=== PATIENT | female | born 1940 | race Caucasian/White ===

== ENCOUNTER → 2017-11-23 | Outpatient (CLI) | payer MEDICARE ==
[~2017-11-23] MED LIST: ASPI-999 PO; CEPH500T PO; IBUP-1779 PO
--- NOTE | 2017-11-23 15:38 | Diagnostic Imaging Report ---
INDICATION: Shoulder pain. Two views were obtained. FINDINGS: There is mild arthrosis of the acromioclavicular joint. There is no fracture or dislocation. Right lung is clear. Soft tissues are unremarkable. IMPRESSION: Mild arthrosis of the acromioclavicular joint, otherwise unremarkable. Dictated by: Dictated on workstation # [id number]
== END ==
LOC: RAD 12:00
PROVIDERS: ATTEND Family Medicine
DX: M19.011 Primary osteoarthritis, right shoulder (principal)
CPT/HCPCS: 73030

== ENCOUNTER → 2017-11-27 | Outpatient (CLI) | payer MEDICARE ==
--- NOTE | 2017-11-27 13:24 | Diagnostic Imaging Report ---
PROCEDURE: MR imaging cervical spine without contrast. TECHNIQUE: Multiplanar, multisequence MR imaging of the cervical spine was performed without contrast. INDICATION: Numbness and soreness in neck for the last year. COMPARISON: There are no prior studies available for comparison. FINDINGS: The T2 sagittal images show the vertebral body heights and alignment to be within normal limits and the intervertebral disc spaces to be fairly well maintained, particularly given the patient's age. There is desiccation of the disc at every level and there is a slight disc bulge eccentric to the left at C6-C7. There is also minimal anterior translation of C6 with respect to C7. The disc narrows the AP diameter of the thecal sac to approximately 10.5 mm. There is mild narrowing of the neuroforamen on the left at this level. There is no evidence for spinal stenosis at the C5-C6 level but there is mild narrowing of the neuroforamen on the left at this level as well. At the C4-C5 level, there is a disc bulge centrally which narrows the AP diameter of the thecal sac to 11 mm. There is also infolding of the ligamentum flavum on the left and this does produce some deformity of the posterolateral aspect of the thecal sac. There does not appear to be any significant central stenosis or neuroforaminal narrowing, however. The remainder of the cervical spine is unremarkable for spinal stenosis or nerve root encroachment. There is no abnormal signal arising from the cord or other vertebral bodies to indicate an acute abnormality. There is a vertebral body hemangioma within T2. There is no sign of a paraspinal mass. The expected carotid and vertebral flow voids are evident bilaterally. The right vertebral artery is dominant. IMPRESSION: 1. There is moderate degenerative disc disease involving the cervical spine. There is no evidence for high-grade central stenosis but there is narrowing of the neuroforamen on the left at C6-C7 and C5-C6. The infolding of the ligamentum flavum on the left at C4-C5 also results in some deformity of the thecal sac. 2. There is no sign of an acute bony abnormality or of a cord lesion. Dictated by: Dictated on workstation # [id number]
== END ==
LOC: RAD 10:08
PROVIDERS: ATTEND Family Medicine
DX: M48.02 Spinal stenosis, cervical region (principal); M99.71 Connective tissue and disc stenosis of intervertebral foramina of cervical region; M50.30 Other cervical disc degeneration, unspecified cervical region
CPT/HCPCS: 72141

== ENCOUNTER 2018-05-24 12:56 | Inpatient (IN) | payer MEDICARE ==
[~2018-05-24] VITALS: Ht 165.1 cm; Wt 99.8 kg
[2018-05-24] MEDS ORDERED: LEVO50TA6 PO (13:39)
[2018-05-24] MEDS ORDERED: PROP10TA8 PO (13:39)
[2018-05-24] MEDS ORDERED: SERT50TA9 PO (13:40)
[2018-05-24] MEDS ORDERED: MEMA10TA2 PO (13:42)
[2018-05-24] MEDS ORDERED: fentaNYL INJECTION 100 MCG/2 ML AMP IVP ONE (14:00)
--- NOTE | 2018-05-24 14:03 | ED General ---
General Chief Complaint: General Problems/Pain Stated Complaint: SEVERE R LEG PAIN Nursing Triage Note: AMB TO ROOM WITH DAUGHTER C/O PAIN IN R HIP WITH RADIATION TO R GROIN AND THIGH. Nursing Sepsis Screen: No Definite Risk Source of Information: Patient Exam Limitations: No Limitations History of Present Illness Date Seen by Provider: May 24, 2018 Time Seen by Provider: 14:01 Initial Comments To ER with right anterior groin pain. This began yesterday when twisting to get out of the car. Pain is excruciating and worsens with flexion of the hip on the right. She had similar pain years ago from an injury and ultimately it was determined that she had a partial tear of the right psoas muscle. She also reports that she's had some swelling and heaviness to bilateral lower extremities since 22 April associated with intermittent chest pain, dyspnea on exertion. Her most recent bout of chest pain was in the car on the way down here, the chest pain is in the center of her chest and radiates through to her back and up to her jaws. It lasted about 30 minutes and resolved spontaneously. Timing/Duration: Intermittent Severity: Moderate Modifying Factors: worse with Movement Associated Systoms: Chest Pain Allergies and Home Medications Allergies Coded Allergies: No Known Drug Allergies (Unverified , 02/06/15) Home Medications Aspirin 81 Mg Tab.chew, 81 MG PO DAILY, (Reported) Ibuprofen 400 Mg Tablet, 400 MG PO DAILY, (Reported) Propranolol HCl 10 Mg Tablet, 10 MG PO BID, (Reported) Patient Home Medication List Home Medication List Reviewed: Yes Review of Systems Review of Systems Constitutional: see HPI; No chills, No fever EENTM: see HPI Respiratory: see HPI, dyspnea on exertion, short of breath Cardiovascular: see HPI, chest pain Genitourinary: no symptoms reported Musculoskeletal: no symptoms reported Skin: no symptoms reported Psychiatric/Neurological: No Symptoms Reported Hematologic/Lymphatic: No Symptoms Reported Immunological/Allergic: no symptoms reported Past Jbaehuu-Mnqusj-Goscuk Hx Patient Social History Alcohol Use: Denies Use Recreational Drug Use: No Smoking Status: Never a Smoker Recent Foreign Travel: No Contact w/Someone Who Travel: No Recent Infectious Disease Expo: No Past Medical History Surgeries: No Bladder Surgery, Gallbladder, Hysterectomy Cardiac: No Neurological: Yes Dementia, Parkinson's Disease Reproductive Disorders: No Gastrointestinal: No Endocrine: Yes Hypothyroidsim Cancer: No Psychosocial: No Family Medical History Heart Disease, Hypertension Physical Exam Vital Signs Vital Signs - First Documented 05/24/18 13:11 Temp 98.9 Pulse 78 Resp 18 B/P (MAP) 142/69 (93) Capillary Refill : Less Than 3 Seconds Height, Weight, BMI Height: 5'5.00" Weight: 220lbs. oz. [id number]; BMI Method:Stated General Appearance: No Apparent Distress, WD/WN Eyes: Bilateral Eye Normal Inspection, Bilateral Eye PERRL, Bilateral Eye EOMI HEENT: PERRL/EOMI, TMs Normal Respiratory: Normal Breath Sounds, No Accessory Muscle Use, No Respiratory Distress Gastrointestinal: Normal Bowel Sounds, Non Tender, Soft Extremity: Normal Capillary Refill, Normal Inspection, Other (tenderness to palpation right groin. There is +1-+2 pitting edema bilateral lower extremities) Neurologic/Psychiatric: Alert, Oriented x3 Skin: Normal Color, Warm/Dry Progress/Results/Core Measures Suspected Sepsis Recent Fever Within 48 Hours: No Infection Criteria Present: None New/Unexplained Altered Menta: No Sepsis Screen: No Definite Risk SIRS Temperature:98.9 Pulse: 78 Respiratory Rate: 18 Laboratory Tests 05/24/18 14:30: White Blood Count 10.3 Blood Pressure 142 /69 Mean: 93 Laboratory Tests 05/24/18 14:30: Creatinine 1.08, Platelet Count 220, Total Bilirubin 0.4 Results/Orders Lab Results Laboratory Tests Test 05/24/18 14:30 Range/Units White Blood Count 10.3 4.3-11.0 10^3/uL Red Blood Count 4.15 L 4.35-5.85 10^6/uL Hemoglobin 13.4 11.5-16.0 G/DL Hematocrit 40 35-52 % Mean Corpuscular Volume 97 80-99 FL Mean Corpuscular Hemoglobin 32 25-34 PG Mean Corpuscular Hemoglobin Concent 33 32-36 G/DL Red Cell Distribution Width 13.2 10.0-14.5 % Platelet Count 220 130-400 10^3/uL Mean Platelet Volume 9.6 7.4-10.4 FL Neutrophils (%) (Auto) 74 42-75 % Lymphocytes (%) (Auto) 16 12-44 % Monocytes (%) (Auto) 8 0-12 % Eosinophils (%) (Auto) 2 0-10 % Basophils (%) (Auto) 0 0-10 % Neutrophils # (Auto) 7.6 1.8-7.8 X 10^3 Lymphocytes # (Auto) 1.7 1.0-4.0 X 10^3 Monocytes # (Auto) 0.8 0.0-1.0 X 10^3 Eosinophils # (Auto) 0.2 0.0-0.3 10^3/uL Basophils # (Auto) 0.0 0.0-0.1 10^3/uL Sodium Level 138 135-145 MMOL/L Potassium Level 4.3 3.6-5.0 MMOL/L Chloride Level 106 98-107 MMOL/L Carbon Dioxide Level 20 L 21-32 MMOL/L Anion Gap 12 5-14 MMOL/L Blood Urea Nitrogen 18 7-18 MG/DL Creatinine 1.08 0.60-1.30 MG/DL Estimat Glomerular Filtration Rate 49 BUN/Creatinine Ratio 17 Glucose Level 90 70-105 MG/DL Calcium Level 9.4 8.5-10.1 MG/DL Corrected Calcium 9.5 8.5-10.1 MG/DL Total Bilirubin 0.4 0.1-1.0 MG/DL Aspartate Amino Transf (AST/SGOT) 23 5-34 U/L Alanine Aminotransferase (ALT/SGPT) 14 0-55 U/L Alkaline Phosphatase 124 40-136 U/L Troponin I < 0.30 <0.30 NG/ML B-Type Natriuretic Peptide 96.7 <100.0 PG/ML Total Protein 6.8 6.4-8.2 GM/DL Albumin 3.9 3.2-4.5 GM/DL Thyroid Stimulating Hormone (TSH) 3.13 0.35-4.94 UIU/ML Free Thyroxine 0.93 0.70-1.48 NG/DL My Orders Orders - GURPREET COTTON APRN Ekg Tracing (05/24/18 13:59) Troponin I (05/24/18 13:59) Cbc With Automated Diff (05/24/18 13:59) Comprehensive Metabolic Panel (05/24/18 13:59) Ua Culture If Indicated (05/24/18 13:59) BNP (05/24/18 13:59) Thyroid Stimulating Hormone (05/24/18 13:59) Free T4 (Free Thyroxine) (05/24/18 13:59) Iv Heplock-Insert (Order) (05/24/18 13:59) Fentanyl Injection (Sublimaze Injection (05/24/18 14:00) Ct Abdomen/Pelvis W (05/24/18 13:59) Ns Iv 500 Ml (Sodium Chloride 0.9%) (05/24/18 15:15) Iohexol Injection (Omnipaque 350 Mg/Ml 1 (05/24/18 15:30) Contrast Received (Contrast Received) (05/24/18 15:30) Ns (Ivpb) (Sodium Chloride 0.9%) (05/24/18 15:30) Hydrocodone/Apap 5/325 Tablet (Lortab 5 (05/24/18 16:00) Chest 1 View, Ap/Pa Only (05/24/18 15:49) Medications Given in ED Current Medications Medications Dose Ordered Sig/Eldon Route Start Time Stop Time Status Last Admin Dose Admin Acetaminophen/ Hydrocodone Bitart 1 tab ONCE ONCE PO 05/24/18 16:00 05/24/18 16:01 DC 05/24/18 15:59 1 TAB Fentanyl Citrate 50 mcg ONCE ONCE IVP 05/24/18 14:00 05/24/18 14:02 DC 05/24/18 14:26 50 MCG Iohexol 100 ml ONCE ONCE IV 05/24/18 15:30 05/24/18 15:33 DC 05/24/18 15:29 100 ML Sodium Chloride 250 ml ONCE ONCE IV 05/24/18 15:30 05/24/18 15:34 DC 05/24/18 15:29 80 ML Vital Signs/I&O 05/24/18 13:11 Temp 98.9 Pulse 78 Resp 18 B/P (MAP) 142/69 (93) Capillary Refill : Less Than 3 Seconds Blood Pressure Mean: 93 Diagnostic Imaging Comments NAME: [facility] REC#: [id number] PT STATUS: REG ER : 1940 PHYSICIAN: GURPREET COTTON APRN ADMIT DATE: 05/24/18/ER Draft Date of Exam:05/24/18 CT ABDOMEN/PELVIS W PROCEDURE: CT abdomen and pelvis with contrast. TECHNIQUE: Multiple contiguous axial images were obtained through the abdomen and pelvis after administration of intravenous contrast. INDICATION: Right groin pain. Right hip and femur pain. COMPARISON: None. FINDINGS: There is airspace opacity in the dependent lungs bilaterally, and at the lung bases, thought to represent atelectasis although underlying infiltrate is difficult to exclude. The cardiac silhouette is normal in size. No pericardial effusion is seen. Cholecystectomy clips are noted. No focal hepatic lesions are seen. There are areas of decreased attenuation in the liver which likely represent fatty infiltration. The spleen appears normal. There is a small hiatal hernia. The pancreas appears normal. The common bile duct is dilated, likely due to post cholecystectomy changes. The adrenal glands appear normal. The kidneys demonstrate no focal masses. There is no hydronephrosis. The appendix is not seen. There is moderate stool throughout the colon. No free fluid or free air is seen in the abdomen. No lymphadenopathy is seen. There is no bowel obstruction. There is mild atherosclerosis in the aorta. No acute osseous abnormality is seen. IMPRESSION: 1. No acute abdominopelvic abnormality is seen. 2. Small hiatal hernia. Dictated on workstation # [id number] Dict: 05/24/18 1548 Trans: 05/24/18 1559 [id number] Interpreted by: RAMONE NEGRON MD Electronically signed by: Departure Communication (Admissions) Time/Spoke to Admitting Phy: 16:[address] Ash. Would recommend admission for observation and cardiac workup. Spoke with Dr. Dr. Springer. We will admit, consult cardiology. Impression Primary Impression: Chest pain Additional Impressions: Pedal edema Activity intolerance related to fatigue Right inguinal pain Disposition: ADMITTED INPATIENT Condition: Stable Admissions Decision to Admit Reason: Admit from ER (General) Decision to Admit/Date: May 24, 2018 Time/Decision to Admit Time: 16:49 Departure-Patient Inst. Referrals: ANNIE SPRINGER MD (PCP/Family) Primary Care Physician GURPREET COTTON APRN May 24, 2018 14:03
[2018-05-24 14:55] LABS: BASOPHILS % (AUTO) 0 % (0-10); EOSINOPHILS # (AUTO) 0.2 10^3/uL (0.0-0.3); EOSINOPHILS % (AUTO) 2 % (0-10); HEMATOCRIT 40 % (35-52); HEMOGLOBIN 13.4 G/DL (11.5-16.0); LYMPHOCYTES # (AUTO) 1.7 X 10^3 (1.0-4.0); LYMPHOCYTES % (AUTO) 16 % (12-44); MEAN CORPUSCULAR HEMOGLOBIN 32 PG (25-34); MEAN CORPUSCULAR HGB CONC 33 G/DL (32-36); MEAN CORPUSCULAR VOLUME 97 FL (80-99); MEAN PLATELET VOLUME 9.6 FL (7.4-10.4); MONOCYTES # (AUTO) 0.8 X 10^3 (0.0-1.0); MONOCYTES % (AUTO) 8 % (0-12); NEUTROPHILS # (AUTO) 7.6 X 10^3 (1.8-7.8); NEUTROPHILS % (AUTO) 74 % (42-75); PLATELET COUNT 220 10^3/uL (130-400); RED BLOOD COUNT 4.15 10^6/uL (4.35-5.85); RED CELL DISTRIBUTION WIDTH 13.2 % (10.0-14.5); WHITE BLOOD COUNT 10.3 10^3/uL (4.3-11.0)
[2018-05-24 15:12] LABS: ALANINE AMINOTRANSFERASE 14 U/L (0-55); ALBUMIN 3.9 GM/DL (3.2-4.5); ALKALINE PHOSPHATASE 124 U/L (40-136); BILIRUBIN,TOTAL 0.4 MG/DL (0.1-1.0); BUN/CREATININE RATIO 17; CALCIUM 9.4 MG/DL (8.5-10.1); CARBON DIOXIDE 20 MMOL/L (21-32); CHLORIDE 106 MMOL/L (98-107); CREATININE SERUM 1.08 MG/DL (0.60-1.30); GFR ESTIMATED 49; GLUCOSE 90 MG/DL (70-105); POTASSIUM 4.3 MMOL/L (3.6-5.0); SODIUM 138 MMOL/L (135-145); TOTAL PROTEIN 6.8 GM/DL (6.4-8.2)
[2018-05-24] MEDS ORDERED: NS IV 500 ML 500 ML IV SCH (15:15)
[2018-05-24] MEDS ORDERED: RECEIVED CONTRAST (Hold Metformin) IV SCH (15:30)
[2018-05-24] MEDS ORDERED: IOHEXOL 350 MG/ML 100 ML (OMNIPAQUE 350) VIAL IV ONE (15:30)
[2018-05-24] MEDS ORDERED: NS 250 ML (IVPB) BAG IV ONE (15:30)
[2018-05-24 15:33] LABS: FREE T4 (FREE THYROXINE) 0.93 NG/DL (0.70-1.48)
[2018-05-24] MEDS ORDERED: HYDROcodone/APAP 5 MG/325 MG (LORTAB) TAB PO ONE (16:00)
--- NOTE | 2018-05-24 16:00 | Diagnostic Imaging Report ---
PROCEDURE: CT abdomen and pelvis with contrast. TECHNIQUE: Multiple contiguous axial images were obtained through the abdomen and pelvis after administration of intravenous contrast. INDICATION: Right groin pain. Right hip and femur pain. COMPARISON: None. FINDINGS: There is airspace opacity in the dependent lungs bilaterally, and at the lung bases, thought to represent atelectasis although underlying infiltrate is difficult to exclude. The cardiac silhouette is normal in size. No pericardial effusion is seen. Cholecystectomy clips are noted. No focal hepatic lesions are seen. There are areas of decreased attenuation in the liver which likely represent fatty infiltration. The spleen appears normal. There is a small hiatal hernia. The pancreas appears normal. The common bile duct is dilated, likely due to post cholecystectomy changes. The adrenal glands appear normal. The kidneys demonstrate no focal masses. There is no hydronephrosis. The appendix is not seen. There is moderate stool throughout the colon. No free fluid or free air is seen in the abdomen. No lymphadenopathy is seen. There is no bowel obstruction. There is mild atherosclerosis in the aorta. No acute osseous abnormality is seen. IMPRESSION: 1. No acute abdominopelvic abnormality is seen. 2. Small hiatal hernia. Dictated by: Dictated on workstation # [id number]
--- NOTE | 2018-05-24 16:36 | Diagnostic Imaging Report ---
PATIENT HISTORY: Pain in the right hip and thigh. TECHNIQUE: Frontal view of the chest. COMPARISON: None. FINDINGS: Lung volumes are mildly large. There are diffuse interstitial opacities in the lungs bilaterally. There is mild cardiomegaly. No focal airspace consolidation is seen. There is no significant pleural effusion or pneumothorax. No acute osseous abnormalities seen. IMPRESSION: 1. Mild cardiomegaly with diffuse interstitial opacities bilaterally. These may be chronic versus mild interstitial edema. Dictated by: Dictated on workstation # [id number]
[2018-05-24] MEDS ORDERED: ENOXAPARIN 100 MG/1 ML (LOVENOX) SYR SC SCH (17:00)
--- NOTE | 2018-05-24 17:01 | Consultation-Cardiology ---
HPI-Cardiology Cardiology Consultation Date of Consultation 05/24/18 Date of Admission Time Seen by Provider: 16:56 Indication: chest pain HPI 78 years old lady with history of early Parkinson, family history of heart disease, has been having pain in her right groin reported discomfort with motion , weakness in her right leg secondary to the pain. Has been progressing to the point that she needed to come to the emergency room for evaluation. She has been having mild pedal edema, reporting occasional episodes of chest pain described as dull achiness in the retrosternal area occasionally on the left side of her chest radiating to the back and jaw. No palpitation. No syncope or near syncopal episode, had an episode of chest pain lasted for few minutes on her way to the emergency room today. Currently laying down comfortably, denied any active pain except her right groin pain, had a CT scan of the abdomen and pelvis which was negative. Home Medications & Allergies Allergies: Coded Allergies: No Known Drug Allergies (Unverified , 02/06/15) Home Medication List Reviewed: Yes HGG-Hzzufo-Wcsjon Hx Patient Social History Marital Status: Employed/Student: retired Alcohol Use: Denies Use Recreational Drug Use: No Smoking Status: Never a Smoker Recent Foreign Travel: No Recent Infectious Disease Expo: No Past Medical History History of cholecystectomy Parkinson Early dementia Family Medical History Significant Family History: Heart Disease, Hypertension Family Medical Hx Both parent has history of heart disease, father and mother in their late 80s Review of Systems Constitutional: see HPI, malaise EENTM: see HPI, no symptoms reported Respiratory: see HPI; No cough; dyspnea on exertion; No hemoptysis, No orthopnea, No phlegm, No short of breath, No stridor, No wheezing, No other Cardiovascular: see HPI, chest pain, edema; No Hx of Intervention, No palpitations, No syncope, No vascular heart diseas, No other Gastrointestinal: RUQ, see HPI, abdominal pain Genitourinary: no symptoms reported, see HPI Musculoskeletal: see HPI, back pain, joint pain, muscle pain, muscle weakness Skin: no symptoms reported, see HPI Psychiatric/Neurological: No Symptoms Reported, See HPI Reviewed Test Results Reviewed Test Results Lab Laboratory Tests Test 05/24/18 14:30 Range/Units White Blood Count 10.3 4.3-11.0 10^3/uL Red Blood Count 4.15 L 4.35-5.85 10^6/uL Hemoglobin 13.4 11.5-16.0 G/DL Hematocrit 40 35-52 % Mean Corpuscular Volume 97 80-99 FL Mean Corpuscular Hemoglobin 32 25-34 PG Mean Corpuscular Hemoglobin Concent 33 32-36 G/DL Red Cell Distribution Width 13.2 10.0-14.5 % Platelet Count 220 130-400 10^3/uL Mean Platelet Volume 9.6 7.4-10.4 FL Neutrophils (%) (Auto) 74 42-75 % Lymphocytes (%) (Auto) 16 12-44 % Monocytes (%) (Auto) 8 0-12 % Eosinophils (%) (Auto) 2 0-10 % Basophils (%) (Auto) 0 0-10 % Neutrophils # (Auto) 7.6 1.8-7.8 X 10^3 Lymphocytes # (Auto) 1.7 1.0-4.0 X 10^3 Monocytes # (Auto) 0.8 0.0-1.0 X 10^3 Eosinophils # (Auto) 0.2 0.0-0.3 10^3/uL Basophils # (Auto) 0.0 0.0-0.1 10^3/uL Sodium Level 138 135-145 MMOL/L Potassium Level 4.3 3.6-5.0 MMOL/L Chloride Level 106 98-107 MMOL/L Carbon Dioxide Level 20 L 21-32 MMOL/L Anion Gap 12 5-14 MMOL/L Blood Urea Nitrogen 18 7-18 MG/DL Creatinine 1.08 0.60-1.30 MG/DL Estimat Glomerular Filtration Rate 49 BUN/Creatinine Ratio 17 Glucose Level 90 70-105 MG/DL Calcium Level 9.4 8.5-10.1 MG/DL Corrected Calcium 9.5 8.5-10.1 MG/DL Total Bilirubin 0.4 0.1-1.0 MG/DL Aspartate Amino Transf (AST/SGOT) 23 5-34 U/L Alanine Aminotransferase (ALT/SGPT) 14 0-55 U/L Alkaline Phosphatase 124 40-136 U/L Troponin I < 0.30 <0.30 NG/ML B-Type Natriuretic Peptide 96.7 <100.0 PG/ML Total Protein 6.8 6.4-8.2 GM/DL Albumin 3.9 3.2-4.5 GM/DL Thyroid Stimulating Hormone (TSH) 3.13 0.35-4.94 UIU/ML Free Thyroxine 0.93 0.70-1.48 NG/DL Physical Exam Vital Signs Vital Signs - First Documented 05/24/18 13:11 Temp 98.9 Pulse 78 Resp 18 B/P (MAP) 142/69 (93) Capillary Refill : Less Than 3 Seconds Height, Weight, BMI Height: 5'5.00" Weight: 220lbs. oz. 99.736306hc; BMI Method:Stated General Appearance: No Apparent Distress, WD/WN Eyes: Bilateral Eye Normal Inspection, Bilateral Eye PERRL, Bilateral Eye EOMI HEENT: PERRL/EOMI, TMs Normal, Normal ENT Inspection, Pharynx Normal Neck: Full Range of Motion, Normal Inspection, Non Tender, Supple, Carotid Bruit Respiratory: Chest Non Tender, Lungs Clear, Normal Breath Sounds, No Accessory Muscle Use, No Respiratory Distress Cardiovascular: Regular Rate, Rhythm, No Edema, No Gallop, No JVD, No Murmur, Normal Peripheral Pulses Gastrointestinal: Normal Bowel Sounds, No Organomegaly, No Pulsatile Mass, Soft , Other (epigastric and right upper quadrant discomfort) Back: Normal Inspection, No CVA Tenderness, No Vertebral Tenderness Extremity: Normal Capillary Refill, Normal Inspection, Normal Range of Motion, Non Tender, No Calf Tenderness, Pedal Edema (mild pedal edema), Other (pain and discomfort in the right groin) Neurologic/Psychiatric: Alert, Oriented x3, No Motor/Sensory Deficits, Normal Mood/Affect Skin: Normal Color, Warm/Dry Lymphatic: No Adenopathy A/P-Cardiology Admission Diagnosis Chest pain Shortness of breath Pedal edema Leg pain Assessment/Plan Chest pain nonspecific etiology, atypical in presentation. Increasing dyspnea on exertion. EKG and cardiac enzymes were normal, planning to evaluate stress test, continue to monitor cardiac enzymes and EKG Mild pedal edema, BNP is normal, questionable venous insufficiency, planning to evaluate venous Doppler, started on Lovenox empirically at this time Hypertension, usually her blood pressure is normal, she takes propranolol for mild tremor. Restart and monitor. Mild epigastric pain and right upper quadrant pain, history of cholecystectomy in the past. Start PPI and monitor Mild tremor for which she takes propranolol Early dementia, maintained on Namenda History of cholecystectomy HOLLIS BARRIOS MD May 24, 2018 17:01
[2018-05-24 17:11] LABS: BILIRUBIN,URINE NEGATIVE (NEGATIVE); CLARITY,URINE CLEAR; COLOR,URINE YELLOW; GLUCOSE, URINE (UA) NEGATIVE (NEGATIVE); KETONES,URINE NEGATIVE (NEGATIVE); LEUKOCYTE ESTERASE ,URINE NEGATIVE (NEGATIVE); NITRITE,URINE NEGATIVE (NEGATIVE); PH,URINE 6 (5-9); PROTEIN,URINE NEGATIVE (NEGATIVE); UROBILINOGEN,URINE NORMAL (NORMAL)
[2018-05-24 17:25] LABS: BACTERIA,URINE NEGATIVE /HPF
[2018-05-24 17:30] VITALS: BP 139/68
[2018-05-24] MEDS: NS IV 1000 ML 1,000 ML IV SCH (19:56)
[2018-05-24 20:00] VITALS: BP 139/68
--- OUTSIDE RECORDS SUMMARY | 2018-05-24 20:29 | XMS REPORT | Clinical Summary ---
Author Author [facility] Organization [facility] Address Unknown Phone Unavailable Care Team Providers Care Early Education Teacher Name Role Phone Eula Springer MD PCP Source Comments Some departments are not documenting in the electronic medical record. If you do not see the information that you expected, contact Release of Information in the Health Information Management department at [phone] for further assistance in locating additional records.[facility] Allergies Active Allergy Reactions Severity Noted Date Comments Morphine UNKNOWN Low 04/28/2016 Current Medications Prescription Sig. Disp. Refills Start End Date Status Date levothyroxine (SYNTHROID) Take 50 mcg by mouth Active 50 mcg tablet daily 30 minutes before breakfast. carbidopa/levodopa Take 1 Tab by mouth twice Active (SINEMET) 25/100 mg daily. tablet ERGOCALCIFEROL (VITAMIN Take 5,000 Units by mouth Active D2) (VITAMIN D PO) daily. aspirin EC 81 mg tablet Take 81 mg by mouth Active daily. Take with food. MULTIVITAMIN PO Take by mouth daily. Active sertraline (ZOLOFT) 50 mg Take 1 Tab by mouth 30 Tab 5 04/28/20 Active tabletIndications: daily. Indications: 16 Anxiety with Depression ANXIETY WITH DEPRESSION Active Problems No known active problems Family History Medical History Relation Name Comments Stroke Father Thyroid Disease Father Hypertension Mother Other Mother renal failure Thyroid Disease Mother Relation Name Status Comments Father Mother Social History Tobacco Use Types Packs/Day Years Used Date Never Smoker Smokeless Tobacco: Never Used Alcohol Use Drinks/Week oz/Week Comments Yes 0 Standard 0.0 rare occassions drinks or equivalent Sex Assigned at Date Recorded Not on file Last Filed Vital Signs Vital Sign Reading Time Taken Blood Pressure 137/75 04/28/2016 12:53 PM [facility] Pulse 99 04/28/2016 12:53 PM [employer] Temperature - - Respiratory Rate - - Oxygen Saturation - - Inhaled Oxygen - - Concentration Weight 91.2 kg (201 lb) 04/28/2016 12:53 PM [employer] Height 165.1 cm (5' 5") 04/28/2016 12:53 PM [employer] Body Mass Index 33.45 04/28/2016 12:53 PM [employer] Plan of Treatment Health Maintenance Due Date Last Done Comments PHYSICAL (COMPREHENSIVE) 1947 EXAM DTAP/TDAP VACCINES (1 - 1958 Tdap) SHINGLES RECOMBINANT 1990 VACCINE (1 of 2) OSTEOPOROSIS 2005 SCREENING/MONITORING PNEUMONIA (PCV13/PPSV23) 2005 VACCINES (1 of 2 - PCV13) INFLUENZA VACCINE 01/20/2018 Results Not on filefrom Last 3 Months
--- OUTSIDE RECORDS SUMMARY | 2018-05-24 20:30 | XMS REPORT | CCD ---
Author Author [facility]ula [facility] Organization [facility] Address [address] [place] [address] Phone Care Team Providers Care Dermatologist And Dermatopathologist Name Role Phone PP Unavailable CCM Unavailable Summary Purpose Interface Exchange Insurance Providers Payer name Policy type / Coverage type Covered green party ID Effective Begin Date Effective End Date WPS Medicare Part B Medicare Part B [id number] Unknown Unknown [facility] Medicare Part B [id number] Unknown Unknown Family history Daughter Diagnosis Age At Onset graves disease Unknown Father Diagnosis Age At Onset Diabetes mellitus Type 2 Unknown Coronary Artery Disease Unknown Stroke Unknown Mother Diagnosis Age At Onset Coronary Artery Disease Unknown Diabetes mellitus Type 2 Unknown Dementia Unknown Social History Social History Element Codes Description Effective Dates Marital status Unknown 03/27/2015 Number of children Unknown 4 03/27/2015 Living arrangements Unknown House 03/27/2015 Employment Unknown Retired 03/27/[address]: 716018858 Never smoker - but had extensive smoke exposure during marriage [address]: 586562099 Never drinks alcohol 03/27/2015 Allergies, Adverse Reactions, Alerts Substance Reaction Codes Entered Date Inactivated Date Status * NO KNOWN DRUG ALLERGIES Unknown 03/27/2015 No Inactive Date Active Past Medical History Illness Codes Condition Status Onset Date Resolved Date 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 Active 04/02/2016 Unknown Mild cognitive impairment, so stated ICD-9: 331.83 ICD-10: G31.84 Active 04/02/2016 Unknown Pain in right hip ICD- 9: 719.45 ICD-10: M25.551 Active 07/22/2017 Unknown Parkinson's disease ICD-9: 332.0 ICD-10: G20 Active 02/20/2016 Unknown Encounter for general adult medical examination with abnormal findings ICD-9: V70.0 ICD-10: Z00.01 Active 03/30/2017 Unknown Cervicalgia ICD-9: 723.1 ICD-10: M54.2 Active 11/23/2017 Unknown Muscle weakness (generalized) ICD-9: 728.87 ICD-10: M62.81 Active 11/23/2017 Unknown Pain in right shoulder ICD-9: 719.41 ICD-10: M25.511 Active 11/23/2017 Unknown Carpal tunnel syndrome, bilateral upper limbs ICD-9: 354.0 ICD-10: G56.03 Active 07/22/2017 Unknown Essential tremor ICD-9 : 333.1 ICD-10: G25.0 Active 07/11/2015 Unknown Encounter for immunization ICD-9: V03.82 ICD-10: Z23 Active 03/30/2017 Unknown Bicipital tendinitis, right shoulder ICD-9: 726.12 ICD-10: M75.21 Active 03/23/2017 Unknown Encounter for immunization ICD-9: V03.9 ICD-10: Z23 Active 03/23/2017 Unknown Other vitamin B12 deficiency anemias ICD-9: 281.1 ICD-10: D51.8 Active 03/23/2017 Unknown Vitamin B12 deficiency anemia due to intrinsic factor deficiency ICD-9: 281.0 ICD-10: D51.0 Active 07/11/2015 Unknown Vitamin D deficiency, unspecified ICD-9: 268.9 ICD-10: E55.9 Active 03/23/2017 Unknown Encounter for screening mammogram for malignant neoplasm of breast ICD-9: V76.12 ICD-10: Z12.31 Active 04/02/2016 Unknown Encounter for immunization ICD-9: V04.81 ICD-10: Z23 Active 02/20/2016 Unknown Hypothyroidism, unspecified ICD-9: 244.9 ICD-10: E03.9 Active 02/20/2016 Unknown Disorder of bone, unspecified ICD-9: 733.90 ICD-10: M89.9 Active 07/11/2015 Unknown 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-9: 307.7 ICD-10: F98.1 Active 07/11/2015 Unknown Sciatica Unknown Active 03/27/2015 Unknown Lumbago with sciatica, unspecified side ICD-9: 724.3 ICD-10: M54.40 Active 03/26/2015 Unknown Pain in left hip ICD-9 : 719.45 ICD-10: M25.552 Active 03/26/2015 Unknown Problems Condition Codes Effective Dates Condition Status 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 04/02/2016 Active Mild cognitive impairment, so stated ICD-9: 331.83 ICD-10: G31.84 04/02/2016 Active Pain in right hip ICD- 9: 719.45 ICD-10: M25.551 07/22/2017 Active Parkinson's disease ICD-9: 332.0 ICD-10: G20 02/20/2016 Active Encounter for general adult medical examination with abnormal findings ICD-9: V70.0 ICD-10: Z00.01 03/30/2017 Active Cervicalgia ICD-9: 723.1 ICD-10: M54.2 11/23/2017 Active Muscle weakness (generalized) ICD-9: 728.87 ICD-10: M62.81 11/23/2017 Active Pain in right shoulder ICD-9: 719.41 ICD-10: M25.511 11/23/2017 Active Carpal tunnel syndrome, bilateral upper limbs ICD-9: 354.0 ICD-10: G56.03 07/22/2017 Active Essential tremor ICD-9 : 333.1 ICD-10: G25.0 07/11/2015 Active Encounter for immunization ICD-9: V03.82 ICD-10: Z23 03/30/2017 Active Bicipital tendinitis, right shoulder ICD-9: 726.12 ICD-10: M75.21 03/23/2017 Active Encounter for immunization ICD-9: V03.9 ICD-10: Z23 03/23/2017 Active Other vitamin B12 deficiency anemias ICD-9: 281.1 ICD-10: D51.8 03/23/2017 Active Vitamin B12 deficiency anemia due to intrinsic factor deficiency ICD-9: 281.0 ICD-10: D51.0 07/11/2015 Active Vitamin D deficiency, unspecified ICD-9: 268.9 ICD-10: E55.9 03/23/2017 Active Encounter for screening mammogram for malignant neoplasm of breast ICD-9: V76.12 ICD-10: Z12.31 04/02/2016 Active Encounter for immunization ICD-9: V04.81 ICD-10: Z23 02/20/2016 Active Hypothyroidism, unspecified ICD-9: 244.9 ICD-10: E03.9 02/20/2016 Active Disorder of bone, unspecified ICD-9: 733.90 ICD-10: M89.9 07/11/2015 Active 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-9: 307.7 ICD-10: F98.1 07/11/2015 Active Sciatica Unknown 03/27/2015 Active Lumbago with sciatica, unspecified side ICD-9: 724.3 ICD-10: M54.40 03/26/2015 Active Pain in left hip ICD-9 : 719.45 ICD-10: M25.552 03/26/2015 Active Medications Medication Codes Instructions Start Date Stop Date Status Fill Instructions propranolol 10 mg tablet RxNorm: 836508 1 Tablet(s) BID (for tremors) 05/04/2018 No Stop Date Active Namenda 10 mg tablet RxNorm: 157554 1 Tablet(s) PO BID 201707/07/2019 Active levothyroxine 50 mcg tablet RxNorm: 003449 TAKE 1 TABLET BY MOUTH ONCE DAILY 02/24/2018 No Stop Date Active Namenda 10 mg tablet RxNorm: 530650 1 Tablet(s) PO BID 201704/13/2018 Inactive propranolol 10 mg tablet RxNorm: 221094 Tablet(s) 1/2 tablet in morning, 1/2 at noon and 1 at hs (for tremors) 12/22/2017 05/03/2018 Inactive Namenda 10 mg tablet RxNorm: 278690 1 Tablet(s) PO BID 201701/17/2018 Inactive Namenda 10 mg tablet RxNorm: 204184 1 Tablet(s) PO BID start with 1/2 tab hs x1wk then 1/2 tab bid x 1wk then 1/2 AM and 1 hs x 1wk then 1 bid thereafter 11/23/2017 12/21/2017 Inactive Zoloft 50 mg tablet RxNorm: 662786 TAKE ONE TABLET BY MOUTH ONCE DAILY 11/03/2017 No Stop Date Active propranolol 10 mg tablet RxNorm: 129483 TAKE ONE TABLET BY MOUTH TWICE DAILY 09/02/2017 12/21/2017 Inactive levothyroxine 50 mcg tablet RxNorm: 075862 TAKE ONE TABLET BY MOUTH ONCE DAILY 08/21/2017 02/23/2018 Inactive propranolol 10 mg tablet RxNorm: 989816 1 Tablet(s) PO BID 06/201608/14/2017 Inactive Zoloft 50 mg tablet RxNorm: 152413 1 Tablet(s) PO daily 201608/14/2017 Inactive levothyroxine 50 mcg tablet RxNorm: 578328 1 Tablet(s) PO daily 08/20/2016 08/14/2017 Inactive propranolol 10 mg tablet RxNorm: 113692 1 Tablet(s) PO BID 08/19/2016 Inactive levothyroxine 50 mcg tablet RxNorm: 569614 1 Tablet(s) PO daily 06/06/2016 08/19/2016 Inactive Sinemet 25 mg-100 mg tablet RxNorm: 460636 1 Tablet(s) PO BID 0900 and 1700 03/18/2016 06/02/2016 Inactive Sinemet 25 mg-100 mg tablet RxNorm: 336125 1 Tablet(s) PO BID 0900 and 1700 02/21/2016 03/17/2016 Inactive levothyroxine 50 mcg tablet RxNorm: 512567 1 Tablet(s) PO daily 10/22/2015 05/18/2016 Inactive Vitamin D2 50,000 unit capsule RxNorm: 729182 1 Capsule(s) PO QW x12 and take vit d 5000 u DAILY 10/22/2015 02/20/2016 Inactive Vitamin D2 50,000 unit capsule RxNorm: 339911 1 Capsule(s) PO QW x12 and take vit d 5000 u DAILY 07/31/2015 07/30/2015 Inactive levothyroxine 25 mcg tablet RxNorm: 910354 1 Tablet(s) PO daily 07/31/2015 10/21/2015 Inactive Vitamin D2 50,000 unit capsule RxNorm: 954150 1 Capsule(s) PO QW x12 and take vit d 5000 u DAILY 07/31/2015 10/21/2015 Inactive levothyroxine 25 mcg tablet RxNorm: 665115 1 Tablet(s) PO daily 07/31/2015 07/30/2015 Inactive Voltaren 1 % topical gel RxNorm: 180091 2 Gram(s) TOP QID to right hip/groin and right chest wall 07/12/2015 09/09/2015 Inactive ibuprofen oral RxNorm : 5640 oral No Start Date Active aspirin, buffered 81 mg tablet RxNorm: 502491 1 Tablet(s) PO daily No Start Date Active Vitamin D3 5,000 unit tablet RxNorm: 446724 1 Tablet(s) PO daily No Start Date Active multivitamin tablet RxNorm: 1 Tablet(s) PO daily No Start Date Active Vitamin B-12 1,000 mcg tablet RxNorm: 936113 1 Tablet(s) PO daily No Start Date Active Zoloft 50 mg tablet RxNorm: 163473 1 Tablet(s) PO daily No Start Date 08/19/2016 Inactive Medication Administered No Medication Administered data Immunizations Vaccine Codes Date Status Pneumococcal (Adult) CVX: 133 03/30/2017 completed Influenza CVX: 141 03/23/2017 completed Influenza CVX: 141 02/21/2016 completed Assessments Condition Codes Effective Dates Pain in right hip ICD-10: M25.551 ICD-9: 719.45 05/04/2018 Parkinson's disease ICD-10: G20 ICD-9: 332.0 05/04/2018 Mild cognitive impairment, so stated ICD-10: G31.84 ICD-9: 331.83 05/04/2018 Atrophy of thyroid (acquired) ICD-10: E03.4 ICD-9: 244.8 05/04/2018 Encounter for general adult medical examination with abnormal findings ICD-10: Z00.01 ICD-9: V70.0 04/14/2018 Pain in right shoulder ICD-10: M25.511 ICD-9: 719.41 11/23/2017 Muscle weakness (generalized) ICD-10: M62.81 ICD-9: 728.87 11/23/2017 Cervicalgia ICD-10: M54.2 ICD-9: 723.1 11/23/2017 Essential tremor ICD-10: G25.0 ICD-9: 333.1 07/22/2017 Carpal tunnel syndrome, bilateral upper limbs ICD-10: G56.03 ICD-9: 354.0 07/22/2017 Encounter for immunization ICD-10: Z23 ICD-9: V03.82 03/30/2017 Other vitamin B12 deficiency anemias ICD-10: D51.8 ICD-9: 281.1 03/23/2017 Bicipital tendinitis, right shoulder ICD-10: M75.21 ICD-9: 726.12 03/23/2017 Encounter for immunization ICD-10: Z23 ICD-9: V03.9 03/23/2017 Vitamin B12 deficiency anemia due to intrinsic factor deficiency ICD-10: D51.0 ICD-9: 281.0 03/23/2017 Vitamin D deficiency, unspecified ICD-10: E55.9 ICD-9: 268.9 03/23/2017 Encounter for screening mammogram for malignant neoplasm of breast ICD-10: Z12.31 ICD-9: V76.12 04/03/2016 Encounter for immunization ICD-10: Z23 ICD-9: V04.81 02/21/2016 Hypothyroidism, unspecified ICD-10: E03.9 ICD-9: 244.9 02/21/2016 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 ICD-9: 307.7 07/12/2015 Disorder of bone, unspecified ICD-10: M89.9 ICD-9: 733.90 07/12/2015 Pain in left hip ICD-10: M25.552 ICD-9: 719.45 03/27/2015 Lumbago with sciatica, unspecified side ICD-10: M54.40 ICD-9: 724.3 03/27/2015 Reason For Visit Reason For Visit Effective Dates Notes edema 05/04/2018 Annual Medicare Wellness Exam 04/14/2018 medication follow up 12/22/2017 dyskinesia or tremor 11/23/2017 dyskinesia or tremor 07/22/2017 Annual Medicare Wellness Exam 03/30/2017 dyskinesia or tremor 03/23/2017 dyskinesia or tremor 11/25/2016 dyskinesia or tremor 08/20/2016 dyskinesia or tremor 07/21/2016 dyskinesia or tremor 04/03/2016 hypothyroid 02/21/2016 hypothyroid 10/22/2015 lower leg pain 07/12/2015 lower leg pain 03/27/2015 left Results Observation Observation Code Item Item Code Result Date Lipid Ord30 CHOL 186 mg/dL 07/17/2017 Lipid Ord30 HDL 39.0 mg/dl 07/17/2017 Lipid Ord30 TRIG 138 mg/dL 07/17/2017 Lipid Ord30 LDL 119 mg/dL 07/17/2017 Lipid Ord30 C/HDL 4.8 Ratio 07/17/2017 Comp Metabolic Mxf843 NA 140 mEq/L 03/23/2017 Comp Metabolic Tty644 K 4.8 mEq/L 03/23/2017 Comp Metabolic Wki511 CL 105 mEq/L 03/23/2017 Comp Metabolic Qey618 CO2 29.0 mEq/L 03/23/2017 Comp Metabolic Coj390 ANION GAP 11 03/23/2017 Comp Metabolic Xvk306 GLUCOSE 91 mg/dL 03/23/2017 Comp Metabolic Tky426 Creat 1.0 mg/dL 03/23/2017 Comp Metabolic Pwb200 eGFR 57 ml/min/1.73m2 03/23/2017 Comp Metabolic Jzz649 BUN 15 mg/dL 03/23/2017 Comp Metabolic Mja595 B/C Ratio 15.0 Ratio 03/23/2017 Comp Metabolic Txx146 CALCIUM 9.6 mg/dL 03/23/2017 Comp Metabolic Yed186 ALK PHOS 127 U/L 03/23/2017 Comp Metabolic Dhv805 AST(SGOT) 19 U/L 03/23/2017 Comp Metabolic Nwg954 ALT(SGPT) 13 U/L 03/23/2017 Comp Metabolic Yeq301 BILI T 0.4 mg/dL 03/23/2017 Comp Metabolic Nrt046 ALBUMIN 4.1 g/dL 03/23/2017 Comp Metabolic Dxb854 TPRO 6.6 g/dL 03/23/2017 Comp Metabolic Ntn839 GLOB 2.5 g/dL 03/23/2017 Comp Metabolic Dzk930 A/G Ratio 1.6 Ratio 03/23/2017 Comp Metabolic Lxm384 Osmo 280 mOsmo 03/23/2017 Lipid Ord30 CHOL 209 mg/dL 03/23/2017 Lipid Ord30 HDL 36.0 mg/dl 03/23/2017 Lipid Ord30 TRIG 172 mg/dL 03/23/2017 Lipid Ord30 LDL 139 mg/dL 03/23/2017 Lipid Ord30 C/HDL 5.8 Ratio 03/23/2017 Free T4 Kqx959 FREE T4 0.82 ng/dL 03/23/2017 Vitamin D 25 Oh Qnj4267 VITAMIN D, 25 HYDROXY 50.18 ng/mL Cbc With Differential Ord2 WBC 7.89 K/ul 03/23/2017 Cbc With Differential Ord2 RBC 4.60 M/ul 03/23/2017 Cbc With Differential Ord2 HGB 14.8 g/dl 03/23/2017 Cbc With Differential Ord2 HCT 45.1 % 03/23/2017 Cbc With Differential Ord2 Neut% 54.3 % 03/23/2017 Cbc With Differential Ord2 MCV 98.0 fl 03/23/2017 Cbc With Differential Ord2 Lymph% 31.7 % 03/23/2017 Cbc With Differential Ord2 MCH 32.2 pg 03/23/2017 Cbc With Differential Ord2 Preble% 10.4 % 03/23/2017 Cbc With Differential Ord2 MCHC 32.8 pg 03/23/2017 Cbc With Differential Ord2 Eos% 3.0 % 03/23/2017 Cbc With Differential Ord2 Baso% 0.6 % 03/23/2017 Cbc With Differential Ord2 PLT 222 K/ul 03/23/2017 Cbc With Differential Ord2 RDW 13.1 % 03/23/2017 Cbc With Differential Ord2 Neut ABS# 4.28 K/ul 03/23/2017 Cbc With Differential Ord2 Lymph ABS# 2.50 K/ul 03/23/2017 Cbc With Differential Ord2 Preble ABS# 0.8 K/ul 03/23/2017 Cbc With Differential Ord2 Eos ABS# 0.2 K/ul 03/23/2017 Cbc With Differential Ord2 Baso ABS# 0.1 K/ul 03/23/2017 Tsh Ord6 hTSH II 2.72 uIU/mL 03/23/2017 B12 Iwm774 B12 378.00 pg/ml 03/23/2017 Tsh Ord6 hTSH II 2.53 uIU/mL 11/25/2016 Free T4 Emq640 FREE T4 0.83 ng/dL 11/25/2016 Metabolic Ord15 NA 138 mEq/L 07/21/2016 Metabolic Ord15 K 4.5 mEq/L 07/21/2016 Metabolic Ord15 CL 104 mEq/L 07/21/2016 Metabolic Ord15 CO2 29.0 mEq/L 07/21/2016 Metabolic Ord15 GLUCOSE 85 mg/dL 07/21/2016 Metabolic Ord15 BUN 11 mg/dL 07/21/2016 Metabolic Ord15 Creat 1.0 mg/dL 07/21/2016 Metabolic Ord15 B/C Ratio 11.6 Ratio 07/21/2016 Metabolic Ord15 eGFR 61 ml/min/1.73m2 07/21/2016 Metabolic Ord15 Osmo 274 mOsmo 07/21/2016 Metabolic Ord15 ANION GAP 10 07/21/2016 Metabolic Ord15 CALCIUM 9.6 mg/dL 07/21/2016 Tsh Ord6 hTSH II 2.42 uIU/mL 07/21/2016 Free T4 Uyl591 FREE T4 0.87 ng/dL 07/21/2016 Comp Metabolic Ocz411 NA 135 mEq/L 02/21/2016 Comp Metabolic Rzx447 K 4.4 mEq/L 02/21/2016 Comp Metabolic Naj973 CL 101 mEq/L 02/21/2016 Comp Metabolic Dvx736 CO2 25.0 mEq/L 02/21/2016 Comp Metabolic Wxt238 ANION GAP 13 02/21/2016 Comp Metabolic Fyz602 GLUCOSE 89 mg/dL 02/21/2016 Comp Metabolic Qcf213 Creat 1.0 mg/dL 02/21/2016 Comp Metabolic Mrc031 eGFR 59 ml/min/1.73m2 02/21/2016 Comp Metabolic Afi307 BUN 14 mg/dL 02/21/2016 Comp Metabolic Hmz864 B/C Ratio 14.3 Ratio 02/21/2016 Comp Metabolic Vbt864 CALCIUM 9.8 mg/dL 02/21/2016 Comp Metabolic Amc083 ALK PHOS 134 U/L 02/21/2016 Comp Metabolic Tla789 AST(SGOT) 21 U/L 02/21/2016 Comp Metabolic Jvt652 ALT(SGPT) 17 U/L 02/21/2016 Comp Metabolic Hci332 BILI T 0.5 mg/dL 02/21/2016 Comp Metabolic Rpm057 ALBUMIN 4.3 g/dL 02/21/2016 Comp Metabolic Nyr831 TPRO 7.0 g/dL 02/21/2016 Comp Metabolic Age227 GLOB 2.8 g/dL 02/21/2016 Comp Metabolic Xgq616 A/G Ratio 1.5 Ratio 02/21/2016 Comp Metabolic Sra741 Osmo 270 mOsmo 02/21/2016 Free T4 Noq009 FREE T4 0.88 ng/dL 02/21/2016 Tsh Ord6 hTSH II 2.02 uIU/mL 02/21/2016 Rpr [id number] RPR NON-REACTIVE 07/14/2015 Vitamin D 25 Oh Aru7050 VITAMIN D, 25 HYDROXY 15.05 ng/mL Folate Ord36 Folate >24.50 ng/mL 07/12/2015 Cbc With Differential Ord2 WBC 7.36 K/ul 07/12/2015 Cbc With Differential Ord2 RBC 4.43 M/ul 07/12/2015 Cbc With Differential Ord2 HGB 14.1 g/dl 07/12/2015 Cbc With Differential Ord2 Neut% 58.1 % 07/12/2015 Cbc With Differential Ord2 HCT 43.1 % 07/12/2015 Cbc With Differential Ord2 MCV 97.3 fl 07/12/2015 Cbc With Differential Ord2 Lymph% 26.8 % 07/12/2015 Cbc With Differential Ord2 MCH 31.8 pg 07/12/2015 Cbc With Differential Ord2 Preble% 12.0 % 07/12/2015 Cbc With Differential Ord2 MCHC 32.7 pg 07/12/2015 Cbc With Differential Ord2 Eos% 2.6 % 07/12/2015 Cbc With Differential Ord2 PLT 254 K/ul 07/12/2015 Cbc With Differential Ord2 Baso% 0.5 % 07/12/2015 Cbc With Differential Ord2 RDW 13.8 % 07/12/2015 Cbc With Differential Ord2 Neut ABS# 4.28 K/ul 07/12/2015 Cbc With Differential Ord2 Lymph ABS# 1.97 K/ul 07/12/2015 Cbc With Differential Ord2 Preble ABS# 0.9 K/ul 07/12/2015 Cbc With Differential Ord2 Eos ABS# 0.2 K/ul 07/12/2015 Cbc With Differential Ord2 Baso ABS# 0.0 K/ul 07/12/2015 Cbc With Differential Ord2 New Analyzer Notice Please note new ref ranges starting 07-04-2015 due to implemntation of new five part differential hematolgy analyzer. 07/12/2015 Tsh Ord6 hTSH II 5.53 uIU/mL 07/12/2015 Comp Metabolic Svk860 NA 138 mEq/L 07/12/2015 Comp Metabolic Kes255 K 4.4 mEq/L 07/12/2015 Comp Metabolic Dpe773 CL 105 mEq/L 07/12/2015 Comp Metabolic Xtp262 CO2 27.0 mEq/L 07/12/2015 Comp Metabolic Etr174 ANION GAP 10 07/12/2015 Comp Metabolic Fih520 GLUCOSE 69 mg/dL 07/12/2015 Comp Metabolic Csm335 Creat 0.8 mg/dL 07/12/2015 Comp Metabolic Uyk601 eGFR 71 ml/min/1.73m2 07/12/2015 Comp Metabolic Cqp608 BUN 13 mg/dL 07/12/2015 Comp Metabolic Dzx491 B/C Ratio 15.7 Ratio 07/12/2015 Comp Metabolic Pzq662 CALCIUM 9.2 mg/dL 07/12/2015 Comp Metabolic Qod124 ALK PHOS 135 U/L 07/12/2015 Comp Metabolic Spn771 AST(SGOT) 17 U/L 07/12/2015 Comp Metabolic Jor984 ALT(SGPT) 13 U/L 07/12/2015 Comp Metabolic Sri141 BILI T 0.4 mg/dL 07/12/2015 Comp Metabolic Vno253 ALBUMIN 3.9 g/dL 07/12/2015 Comp Metabolic Csh373 TPRO 6.3 g/dL 07/12/2015 Comp Metabolic Orn839 GLOB 2.5 g/dL 07/12/2015 Comp Metabolic Ldq994 A/G Ratio 1.6 Ratio 07/12/2015 Comp Metabolic Kaa052 Osmo 274 mOsmo 07/12/2015 B12 Qvt967 B12 374.00 pg/ml 07/12/2015 Free T4 Okc927 FREE T4 0.69 ng/dL 07/12/2015 Review of Systems System Result Effective Dates Constitutional No recent illness 2017 Constitutional No chills 05/04/2018 Constitutional fatigue 05/04/2018 Constitutional No fever 05/04/2018 Constitutional No insomnia 05/04/2018 Constitutional No malaise 05/04/2018 Ears/Nose/Throat/Neck No dental pain Ears/Nose/Throat/Neck No dizziness 2017 Ears/Nose/Throat/Neck No dysphagia 2017 Ears/Nose/Throat/Neck No headache 2017 Ears/Nose/Throat/Neck No hearing loss Ears/Nose/Throat/Neck No nasal allergies 05/04/2018 Ears/Nose/Throat/Neck No sore throat Ears/Nose/Throat/Neck No postnasal drip 05/04/2018 Ears/Nose/Throat/Neck No sinus congestion 05/04/2018 Cardiovascular No chest pain/pressure Cardiovascular No dyspnea 05/04/2018 Cardiovascular No edema 05/04/2018 Cardiovascular No exercise intolerance Cardiovascular No fatigue 05/04/2018 Cardiovascular No near-syncope/dizziness 05/04/2018 Respiratory No chest tightness 2017 Respiratory No cough 05/04/2018 Respiratory No dyspnea 05/04/2018 Respiratory No pedal edema 05/04/2018 Gastrointestinal No abdominal pain 2017 Gastrointestinal No constipation 2017 Gastrointestinal No diarrhea 05/04/2018 Gastrointestinal No gastroesophageal reflux 05/04/2018 Gastrointestinal No nausea 05/04/2018 Gastrointestinal No vomiting 05/04/2018 Musculoskeletal stiffness 05/04/2018 Musculoskeletal muscle weakness 2017 Musculoskeletal No myalgias 05/04/2018 Neurologic No ataxia 05/04/2018 Neurologic No dizziness 05/04/2018 Neurologic dyskinesia or tremor 2017 Neurologic gait abnormality 05/04/2018 Neurologic headache 05/04/2018 Neurologic No neck pain 05/04/2018 Neurologic No syncope 05/04/2018 Psychiatric No anxiety 05/04/2018 Psychiatric No depression 05/04/2018 Constitutional No recent illness 2017 Constitutional No chills 04/14/2018 Constitutional No diaphoresis 04/14/2018 Constitutional No fever 04/14/2018 Eyes No eye erythema 04/14/2018 Ears/Nose/Throat/Neck No nasal discharge 04/14/2018 Cardiovascular No chest pain/pressure Cardiovascular No dyspnea 04/14/2018 Respiratory No cough 04/14/2018 Respiratory No dyspnea 04/14/2018 Neurologic No alteration of consciousness 04/14/2018 Neurologic No mental status change 2017 Constitutional No recent illness 2017 Constitutional No chills 12/22/2017 Constitutional fatigue 12/22/2017 Constitutional No fever 12/22/2017 Constitutional No insomnia 12/22/2017 Constitutional No malaise 12/22/2017 Ears/Nose/Throat/Neck No dental pain 08/2017 Ears/Nose/Throat/Neck No dizziness 2017 Ears/Nose/Throat/Neck No dysphagia 2017 Ears/Nose/Throat/Neck No headache 2017 Ears/Nose/Throat/Neck No hearing loss 08/2017 Ears/Nose/Throat/Neck No nasal allergies 12/22/2017 Ears/Nose/Throat/Neck No sore throat 08/2017 Ears/Nose/Throat/Neck No postnasal drip 12/22/2017 Ears/Nose/Throat/Neck No sinus congestion 12/22/2017 Cardiovascular No chest pain/pressure 08/2017 Cardiovascular No dyspnea 12/22/2017 Cardiovascular No edema 12/22/2017 Cardiovascular No exercise intolerance Cardiovascular No fatigue 12/22/2017 Cardiovascular No near-syncope/dizziness 12/22/2017 Respiratory No chest tightness 2017 Respiratory No cough 12/22/2017 Respiratory No dyspnea 12/22/2017 Respiratory No pedal edema 12/22/2017 Gastrointestinal No abdominal pain 2017 Gastrointestinal No constipation 2017 Gastrointestinal No diarrhea 12/22/2017 Gastrointestinal No gastroesophageal reflux 12/22/2017 Gastrointestinal No nausea 12/22/2017 Gastrointestinal No vomiting 12/22/2017 Musculoskeletal stiffness 12/22/2017 Musculoskeletal back pain 12/22/2017 Musculoskeletal joint complaint 2017 Musculoskeletal muscle weakness 2017 Musculoskeletal No myalgias 12/22/2017 Neurologic No ataxia 12/22/2017 Neurologic No dizziness 12/22/2017 Neurologic dyskinesia or tremor 2017 Neurologic gait abnormality 12/22/2017 Neurologic headache 12/22/2017 Neurologic No neck pain 12/22/2017 Neurologic No syncope 12/22/2017 Psychiatric No anxiety 12/22/2017 Psychiatric No depression 12/22/2017 Constitutional No recent illness 2017 Constitutional No chills 11/23/2017 Constitutional fatigue 11/23/2017 Constitutional No fever 11/23/2017 Constitutional No insomnia 11/23/2017 Constitutional No malaise 11/23/2017 Ears/Nose/Throat/Neck No dental pain 09/2017 Ears/Nose/Throat/Neck No dizziness 2017 Ears/Nose/Throat/Neck No dysphagia 2017 Ears/Nose/Throat/Neck No headache 2017 Ears/Nose/Throat/Neck No hearing loss 09/2017 Ears/Nose/Throat/Neck No nasal allergies 11/23/2017 Ears/Nose/Throat/Neck No sore throat 09/2017 Ears/Nose/Throat/Neck No postnasal drip 11/23/2017 Ears/Nose/Throat/Neck No sinus congestion 11/23/2017 Cardiovascular No chest pain/pressure 09/2017 Cardiovascular No dyspnea 11/23/2017 Cardiovascular No edema 11/23/2017 Cardiovascular No exercise intolerance Cardiovascular No fatigue 11/23/2017 Cardiovascular No near-syncope/dizziness 11/23/2017 Respiratory No chest tightness 2017 Respiratory No cough 11/23/2017 Respiratory No dyspnea 11/23/2017 Respiratory No pedal edema 11/23/2017 Gastrointestinal No abdominal pain 2017 Gastrointestinal No constipation 2017 Gastrointestinal No diarrhea 11/23/2017 Gastrointestinal No gastroesophageal reflux 11/23/2017 Gastrointestinal No nausea 11/23/2017 Gastrointestinal No vomiting 11/23/2017 Musculoskeletal stiffness 11/23/2017 Musculoskeletal back pain 11/23/2017 Musculoskeletal joint complaint 2017 Musculoskeletal muscle weakness 2017 Musculoskeletal No myalgias 11/23/2017 Neurologic No ataxia 11/23/2017 Neurologic No dizziness 11/23/2017 Neurologic dyskinesia or tremor 2017 Neurologic gait abnormality 11/23/2017 Neurologic headache 11/23/2017 Neurologic No neck pain 11/23/2017 Neurologic No syncope 11/23/2017 Psychiatric No anxiety 11/23/2017 Psychiatric No depression 11/23/2017 Constitutional No recent illness 2017 Constitutional No chills 07/22/2017 Constitutional fatigue 07/22/2017 Constitutional No fever 07/22/2017 Constitutional No insomnia 07/22/2017 Constitutional No malaise 07/22/2017 Ears/Nose/Throat/Neck No dental pain Ears/Nose/Throat/Neck No dizziness 2017 Ears/Nose/Throat/Neck No dysphagia 2017 Ears/Nose/Throat/Neck No headache 2017 Ears/Nose/Throat/Neck No hearing loss Ears/Nose/Throat/Neck No nasal allergies 07/22/2017 Ears/Nose/Throat/Neck No sore throat Ears/Nose/Throat/Neck No postnasal drip 07/22/2017 Ears/Nose/Throat/Neck No sinus congestion 07/22/2017 Cardiovascular No chest pain/pressure Cardiovascular No dyspnea 07/22/2017 Cardiovascular No edema 07/22/2017 Cardiovascular No exercise intolerance Cardiovascular No fatigue 07/22/2017 Cardiovascular No near-syncope/dizziness 07/22/2017 Respiratory No chest tightness 2017 Respiratory No cough 07/22/2017 Respiratory No dyspnea 07/22/2017 Respiratory No pedal edema 07/22/2017 Gastrointestinal No abdominal pain 2017 Gastrointestinal No constipation 2017 Gastrointestinal No diarrhea 07/22/2017 Gastrointestinal No gastroesophageal reflux 07/22/2017 Gastrointestinal No nausea 07/22/2017 Gastrointestinal No vomiting 07/22/2017 Musculoskeletal stiffness 07/22/2017 Musculoskeletal muscle weakness 2017 Musculoskeletal No myalgias 07/22/2017 Neurologic No ataxia 07/22/2017 Neurologic No dizziness 07/22/2017 Neurologic dyskinesia or tremor 2017 Neurologic gait abnormality 07/22/2017 Neurologic headache 07/22/2017 Neurologic No neck pain 07/22/2017 Neurologic No syncope 07/22/2017 Psychiatric No anxiety 07/22/2017 Psychiatric No depression 07/22/2017 Musculoskeletal back pain 07/22/2017 Musculoskeletal joint complaint 2017 Constitutional No recent illness 2016 Constitutional No chills 03/30/2017 Constitutional No diaphoresis 03/30/2017 Constitutional No fever 03/30/2017 Eyes No eye erythema 03/30/2017 Ears/Nose/Throat/Neck No nasal discharge 03/30/2017 Cardiovascular No chest pain/pressure 02/2017 Cardiovascular No dyspnea 03/30/2017 Respiratory No cough 03/30/2017 Respiratory No dyspnea 03/30/2017 Neurologic No alteration of consciousness 03/30/2017 Neurologic No mental status change 2016 Constitutional No recent illness 2016 Constitutional No chills 03/23/2017 Constitutional fatigue 03/23/2017 Constitutional No fever 03/23/2017 Constitutional No insomnia 03/23/2017 Constitutional No malaise 03/23/2017 Ears/Nose/Throat/Neck No dental pain 07/2016 Ears/Nose/Throat/Neck No dizziness 2016 Ears/Nose/Throat/Neck No dysphagia 2016 Ears/Nose/Throat/Neck No headache 2016 Ears/Nose/Throat/Neck No hearing loss 07/2016 Ears/Nose/Throat/Neck No nasal allergies 03/23/2017 Ears/Nose/Throat/Neck No sore throat 07/2016 Ears/Nose/Throat/Neck No postnasal drip 03/23/2017 Ears/Nose/Throat/Neck No sinus congestion 03/23/2017 Cardiovascular No chest pain/pressure 07/2016 Cardiovascular No dyspnea 03/23/2017 Cardiovascular No edema 03/23/2017 Cardiovascular No exercise intolerance Cardiovascular No fatigue 03/23/2017 Cardiovascular No near-syncope/dizziness 03/23/2017 Respiratory No chest tightness 2016 Respiratory No cough 03/23/2017 Respiratory No dyspnea 03/23/2017 Respiratory No pedal edema 03/23/2017 Gastrointestinal No abdominal pain 2016 Gastrointestinal No constipation 2016 Gastrointestinal No diarrhea 03/23/2017 Gastrointestinal No gastroesophageal reflux 03/23/2017 Gastrointestinal No nausea 03/23/2017 Gastrointestinal No vomiting 03/23/2017 Musculoskeletal stiffness 03/23/2017 Musculoskeletal muscle weakness 2016 Musculoskeletal No myalgias 03/23/2017 Neurologic No ataxia 03/23/2017 Neurologic No dizziness 03/23/2017 Neurologic dyskinesia or tremor 2016 Neurologic gait abnormality 03/23/2017 Neurologic headache 03/23/2017 Neurologic No neck pain 03/23/2017 Neurologic No syncope 03/23/2017 Psychiatric No anxiety 03/23/2017 Psychiatric No depression 03/23/2017 Constitutional No recent illness 2016 Constitutional No chills 11/25/2016 Constitutional fatigue 11/25/2016 Constitutional No fever 11/25/2016 Constitutional No insomnia 11/25/2016 Constitutional No malaise 11/25/2016 Eyes No blindness 11/25/2016 Eyes No vision change 11/25/2016 Ears/Nose/Throat/Neck No dental pain 11/2016 Ears/Nose/Throat/Neck No dizziness 2016 Ears/Nose/Throat/Neck No dysphagia 2016 Ears/Nose/Throat/Neck No headache 2016 Ears/Nose/Throat/Neck No hearing loss 11/2016 Ears/Nose/Throat/Neck No nasal allergies 11/25/2016 Ears/Nose/Throat/Neck No sore throat 11/2016 Ears/Nose/Throat/Neck No postnasal drip 11/25/2016 Ears/Nose/Throat/Neck No sinus congestion 11/25/2016 Cardiovascular No chest pain/pressure 11/2016 Cardiovascular No dyspnea 11/25/2016 Cardiovascular No edema 11/25/2016 Cardiovascular No exercise intolerance Cardiovascular No fatigue 11/25/2016 Cardiovascular No near-syncope/dizziness 11/25/2016 Respiratory No chest tightness 2016 Respiratory No cough 11/25/2016 Respiratory No dyspnea 11/25/2016 Respiratory No pedal edema 11/25/2016 Gastrointestinal No abdominal pain 2016 Gastrointestinal No constipation 2016 Gastrointestinal No diarrhea 11/25/2016 Gastrointestinal No gastroesophageal reflux 11/25/2016 Gastrointestinal No nausea 11/25/2016 Gastrointestinal No vomiting 11/25/2016 Genitourinary/Nephrology No dysuria 11/25 Genitourinary/Nephrology No nocturia 11/2016 Genitourinary/Nephrology No urinary incontinence 11/25/2016 Musculoskeletal stiffness 11/25/2016 Musculoskeletal No swelling 11/25/2016 Musculoskeletal muscle weakness 2016 Musculoskeletal No myalgias 11/25/2016 Dermatologic No rash 11/25/2016 Dermatologic No sores 11/25/2016 Dermatologic No scar 11/25/2016 Neurologic No ataxia 11/25/2016 Neurologic dizziness 11/25/2016 Neurologic dyskinesia or tremor 2016 Neurologic gait abnormality 11/25/2016 Neurologic headache 11/25/2016 Neurologic No neck pain 11/25/2016 Neurologic No syncope 11/25/2016 Psychiatric No anxiety 11/25/2016 Psychiatric No depression 11/25/2016 Constitutional No recent illness 2016 Constitutional No chills 08/20/2016 Constitutional fatigue 08/20/2016 Constitutional No fever 08/20/2016 Constitutional No insomnia 08/20/2016 Constitutional No malaise 08/20/2016 Eyes No blindness 08/20/2016 Eyes No vision change 08/20/2016 Ears/Nose/Throat/Neck No dental pain 06/2016 Ears/Nose/Throat/Neck No dizziness 2016 Ears/Nose/Throat/Neck No dysphagia 2016 Ears/Nose/Throat/Neck No headache 2016 Ears/Nose/Throat/Neck No hearing loss 06/2016 Ears/Nose/Throat/Neck No nasal allergies 08/20/2016 Ears/Nose/Throat/Neck No sore throat 06/2016 Ears/Nose/Throat/Neck No postnasal drip 08/20/2016 Ears/Nose/Throat/Neck No sinus congestion 08/20/2016 Cardiovascular No chest pain/pressure 06/2016 Cardiovascular No dyspnea 08/20/2016 Cardiovascular No edema 08/20/2016 Cardiovascular No exercise intolerance Cardiovascular No fatigue 08/20/2016 Cardiovascular No near-syncope/dizziness 08/20/2016 Respiratory No chest tightness 2016 Respiratory No cough 08/20/2016 Respiratory No dyspnea 08/20/2016 Respiratory No pedal edema 08/20/2016 Gastrointestinal No abdominal pain 2016 Gastrointestinal No constipation 2016 Gastrointestinal No diarrhea 08/20/2016 Gastrointestinal No gastroesophageal reflux 08/20/2016 Gastrointestinal No nausea 08/20/2016 Gastrointestinal No vomiting 08/20/2016 Genitourinary/Nephrology No dysuria 08/20 Genitourinary/Nephrology No nocturia 06/2016 Genitourinary/Nephrology No urinary incontinence 08/20/2016 Musculoskeletal stiffness 08/20/2016 Musculoskeletal No swelling 08/20/2016 Musculoskeletal muscle weakness 2016 Musculoskeletal No myalgias 08/20/2016 Dermatologic No rash 08/20/2016 Dermatologic No sores 08/20/2016 Dermatologic No scar 08/20/2016 Neurologic No ataxia 08/20/2016 Neurologic No dizziness 08/20/2016 Neurologic dyskinesia or tremor 2016 Neurologic gait abnormality 08/20/2016 Neurologic headache 08/20/2016 Neurologic No neck pain 08/20/2016 Neurologic No syncope 08/20/2016 Psychiatric No anxiety 08/20/2016 Psychiatric No depression 08/20/2016 Constitutional No recent illness 2016 Constitutional No chills 07/21/2016 Constitutional fatigue 07/21/2016 Constitutional No fever 07/21/2016 Constitutional No insomnia 07/21/2016 Constitutional No malaise 07/21/2016 Eyes No blindness 07/21/2016 Eyes No vision change 07/21/2016 Ears/Nose/Throat/Neck No dental pain Ears/Nose/Throat/Neck No dizziness 2016 Ears/Nose/Throat/Neck No dysphagia 2016 Ears/Nose/Throat/Neck No headache 2016 Ears/Nose/Throat/Neck No hearing loss Ears/Nose/Throat/Neck No nasal allergies 07/21/2016 Ears/Nose/Throat/Neck No sore throat Ears/Nose/Throat/Neck No postnasal drip 07/21/2016 Ears/Nose/Throat/Neck No sinus congestion 07/21/2016 Cardiovascular No chest pain/pressure Cardiovascular No dyspnea 07/21/2016 Cardiovascular No edema 07/21/2016 Cardiovascular No exercise intolerance Cardiovascular No fatigue 07/21/2016 Cardiovascular No near-syncope/dizziness 07/21/2016 Respiratory No chest tightness 2016 Respiratory No cough 07/21/2016 Respiratory No dyspnea 07/21/2016 Respiratory No pedal edema 07/21/2016 Gastrointestinal No abdominal pain 2016 Gastrointestinal No constipation 2016 Gastrointestinal No diarrhea 07/21/2016 Gastrointestinal No gastroesophageal reflux 07/21/2016 Gastrointestinal No nausea 07/21/2016 Gastrointestinal No vomiting 07/21/2016 Genitourinary/Nephrology No dysuria 07/21 Genitourinary/Nephrology No nocturia Genitourinary/Nephrology No urinary incontinence 07/21/2016 Musculoskeletal stiffness 07/21/2016 Musculoskeletal No swelling 07/21/2016 Musculoskeletal muscle weakness 2016 Musculoskeletal No myalgias 07/21/2016 Dermatologic No rash 07/21/2016 Dermatologic No sores 07/21/2016 Dermatologic No scar 07/21/2016 Neurologic No ataxia 07/21/2016 Neurologic No dizziness 07/21/2016 Neurologic dyskinesia or tremor 2016 Neurologic gait abnormality 07/21/2016 Neurologic headache 07/21/2016 Neurologic No neck pain 07/21/2016 Neurologic No syncope 07/21/2016 Psychiatric No anxiety 07/21/2016 Psychiatric No depression 07/21/2016 Constitutional No recent illness 2015 Constitutional No chills 04/03/2016 Constitutional fatigue 04/03/2016 Constitutional No fever 04/03/2016 Constitutional No insomnia 04/03/2016 Constitutional No malaise 04/03/2016 Eyes No blindness 04/03/2016 Eyes No vision change 04/03/2016 Ears/Nose/Throat/Neck No dental pain Ears/Nose/Throat/Neck No dizziness 2015 Ears/Nose/Throat/Neck No dysphagia 2015 Ears/Nose/Throat/Neck No headache 2015 Ears/Nose/Throat/Neck No hearing loss Ears/Nose/Throat/Neck No nasal allergies 04/03/2016 Ears/Nose/Throat/Neck No sore throat Ears/Nose/Throat/Neck No postnasal drip 04/03/2016 Ears/Nose/Throat/Neck No sinus congestion 04/03/2016 Cardiovascular No chest pain/pressure Cardiovascular No dyspnea 04/03/2016 Cardiovascular No edema 04/03/2016 Cardiovascular No exercise intolerance Cardiovascular No fatigue 04/03/2016 Cardiovascular No near-syncope/dizziness 04/03/2016 Respiratory No chest tightness 2015 Respiratory No cough 04/03/2016 Respiratory No dyspnea 04/03/2016 Respiratory No pedal edema 04/03/2016 Gastrointestinal No abdominal pain 2015 Gastrointestinal No constipation 2015 Gastrointestinal No diarrhea 04/03/2016 Gastrointestinal No gastroesophageal reflux 04/03/2016 Gastrointestinal No nausea 04/03/2016 Gastrointestinal No vomiting 04/03/2016 Genitourinary/Nephrology No dysuria 04/03 Genitourinary/Nephrology No nocturia Genitourinary/Nephrology No urinary incontinence 04/03/2016 Musculoskeletal stiffness 04/03/2016 Musculoskeletal No swelling 04/03/2016 Musculoskeletal muscle weakness 2015 Musculoskeletal No myalgias 04/03/2016 Dermatologic No rash 04/03/2016 Dermatologic No sores 04/03/2016 Dermatologic No scar 04/03/2016 Neurologic No ataxia 04/03/2016 Neurologic No dizziness 04/03/2016 Neurologic dyskinesia or tremor 2015 Neurologic gait abnormality 04/03/2016 Neurologic headache 04/03/2016 Neurologic No neck pain 04/03/2016 Neurologic No syncope 04/03/2016 Psychiatric No anxiety 04/03/2016 Psychiatric No depression 04/03/2016 Constitutional No recent illness 2015 Constitutional No chills 02/21/2016 Constitutional fatigue 02/21/2016 Constitutional No fever 02/21/2016 Constitutional No insomnia 02/21/2016 Constitutional No malaise 02/21/2016 Eyes No blindness 02/21/2016 Eyes No vision change 02/21/2016 Ears/Nose/Throat/Neck No dental pain 06/2015 Ears/Nose/Throat/Neck No dizziness 2015 Ears/Nose/Throat/Neck No dysphagia 2015 Ears/Nose/Throat/Neck No headache 2015 Ears/Nose/Throat/Neck No hearing loss 06/2015 Ears/Nose/Throat/Neck No nasal allergies 02/21/2016 Ears/Nose/Throat/Neck No sore throat 06/2015 Ears/Nose/Throat/Neck No postnasal drip 02/21/2016 Ears/Nose/Throat/Neck No sinus congestion 02/21/2016 Cardiovascular No chest pain/pressure 06/2015 Cardiovascular No dyspnea 02/21/2016 Cardiovascular No edema 02/21/2016 Cardiovascular No exercise intolerance Cardiovascular No fatigue 02/21/2016 Cardiovascular No near-syncope/dizziness 02/21/2016 Respiratory No chest tightness 2015 Respiratory No cough 02/21/2016 Respiratory No dyspnea 02/21/2016 Respiratory No pedal edema 02/21/2016 Gastrointestinal No abdominal pain 2015 Gastrointestinal No constipation 2015 Gastrointestinal No diarrhea 02/21/2016 Gastrointestinal No gastroesophageal reflux 02/21/2016 Gastrointestinal No nausea 02/21/2016 Gastrointestinal No vomiting 02/21/2016 Genitourinary/Nephrology No dysuria 02/20 Genitourinary/Nephrology No nocturia 06/2015 Genitourinary/Nephrology No urinary incontinence 02/21/2016 Musculoskeletal stiffness 02/21/2016 Musculoskeletal No swelling 02/21/2016 Musculoskeletal muscle weakness 2015 Musculoskeletal No myalgias 02/21/2016 Dermatologic No rash 02/21/2016 Dermatologic No sores 02/21/2016 Dermatologic No scar 02/21/2016 Neurologic No dizziness 02/21/2016 Neurologic headache 02/21/2016 Neurologic No neck pain 02/21/2016 Neurologic No syncope 02/21/2016 Psychiatric No anxiety 02/21/2016 Psychiatric No depression 02/21/2016 Neurologic No ataxia 02/21/2016 Neurologic dyskinesia or tremor 2015 Neurologic gait abnormality 02/21/2016 Constitutional No recent illness 2015 Constitutional No chills 10/22/2015 Constitutional No fatigue 10/22/2015 Constitutional No fever 10/22/2015 Constitutional No insomnia 10/22/2015 Constitutional No malaise 10/22/2015 Eyes No blindness 10/22/2015 Eyes No vision change 10/22/2015 Ears/Nose/Throat/Neck No dental pain 07/2015 Ears/Nose/Throat/Neck No dizziness 2015 Ears/Nose/Throat/Neck No dysphagia 2015 Ears/Nose/Throat/Neck No headache 2015 Ears/Nose/Throat/Neck No hearing loss 07/2015 Ears/Nose/Throat/Neck No nasal allergies 10/22/2015 Ears/Nose/Throat/Neck No sore throat 07/2015 Ears/Nose/Throat/Neck No postnasal drip 10/22/2015 Ears/Nose/Throat/Neck No sinus congestion 10/22/2015 Cardiovascular No chest pain/pressure 07/2015 Cardiovascular No dyspnea 10/22/2015 Cardiovascular No edema 10/22/2015 Cardiovascular No exercise intolerance Cardiovascular No fatigue 10/22/2015 Cardiovascular No near-syncope/dizziness 10/22/2015 Respiratory No chest tightness 2015 Respiratory No cough 10/22/2015 Respiratory No dyspnea 10/22/2015 Respiratory No pedal edema 10/22/2015 Gastrointestinal No abdominal pain 2015 Gastrointestinal No constipation 2015 Gastrointestinal No diarrhea 10/22/2015 Gastrointestinal No gastroesophageal reflux 10/22/2015 Gastrointestinal No nausea 10/22/2015 Gastrointestinal No vomiting 10/22/2015 Genitourinary/Nephrology No dysuria 10/21 Genitourinary/Nephrology No nocturia 07/2015 Genitourinary/Nephrology No urinary incontinence 10/22/2015 Musculoskeletal No stiffness 10/22/2015 Musculoskeletal No swelling 10/22/2015 Musculoskeletal No muscle weakness 2015 Musculoskeletal No myalgias 10/22/2015 Dermatologic No rash 10/22/2015 Dermatologic No sores 10/22/2015 Dermatologic No scar 10/22/2015 Neurologic No dizziness 10/22/2015 Neurologic No headache 10/22/2015 Neurologic No neck pain 10/22/2015 Neurologic No syncope 10/22/2015 Psychiatric No anxiety 10/22/2015 Psychiatric No depression 10/22/2015 Constitutional No recent illness 2015 Constitutional No chills 07/12/2015 Constitutional No fatigue 07/12/2015 Constitutional No fever 07/12/2015 Constitutional No insomnia 07/12/2015 Constitutional No malaise 07/12/2015 Eyes No blindness 07/12/2015 Eyes No vision change 07/12/2015 Ears/Nose/Throat/Neck No dental pain Ears/Nose/Throat/Neck No dizziness 2015 Ears/Nose/Throat/Neck No dysphagia 2015 Ears/Nose/Throat/Neck No headache 2015 Ears/Nose/Throat/Neck No hearing loss Ears/Nose/Throat/Neck No nasal allergies 07/12/2015 Ears/Nose/Throat/Neck No sore throat Ears/Nose/Throat/Neck No postnasal drip 07/12/2015 Ears/Nose/Throat/Neck No sinus congestion 07/12/2015 Cardiovascular No chest pain/pressure Cardiovascular No dyspnea 07/12/2015 Cardiovascular No edema 07/12/2015 Cardiovascular No exercise intolerance Cardiovascular No fatigue 07/12/2015 Cardiovascular No near-syncope/dizziness 07/12/2015 Respiratory No chest tightness 2015 Respiratory No cough 07/12/2015 Respiratory No dyspnea 07/12/2015 Respiratory No pedal edema 07/12/2015 Gastrointestinal No abdominal pain 2015 Gastrointestinal No constipation 2015 Gastrointestinal No diarrhea 07/12/2015 Gastrointestinal No gastroesophageal reflux 07/12/2015 Gastrointestinal No nausea 07/12/2015 Gastrointestinal No vomiting 07/12/2015 Genitourinary/Nephrology No dysuria 07/12 Genitourinary/Nephrology No nocturia Genitourinary/Nephrology No urinary incontinence 07/12/2015 Musculoskeletal No stiffness 07/12/2015 Musculoskeletal No swelling 07/12/2015 Musculoskeletal No muscle weakness 2015 Musculoskeletal No myalgias 07/12/2015 Dermatologic No rash 07/12/2015 Dermatologic No sores 07/12/2015 Dermatologic No scar 07/12/2015 Neurologic No dizziness 07/12/2015 Neurologic No headache 07/12/2015 Neurologic No neck pain 07/12/2015 Neurologic No syncope 07/12/2015 Psychiatric No anxiety 07/12/2015 Psychiatric No depression 07/12/2015 Constitutional No recent illness 2014 Constitutional No fatigue 03/27/2015 Constitutional No fever 03/27/2015 Constitutional No malaise 03/27/2015 Constitutional No chills 03/27/2015 Constitutional No insomnia 03/27/2015 Eyes No vision change 03/27/2015 Ears/Nose/Throat/Neck No dental pain 11/2014 Ears/Nose/Throat/Neck No dizziness 2014 Ears/Nose/Throat/Neck No dysphagia 2014 Ears/Nose/Throat/Neck No headache 2014 Ears/Nose/Throat/Neck No hearing loss 11/2014 Ears/Nose/Throat/Neck No nasal allergies 03/27/2015 Ears/Nose/Throat/Neck No sore throat 11/2014 Ears/Nose/Throat/Neck No postnasal drip 03/27/2015 Ears/Nose/Throat/Neck No sinus congestion 03/27/2015 Cardiovascular No chest pain/pressure 11/2014 Cardiovascular No dyspnea 03/27/2015 Cardiovascular No edema 03/27/2015 Cardiovascular No exercise intolerance Cardiovascular fatigue 03/27/2015 Cardiovascular No near-syncope/dizziness 03/27/2015 Respiratory No chest tightness 2014 Respiratory No cough 03/27/2015 Respiratory No dyspnea 03/27/2015 Respiratory No pedal edema 03/27/2015 Gastrointestinal No abdominal pain 2014 Gastrointestinal No constipation 2014 Gastrointestinal No diarrhea 03/27/2015 Gastrointestinal No gastroesophageal reflux 03/27/2015 Gastrointestinal No nausea 03/27/2015 Gastrointestinal No vomiting 03/27/2015 Genitourinary/Nephrology dysuria 2014 Genitourinary/Nephrology No nocturia 11/2014 Genitourinary/Nephrology No urinary incontinence 03/27/2015 Musculoskeletal stiffness 03/27/2015 Musculoskeletal No swelling 03/27/2015 Musculoskeletal muscle weakness 2014 Musculoskeletal myalgias 03/27/2015 Dermatologic No rash 03/27/2015 Dermatologic No sores 03/27/2015 Dermatologic No scar 03/27/2015 Neurologic No dizziness 03/27/2015 Neurologic No headache 03/27/2015 Neurologic No neck pain 03/27/2015 Neurologic No syncope 03/27/2015 Psychiatric No anxiety 03/27/2015 Psychiatric No depression 03/27/2015 Musculoskeletal bone pain 03/27/2015 Musculoskeletal back pain 03/27/2015 Musculoskeletal arthralgia(s) 03/27/2015 Physical Exam Exam Name System Name Item Name Status Result Effective Dates Notes Full Exam - General 1994 Constitutional general appearance Development: well developed 05/04/2018 None Full Exam - General 1994 Constitutional general appearance Development: appears stated age 1105/04/2018 None Full Exam - General 1994 Constitutional general appearance Hygiene/Attention to Grooming: good hygiene 05/04/2018 None Full Exam - General 1994 Eyes conjunctiva /eyelids Overall: conjunctiva clear 05/04/2018 None Full Exam - General 1994 Eyes conjunctiva /eyelids Overall: cornea clear 05/04/2018 None Full Exam - General 1994 Eyes conjunctiva /eyelids Overall: eyelids normal 05/04/2018 None Full Exam - General 1994 Eyes pupils and irises Overall: pupils equal, round, reactive to light and accomodation 05/04/2018 None Full Exam - General 1994 Ears/Nose/Throat otoscopic exam Overall: external auditory canals clear 05/04/2018 None Full Exam - General 1994 Ears/Nose/Throat otoscopic exam Overall: tympanic membranes clear 05/04/2018 None Full Exam - General 1994 Ears/Nose/Throat lips/teeth/gingiva Overall: benign lips 05/04/2018 None Full Exam - General 1994 Ears/Nose/Throat lips/teeth/gingiva Overall: normal dentition 05/04/2018 None Full Exam - General 1994 Ears/Nose/Throat oral cavity/pharynx/larynx Overall: oral mucosa clear 05/04/2018 None Full Exam - General 1994 Ears/Nose/Throat oral cavity/pharynx/larynx Overall: oropharyngeal mucosa clear 05/04/2018 None Full Exam - General 1994 Ears/Nose/Throat oral cavity/pharynx/larynx Overall: hypopharynx benign 05/04/2018 None Full Exam - General 1994 Ears/Nose/Throat oral cavity/pharynx/larynx Overall: no masses 05/04/2018 None Full Exam - General 1994 Respiratory auscultation Overall: breath sounds clear bilaterally 05/04/2018 None Full Exam - General 1994 Respiratory respiratory effort/rhythm Overall: no retractions 05/04/2018 None Full Exam - General 1994 Respiratory respiratory effort/rhythm Overall: normal rate 05/04/2018 None Full Exam - General 1994 Cardiovascular extremities Overall: no clubbing 05/04/2018 None Full Exam - General 1994 Cardiovascular auscultation of heart Overall: regular rate 05/04/2018 None Full Exam - General 1994 Cardiovascular auscultation of heart Overall: normal heart sounds 05/04/2018 None Full Exam - General 1994 Abdomen abdominal exam Overall: normal bowel sounds 05/04/2018 None Full Exam - General 1994 Musculoskeletal spine, ribs and pelvis Overall: good posture 05/04/2018 None Full Exam - General 1994 Musculoskeletal gait and station Gait: unable to turn quickly 05/04/2018 None Full Exam - General 1994 Neurologic coordination Tremors: dystonia 05/04/2018 None Full Exam - General 1994 Neurologic coordination Tremors: resting 05/04/2018 None Full Exam - General 1994 Neurologic cranial nerves Overall: crainial nerves 2 - 12 grossly intact 05/04/2018 None Full Exam - General 1994 Psychiatric orientation/consciousness Overall: oriented to person, place and time 05/04/2018 None Full Exam - General 1994 Psychiatric mood and affect Overall: normal mood and affect 05/04/2018 None Full Exam - General 1994 Abdomen abdominal exam Lower quadrant: tender to palpation 05/04/2018 None Full Exam - General 1994 Constitutional general appearance Overall: well developed 04/14/2018 None Full Exam - General 1994 Constitutional general appearance Overall: in no acute distress 04/14/2018 None Full Exam - General 1994 Constitutional general appearance Overall: well nourished 04/14/2018 None Full Exam - General 1994 Eyes conjunctiva /eyelids Overall: conjunctiva clear 04/14/2018 None Full Exam - General 1994 Eyes conjunctiva /eyelids Overall: eyelids normal 04/14/2018 None Full Exam - General 1994 Ears/Nose/Throat lips/teeth/gingiva Overall: benign lips 04/14/2018 None Full Exam - General 1994 Respiratory respiratory effort/rhythm Overall: no retractions 04/14/2018 None Full Exam - General 1994 Respiratory respiratory effort/rhythm Overall: normal rate 04/14/2018 None Full Exam - General 1994 Musculoskeletal head and neck Overall: head atraumatic 04/14/2018 None Full Exam - General 1994 Neurologic cranial nerves Overall: crainial nerves 2 - 12 grossly intact 04/14/2018 None Full Exam - General 1994 Psychiatric orientation/consciousness Overall: oriented to person, place and time 04/14/2018 None Full Exam - General 1994 Psychiatric mood and affect Overall: normal mood and affect 04/14/2018 None Full Exam - General 1994 Psychiatric appearance Overall: well-groomed, good eye contact 04/14/2018 None Full Exam - General 1994 Constitutional general appearance Development: well developed 12/22/2017 None Full Exam - General 1994 Constitutional general appearance Development: appears stated age 0712/22/2017 None Full Exam - General 1994 Constitutional general appearance Hygiene/Attention to Grooming: good hygiene 12/22/2017 None Full Exam - General 1994 Eyes conjunctiva /eyelids Overall: conjunctiva clear 12/22/2017 None Full Exam - General 1994 Eyes conjunctiva /eyelids Overall: cornea clear 12/22/2017 None Full Exam - General 1994 Eyes conjunctiva /eyelids Overall: eyelids normal 12/22/2017 None Full Exam - General 1994 Eyes pupils and irises Overall: pupils equal, round, reactive to light and accomodation 12/22/2017 None Full Exam - General 1994 Ears/Nose/Throat otoscopic exam Overall: external auditory canals clear 12/22/2017 None Full Exam - General 1994 Ears/Nose/Throat otoscopic exam Overall: tympanic membranes clear 12/22/2017 None Full Exam - General 1994 Ears/Nose/Throat lips/teeth/gingiva Overall: benign lips 12/22/2017 None Full Exam - General 1994 Ears/Nose/Throat lips/teeth/gingiva Overall: normal dentition 12/22/2017 None Full Exam - General 1994 Ears/Nose/Throat oral cavity/pharynx/larynx Overall: oral mucosa clear 12/22/2017 None Full Exam - General 1994 Ears/Nose/Throat oral cavity/pharynx/larynx Overall: oropharyngeal mucosa clear 12/22/2017 None Full Exam - General 1994 Ears/Nose/Throat oral cavity/pharynx/larynx Overall: hypopharynx benign 12/22/2017 None Full Exam - General 1994 Ears/Nose/Throat oral cavity/pharynx/larynx Overall: no masses 12/22/2017 None Full Exam - General 1994 Respiratory auscultation Overall: breath sounds clear bilaterally 12/22/2017 None Full Exam - General 1994 Respiratory respiratory effort/rhythm Overall: no retractions 12/22/2017 None Full Exam - General 1994 Respiratory respiratory effort/rhythm Overall: normal rate 12/22/2017 None Full Exam - General 1994 Cardiovascular extremities Overall: no clubbing 12/22/2017 None Full Exam - General 1994 Cardiovascular auscultation of heart Overall: regular rate 12/22/2017 None Full Exam - General 1994 Cardiovascular auscultation of heart Overall: normal heart sounds 12/22/2017 None Full Exam - General 1994 Abdomen abdominal exam Overall: no tenderness 12/22/2017 None Full Exam - General 1994 Abdomen abdominal exam Overall: normal bowel sounds 12/22/2017 None Full Exam - General 1994 Musculoskeletal upper extremity Inspection - wrist: Left and right tenderness, positive phalen sign bilaterally 2017 None Full Exam - General 1994 Musculoskeletal spine, ribs and pelvis Overall: good posture 12/22/2017 None Full Exam - General 1994 Musculoskeletal gait and station Gait: unable to turn quickly 12/22/2017 None Full Exam - General 1994 Neurologic coordination Tremors: dystonia 12/22/2017 None Full Exam - General 1994 Neurologic coordination Tremors: resting 12/22/2017 None Full Exam - General 1994 Neurologic cranial nerves Overall: crainial nerves 2 - 12 grossly intact 12/22/2017 None Full Exam - General 1994 Neurologic motor Tone: cogwheel rigidity 12/22/2017 upper extremities bilaterally and at ankles Full Exam - General 1994 Psychiatric orientation/consciousness Overall: oriented to person, place and time 12/22/2017 None Full Exam - General 1994 Psychiatric mood and affect Overall: normal mood and affect 12/22/2017 None Full Exam - Cardiology Ears/Nose/Throat teeth/gingiva/palate Overall: normal dentition 11/23/2017 None Full Exam - Cardiology Respiratory auscultation Overall: breath sounds clear bilaterally 11/23/2017 None Full Exam - Cardiology Cardiovascular auscultation of heart Overall: regular rate 11/23/2017 None Full Exam - Cardiology Cardiovascular auscultation of heart Overall: normal heart sounds 11/23/2017 None Full Exam - Cardiology Psychiatric orientation/consciousness Overall: oriented to person, place and time 11/23/2017 None Full Exam - General 1994 Constitutional general appearance Development: well developed 07/22/2017 None Full Exam - General 1994 Constitutional general appearance Development: appears stated age 0107/22/2017 None Full Exam - General 1994 Constitutional general appearance Hygiene/Attention to Grooming: good hygiene 07/22/2017 None Full Exam - General 1994 Eyes conjunctiva /eyelids Overall: conjunctiva clear 07/22/2017 None Full Exam - General 1994 Eyes conjunctiva /eyelids Overall: cornea clear 07/22/2017 None Full Exam - General 1994 Eyes conjunctiva /eyelids Overall: eyelids normal 07/22/2017 None Full Exam - General 1994 Eyes pupils and irises Overall: pupils equal, round, reactive to light and accomodation 07/22/2017 None Full Exam - General 1994 Ears/Nose/Throat otoscopic exam Overall: external auditory canals clear 07/22/2017 None Full Exam - General 1994 Ears/Nose/Throat otoscopic exam Overall: tympanic membranes clear 07/22/2017 None Full Exam - General 1994 Ears/Nose/Throat lips/teeth/gingiva Overall: benign lips 07/22/2017 None Full Exam - General 1994 Ears/Nose/Throat lips/teeth/gingiva Overall: normal dentition 07/22/2017 None Full Exam - General 1994 Ears/Nose/Throat oral cavity/pharynx/larynx Overall: oral mucosa clear 07/22/2017 None Full Exam - General 1994 Ears/Nose/Throat oral cavity/pharynx/larynx Overall: oropharyngeal mucosa clear 07/22/2017 None Full Exam - General 1994 Ears/Nose/Throat oral cavity/pharynx/larynx Overall: hypopharynx benign 07/22/2017 None Full Exam - General 1994 Ears/Nose/Throat oral cavity/pharynx/larynx Overall: no masses 07/22/2017 None Full Exam - General 1994 Respiratory auscultation Overall: breath sounds clear bilaterally 07/22/2017 None Full Exam - General 1994 Respiratory respiratory effort/rhythm Overall: no retractions 07/22/2017 None Full Exam - General 1994 Respiratory respiratory effort/rhythm Overall: normal rate 07/22/2017 None Full Exam - General 1994 Cardiovascular extremities Overall: no clubbing 07/22/2017 None Full Exam - General 1994 Cardiovascular auscultation of heart Overall: regular rate 07/22/2017 None Full Exam - General 1994 Cardiovascular auscultation of heart Overall: normal heart sounds 07/22/2017 None Full Exam - General 1994 Abdomen abdominal exam Overall: no tenderness 07/22/2017 None Full Exam - General 1994 Abdomen abdominal exam Overall: normal bowel sounds 07/22/2017 None Full Exam - General 1994 Musculoskeletal spine, ribs and pelvis Overall: good posture 07/22/2017 None Full Exam - General 1994 Musculoskeletal gait and station Gait: unable to turn quickly 07/22/2017 None Full Exam - General 1994 Neurologic coordination Tremors: dystonia 07/22/2017 None Full Exam - General 1994 Neurologic coordination Tremors: resting 07/22/2017 None Full Exam - General 1994 Neurologic cranial nerves Overall: crainial nerves 2 - 12 grossly intact 07/22/2017 None Full Exam - General 1994 Neurologic motor Tone: cogwheel rigidity 07/22/2017 upper extremities bilaterally and at ankles Full Exam - General 1994 Psychiatric orientation/consciousness Overall: oriented to person, place and time 07/22/2017 None Full Exam - General 1994 Psychiatric mood and affect Overall: normal mood and affect 07/22/2017 None Full Exam - General 1994 Musculoskeletal upper extremity Inspection - wrist: Left and right tenderness, positive phalen sign bilaterally 2017 None Full Exam - General 1994 Constitutional general appearance Overall: well developed 03/30/2017 None Full Exam - General 1994 Constitutional general appearance Overall: in no acute distress 03/30/2017 None Full Exam - General 1994 Constitutional general appearance Overall: well nourished 03/30/2017 None Full Exam - General 1994 Eyes conjunctiva /eyelids Overall: conjunctiva clear 03/30/2017 None Full Exam - General 1994 Eyes conjunctiva /eyelids Overall: eyelids normal 03/30/2017 None Full Exam - General 1994 Ears/Nose/Throat lips/teeth/gingiva Overall: benign lips 03/30/2017 None Full Exam - General 1994 Respiratory respiratory effort/rhythm Overall: no retractions 03/30/2017 None Full Exam - General 1994 Respiratory respiratory effort/rhythm Overall: normal rate 03/30/2017 None Full Exam - General 1994 Musculoskeletal head and neck Overall: head atraumatic 03/30/2017 None Full Exam - General 1994 Neurologic cranial nerves Overall: crainial nerves 2 - 12 grossly intact 03/30/2017 None Full Exam - General 1994 Psychiatric orientation/consciousness Overall: oriented to person, place and time 03/30/2017 None Full Exam - General 1994 Psychiatric mood and affect Overall: normal mood and affect 03/30/2017 None Full Exam - General 1994 Psychiatric appearance Overall: well-groomed, good eye contact 03/30/2017 None Full Exam - General 1994 Constitutional general appearance Development: well developed 03/23/2017 None Full Exam - General 1994 Constitutional general appearance Development: appears stated age 1003/23/2017 None Full Exam - General 1994 Constitutional general appearance Hygiene/Attention to Grooming: good hygiene 03/23/2017 None Full Exam - General 1994 Eyes conjunctiva /eyelids Overall: conjunctiva clear 03/23/2017 None Full Exam - General 1994 Eyes conjunctiva /eyelids Overall: cornea clear 03/23/2017 None Full Exam - General 1994 Eyes conjunctiva /eyelids Overall: eyelids normal 03/23/2017 None Full Exam - General 1994 Eyes pupils and irises Overall: pupils equal, round, reactive to light and accomodation 03/23/2017 None Full Exam - General 1994 Ears/Nose/Throat otoscopic exam Overall: external auditory canals clear 03/23/2017 None Full Exam - General 1994 Ears/Nose/Throat otoscopic exam Overall: tympanic membranes clear 03/23/2017 None Full Exam - General 1994 Ears/Nose/Throat lips/teeth/gingiva Overall: benign lips 03/23/2017 None Full Exam - General 1994 Ears/Nose/Throat lips/teeth/gingiva Overall: normal dentition 03/23/2017 None Full Exam - General 1994 Ears/Nose/Throat oral cavity/pharynx/larynx Overall: oral mucosa clear 03/23/2017 None Full Exam - General 1995 Ears/Nose/Throat oral cavity/pharynx/larynx Overall: oropharyngeal mucosa clear 03/23/2017 None Full Exam - General 1994 Ears/Nose/Throat oral cavity/pharynx/larynx Overall: hypopharynx benign 03/23/2017 None Full Exam - General 1994 Ears/Nose/Throat oral cavity/pharynx/larynx Overall: no masses 03/23/2017 None Full Exam - General 1994 Respiratory auscultation Overall: breath sounds clear bilaterally 03/23/2017 None Full Exam - General 1994 Respiratory respiratory effort/rhythm Overall: no retractions 03/23/2017 None Full Exam - General 1994 Respiratory respiratory effort/rhythm Overall: normal rate 03/23/2017 None Full Exam - General 1994 Cardiovascular extremities Overall: no clubbing 03/23/2017 None Full Exam - General 1994 Cardiovascular auscultation of heart Overall: regular rate 03/23/2017 None Full Exam - General 1994 Cardiovascular auscultation of heart Overall: normal heart sounds 03/23/2017 None Full Exam - General 1994 Abdomen abdominal exam Overall: no tenderness 03/23/2017 None Full Exam - General 1994 Abdomen abdominal exam Overall: normal bowel sounds 03/23/2017 None Full Exam - General 1994 Musculoskeletal spine, ribs and pelvis Overall: good posture 03/23/2017 None Full Exam - General 1994 Musculoskeletal gait and station Gait: unable to turn quickly 03/23/2017 None Full Exam - General 1994 Neurologic coordination Tremors: dystonia 03/23/2017 None Full Exam - General 1994 Neurologic coordination Tremors: resting 03/23/2017 None Full Exam - General 1994 Neurologic cranial nerves Overall: crainial nerves 2 - 12 grossly intact 03/23/2017 None Full Exam - General 1994 Neurologic motor Tone: cogwheel rigidity 03/23/2017 upper extremities bilaterally and at ankles Full Exam - General 1994 Psychiatric orientation/consciousness Overall: oriented to person, place and time 03/23/2017 None Full Exam - General 1994 Psychiatric mood and affect Overall: normal mood and affect 03/23/2017 None Full Exam - General 1994 Constitutional general appearance Development: well developed 11/25/2016 None Full Exam - General 1994 Constitutional general appearance Development: appears stated age 0611/25/2016 None Full Exam - General 1994 Constitutional general appearance Hygiene/Attention to Grooming: good hygiene 11/25/2016 None Full Exam - General 1994 Eyes conjunctiva /eyelids Overall: conjunctiva clear 11/25/2016 None Full Exam - General 1994 Eyes conjunctiva /eyelids Overall: cornea clear 11/25/2016 None Full Exam - General 1994 Eyes conjunctiva /eyelids Overall: eyelids normal 11/25/2016 None Full Exam - General 1994 Eyes pupils and irises Overall: pupils equal, round, reactive to light and accomodation 11/25/2016 None Full Exam - General 1994 Ears/Nose/Throat otoscopic exam Overall: external auditory canals clear 11/25/2016 None Full Exam - General 1994 Ears/Nose/Throat otoscopic exam Overall: tympanic membranes clear 11/25/2016 None Full Exam - General 1994 Ears/Nose/Throat lips/teeth/gingiva Overall: benign lips 11/25/2016 None Full Exam - General 1994 Ears/Nose/Throat lips/teeth/gingiva Overall: normal dentition 11/25/2016 None Full Exam - General 1994 Ears/Nose/Throat oral cavity/pharynx/larynx Overall: oral mucosa clear 11/25/2016 None Full Exam - General 1994 Ears/Nose/Throat oral cavity/pharynx/larynx Overall: oropharyngeal mucosa clear 11/25/2016 None Full Exam - General 1994 Ears/Nose/Throat oral cavity/pharynx/larynx Overall: hypopharynx benign 11/25/2016 None Full Exam - General 1994 Ears/Nose/Throat oral cavity/pharynx/larynx Overall: no masses 11/25/2016 None Full Exam - General 1994 Respiratory auscultation Overall: breath sounds clear bilaterally 11/25/2016 None Full Exam - General 1994 Respiratory respiratory effort/rhythm Overall: no retractions 11/25/2016 None Full Exam - General 1994 Respiratory respiratory effort/rhythm Overall: normal rate 11/25/2016 None Full Exam - General 1994 Cardiovascular extremities Overall: no clubbing 11/25/2016 None Full Exam - General 1994 Cardiovascular auscultation of heart Overall: regular rate 11/25/2016 None Full Exam - General 1994 Cardiovascular auscultation of heart Overall: normal heart sounds 11/25/2016 None Full Exam - General 1994 Abdomen abdominal exam Overall: no tenderness 11/25/2016 None Full Exam - General 1994 Abdomen abdominal exam Overall: normal bowel sounds 11/25/2016 None Full Exam - General 1994 Musculoskeletal spine, ribs and pelvis Overall: good posture 11/25/2016 None Full Exam - General 1994 Musculoskeletal gait and station Gait: unable to turn quickly 11/25/2016 None Full Exam - General 1994 Neurologic coordination Tremors: dystonia 11/25/2016 None Full Exam - General 1994 Neurologic coordination Tremors: resting 11/25/2016 None Full Exam - General 1994 Neurologic cranial nerves Overall: crainial nerves 2 - 12 grossly intact 11/25/2016 None Full Exam - General 1994 Neurologic motor Tone: cogwheel rigidity 11/25/2016 upper extremities bilaterally and at ankles Full Exam - General 1994 Psychiatric orientation/consciousness Overall: oriented to person, place and time 11/25/2016 None Full Exam - General 1994 Psychiatric mood and affect Overall: normal mood and affect 11/25/2016 None Full Exam - General 1994 Constitutional general appearance Development: well developed 08/20/2016 None Full Exam - General 1994 Constitutional general appearance Development: appears stated age 0308/20/2016 None Full Exam - General 1994 Constitutional general appearance Hygiene/Attention to Grooming: good hygiene 08/20/2016 None Full Exam - General 1994 Eyes conjunctiva /eyelids Overall: conjunctiva clear 08/20/2016 None Full Exam - General 1994 Eyes conjunctiva /eyelids Overall: cornea clear 08/20/2016 None Full Exam - General 1994 Eyes conjunctiva /eyelids Overall: eyelids normal 08/20/2016 None Full Exam - General 1994 Eyes pupils and irises Overall: pupils equal, round, reactive to light and accomodation 08/20/2016 None Full Exam - General 1994 Ears/Nose/Throat otoscopic exam Overall: external auditory canals clear 08/20/2016 None Full Exam - General 1994 Ears/Nose/Throat otoscopic exam Overall: tympanic membranes clear 08/20/2016 None Full Exam - General 1994 Ears/Nose/Throat lips/teeth/gingiva Overall: benign lips 08/20/2016 None Full Exam - General 1994 Ears/Nose/Throat lips/teeth/gingiva Overall: normal dentition 08/20/2016 None Full Exam - General 1994 Ears/Nose/Throat oral cavity/pharynx/larynx Overall: oral mucosa clear 08/20/2016 None Full Exam - General 1995 Ears/Nose/Throat oral cavity/pharynx/larynx Overall: oropharyngeal mucosa clear 08/20/2016 None Full Exam - General 1994 Ears/Nose/Throat oral cavity/pharynx/larynx Overall: hypopharynx benign 08/20/2016 None Full Exam - General 1994 Ears/Nose/Throat oral cavity/pharynx/larynx Overall: no masses 08/20/2016 None Full Exam - General 1994 Respiratory auscultation Overall: breath sounds clear bilaterally 08/20/2016 None Full Exam - General 1994 Respiratory respiratory effort/rhythm Overall: no retractions 08/20/2016 None Full Exam - General 1994 Respiratory respiratory effort/rhythm Overall: normal rate 08/20/2016 None Full Exam - General 1994 Cardiovascular extremities Overall: no clubbing 08/20/2016 None Full Exam - General 1994 Cardiovascular auscultation of heart Overall: regular rate 08/20/2016 None Full Exam - General 1994 Cardiovascular auscultation of heart Overall: normal heart sounds 08/20/2016 None Full Exam - General 1994 Abdomen abdominal exam Overall: no tenderness 08/20/2016 None Full Exam - General 1994 Abdomen abdominal exam Overall: normal bowel sounds 08/20/2016 None Full Exam - General 1994 Musculoskeletal spine, ribs and pelvis Overall: good posture 08/20/2016 None Full Exam - General 1994 Musculoskeletal gait and station Gait: unable to turn quickly 08/20/2016 None Full Exam - General 1994 Neurologic coordination Tremors: dystonia 08/20/2016 None Full Exam - General 1994 Neurologic coordination Tremors: resting 08/20/2016 None Full Exam - General 1994 Neurologic cranial nerves Overall: crainial nerves 2 - 12 grossly intact 08/20/2016 None Full Exam - General 1994 Neurologic motor Tone: cogwheel rigidity 08/20/2016 upper extremities bilaterally and at ankles Full Exam - General 1994 Psychiatric orientation/consciousness Overall: oriented to person, place and time 08/20/2016 None Full Exam - General 1994 Psychiatric mood and affect Overall: normal mood and affect 08/20/2016 None Full Exam - General 1994 Constitutional general appearance Development: well developed 07/21/2016 None Full Exam - General 1994 Constitutional general appearance Development: appears stated age 0107/21/2016 None Full Exam - General 1994 Constitutional general appearance Hygiene/Attention to Grooming: good hygiene 07/21/2016 None Full Exam - General 1994 Eyes conjunctiva /eyelids Overall: conjunctiva clear 07/21/2016 None Full Exam - General 1994 Eyes conjunctiva /eyelids Overall: cornea clear 07/21/2016 None Full Exam - General 1994 Eyes conjunctiva /eyelids Overall: eyelids normal 07/21/2016 None Full Exam - General 1994 Eyes pupils and irises Overall: pupils equal, round, reactive to light and accomodation 07/21/2016 None Full Exam - General 1994 Ears/Nose/Throat otoscopic exam Overall: external auditory canals clear 07/21/2016 None Full Exam - General 1994 Ears/Nose/Throat otoscopic exam Overall: tympanic membranes clear 07/21/2016 None Full Exam - General 1994 Ears/Nose/Throat lips/teeth/gingiva Overall: benign lips 07/21/2016 None Full Exam - General 1994 Ears/Nose/Throat lips/teeth/gingiva Overall: normal dentition 07/21/2016 None Full Exam - General 1994 Ears/Nose/Throat oral cavity/pharynx/larynx Overall: oral mucosa clear 07/21/2016 None Full Exam - General 1994 Ears/Nose/Throat oral cavity/pharynx/larynx Overall: oropharyngeal mucosa clear 07/21/2016 None Full Exam - General 1994 Ears/Nose/Throat oral cavity/pharynx/larynx Overall: hypopharynx benign 07/21/2016 None Full Exam - General 1994 Ears/Nose/Throat oral cavity/pharynx/larynx Overall: no masses 07/21/2016 None Full Exam - General 1994 Respiratory auscultation Overall: breath sounds clear bilaterally 07/21/2016 None Full Exam - General 1994 Respiratory respiratory effort/rhythm Overall: no retractions 07/21/2016 None Full Exam - General 1994 Respiratory respiratory effort/rhythm Overall: normal rate 07/21/2016 None Full Exam - General 1994 Cardiovascular extremities Overall: no clubbing 07/21/2016 None Full Exam - General 1994 Cardiovascular auscultation of heart Overall: regular rate 07/21/2016 None Full Exam - General 1994 Cardiovascular auscultation of heart Overall: normal heart sounds 07/21/2016 None Full Exam - General 1994 Abdomen abdominal exam Overall: no tenderness 07/21/2016 None Full Exam - General 1994 Abdomen abdominal exam Overall: normal bowel sounds 07/21/2016 None Full Exam - General 1994 Musculoskeletal spine, ribs and pelvis Overall: good posture 07/21/2016 None Full Exam - General 1994 Musculoskeletal gait and station Gait: unable to turn quickly 07/21/2016 None Full Exam - General 1994 Neurologic coordination Tremors: dystonia 07/21/2016 None Full Exam - General 1994 Neurologic coordination Tremors: resting 07/21/2016 None Full Exam - General 1994 Neurologic cranial nerves Overall: crainial nerves 2 - 12 grossly intact 07/21/2016 None Full Exam - General 1994 Neurologic motor Tone: cogwheel rigidity 07/21/2016 upper extremities bilaterally and at ankles Full Exam - General 1994 Psychiatric orientation/consciousness Overall: oriented to person, place and time 07/21/2016 None Full Exam - General 1994 Psychiatric mood and affect Overall: normal mood and affect 07/21/2016 None Full Exam - General 1994 Constitutional general appearance Development: well developed 04/03/2016 None Full Exam - General 1994 Constitutional general appearance Development: appears stated age 1004/03/2016 None Full Exam - General 1994 Constitutional general appearance Hygiene/Attention to Grooming: good hygiene 04/03/2016 None Full Exam - General 1994 Eyes conjunctiva /eyelids Overall: conjunctiva clear 04/03/2016 None Full Exam - General 1994 Eyes conjunctiva /eyelids Overall: cornea clear 04/03/2016 None Full Exam - General 1994 Eyes conjunctiva /eyelids Overall: eyelids normal 04/03/2016 None Full Exam - General 1994 Eyes pupils and irises Overall: pupils equal, round, reactive to light and accomodation 04/03/2016 None Full Exam - General 1994 Ears/Nose/Throat otoscopic exam Overall: external auditory canals clear 04/03/2016 None Full Exam - General 1994 Ears/Nose/Throat otoscopic exam Overall: tympanic membranes clear 04/03/2016 None Full Exam - General 1994 Ears/Nose/Throat lips/teeth/gingiva Overall: benign lips 04/03/2016 None Full Exam - General 1994 Ears/Nose/Throat lips/teeth/gingiva Overall: normal dentition 04/03/2016 None Full Exam - General 1994 Ears/Nose/Throat oral cavity/pharynx/larynx Overall: oral mucosa clear 04/03/2016 None Full Exam - General 1994 Ears/Nose/Throat oral cavity/pharynx/larynx Overall: oropharyngeal mucosa clear 04/03/2016 None Full Exam - General 1994 Ears/Nose/Throat oral cavity/pharynx/larynx Overall: hypopharynx benign 04/03/2016 None Full Exam - General 1994 Ears/Nose/Throat oral cavity/pharynx/larynx Overall: no masses 04/03/2016 None Full Exam - General 1994 Respiratory auscultation Overall: breath sounds clear bilaterally 04/03/2016 None Full Exam - General 1994 Respiratory respiratory effort/rhythm Overall: no retractions 04/03/2016 None Full Exam - General 1994 Respiratory respiratory effort/rhythm Overall: normal rate 04/03/2016 None Full Exam - General 1994 Cardiovascular extremities Overall: no clubbing 04/03/2016 None Full Exam - General 1994 Cardiovascular auscultation of heart Overall: regular rate 04/03/2016 None Full Exam - General 1994 Cardiovascular auscultation of heart Overall: normal heart sounds 04/03/2016 None Full Exam - General 1994 Abdomen abdominal exam Overall: no tenderness 04/03/2016 None Full Exam - General 1994 Abdomen abdominal exam Overall: normal bowel sounds 04/03/2016 None Full Exam - General 1994 Musculoskeletal spine, ribs and pelvis Overall: good posture 04/03/2016 None Full Exam - General 1994 Musculoskeletal gait and station Gait: unable to turn quickly 04/03/2016 None Full Exam - General 1994 Neurologic coordination Tremors: dystonia 04/03/2016 None Full Exam - General 1994 Neurologic coordination Tremors: resting 04/03/2016 None Full Exam - General 1994 Neurologic cranial nerves Overall: crainial nerves 2 - 12 grossly intact 04/03/2016 None Full Exam - General 1994 Neurologic motor Tone: cogwheel rigidity 04/03/2016 upper extremities bilaterally and at ankles Full Exam - General 1994 Psychiatric orientation/consciousness Overall: oriented to person, place and time 04/03/2016 None Full Exam - General 1994 Psychiatric mood and affect Overall: normal mood and affect 04/03/2016 None Full Exam - General 1994 Constitutional general appearance Development: well developed 02/21/2016 None Full Exam - General 1994 Constitutional general appearance Development: appears stated age 0902/21/2016 None Full Exam - General 1994 Constitutional general appearance Hygiene/Attention to Grooming: good hygiene 02/21/2016 None Full Exam - General 1994 Eyes conjunctiva /eyelids Overall: conjunctiva clear 02/21/2016 None Full Exam - General 1994 Eyes conjunctiva /eyelids Overall: cornea clear 02/21/2016 None Full Exam - General 1994 Eyes conjunctiva /eyelids Overall: eyelids normal 02/21/2016 None Full Exam - General 1994 Eyes pupils and irises Overall: pupils equal, round, reactive to light and accomodation 02/21/2016 None Full Exam - General 1994 Ears/Nose/Throat otoscopic exam Overall: external auditory canals clear 02/21/2016 None Full Exam - General 1994 Ears/Nose/Throat otoscopic exam Overall: tympanic membranes clear 02/21/2016 None Full Exam - General 1994 Ears/Nose/Throat lips/teeth/gingiva Overall: benign lips 02/21/2016 None Full Exam - General 1994 Ears/Nose/Throat lips/teeth/gingiva Overall: normal dentition 02/21/2016 None Full Exam - General 1994 Ears/Nose/Throat oral cavity/pharynx/larynx Overall: oral mucosa clear 02/21/2016 None Full Exam - General 1994 Ears/Nose/Throat oral cavity/pharynx/larynx Overall: oropharyngeal mucosa clear 02/21/2016 None Full Exam - General 1994 Ears/Nose/Throat oral cavity/pharynx/larynx Overall: hypopharynx benign 02/21/2016 None Full Exam - General 1994 Ears/Nose/Throat oral cavity/pharynx/larynx Overall: no masses 02/21/2016 None Full Exam - General 1994 Respiratory auscultation Overall: breath sounds clear bilaterally 02/21/2016 None Full Exam - General 1994 Respiratory respiratory effort/rhythm Overall: no retractions 02/21/2016 None Full Exam - General 1994 Respiratory respiratory effort/rhythm Overall: normal rate 02/21/2016 None Full Exam - General 1994 Cardiovascular extremities Overall: no clubbing 02/21/2016 None Full Exam - General 1994 Cardiovascular auscultation of heart Overall: regular rate 02/21/2016 None Full Exam - General 1994 Cardiovascular auscultation of heart Overall: normal heart sounds 02/21/2016 None Full Exam - General 1994 Abdomen abdominal exam Overall: no tenderness 02/21/2016 None Full Exam - General 1994 Abdomen abdominal exam Overall: normal bowel sounds 02/21/2016 None Full Exam - General 1994 Musculoskeletal spine, ribs and pelvis Overall: good posture 02/21/2016 None Full Exam - General 1994 Neurologic cranial nerves Overall: crainial nerves 2 - 12 grossly intact 02/21/2016 None Full Exam - General 1994 Psychiatric orientation/consciousness Overall: oriented to person, place and time 02/21/2016 None Full Exam - General 1994 Psychiatric mood and affect Overall: normal mood and affect 02/21/2016 None Full Exam - General 1994 Musculoskeletal gait and station Gait: unable to turn quickly 02/21/2016 None Full Exam - General 1994 Neurologic coordination Tremors: dystonia 02/21/2016 None Full Exam - General 1994 Neurologic coordination Tremors: resting 02/21/2016 None Full Exam - General 1994 Neurologic motor Tone: cogwheel rigidity 02/21/2016 upper extremities bilaterally and at ankles Full Exam - General 1994 Constitutional general appearance Development: well developed 10/22/2015 None Full Exam - General 1994 Constitutional general appearance Development: appears stated age 0510/22/2015 None Full Exam - General 1994 Constitutional general appearance Hygiene/Attention to Grooming: good hygiene 10/22/2015 None Full Exam - General 1994 Eyes conjunctiva /eyelids Overall: conjunctiva clear 10/22/2015 None Full Exam - General 1994 Eyes conjunctiva /eyelids Overall: cornea clear 10/22/2015 None Full Exam - General 1994 Eyes conjunctiva /eyelids Overall: eyelids normal 10/22/2015 None Full Exam - General 1994 Eyes pupils and irises Overall: pupils equal, round, reactive to light and accomodation 10/22/2015 None Full Exam - General 1994 Ears/Nose/Throat otoscopic exam Overall: external auditory canals clear 10/22/2015 None Full Exam - General 1994 Ears/Nose/Throat otoscopic exam Overall: tympanic membranes clear 10/22/2015 None Full Exam - General 1994 Ears/Nose/Throat lips/teeth/gingiva Overall: benign lips 10/22/2015 None Full Exam - General 1994 Ears/Nose/Throat lips/teeth/gingiva Overall: normal dentition 10/22/2015 None Full Exam - General 1994 Ears/Nose/Throat oral cavity/pharynx/larynx Overall: oral mucosa clear 10/22/2015 None Full Exam - General 1994 Ears/Nose/Throat oral cavity/pharynx/larynx Overall: oropharyngeal mucosa clear 10/22/2015 None Full Exam - General 1994 Ears/Nose/Throat oral cavity/pharynx/larynx Overall: hypopharynx benign 10/22/2015 None Full Exam - General 1994 Ears/Nose/Throat oral cavity/pharynx/larynx Overall: no masses 10/22/2015 None Full Exam - General 1994 Respiratory auscultation Overall: breath sounds clear bilaterally 10/22/2015 None Full Exam - General 1994 Respiratory respiratory effort/rhythm Overall: no retractions 10/22/2015 None Full Exam - General 1994 Respiratory respiratory effort/rhythm Overall: normal rate 10/22/2015 None Full Exam - General 1994 Cardiovascular extremities Overall: no clubbing 10/22/2015 None Full Exam - General 1994 Cardiovascular auscultation of heart Overall: regular rate 10/22/2015 None Full Exam - General 1994 Cardiovascular auscultation of heart Overall: normal heart sounds 10/22/2015 None Full Exam - General 1994 Abdomen abdominal exam Overall: no tenderness 10/22/2015 None Full Exam - General 1994 Abdomen abdominal exam Overall: normal bowel sounds 10/22/2015 None Full Exam - General 1994 Musculoskeletal spine, ribs and pelvis Overall: good posture 10/22/2015 None Full Exam - General 1994 Neurologic deep tendon reflexes Overall: deep tendon reflexes intact 10/22/2015 None Full Exam - General 1994 Neurologic cranial nerves Overall: crainial nerves 2 - 12 grossly intact 10/22/2015 None Full Exam - General 1994 Psychiatric orientation/consciousness Overall: oriented to person, place and time 10/22/2015 None Full Exam - General 1994 Psychiatric mood and affect Overall: normal mood and affect 10/22/2015 None Full Exam - General 1994 Constitutional general appearance Development: well developed 07/12/2015 None Full Exam - General 1994 Constitutional general appearance Development: appears stated age 0107/12/2015 None Full Exam - General 1994 Constitutional general appearance Hygiene/Attention to Grooming: good hygiene 07/12/2015 None Full Exam - General 1994 Eyes conjunctiva /eyelids Overall: conjunctiva clear 07/12/2015 None Full Exam - General 1994 Eyes conjunctiva /eyelids Overall: cornea clear 07/12/2015 None Full Exam - General 1994 Eyes conjunctiva /eyelids Overall: eyelids normal 07/12/2015 None Full Exam - General 1994 Eyes pupils and irises Overall: pupils equal, round, reactive to light and accomodation 07/12/2015 None Full Exam - General 1994 Ears/Nose/Throat otoscopic exam Overall: external auditory canals clear 07/12/2015 None Full Exam - General 1994 Ears/Nose/Throat otoscopic exam Overall: tympanic membranes clear 07/12/2015 None Full Exam - General 1994 Ears/Nose/Throat lips/teeth/gingiva Overall: benign lips 07/12/2015 None Full Exam - General 1994 Ears/Nose/Throat lips/teeth/gingiva Overall: normal dentition 07/12/2015 None Full Exam - General 1994 Ears/Nose/Throat oral cavity/pharynx/larynx Overall: oral mucosa clear 07/12/2015 None Full Exam - General 1994 Ears/Nose/Throat oral cavity/pharynx/larynx Overall: oropharyngeal mucosa clear 07/12/2015 None Full Exam - General 1994 Ears/Nose/Throat oral cavity/pharynx/larynx Overall: hypopharynx benign 07/12/2015 None Full Exam - General 1994 Ears/Nose/Throat oral cavity/pharynx/larynx Overall: no masses 07/12/2015 None Full Exam - General 1994 Respiratory auscultation Overall: breath sounds clear bilaterally 07/12/2015 None Full Exam - General 1994 Respiratory respiratory effort/rhythm Overall: no retractions 07/12/2015 None Full Exam - General 1994 Respiratory respiratory effort/rhythm Overall: normal rate 07/12/2015 None Full Exam - General 1994 Cardiovascular extremities Overall: no clubbing 07/12/2015 None Full Exam - General 1994 Cardiovascular auscultation of heart Overall: regular rate 07/12/2015 None Full Exam - General 1994 Cardiovascular auscultation of heart Overall: normal heart sounds 07/12/2015 None Full Exam - General 1994 Abdomen abdominal exam Overall: no tenderness 07/12/2015 None Full Exam - General 1994 Abdomen abdominal exam Overall: normal bowel sounds 07/12/2015 None Full Exam - General 1994 Musculoskeletal spine, ribs and pelvis Overall: good posture 07/12/2015 None Full Exam - General 1994 Neurologic deep tendon reflexes Overall: deep tendon reflexes intact 07/12/2015 None Full Exam - General 1994 Neurologic cranial nerves Overall: crainial nerves 2 - 12 grossly intact 07/12/2015 None Full Exam - General 1994 Psychiatric orientation/consciousness Overall: oriented to person, place and time 07/12/2015 None Full Exam - General 1994 Psychiatric mood and affect Overall: normal mood and affect 07/12/2015 None Full Exam - General 1994 Constitutional general appearance Development: well developed 03/27/2015 None Full Exam - General 1994 Constitutional general appearance Development: appears stated age 1003/27/2015 None Full Exam - General 1994 Constitutional general appearance Hygiene/Attention to Grooming: good hygiene 03/27/2015 None Full Exam - General 1994 Eyes conjunctiva /eyelids Overall: conjunctiva clear 03/27/2015 None Full Exam - General 1994 Eyes conjunctiva /eyelids Overall: cornea clear 03/27/2015 None Full Exam - General 1994 Eyes conjunctiva /eyelids Overall: eyelids normal 03/27/2015 None Full Exam - General 1994 Eyes pupils and irises Overall: pupils equal, round, reactive to light and accomodation 03/27/2015 None Full Exam - General 1994 Ears/Nose/Throat otoscopic exam Overall: external auditory canals clear 03/27/2015 None Full Exam - General 1994 Ears/Nose/Throat otoscopic exam Overall: tympanic membranes clear 03/27/2015 None Full Exam - General 1994 Ears/Nose/Throat lips/teeth/gingiva Overall: benign lips 03/27/2015 None Full Exam - General 1994 Ears/Nose/Throat lips/teeth/gingiva Overall: normal dentition 03/27/2015 None Full Exam - General 1994 Ears/Nose/Throat oral cavity/pharynx/larynx Overall: oral mucosa clear 03/27/2015 None Full Exam - General 1994 Ears/Nose/Throat oral cavity/pharynx/larynx Overall: oropharyngeal mucosa clear 03/27/2015 None Full Exam - General 1994 Ears/Nose/Throat oral cavity/pharynx/larynx Overall: hypopharynx benign 03/27/2015 None Full Exam - General 1994 Ears/Nose/Throat oral cavity/pharynx/larynx Overall: no masses 03/27/2015 None Full Exam - General 1994 Respiratory auscultation Overall: breath sounds clear bilaterally 03/27/2015 None Full Exam - General 1994 Respiratory respiratory effort/rhythm Overall: no retractions 03/27/2015 None Full Exam - General 1994 Respiratory respiratory effort/rhythm Overall: normal rate 03/27/2015 None Full Exam - General 1994 Cardiovascular extremities Overall: no clubbing 03/27/2015 None Full Exam - General 1994 Cardiovascular auscultation of heart Overall: regular rate 03/27/2015 None Full Exam - General 1994 Cardiovascular auscultation of heart Overall: normal heart sounds 03/27/2015 None Full Exam - General 1994 Abdomen abdominal exam Overall: no tenderness 03/27/2015 None Full Exam - General 1994 Abdomen abdominal exam Overall: normal bowel sounds 03/27/2015 None Full Exam - General 1994 Lymphatic neck nodes Overall: anterior cervical chain benign 03/27/2015 None Full Exam - General 1994 Lymphatic neck nodes Overall: posterior cervical chain benign 03/27/2015 None Full Exam - General 1994 Musculoskeletal spine, ribs and pelvis Overall: spine benign 03/27/2015 None Full Exam - General 1994 Musculoskeletal head and neck Overall: head atraumatic 03/27/2015 None Full Exam - General 1994 Musculoskeletal head and neck Overall: cervical spine benign 03/27/2015 None Full Exam - General 1994 Integument inspection of skin Overall: few scattered moles, no gross abnormalities 03/27/2015 None Full Exam - General 1994 Neurologic deep tendon reflexes Overall: deep tendon reflexes intact 03/27/2015 None Full Exam - General 1994 Neurologic cranial nerves Overall: crainial nerves 2 - 12 grossly intact 03/27/2015 None Full Exam - General 1994 Psychiatric orientation/consciousness Overall: oriented to person, place and time 03/27/2015 None Full Exam - General 1994 Psychiatric mood and affect Overall: normal mood and affect 03/27/2015 None Full Exam - General 1994 Musculoskeletal gait and station Gait: abnormal swing through 03/27/2015 None Full Exam - General 1994 Musculoskeletal gait and station Gait: unable to turn quickly 03/27/2015 None Full Exam - General 1994 Musculoskeletal lower extremity Inspection - thigh: normal appearance 03/27/2015 None Full Exam - General 1994 Musculoskeletal lower extremity Palpation - thigh: tenderness 03/27/2015 unable to mobilize hip due to patient being in tremendous pain with any movement or touch of the hip - attempt at external rotation of the hip caused pt to cry in pain. Procedures Procedure Codes Date PPPS, SUBSEQ VISIT CPT -4: G0439 04/14/2018 PPPS, SUBSEQ VISIT CPT -4: G0439 03/30/2017 ADMIN PNEUMOCOCCAL VACCINE SNOMED CT: 54999348 CPT-4: G0009 03/30/2017 PNEUMOCOCCAL VACC [address]: 97643888 CPT-4: 19989 03/30/2017 ADMIN INFLUENZA VIRUS VAC CPT-4: G0008 03/23/2017 FLU VAC NO PRSV 4 UMANG 3 YRS+ CPT-4: 53430 03/23/2017 ADMIN INFLUENZA VIRUS VAC CPT-4: G0008 02/21/2016 FLU VACC PRSV FREE INC ANTIG CPT-4: 90523 02/21/2016 Vital Signs Date Vital 05/04/2018 Blood Pressure 1: 128/76 Code : 8480-6 BMI: 36.1 Code : 59796-5 Heart Rate 1 : 80 bpm Height: 5'5" SpO2: 96% Weight: 217 lbs 04/14/2018 Blood Pressure 1: 130/72 Code : 8480-6 BMI: 36.6 Code : 14601-2 Heart Rate 1 : 71 bpm Height: 5'5" SpO2: 96% Waist Measure (cm): 117 cm Weight: 220 lbs 12/22/2017 Blood Pressure 1: 110/74 Code : 8480-6 Heart Rate 1: 95 bpm Height: SpO2: 96% Weight: 210 lbs 11/23/2017 Blood Pressure 1: 114/72 Code : 8480-6 BMI: 34.4 Code : 74367-3 Heart Rate 1 : 76 bpm Height: 5'5" SpO2: 96% Weight: 207 lbs 07/22/2017 Blood Pressure 1: 120/80 Code : 8480-6 BMI: 34.8 Code : 95029-5 Heart Rate 1 : 73 bpm Height: 5'5" SpO2: 97% Weight: 209 lbs 03/30/2017 Blood Pressure 1: 136/74 Code : 8480-6 BMI: 33.8 Code : 44373-8 Heart Rate 1 : 76 bpm Height: 5'5" SpO2: 97% Waist Measure (cm): 102 cm Weight: 203 lbs 03/23/2017 Blood Pressure 1: 126/82 Code : 8480-6 BMI: 33.8 Code : 29149-2 Heart Rate 1 : 60 bpm Height: 5'5" SpO2: 98% Weight: 203 lbs 11/25/2016 Blood Pressure 1: 110/68 Code : 8480-6 BMI: 33.4 Code : 65561-0 Heart Rate 1 : 96 bpm Height: 5'5" SpO2: 97% Weight: 201 lbs 08/20/2016 Blood Pressure 1: 112/64 Code : 8480-6 BMI: 32.9 Code : 90867-6 Heart Rate 1 : 72 bpm Height: 5'5" SpO2: 96% Weight: 198 lbs 07/21/2016 Blood Pressure 1: 128/74 Code : 8480-6 BMI: 32.9 Code : 16807-3 Heart Rate 1 : 81 bpm Height: 5'5" SpO2: 97% Weight: 198 lbs 04/03/2016 Blood Pressure 1: 138/80 Code : 8480-6 BMI: 32.8 Code : 24978-1 Heart Rate 1 : 87 bpm Height: 5'5" SpO2: 98% Weight: 197 lbs 02/21/2016 Blood Pressure 1: 132/80 Code : 8480-6 BMI: 32.9 Code : 93724-3 Heart Rate 1 : 90 bpm Height: 5'5" SpO2: 97% Weight: 198 lbs 10/22/2015 Blood Pressure 1: 134/80 Code : 8480-6 BMI: 33.3 Code : 38944-4 Heart Rate 1 : 86 bpm Height: 5'5" SpO2: 94% Weight: 200 lbs 07/12/2015 Blood Pressure 1: 128/86 Code : 8480-6 BMI: 32.9 Code : 11582-5 Heart Rate 1 : 71 bpm Height: 5'5" SpO2: 96% Weight: 198 lbs 03/27/2015 Blood Pressure 1: 138/88 Code : 8480-6 BMI: 32.1 Code : 20303-7 Heart Rate 1 : 88 bpm Height: 5'5" SpO2: 96% Weight: 193 lbs Functional Status No Functional Status data History of Present Illness Symptom Name Status Result Effective Date Notes edema Quality intermittent 05/04/2018 None edema Quality pitting 05/04/2018 on occasion edema Onset and Resolution ongoing 05/04/2018 None edema Onset of Symptom 2-3 months ago 05/04/2018 None edema Limitation on Activities moderately limits activities 05/04/2018 None edema Pertinent Findings Denies dyspnea 05/04/2018 None edema Pertinent Findings dyspnea on exertion 05/04/2018 None edema Pertinent Findings lightheadedness 05/04/2018 None Annual Medicare Wellness Exam Alcohol Use does not drink any alcohol 04/14/2018 None Annual Medicare Wellness Exam Aspirin Use yes 04/14/2018 None Annual Medicare Wellness Exam Blood Glucose (self reported) don't know 04/14/2018 None Annual Medicare Wellness Exam Blood Pressure (self reported ) don't know 04/14/2018 None Annual Medicare Wellness Exam Cholesterol (self reported) don't know 04/14/2018 None Annual Medicare Wellness Exam Depression (last 6 months) some of the time 04/14/2018 None Annual Medicare Wellness Exam Depression or Hopelessness some of the time 04/14/2018 None Annual Medicare Wellness Exam Describe Your Health fair 04/14/2018 None Annual Medicare Wellness Exam Exercise Habits does not exercise 04/14/2018 None Annual Medicare Wellness Exam Handling Stress usually jt effectively 04/14/2018 None Annual Medicare Wellness Exam Hemaglobin A-1C (self reported ) don't know 04/14/2018 None Annual Medicare Wellness Exam Hours of Sleep 9 04/14/2018 None Annual Medicare Wellness Exam Interaction with Friends yes 04/14/2018 None Annual Medicare Wellness Exam Interests & Pleasure almost all of the time 04/14/2018 None Annual Medicare Wellness Exam Life Satisfaction very satisfied 04/14/2018 None Annual Medicare Wellness Exam Motor Vehicle Safety always fastens seat belt: y 04/14/2018 None Annual Medicare Wellness Exam Motor Vehicle Safety drives after drinking: n 04/14/2018 None Annual Medicare Wellness Exam Motor Vehicle Safety rides with someone who has been drinking: n 2017 None Annual Medicare Wellness Exam Nutrition servings of fried food / high fat foods per day: 1 2017 None Annual Medicare Wellness Exam Nutrition servings of vegetables / fruit per day: 2 04/14/2018 None Annual Medicare Wellness Exam Nutrition servings of high fiber / whole grain per day: 2 04/14/2018 None Annual Medicare Wellness Exam Smoking and Tobacco Use non smoker 04/14/2018 None Annual Medicare Wellness Exam Social & Emotional Support always 04/14/2018 None Annual Medicare Wellness Exam Stress some of the time 04/14/2018 None Annual Medicare Wellness Exam Sun Exposure protects skin when outdoors: y 04/14/2018 None medication follow up Location oral intake 12/22/2017 None medication follow up Additional Comments medication use 12/22/2017 None dyskinesia or tremor Location on the left hand 11/23/2017 None dyskinesia or tremor Location on the right hand 11/23/2017 None dyskinesia or tremor Quality intermittent 11/23/2017 None dyskinesia or tremor Onset and Resolution ongoing 11/23/2017 None dyskinesia or tremor Frequency of Episodes unchanged 11/23/2017 None hypothyroid Quality chronic 11/23/2017 None hypothyroid Onset and Resolution ongoing 11/23/2017 None hypothyroid Alleviating Factors medication 11/23/2017 None pain Quality chronic 11/23/2017 None pain Quality intermittent 11/23/2017 None pain Quality burning 11/23/2017 None pain Onset and Resolution ongoing 11/23/2017 None pain Onset of Symptom months ago 11/23/2017 None pain Triggers no known triggers 11/23/2017 None paresthesia Location on both hands 11/23/2017 None paresthesia Quality intermittent 11/23/2017 None paresthesia Quality numbness 11/23/2017 None paresthesia Onset and Resolution ongoing 11/23/2017 None paresthesia Onset of Symptom months ago 11/23/2017 None paresthesia Frequency of Episodes daily 11/23/2017 None paresthesia Triggers no known associated factors 11/23/2017 None pain Location-Extremities on the right leg 11/23/2017 None shoulder pain Location on the right shoulder 11/23/2017 None shoulder pain Quality intermittent 11/23/2017 None shoulder pain Onset and Resolution ongoing 11/23/2017 None shoulder pain Frequency of Episodes daily 11/23/2017 None shoulder pain Pertinent Findings limited range of motion 11/23/2017 None shoulder pain Onset of Symptom months ago 11/23/2017 None dizziness Quality lightheadedness 11/23/2017 None dizziness Quality intermittent 11/23/2017 None dizziness Onset and Resolution ongoing 11/23/2017 None dizziness Triggers no known associated factors 11/23/2017 None dizziness Significant Medications antihypertensives 11/23/2017 None dyskinesia or tremor Location on the left hand 07/22/2017 None dyskinesia or tremor Location on the right hand 07/22/2017 None dyskinesia or tremor Quality intermittent 07/22/2017 None dyskinesia or tremor Onset and Resolution ongoing 07/22/2017 None dyskinesia or tremor Frequency of Episodes unchanged 07/22/2017 None hypothyroid Onset and Resolution ongoing 07/22/2017 None hypothyroid Alleviating Factors medication 07/22/2017 None pain Quality chronic 07/22/2017 None pain Quality intermittent 07/22/2017 None pain Quality burning 07/22/2017 None pain Onset and Resolution ongoing 07/22/2017 None pain Onset of Symptom months ago 07/22/2017 None hypothyroid Quality chronic 07/22/2017 None pain Location-Extremities on the right leg 07/22/2017 None pain Triggers no known triggers 07/22/2017 None paresthesia Quality numbness 07/22/2017 None paresthesia Quality intermittent 07/22/2017 None paresthesia Onset and Resolution ongoing 07/22/2017 None paresthesia Onset of Symptom several months ago 07/22/2017 None paresthesia Frequency of Episodes daily 07/22/2017 None paresthesia Triggers no known associated factors 07/22/2017 None paresthesia Location on both hands 07/22/2017 None Annual Medicare Wellness Exam Alcohol Use does not drink any alcohol 03/30/2017 None Annual Medicare Wellness Exam Aspirin Use yes 03/30/2017 None Annual Medicare Wellness Exam Blood Glucose (self reported) don't know 03/30/2017 None Annual Medicare Wellness Exam Blood Pressure (self reported ) low / normal (120/80) 03/30/2017 None Annual Medicare Wellness Exam Cholesterol (self reported) don't know 03/30/2017 None Annual Medicare Wellness Exam Depression (last 6 months) some of the time 03/30/2017 None Annual Medicare Wellness Exam Depression or Hopelessness almost never 03/30/2017 None Annual Medicare Wellness Exam Describe Your Health good 03/30/2017 None Annual Medicare Wellness Exam Exercise Habits does not exercise 03/30/2017 None Annual Medicare Wellness Exam Handling Stress usually jt effectively 03/30/2017 None Annual Medicare Wellness Exam Hemaglobin A-1C (self reported ) don't know 03/30/2017 None Annual Medicare Wellness Exam Hours of Sleep 7 03/30/2017 None Annual Medicare Wellness Exam Interaction with Friends yes 03/30/2017 None Annual Medicare Wellness Exam Interests & Pleasure most of the time 03/30/2017 None Annual Medicare Wellness Exam Life Satisfaction very satisfied 03/30/2017 None Annual Medicare Wellness Exam Motor Vehicle Safety always fastens seat belt: y 03/30/2017 None Annual Medicare Wellness Exam Motor Vehicle Safety drives after drinking: n 03/30/2017 None Annual Medicare Wellness Exam Motor Vehicle Safety rides with someone who has been drinking: n 2016 None Annual Medicare Wellness Exam Nutrition servings of fried food / high fat foods per day: 1 2016 None Annual Medicare Wellness Exam Nutrition servings of high fiber / whole grain per day: 23 03/30/2017 None Annual Medicare Wellness Exam Smoking and Tobacco Use non smoker 03/30/2017 None Annual Medicare Wellness Exam Social & Emotional Support always 03/30/2017 None Annual Medicare Wellness Exam Stress almost never 03/30/2017 None Annual Medicare Wellness Exam Sun Exposure protects skin when outdoors: y 03/30/2017 None dyskinesia or tremor Location on the right hand 03/23/2017 None dyskinesia or tremor Quality intermittent 03/23/2017 None dyskinesia or tremor Onset and Resolution ongoing 03/23/2017 None hypothyroid Onset and Resolution ongoing 03/23/2017 None hypothyroid Alleviating Factors medication 03/23/2017 None dyskinesia or tremor Frequency of Episodes unchanged 03/23/2017 None dyskinesia or tremor Location on the left hand 03/23/2017 None shoulder pain Location on the right shoulder 03/23/2017 None shoulder pain Quality acute 03/23/2017 None shoulder pain Quality intermittent 03/23/2017 None shoulder pain Onset and Resolution sudden in onset 03/23/2017 None shoulder pain Onset and Resolution ongoing 03/23/2017 None shoulder pain Onset of Symptom ~1 months ago 03/23/2017 None shoulder pain Frequency of Episodes daily 03/23/2017 None shoulder pain Mechanism of injury unknown 03/23/2017 None shoulder pain Alleviating Factors rest 03/23/2017 None shoulder pain Exacerbating Factors position change 03/23/2017 None shoulder pain Pertinent Findings limited range of motion 03/23/2017 None pain Location-Extremities on the right leg 03/23/2017 None pain Quality chronic 03/23/2017 None pain Quality intermittent 03/23/2017 None pain Onset and Resolution ongoing 03/23/2017 None pain Onset of Symptom months ago 03/23/2017 None pain Quality burning 03/23/2017 None vaccination against influenza Location deltoid-Lt 03/23/2017 None dyskinesia or tremor Location on the right hand 11/25/2016 None dyskinesia or tremor Quality improving 11/25/2016 None dyskinesia or tremor Quality intermittent 11/25/2016 when she's tired or in the evening dyskinesia or tremor Onset and Resolution improved during the day 11/25/2016 improving dyskinesia or tremor Onset and Resolution ongoing 11/25/2016 None headache Location in the frontal area 11/25/2016 None headache Quality dull 11/25/2016 None headache Quality intermittent 11/25/2016 None headache Onset and Resolution resolved 11/25/2016 None headache Timing of Episodes in the morning 11/25/2016 None dizziness Quality imbalance 11/25/2016 None dizziness Quality intermittent 11/25/2016 None dizziness Quality tilting 11/25/2016 None dizziness Onset and Resolution gradual in onset 11/25/2016 None dizziness Onset and Resolution ongoing 11/25/2016 None dizziness Exacerbating Factors medication 11/25/2016 - pt thinks it may have been sinemet - dyskinesia or tremor Location on the right hand 08/20/2016 None dyskinesia or tremor Quality intermittent 08/20/2016 when she's tired or in the evening dyskinesia or tremor Onset and Resolution ongoing 08/20/2016 None headache Location in the frontal area 08/20/2016 None headache Quality intermittent 08/20/2016 None headache Timing of Episodes in the morning 08/20/2016 None dizziness Quality intermittent 08/20/2016 None dizziness Exacerbating Factors medication 08/20/2016 - pt thinks it may have been sinemet - dyskinesia or tremor Quality improving 08/20/2016 None dyskinesia or tremor Onset and Resolution improved during the day 08/20/2016 improving headache Onset and Resolution resolved 08/20/2016 None headache Quality dull 08/20/2016 None dizziness Onset and Resolution ongoing 08/20/2016 None dizziness Onset and Resolution gradual in onset 08/20/2016 None dizziness Quality imbalance 08/20/2016 None dizziness Quality tilting 08/20/2016 None dyskinesia or tremor Location on the right hand 07/21/2016 None dyskinesia or tremor Quality intermittent 07/21/2016 None dyskinesia or tremor Onset and Resolution gradual in onset 07/21/2016 None dyskinesia or tremor Onset and Resolution ongoing 07/21/2016 None headache Location in the frontal area 07/21/2016 None headache Quality dull 07/21/2016 None headache Quality intermittent 07/21/2016 None headache Onset and Resolution ongoing 07/21/2016 None headache Timing of Episodes in the morning 07/21/2016 None dizziness Quality intermittent 07/21/2016 None dizziness Exacerbating Factors medication 07/21/2016 - pt thinks it may have been sinemet - dyskinesia or tremor Location on the right hand 04/03/2016 None dyskinesia or tremor Onset and Resolution gradual in onset 04/03/2016 None dyskinesia or tremor Onset and Resolution ongoing 04/03/2016 None headache Quality dull 04/03/2016 None headache Quality intermittent 04/03/2016 None headache Onset and Resolution ongoing 04/03/2016 None headache Timing of Episodes in the morning 04/03/2016 None headache Location in the frontal area 04/03/2016 None dyskinesia or tremor Quality intermittent 04/03/2016 None dizziness Quality intermittent 04/03/2016 None dizziness Exacerbating Factors medication 04/03/2016 None hypothyroid Location at the level of the thyroid 02/21/2016 None hypothyroid Quality chronic 02/21/2016 None hypothyroid Onset and Resolution ongoing 02/21/2016 None hypothyroid Severity mild with subclinical signs 02/21/2016 None hypothyroid Alleviating Factors medication 02/21/2016 None dyskinesia or tremor Onset and Resolution gradual in onset 02/21/2016 None dyskinesia or tremor Onset and Resolution ongoing 02/21/2016 None dyskinesia or tremor Location on the right hand 02/21/2016 None headache Location on the right 02/21/2016 None headache Quality intermittent 02/21/2016 None headache Quality dull 02/21/2016 None hypothyroid Onset and Resolution ongoing 10/22/2015 None hypothyroid Alleviating Factors medication 10/22/2015 None hypothyroid Location at the level of the thyroid 10/22/2015 None hypothyroid Quality chronic 10/22/2015 None hypothyroid Severity mild with subclinical signs 10/22/2015 None lower leg pain Location on the right 07/12/2015 None lower leg pain Quality dull pain 07/12/2015 None lower leg pain Quality constant 07/12/2015 None lower leg pain Onset and Resolution gradual in onset 07/12/2015 None lower leg pain Onset of Symptom 1 months ago 07/12/2015 None lower leg pain Pertinent Findings Denies decreased range of motion 07/12/2015 None lower leg pain Pertinent Findings Denies limping 07/12/2015 None lower leg pain Pertinent Findings pain with movement 07/12/2015 None lower leg pain Pertinent Findings weakness 07/12/2015 None low back pain Location lumbar spine 07/12/2015 None low back pain Quality constant 07/12/2015 None low back pain Quality worsening 07/12/2015 None low back pain Onset of Symptom 1 months ago 07/12/2015 None low back pain Pertinent Findings female 07/12/2015 None low back pain Pertinent Findings bowel disturbance 07/12/2015 None low back pain Pertinent Findings Denies sleep disturbances 07/12/2015 None low back pain Pertinent Findings pain with movement 07/12/2015 None low back pain Pertinent Findings Denies extremity numbness 07/12/2015 None low back pain Pertinent Findings extremity weakness 07/12/2015 None low back pain Pertinent Findings weakness 07/12/2015 None abdominal pain Location in the epigastric area 07/12/2015 None abdominal pain Radiating the back 07/12/2015 None abdominal pain Onset of Symptom 6 weeks ago 07/12/2015 None abdominal pain Pertinent Findings back pain 07/12/2015 None abdominal pain Pertinent Findings Denies cough 07/12/2015 None abdominal pain Pertinent Findings Denies heartburn 07/12/2015 None lower leg pain Location on the left 03/27/2015 None lower leg pain Quality cramping 03/27/2015 None lower leg pain Quality sharp pain 03/27/2015 None lower leg pain Onset and Resolution sudden in onset 03/27/2015 None lower leg pain Onset of Symptom 2 days ago 03/27/2015 None lower leg pain Pertinent Findings decreased range of motion 03/27/2015 None lower leg pain Severity moderate 03/27/2015 None Advance Directives Advance Directives Present Encounters Encounter Performer Location Codes Date ([id number]) 07516 EST. PATIENT, LEVEL IV Diagnosis: Atrophy of thyroid (acquired)[ICD10: E03.4] Diagnosis: Parkinson's disease[ICD10: G20] Diagnosis: Mild cognitive impairment, so stated[ICD10: G31.84] Diagnosis: Pain in right hip[ICD10: M25.551] [facility] CPT-4: 63763 05/04/2018 ([id number]) 97465 EST. PATIENT, LEVEL III Diagnosis: Mild cognitive impairment, so stated[ICD10: G31.84] Diagnosis: Parkinson's disease[ICD10: G20] Eula Springer MD, [facility] CPT- 4: 72683 12/22/2017 ([id number]) 94574 EST. PATIENT, LEVEL IV Diagnosis: Atrophy of thyroid (acquired)[ICD10: E03.4] Diagnosis: Cervicalgia[ICD10: M54.2] Diagnosis: Muscle weakness (generalized)[ICD10: M62.81] Diagnosis: Pain in right shoulder[ICD10: M25.511] Eula Springer MD, [facility] CPT-4: 66760 11/23/2017 ([id number]) 81365 EST. PATIENT, LEVEL IV Diagnosis: Atrophy of thyroid (acquired)[ICD10: E03.4] Diagnosis: Essential tremor[ICD10: G25.0] Diagnosis: Pain in right hip[ICD10: M25.551] Diagnosis: Carpal tunnel syndrome, bilateral upper limbs[ICD10: G56.03] Eula Springer MD, [facility] CPT-4: 89621 07/22/2017 ([id number]) 32188 EST. PATIENT, LEVEL IV Diagnosis: Atrophy of thyroid (acquired)[ICD10: E03.4] Diagnosis: Vitamin B12 deficiency anemia due to intrinsic factor deficiency[ ICD10: D51.0] Diagnosis: Essential tremor[ICD10: G25.0] Diagnosis: Other vitamin B12 deficiency anemias[ICD10: D51.8] Diagnosis: Vitamin D deficiency, unspecified[ICD10: E55.9] Diagnosis: Encounter for immunization[ICD10: Z23] Diagnosis: Bicipital tendinitis, right shoulder[ICD10: M75.21] Eula Springer MD, [facility] CPT-4: 14370 03/23/2017 ([id number]) 26172 EST. PATIENT, LEVEL IV Diagnosis: Atrophy of thyroid (acquired)[ICD10: E03.4] Diagnosis: Mild cognitive impairment, so stated[ICD10: G31.84] Eula Springer MD, [facility] CPT-4: 65767 11/25/2016 ([id number]) 13038 EST. PATIENT, LEVEL IV Diagnosis: Essential tremor[ICD10: G25.0] Diagnosis: Atrophy of thyroid (acquired)[ICD10: E03.4] Eula Springer MD, [facility] CPT-4: 39761 08/20/2016 ([id number]) 14296 EST. PATIENT, LEVEL IV Diagnosis: Atrophy of thyroid (acquired)[ICD10: E03.4] Diagnosis: Essential tremor[ICD10: G25.0] Eula Springer MD, [facility] CPT- 4: 46089 07/21/2016 ([id number]) 48097 EST. PATIENT, LEVEL IV Diagnosis: Mild cognitive impairment, so stated[ICD10: G31.84] Diagnosis: Atrophy of thyroid (acquired)[ICD10: E03.4] Diagnosis: Encounter for screening mammogram for malignant neoplasm of breast[ ICD10: Z12.31] Eula Springer MD [facility] CPT-4: 03442 04/03/2016 ([id number]) 32515 EST. PATIENT, LEVEL IV Diagnosis: Hypothyroidism, unspecified[ICD10: E03.9] Diagnosis: Parkinson's disease[ICD10: G20] Diagnosis: Encounter for immunization[ICD10: Z23] Eula Springer MD, [facility] CPT-4: 56783 02/21/2016 ([id number]) 00019 EST. PATIENT, LEVEL III Diagnosis: Hypothyroidism, unspecified[ICD10: E03.9] Eula Springer MD [facility] CPT-4: 90920 10/22/2015 ([id number]) 73793 EST. 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] Diagnosis: Essential tremor[ICD10: G25.0] Diagnosis: Vitamin B12 deficiency anemia due to intrinsic factor deficiency[ ICD10: D51.0] Diagnosis: Disorder of bone, unspecified[ICD10: M89.9] Eula Springer MD, [facility] CPT-4: 23281 07/12/2015 ([id number]) OFFICE VISIT, NEW - LEVEL 4 Diagnosis: Pain in left hip[ICD10: M25.552] Diagnosis: Lumbago with sciatica, unspecified side[ICD10: M54.40] [facility] CPT-4: 52401 03/27/2015 Plan of Care Planned Activity Notes Codes Status Date Visit Plan: Hypothyroidism - pt with chronic hypothyroidism , continue with current medication, will monitor pt to signs or symptoms of lack of adequate supplementation. Pt is to continue with current dose of medication unless directed otherwise. Check labs at regular intervals q 3 months or q 6 months based on previous levels of control. Abdominal pain /hip pain - reviewed with patient the need for her to have therapy - she is not interested, and she is not interested in injections - will take ibuprofen 600mg tid x 10 days and call if not improving. Intermittent edema - avoid salty foods. Parkinson's Disease - pt has diagnosis of Parkinson's disease with movement disorder impinging upon daily activities. The pt is to be on sinemet as directed, and medications to be adjusted as appropriate for alleviation of the impairment of ADL's. Pt or pt's family is to alert this office if symptoms worsen. 05/04/2018 Patient Education: Patient Medication Summary Completed 05/04/2018 Appointment: E[facility] Springer [facility]Ptel: [facility] (15 min) Moderate 05/03/2018 Appointment: Eula Springer WPtel: [facility] (15 min) Moderate 04/26/2018 Visit Plan: Medicare Exam - today we discussed the patients past history, immunizations, preventative exams/evaluations - colonoscopy, fecal occult blood testing, routine labs for renal function, glucose, cholesterol, osteoporosis evaluations, cardiovascular testing and cancer screenings. We have also discussed mental health and the signs/symptoms of depression. The patient was advised of home safety evaluations and the need to make sure that as the aging process continues, we need to be aware of different ways to make the home a safer place to reside. The patient has also been counseled that exercise is necessary - and of utmost importance as we age to help decrease fall risk and to maintain independece in the home. Today we discussed the need for the patient to create paperwork for Advanced directives as well as for the patient to provide this office with a copy of her DOPA paperwork for health care surrogate. 04/14/2018 Patient Education: Patient Medication Summary Completed 04/14/2018 Appointment: Wendy Martinez WPtel: [facility] [place] [address] - Annual Wellness Visit 04/05/2018 Visit Plan: Mild Cognitive Impairment - discussed with pt and family the diagnosis, continue with namenda. We will follow up with treatment at next office visit after review of testing. Parkinson's disease - change propranolol to 1/2 tab in morning and 1/2 tab at mid afternoon and 1 tab at hs. 12/22/2017 Appointment: Eula Springer WPtel: [facility] [address] (15 min) Moderate 12/22/2017 Patient Education: Patient Medication Summary Completed 12/22/2017 Visit Plan: Hypothyroidism - pt with chronic hypothyroidism , continue with current medication, will monitor pt to signs or symptoms of lack of adequate supplementation. Pt is to continue with current dose of medication unless directed otherwise. Check labs at regular intervals wither q 3 months or q 6 months based on previous levels of control. Shoulder pain - right shoulder - recommended patient to have xray of shoulder today. Neck pain, upper extremity weakness - MRI of cervical spine - schedule to be done at [facility] - upper extremity numbness weakness. 11/23/2017 Visit Plan: Hypothyroidism - pt with chronic hypothyroidism , continue with current medication, will monitor pt to signs or symptoms of lack of adequate supplementation. Pt is to continue with current dose of medication unless directed otherwise. Check labs at regular intervals wither q 3 months or q 6 months based on previous levels of control. Shoulder pain - right shoulder - recommended patient to have xray of shoulder today. Neck pain, upper extremity weakness - MRI of cervical spine - schedule to be done at [facility] - upper extremity numbness weakness. 11/23/2017 Appointment: Eula Springer WPtel: [facility] (15 min) Moderate 11/23/2017 Patient Education: Patient Medication Summary Completed 11/23/2017 Care Plan: MRI NECK SPINE W/O [facility] : 80544-4 Pending 11/23/2017 Care Plan: X-RAY EXAM OF SHOULDER LOINC : 77322-9 Pending 11/23/2017 Appointment: Eula Springer WPtel: [facility] (15 min) Moderate 11/19/2017 Visit Plan: Hypothyroidism - pt with chronic hypothyroidism , continue with current medication, will monitor pt to signs or symptoms of lack of adequate supplementation. Pt is to continue with current dose of medication unless directed otherwise. Check labs at regular intervals wither q 3 months or q 6 months based on previous levels of control. Essential Tremor - continue with supportive care, betablocker. Leg pain and low back pain - pt has been again recommended to go to physical therapy - She was given RX for physical therapy at [facility]. 07/22/2017 Appointment: Eula Springer WPtel: [facility] (15 min) Moderate 07/22/2017 Patient Education: Patient Medication Summary Completed 07/22/2017 Visit Plan: Medicare Exam - today we discussed the patients past history, immunizations, preventative exams/evaluations - colonoscopy, fecal occult blood testing, routine labs for renal function, glucose, cholesterol, osteoporosis evaluations, cardiovascular testing and cancer screenings. We have also discussed mental health and the signs/symptoms of depression. The patient was advised of home safety evaluations and the need to make sure that as the aging process continues, we need to be aware of different ways to make the home a safer place to reside. The patient has also been counseled that exercise is necessary - and of utmost importance as we age to help decrease fall risk and to maintain independece in the home. Today we discussed the need for the patient to create paperwork for Advanced directives as well as for the patient to provide this office with a copy of her DOPA paperwork for health care surrogate. 03/30/2017 Appointment: Wendy Martinez WPtel: [facility] [facility] - Annual Wellness Visit 03/30/2017 Patient Education: Patient Medication Summary Completed 03/30/2017 Patient Education: Obesity Completed 03/30/2017 Visit Plan: Hypothyroidism - pt with chronic hypothyroidism , continue with current medication, will monitor pt to signs or symptoms of lack of adequate supplementation. Pt is to continue with current dose of medication unless directed otherwise. Check labs at regular intervals wither q 3 months or q 6 months based on previous levels of control. Vitamin D deficiency - recommended to check vitamin D level - see if it is possible that her vitamin D level is low again causing her fatigue. Essential tremor - continue supportive care. vitamin B 12 deficiency - check vitamin B level - orders given. Biceps tendonitis - suspect that the patient may have some fiber tears - there is no surgical treatment to be rendered - I have recommended that the patient needs to start physical therapy - Order given to the patient's daughter to get this scheduled at [facility]. 03/23/2017 Appointment: Eula Springer WPtel: [facility] [place] (15 min) Moderate 03/23/2017 Patient Education: Patient Medication Summary Completed 03/23/2017 Patient Education: Obesity Completed 03/23/2017 Appointment: Eula Springer WPtel: [facility] [place] (15 min) Moderate 11/26/2016 Visit Plan: Hypothyroidism - pt with chronic hypothyroidism , continue with current medication, will monitor pt to signs or symptoms of lack of adequate supplementation. Pt is to continue with current dose of medication unless directed otherwise. Check labs at regular intervals wither q 3 months or q 6 months based on previous levels of control. Mild cognitive Impairment - continue with current treatment, supportive care. 11/25/2016 Appointment: Eula Springer WPtel: [facility] [place] (15 min) Moderate 11/25/2016 Patient Education: Patient Medication Summary Completed 11/25/2016 Care Plan: Free T4 Pending 11/25/2016 Care Plan: Tsh Pending 11/25/2016 Appointment: Eula Springer WPtel: [phone] [facility] [place] (15 min) Moderate 09/11/2016 Visit Plan: Hypothyroidism - pt with chronic hypothyroidism , continue with current medication, will monitor pt to signs or symptoms of lack of adequate supplementation. Pt is to continue with current dose of medication unless directed otherwise. Check labs at regular intervals wither q 3 months or q 6 months based on previous levels of control. Tremor - started on propranolol 10mg twice daily - pt had improvement of symptoms on propranolol. 08/20/2016 Appointment: Eula Springer WPtel: [phone] [facility] (15 min) Moderate 08/20/2016 Patient Education: Patient Medication Summary Completed 08/20/2016 Patient Education: Obesity Completed 08/20/2016 Visit Plan: Hypothyroidism - pt with chronic hypothyroidism , continue with current medication, will monitor pt to signs or symptoms of lack of adequate supplementation. Pt is to continue with current dose of medication unless directed otherwise. Check labs at regular intervals wither q 3 months or q 6 months based on previous levels of control. Tremor - start on propranolol 10mg twice daily - this should help with the tremors and if it is not working, then call the office and we can increase to three times daily. 07/21/2016 Appointment: Eula Springer WPtel: [phone] [facility] (15 min) Moderate 07/21/2016 Patient Education: Patient Medication Summary Completed 07/21/2016 Patient Education: Obesity Completed 07/21/2016 Visit Plan: Hypothyroidism - pt with chronic hypothyroidism , continue with current medication, will monitor pt to signs or symptoms of lack of adequate supplementation. Pt is to continue with current dose of medication unless directed otherwise. Check labs at regular intervals wither q 3 months or q 6 months based on previous levels of control. Mild Cognitive Impairment - discussed with pt the diagnosis, pt is not yet in category of dementia, but is in danger of approaching that level of memory loss. Treatment modalities have been discussed and pt is considering different treatment options. We will follow up with treatment at next office visit after review of testing. 04/03/2016 Appointment: Eula Springer WPtel: [phone] [facility] (15 min) Moderate 04/03/2016 Patient Education: Patient Medication Summary Completed 04/03/2016 Patient Education: Obesity Completed 04/03/2016 Visit Plan: Hypothyroidism - pt with chronic hypothyroidism , continue with current medication, will monitor pt to signs or symptoms of lack of adequate supplementation. Pt is to continue with current dose of medication unless directed otherwise. Check labs at regular intervals wither q 3 months or q 6 months based on previous levels of control. Parkinson's disease - new dx - recommended pt to start on low dose of sinemet and referral to Neurologist if family so desires - they are to let me know who they would like to see for Neurology for full work-up/eval. 02/21/2016 Patient Education: Patient Medication Summary Completed 02/21/2016 Patient Education: Obesity Completed 02/21/2016 Visit Plan: Hypothyroidism - pt with chronic hypothyroidism , continue with current medication, will monitor pt to signs or symptoms of lack of adequate supplementation. Pt is to continue with current dose of medication unless directed otherwise. Check labs at regular intervals wither q 3 months or q 6 months based on previous levels of control. 10/22/2015 Patient Education: Patient Medication Summary Completed 10/22/2015 Patient Education: Obesity Completed 10/22/2015 Visit Plan: Mild Cognitive Impairment - discussed with pt and family the diagnosis, pt is not yet in category of dementia, but is in danger of approaching that level of memory loss. Treatment modalities have been discussed and pt is considering different treatment options. We will follow up with treatment at next office visit after review of testing. Encopresis - MRI of spine and Brain. 07/12/2015 Patient Education: Patient Medication Summary Completed 07/12/2015 Visit Plan: sending pt to hospital for pelvic, hip, lumbar and thoracic spine xray. reports are negative for fracture, but positive for iliospoas tendon injury. Call to Dr. Alicea's office - pt to have appt [facility] for further evaluation and treatment recommendations. 03/27/2015 Appointment: [id number] [facility] 03/27/2015 Patient Education: Patient Medication Summary Completed 03/27/2015 Instructions Comment . Hypothyroidism - pt with chronic hypothyroidism, continue with current medication, will monitor pt to signs or symptoms of lack of adequate supplementation. Pt is to continue with current dose of medication unless directed otherwise. Check labs at regular intervals wither q 3 months or q 6 months based on previous levels of control. Mild Cognitive Impairment - discussed with pt the diagnosis, pt is not yet in category of dementia, but is in danger of approaching that level of memory loss. Treatment modalities have been discussed and pt is considering different treatment options. We will follow up with treatment at next office visit after review of testing. . Hypothyroidism - pt with chronic hypothyroidism, continue with current medication, will monitor pt to signs or symptoms of lack of adequate supplementation. Pt is to continue with current dose of medication unless directed otherwise. Check labs at regular intervals wither q 3 months or q 6 months based on previous levels of control. Tremor - started on propranolol 10mg twice daily - pt had improvement of symptoms on propranolol. take 400mg ibuprofen three times daily with food . Hypothyroidism - pt with chronic hypothyroidism, continue with current medication, will monitor pt to signs or symptoms of lack of adequate supplementation. Pt is to continue with current dose of medication unless directed otherwise. Check labs at regular intervals wither q 3 months or q 6 months based on previous levels of control. Shoulder pain - right shoulder - recommended patient to have xray of shoulder today. Neck pain, upper extremity weakness - MRI of cervical spine - schedule to be done at [facility] department - upper extremity numbness weakness. take 400mg ibuprofen three times daily with food . Hypothyroidism - pt with chronic hypothyroidism, continue with current medication, will monitor pt to signs or symptoms of lack of adequate supplementation. Pt is to continue with current dose of medication unless directed otherwise. Check labs at regular intervals wither q 3 months or q 6 months based on previous levels of control. Shoulder pain - right shoulder - recommended patient to have xray of shoulder today. Neck pain, upper extremity weakness - MRI of cervical spine - schedule to be done at [facility] - upper extremity numbness weakness. . Hypothyroidism - pt with chronic hypothyroidism, continue with current medication, will monitor pt to signs or symptoms of lack of adequate supplementation. Pt is to continue with current dose of medication unless directed otherwise. Check labs at regular intervals wither q 3 months or q 6 months based on previous levels of control. Tremor - start on propranolol 10mg twice daily - this should help with the tremors and if it is not working, then call the office and we can increase to three times daily. . sending pt to hospital for pelvic, hip, lumbar and thoracic spine xray. reports are negative for fracture, but positive for iliospoas tendon injury. Call to Dr. Alicea's office - pt to have appt [facility] for further evaluation and treatment recommendations. . Medicare Exam - today we discussed the patients past history, immunizations, preventative exams/evaluations - colonoscopy, fecal occult blood testing, routine labs for renal function, glucose, cholesterol, osteoporosis evaluations, cardiovascular testing and cancer screenings. We have also discussed mental health and the signs/symptoms of depression. The patient was advised of home safety evaluations and the need to make sure that as the aging process continues, we need to be aware of different ways to make the home a safer place to reside. The patient has also been counseled that exercise is necessary - and of utmost importance as we age to help decrease fall risk and to maintain independece in the home. Today we discussed the need for the patient to create paperwork for Advanced directives as well as for the patient to provide this office with a copy of her DOPA paperwork for health care surrogate. change propranolol to 1/2 tab in morning and 1/2 tab at mid afternoon and 1 tab at hs. . Mild Cognitive Impairment - discussed with pt and family the diagnosis, continue with namenda. We will follow up with treatment at next office visit after review of testing. Parkinson's disease - change propranolol to 1/2 tab in morning and 1/2 tab at mid afternoon and 1 tab at hs. . Hypothyroidism - pt with chronic hypothyroidism, continue with current medication, will monitor pt to signs or symptoms of lack of adequate supplementation. Pt is to continue with current dose of medication unless directed otherwise. Check labs at regular intervals wither q 3 months or q 6 months based on previous levels of control. Parkinson's disease - new dx - recommended pt to start on low dose of sinemet and referral to Neurologist if family so desires - they are to let me know who they would like to see for Neurology for full work-up/eval. take ibuprofen 600mg three times daily x 10 days avoid salty foods. Hypothyroidism - pt with chronic hypothyroidism, continue with current medication, will monitor pt to signs or symptoms of lack of adequate supplementation. Pt is to continue with current dose of medication unless directed otherwise. Check labs at regular intervals q 3 months or q 6 months based on previous levels of control. Abdominal pain /hip pain - reviewed with patient the need for her to have therapy - she is not interested, and she is not interested in injections - will take ibuprofen 600mg tid x 10 days and call if not improving. Intermittent edema - avoid salty foods. Parkinson's Disease - pt has diagnosis of Parkinson's disease with movement disorder impinging upon daily activities. The pt is to be on sinemet as directed, and medications to be adjusted as appropriate for alleviation of the impairment of ADL's. Pt or pt's family is to alert this office if symptoms worsen. . Hypothyroidism - pt with chronic hypothyroidism, continue with current medication, will monitor pt to signs or symptoms of lack of adequate supplementation. Pt is to continue with current dose of medication unless directed otherwise. Check labs at regular intervals wither q 3 months or q 6 months based on previous levels of control. Salonpas - lidocaine patch 4% to area under right breast . Hypothyroidism - pt with chronic hypothyroidism, continue with current medication, will monitor pt to signs or symptoms of lack of adequate supplementation. Pt is to continue with current dose of medication unless directed otherwise. Check labs at regular intervals wither q 3 months or q 6 months based on previous levels of control. Essential Tremor - continue with supportive care, betablocker. Leg pain and low back pain - pt has been again recommended to go to physical therapy - She was given RX for physical therapy at [facility]. . Mild Cognitive Impairment - discussed with pt and family the diagnosis, pt is not yet in category of dementia, but is in danger of approaching that level of memory loss. Treatment modalities have been discussed and pt is considering different treatment options. We will follow up with treatment at next office visit after review of testing. Encopresis - MRI of spine and Brain. . Hypothyroidism - pt with chronic hypothyroidism, continue with current medication, will monitor pt to signs or symptoms of lack of adequate supplementation. Pt is to continue with current dose of medication unless directed otherwise. Check labs at regular intervals wither q 3 months or q 6 months based on previous levels of control. Mild cognitive Impairment - continue with current treatment, supportive care. . Hypothyroidism - pt with chronic hypothyroidism, continue with current medication, will monitor pt to signs or symptoms of lack of adequate supplementation. Pt is to continue with current dose of medication unless directed otherwise. Check labs at regular intervals wither q 3 months or q 6 months based on previous levels of control. Vitamin D deficiency - recommended to check vitamin D level - see if it is possible that her vitamin D level is low again causing her fatigue. Essential tremor - continue supportive care. vitamin B 12 deficiency - check vitamin B level - orders given. Biceps tendonitis - suspect that the patient may have some fiber tears - there is no surgical treatment to be rendered - I have recommended that the patient needs to start physical therapy - Order given to the patient's daughter to get this scheduled at [facility]. . Medicare Exam - today we discussed the patients past history, immunizations, preventative exams/evaluations - colonoscopy, fecal occult blood testing, routine labs for renal function, glucose, cholesterol, osteoporosis evaluations, cardiovascular testing and cancer screenings. We have also discussed mental health and the signs/symptoms of depression. The patient was advised of home safety evaluations and the need to make sure that as the aging process continues, we need to be aware of different ways to make the home a safer place to reside. The patient has also been counseled that exercise is necessary - and of utmost importance as we age to help decrease fall risk and to maintain independece in the home. Today we discussed the need for the patient to create paperwork for Advanced directives as well as for the patient to provide this office with a copy of her DOPA paperwork for health care surrogate.
--- OUTSIDE RECORDS SUMMARY | 2018-05-24 20:32 | XMS REPORT | CCD ---
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 Name Role Phone PP Unavailable CCM Unavailable Summary Purpose Interface Exchange Insurance Providers Payer name Policy type / Coverage type Covered libertarian ID Effective Begin Date Effective End Date WPS Medicare Part B Medicare Part B [id number] Unknown Unknown [facility] Medicare Part B [id number] Unknown Unknown Family history Daughter Diagnosis Age [...] Unknown Retired 03/27/[address]: 244633656 Never smoker - but had extensive smoke exposure during marriage [address]: 264171259 Never drinks alcohol 03/27/2015 Allergies, Adverse Reactions, Alerts Substance Reaction Codes Entered Date Inactivated Date Status * NO KNOWN DRUG ALLERGIES Unknown 03/27/2015 No Inactive Date Active Past Medical History Illness Codes Condition Status Onset Date Resolved Date Encounter for general adult medical examination with abnormal findings ICD-9: V70.0 ICD-10: Z00.01 Active 03/30/2017 Unknown Mild cognitive impairment, so stated ICD-9: 331.83 ICD-10: G31.84 Active 04/02/2016 Unknown Parkinson's disease ICD-9: 332.0 ICD-10: G20 Active 02/20/2016 Unknown 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 Active 04/02/2016 Unknown Cervicalgia ICD-9: 723.1 ICD-10: M54.2 Active 11/23/2017 Unknown Muscle weakness (generalized) ICD-9: 728.87 ICD-10: M62.81 Active 11/23/2017 Unknown Pain in right shoulder ICD-9: 719.41 ICD-10: M25.511 Active 11/23/2017 Unknown Carpal tunnel syndrome, bilateral upper limbs ICD-9: 354.0 ICD-10: G56.03 Active 07/22/2017 Unknown Essential tremor ICD-9 : 333.1 ICD-10: G25.0 Active 07/11/2015 Unknown Pain in right hip ICD- 9: 719.45 ICD-10: M25.551 Active 07/22/2017 Unknown Encounter for immunization ICD-9: V03.82 ICD-10: [...] Problems Condition Codes Effective Dates Condition Status Encounter for general adult medical examination with abnormal findings ICD-9: V70.0 ICD-10: Z00.01 03/30/2017 Active Mild cognitive impairment, so stated ICD-9: 331.83 ICD-10: G31.84 04/02/2016 Active Parkinson's disease ICD-9: 332.0 ICD-10: G20 02/20/2016 Active 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 04/02/2016 Active Cervicalgia ICD-9: 723.1 ICD-10: M54.2 11/23/2017 Active Muscle weakness (generalized) ICD-9: 728.87 ICD-10: M62.81 11/23/2017 Active Pain in right shoulder ICD-9: 719.41 ICD-10: M25.511 11/23/2017 Active Carpal tunnel syndrome, bilateral upper limbs ICD-9: 354.0 ICD-10: G56.03 07/22/2017 Active Essential tremor ICD-9 : 333.1 ICD-10: G25.0 07/11/2015 Active Pain in right hip ICD- 9: 719.45 ICD-10: M25.551 07/22/2017 Active Encounter for immunization ICD-9: V03.82 ICD-10: [...] Start Date Stop Date Status Fill Instructions Namenda 10 mg tablet RxNorm: 035125 1 Tablet(s) PO BID 201707/07/2019 Active levothyroxine 50 mcg tablet RxNorm: 573254 TAKE 1 TABLET BY MOUTH ONCE DAILY 02/24/2018 No Stop Date Active Namenda 10 mg tablet RxNorm: 850246 1 Tablet(s) PO BID 201704/13/2018 Inactive propranolol 10 mg tablet RxNorm: 892229 Tablet(s) 1/2 tablet in morning, 1/2 at noon and 1 at hs (for tremors) 12/22/2017 No Stop Date Active Namenda 10 mg tablet RxNorm: 606612 1 Tablet(s) PO BID 201701/17/2018 Inactive Namenda 10 mg tablet RxNorm: 297482 1 Tablet(s) PO BID start with 1/2 tab hs x1wk then 1/2 tab bid x 1wk then 1/2 AM and 1 hs x 1wk then 1 bid thereafter 11/23/2017 12/21/2017 Inactive Zoloft 50 mg tablet RxNorm: 778316 TAKE ONE TABLET BY MOUTH ONCE DAILY 11/03/2017 No Stop Date Active propranolol 10 mg tablet RxNorm: 441667 TAKE ONE TABLET BY MOUTH TWICE DAILY 09/02/2017 12/21/2017 Inactive levothyroxine 50 mcg tablet RxNorm: 711376 TAKE ONE TABLET BY MOUTH ONCE DAILY 08/21/2017 02/23/2018 Inactive propranolol 10 mg tablet RxNorm: 815554 1 Tablet(s) PO BID 06/201608/14/2017 Inactive Zoloft 50 mg tablet RxNorm: 108870 1 Tablet(s) PO daily 201608/14/2017 Inactive levothyroxine 50 mcg tablet RxNorm: 476568 1 Tablet(s) PO daily 08/20/2016 08/14/2017 Inactive propranolol 10 mg tablet RxNorm: 154085 1 Tablet(s) PO BID 08/19/2016 Inactive levothyroxine 50 mcg tablet RxNorm: 291696 1 Tablet(s) PO daily 06/06/2016 08/19/2016 Inactive Sinemet 25 mg-100 mg tablet RxNorm: 688211 1 Tablet(s) PO BID 0900 and 1700 03/18/2016 06/02/2016 Inactive Sinemet 25 mg-100 mg tablet RxNorm: 647606 1 Tablet(s) PO BID 0900 and 1700 02/21/2016 03/17/2016 Inactive levothyroxine 50 mcg tablet RxNorm: 336844 1 Tablet(s) PO daily 10/22/2015 05/18/2016 Inactive Vitamin D2 50,000 unit capsule RxNorm: 135395 1 Capsule(s) PO QW x12 and take vit d 5000 u DAILY 10/22/2015 02/20/2016 Inactive Vitamin D2 50,000 unit capsule RxNorm: 794295 1 Capsule(s) PO QW x12 and take vit d 5000 u DAILY 07/31/2015 07/30/2015 Inactive levothyroxine 25 mcg tablet RxNorm: 008725 1 Tablet(s) PO daily 07/31/2015 10/21/2015 Inactive Vitamin D2 50,000 unit capsule RxNorm: 811087 1 Capsule(s) PO QW x12 and take vit d 5000 u DAILY 07/31/2015 10/21/2015 Inactive levothyroxine 25 mcg tablet RxNorm: 230800 1 Tablet(s) PO daily 07/31/2015 07/30/2015 Inactive Voltaren 1 % topical gel RxNorm: 995525 2 Gram(s) TOP QID to right hip/groin and right chest wall 07/12/2015 09/09/2015 Inactive ibuprofen oral RxNorm : 5640 oral No Start Date Active aspirin, buffered 81 mg tablet RxNorm: 764495 1 Tablet(s) PO daily No Start Date Active Vitamin D3 5,000 unit tablet RxNorm: 057044 1 Tablet(s) PO daily No Start Date Active multivitamin tablet RxNorm: 1 Tablet(s) PO daily No Start Date Active Vitamin B-12 1,000 mcg tablet RxNorm: 768166 1 Tablet(s) PO daily No Start Date Active Zoloft 50 mg tablet RxNorm: 220688 1 Tablet(s) PO daily No Start Date 08/19/2016 Inactive Medication Administered No Medication Administered data Immunizations Vaccine Codes Date Status Pneumococcal (Adult) CVX: 133 03/30/2017 completed Influenza CVX: 141 03/23/2017 completed Influenza CVX: 141 02/21/2016 completed Assessments Condition Codes Effective Dates Encounter for general adult medical examination with abnormal findings ICD-10: Z00.01 ICD-9: V70.0 04/14/2018 Mild cognitive impairment, so stated ICD-10: G31.84 ICD-9: 331.83 12/22/2017 Parkinson's disease ICD-10: G20 ICD-9: 332.0 12/22/2017 Atrophy of thyroid (acquired) ICD-10: E03.4 ICD-9: 244.8 11/23/2017 Pain in right shoulder ICD-10: M25.511 ICD-9: 719.41 11/23/2017 Muscle weakness (generalized) ICD-10: M62.81 ICD-9: 728.87 11/23/2017 Cervicalgia ICD-10: M54.2 ICD-9: 723.1 11/23/2017 Essential tremor ICD-10: G25.0 ICD-9: 333.1 07/22/2017 Pain in right hip ICD-10: M25.551 ICD-9: 719.45 07/22/2017 Carpal tunnel syndrome, bilateral upper limbs [...] Visit Reason For Visit Effective Dates Notes Annual Medicare Wellness Exam 04/14/2018 medication follow [...] Ord30 C/HDL 4.8 Ratio 07/17/2017 Comp Metabolic Vzk294 NA 140 mEq/L 03/23/2017 Comp Metabolic Rss580 K 4.8 mEq/L 03/23/2017 Comp Metabolic Kpj018 CL 105 mEq/L 03/23/2017 Comp Metabolic Yxe265 CO2 29.0 mEq/L 03/23/2017 Comp Metabolic Bse909 ANION GAP 11 03/23/2017 Comp Metabolic Azz938 GLUCOSE 91 mg/dL 03/23/2017 Comp Metabolic Jkb432 Creat 1.0 mg/dL 03/23/2017 Comp Metabolic Urb319 eGFR 57 ml/min/1.73m2 03/23/2017 Comp Metabolic Ajc078 BUN 15 mg/dL 03/23/2017 Comp Metabolic Lyz476 B/C Ratio 15.0 Ratio 03/23/2017 Comp Metabolic Nbu141 CALCIUM 9.6 mg/dL 03/23/2017 Comp Metabolic Hfg362 ALK PHOS 127 U/L 03/23/2017 Comp Metabolic Qjx697 AST(SGOT) 19 U/L 03/23/2017 Comp Metabolic Xxi011 ALT(SGPT) 13 U/L 03/23/2017 Comp Metabolic Sws455 BILI T 0.4 mg/dL 03/23/2017 Comp Metabolic Wus033 ALBUMIN 4.1 g/dL 03/23/2017 Comp Metabolic Jbr235 TPRO 6.6 g/dL 03/23/2017 Comp Metabolic Hvx495 GLOB 2.5 g/dL 03/23/2017 Comp Metabolic Fwc208 A/G Ratio 1.6 Ratio 03/23/2017 Comp Metabolic Ddo255 Osmo 280 mOsmo 03/23/2017 Lipid Ord30 CHOL 209 mg/dL 03/23/2017 Lipid Ord30 HDL 36.0 mg/dl 03/23/2017 Lipid Ord30 TRIG 172 mg/dL 03/23/2017 Lipid Ord30 LDL 139 mg/dL 03/23/2017 Lipid Ord30 C/HDL 5.8 Ratio 03/23/2017 B12 Uua164 B12 378.00 pg/ml 03/23/2017 Free T4 Ofu880 FREE T4 0.82 ng/dL 03/23/2017 Vitamin D 25 Oh Qjs1005 VITAMIN D, 25 HYDROXY 50.18 ng/mL Cbc With Differential Ord2 WBC 7.89 K/ul 03/23/2017 Cbc With Differential Ord2 RBC 4.60 M/ul 03/23/2017 Cbc With Differential Ord2 HGB 14.8 g/dl 03/23/2017 Cbc With Differential Ord2 Neut% 54.3 % 03/23/2017 Cbc With Differential Ord2 HCT 45.1 % 03/23/2017 Cbc With Differential Ord2 Lymph% 31.7 % 03/23/2017 Cbc With Differential Ord2 MCV 98.0 fl 03/23/2017 Cbc With Differential Ord2 Cook% 10.4 % 03/23/2017 Cbc With Differential Ord2 MCH 32.2 pg 03/23/2017 Cbc With Differential Ord2 Eos% 3.0 % 03/23/2017 Cbc With Differential Ord2 MCHC 32.8 pg 03/23/2017 Cbc With Differential Ord2 Baso% 0.6 % 03/23/2017 Cbc With Differential Ord2 PLT 222 K/ul 03/23/2017 Cbc With Differential Ord2 Neut ABS# 4.28 K/ul 03/23/2017 Cbc With Differential Ord2 RDW 13.1 % 03/23/2017 Cbc With Differential Ord2 Lymph ABS# 2.50 K/ul 03/23/2017 Cbc With Differential Ord2 Cook ABS# 0.8 K/ul 03/23/2017 Cbc With Differential Ord2 Eos ABS# 0.2 K/ul 03/23/2017 Cbc With Differential Ord2 Baso ABS# 0.1 K/ul 03/23/2017 Tsh Ord6 hTSH II 2.72 uIU/mL 03/23/2017 Free T4 Ero639 FREE T4 0.83 ng/dL 11/25/2016 Tsh Ord6 hTSH II 2.53 uIU/mL 11/25/2016 Metabolic Ord15 NA 138 mEq/L 07/21/2016 [...] hTSH II 2.42 uIU/mL 07/21/2016 Free T4 Gzf421 FREE T4 0.87 ng/dL 07/21/2016 Comp Metabolic Jam165 NA 135 mEq/L 02/21/2016 Comp Metabolic Jkj459 K 4.4 mEq/L 02/21/2016 Comp Metabolic Xzf562 CL 101 mEq/L 02/21/2016 Comp Metabolic Axc020 CO2 25.0 mEq/L 02/21/2016 Comp Metabolic Vsf026 ANION GAP 13 02/21/2016 Comp Metabolic Evl878 GLUCOSE 89 mg/dL 02/21/2016 Comp Metabolic Skp808 Creat 1.0 mg/dL 02/21/2016 Comp Metabolic Uqp490 eGFR 59 ml/min/1.73m2 02/21/2016 Comp Metabolic Udj760 BUN 14 mg/dL 02/21/2016 Comp Metabolic Lov494 B/C Ratio 14.3 Ratio 02/21/2016 Comp Metabolic Ugu385 CALCIUM 9.8 mg/dL 02/21/2016 Comp Metabolic Rmg821 ALK PHOS 134 U/L 02/21/2016 Comp Metabolic Yoo595 AST(SGOT) 21 U/L 02/21/2016 Comp Metabolic Vun936 ALT(SGPT) 17 U/L 02/21/2016 Comp Metabolic Gdq104 BILI T 0.5 mg/dL 02/21/2016 Comp Metabolic Map064 ALBUMIN 4.3 g/dL 02/21/2016 Comp Metabolic Hwn792 TPRO 7.0 g/dL 02/21/2016 Comp Metabolic Jur581 GLOB 2.8 g/dL 02/21/2016 Comp Metabolic Lmb796 A/G Ratio 1.5 Ratio 02/21/2016 Comp Metabolic Aic674 Osmo 270 mOsmo 02/21/2016 Free T4 Biz929 FREE T4 0.88 ng/dL 02/21/2016 Tsh Ord6 hTSH II 2.02 uIU/mL 02/21/2016 Rpr 796306 RPR NON-REACTIVE 07/14/2015 Vitamin D 25 Oh Dng1339 VITAMIN D, 25 HYDROXY 15.05 ng/mL Folate Ord36 Folate >24.50 ng/mL 07/12/2015 Cbc With Differential Ord2 WBC 7.36 K/ul 07/12/2015 Cbc With Differential Ord2 RBC 4.43 M/ul 07/12/2015 Cbc With Differential Ord2 HGB 14.1 g/dl 07/12/2015 Cbc With Differential Ord2 HCT 43.1 % 07/12/2015 Cbc With Differential Ord2 Neut% 58.1 % 07/12/2015 Cbc With Differential Ord2 MCV 97.3 fl 07/12/2015 Cbc With Differential Ord2 Lymph% 26.8 % 07/12/2015 Cbc With Differential Ord2 MCH 31.8 pg 07/12/2015 Cbc With Differential Ord2 Cook% 12.0 % 07/12/2015 Cbc With Differential Ord2 Eos% 2.6 % 07/12/2015 Cbc With Differential Ord2 MCHC 32.7 pg 07/12/2015 Cbc With Differential Ord2 Baso% 0.5 % 07/12/2015 Cbc With Differential Ord2 PLT 254 K/ul 07/12/2015 Cbc With Differential Ord2 Neut ABS# 4.28 K/ul 07/12/2015 Cbc With Differential Ord2 RDW 13.8 % 07/12/2015 Cbc With Differential Ord2 Lymph ABS# 1.97 K/ul 07/12/2015 Cbc With Differential Ord2 Cook ABS# 0.9 K/ul 07/12/2015 Cbc With Differential Ord2 Eos ABS# 0.2 K/ul 07/12/2015 Cbc With Differential Ord2 Baso ABS# 0.0 K/ul 07/12/2015 Cbc With Differential Ord2 New Analyzer Notice Please note new ref ranges starting 07-04-2015 due to implemntation of new five part differential hematolgy analyzer. 07/12/2015 Free T4 Hmp771 FREE T4 0.69 ng/dL 07/12/2015 Tsh Ord6 hTSH II 5.53 uIU/mL 07/12/2015 Comp Metabolic Dav378 NA 138 mEq/L 07/12/2015 Comp Metabolic Tgg272 K 4.4 mEq/L 07/12/2015 Comp Metabolic Chs308 CL 105 mEq/L 07/12/2015 Comp Metabolic Ylp794 CO2 27.0 mEq/L 07/12/2015 Comp Metabolic Vka841 ANION GAP 10 07/12/2015 Comp Metabolic Kch971 GLUCOSE 69 mg/dL 07/12/2015 Comp Metabolic Nvq273 Creat 0.8 mg/dL 07/12/2015 Comp Metabolic Gya186 eGFR 71 ml/min/1.73m2 07/12/2015 Comp Metabolic Ewz043 BUN 13 mg/dL 07/12/2015 Comp Metabolic Ukm108 B/C Ratio 15.7 Ratio 07/12/2015 Comp Metabolic Wpp871 CALCIUM 9.2 mg/dL 07/12/2015 Comp Metabolic Rdf535 ALK PHOS 135 U/L 07/12/2015 Comp Metabolic Nfx232 AST(SGOT) 17 U/L 07/12/2015 Comp Metabolic Pim625 ALT(SGPT) 13 U/L 07/12/2015 Comp Metabolic Pyq886 BILI T 0.4 mg/dL 07/12/2015 Comp Metabolic Uef498 ALBUMIN 3.9 g/dL 07/12/2015 Comp Metabolic Ubx537 TPRO 6.3 g/dL 07/12/2015 Comp Metabolic Hjj152 GLOB 2.5 g/dL 07/12/2015 Comp Metabolic Fle347 A/G Ratio 1.6 Ratio 07/12/2015 Comp Metabolic Lka052 Osmo 274 mOsmo 07/12/2015 B12 Mlb111 B12 374.00 pg/ml 07/12/2015 Review of Systems System Result Effective [...] tenderness 03/23/2017 None Full Exam - General 1995 Abdomen abdominal exam Overall: normal bowel sounds [...] clear 11/25/2016 None Full Exam - General 1995 Ears/Nose/Throat [...] None Full Exam - General 1995 Ears/Nose/Throat otoscopic exam Overall: tympanic membranes clear [...] - General 1995 Ears/Nose/Throat oral cavity/pharynx/larynx Overall: hypopharynx benign 08/20/2016 [...] G0439 03/30/2017 ADMIN PNEUMOCOCCAL VACCINE SNOMED CT: 04989994 CPT-4: G0009 03/30/2017 PNEUMOCOCCAL VACC [address]: 27717630 CPT-4: 14431 03/30/2017 ADMIN INFLUENZA VIRUS VAC CPT-4: G0008 03/23/2017 FLU VAC NO PRSV 4 UMANG 3 YRS+ CPT-4: 59355 03/23/2017 ADMIN INFLUENZA VIRUS VAC CPT-4: G0008 02/21/2016 FLU VACC PRSV FREE INC ANTIG CPT-4: 26492 02/21/2016 Vital Signs Date Vital 04/14/2018 Blood Pressure 1: 130/72 Code : 8480-6 BMI: 36.6 Code : 80415-5 Heart Rate 1 : 71 bpm Height: 5'5" SpO2: 96% Waist Measure (cm): 117 cm Weight: 220 lbs 12/22/2017 Blood Pressure 1: 110/74 Code : 8480-6 Heart Rate 1: 95 bpm Height: SpO2: 96% Weight: 210 lbs 11/23/2017 Blood Pressure 1: 114/72 Code : 8480-6 BMI: 34.4 Code : 08755-6 Heart Rate 1 : 76 bpm Height: 5'5" SpO2: 96% Weight: 207 lbs 07/22/2017 Blood Pressure 1: 120/80 Code : 8480-6 BMI: 34.8 Code : 65655-5 Heart Rate 1 : 73 bpm Height: 5'5" SpO2: 97% Weight: 209 lbs 03/30/2017 Blood Pressure 1: 136/74 Code : 8480-6 BMI: 33.8 Code : 61226-0 Heart Rate 1 : 76 bpm Height: 5'5" SpO2: 97% Waist Measure (cm): 102 cm Weight: 203 lbs 03/23/2017 Blood Pressure 1: 126/82 Code : 8480-6 BMI: 33.8 Code : 37405-7 Heart Rate 1 : 60 bpm Height: 5'5" SpO2: 98% Weight: 203 lbs 11/25/2016 Blood Pressure 1: 110/68 Code : 8480-6 BMI: 33.4 Code : 36709-5 Heart Rate 1 : 96 bpm Height: 5'5" SpO2: 97% Weight: 201 lbs 08/20/2016 Blood Pressure 1: 112/64 Code : 8480-6 BMI: 32.9 Code : 62291-4 Heart Rate 1 : 72 bpm Height: 5'5" SpO2: 96% Weight: 198 lbs 07/21/2016 Blood Pressure 1: 128/74 Code : 8480-6 BMI: 32.9 Code : 96046-2 Heart Rate 1 : 81 bpm Height: 5'5" SpO2: 97% Weight: 198 lbs 04/03/2016 Blood Pressure 1: 138/80 Code : 8480-6 BMI: 32.8 Code : 52944-3 Heart Rate 1 : 87 bpm Height: 5'5" SpO2: 98% Weight: 197 lbs 02/21/2016 Blood Pressure 1: 132/80 Code : 8480-6 BMI: 32.9 Code : 92412-1 Heart Rate 1 : 90 bpm Height: 5'5" SpO2: 97% Weight: 198 lbs 10/22/2015 Blood Pressure 1: 134/80 Code : 8480-6 BMI: 33.3 Code : 66892-6 Heart Rate 1 : 86 bpm Height: 5'5" SpO2: 94% Weight: 200 lbs 07/12/2015 Blood Pressure 1: 128/86 Code : 8480-6 BMI: 32.9 Code : 15556-5 Heart Rate 1 : 71 bpm Height: 5'5" SpO2: 96% Weight: 198 lbs 03/27/2015 Blood Pressure 1: 138/88 Code : 8480-6 BMI: 32.1 Code : 26671-1 Heart Rate 1 : 88 bpm Height: 5'5" SpO2: 96% Weight: 193 lbs Functional Status No Functional Status data History of Present Illness Symptom Name Status Result Effective Date Notes Annual Medicare Wellness Exam Alcohol Use does [...] Present Encounters Encounter Performer Location Codes Date 67100 EST. PATIENT, LEVEL III Diagnosis: Mild cognitive impairment, so stated[ICD10: G31.84] Diagnosis: Parkinson's disease[ICD10: G20] Eula Springer MD, [facility] CPT- 4: 47945 12/22/2017 ([id number]) 88250 EST. PATIENT, LEVEL IV Diagnosis: Atrophy of thyroid (acquired)[ICD10: E03.4] Diagnosis: Cervicalgia[ICD10: M54.2] Diagnosis: Muscle weakness (generalized)[ICD10: M62.81] Diagnosis: Pain in right shoulder[ICD10: M25.511] Eula Springer MD, [facility] CPT-4: 69810 11/23/2017 ([id number]) 38787 EST. PATIENT, LEVEL IV Diagnosis: Atrophy of thyroid (acquired)[ICD10: E03.4] Diagnosis: Essential tremor[ICD10: G25.0] Diagnosis: Pain in right hip[ICD10: M25.551] Diagnosis: Carpal tunnel syndrome, bilateral upper limbs[ICD10: G56.03] Eula Springer MD, [facility] CPT-4: 10241 07/22/2017 ([id number]) 42215 EST. PATIENT, LEVEL IV Diagnosis: Atrophy of thyroid (acquired)[ICD10: E03.4] Diagnosis: Vitamin B12 deficiency anemia due to intrinsic factor deficiency[ ICD10: D51.0] Diagnosis: Essential tremor[ICD10: G25.0] Diagnosis: Other vitamin B12 deficiency anemias[ICD10: D51.8] Diagnosis: Vitamin D deficiency, unspecified[ICD10: E55.9] Diagnosis: Encounter for immunization[ICD10: Z23] Diagnosis: Bicipital tendinitis, right shoulder[ICD10: M75.21] Eula Springer MD, [facility] CPT-4: 01809 03/23/2017 ([id number]) 91463 EST. PATIENT, LEVEL IV Diagnosis: Atrophy of thyroid (acquired)[ICD10: E03.4] Diagnosis: Mild cognitive impairment, so stated[ICD10: G31.84] Eula Springer MD [facility] CPT-4: 33836 11/25/2016 ([id number]) 75347 EST. PATIENT, LEVEL IV Diagnosis: Essential tremor[ICD10: G25.0] Diagnosis: Atrophy of thyroid (acquired)[ICD10: E03.4] Eula Springer MD [facility] CPT-4: 84607 08/20/2016 ([id number]) 78604 EST. PATIENT, LEVEL IV Diagnosis: Atrophy of thyroid (acquired)[ICD10: E03.4] Diagnosis: Essential tremor[ICD10: G25.0] Eula Springer MD [facility] CPT- 4: 28022 07/21/2016 ([id number]) 82138 EST. PATIENT, LEVEL IV Diagnosis: Mild cognitive impairment, so stated[ICD10: G31.84] Diagnosis: Atrophy of thyroid (acquired)[ICD10: E03.4] Diagnosis: Encounter for screening mammogram for malignant neoplasm of breast[ ICD10: Z12.31] Eula Springer MD, [facility] CPT-4: 73866 04/03/2016 ([id number]) 84658 EST. PATIENT, LEVEL IV Diagnosis: Hypothyroidism, unspecified[ICD10: E03.9] Diagnosis: Parkinson's disease[ICD10: G20] Diagnosis: Encounter for immunization[ICD10: Z23] Eula Springer MD, [facility] CPT-4: 61518 02/21/2016 ([id number]) 36822 EST. PATIENT, LEVEL III Diagnosis: Hypothyroidism, unspecified[ICD10: E03.9] Eula Springer MD [facility] CPT-4: 47995 10/22/2015 ([id number]) 26329 EST. 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] Diagnosis: Essential tremor[ICD10: G25.0] Diagnosis: Vitamin B12 deficiency anemia due to intrinsic factor deficiency[ ICD10: D51.0] Diagnosis: Disorder of bone, unspecified[ICD10: M89.9] [facility] CPT-4: 86000 07/12/2015 ([id number]) OFFICE VISIT, NEW - LEVEL 4 Diagnosis: Pain in left hip[ICD10: M25.552] Diagnosis: Lumbago with sciatica, unspecified side[ICD10: M54.40] [facility] CPT-4: 13557 03/27/2015 Plan of Care Planned Activity Notes Codes Status Date Visit Plan: Medicare Exam - today we [...] Summary Completed 04/14/2018 Appointment: Wendy Martinez WPtel[facility] [facility] - Annual Wellness Visit 04/05/2018 Visit Plan: Mild Cognitive Impairment - discussed with pt and family the diagnosis, continue with namenda. We will follow up with treatment at next office visit after review of testing. Parkinson's disease - change propranolol to 1/2 tab in morning and 1/2 tab at mid afternoon and 1 tab at hs. 12/22/2017 Appointment: Eula Springer WPtel: [facility] (15 min) Moderate 12/22/2017 Patient Education: Patient [...] numbness weakness. 11/23/2017 Appointment: Eula Springer WPtel: [address] [place], [place] [address] (15 min) Moderate 11/23/2017 Patient Education: Patient Medication Summary Completed 11/23/2017 Care Plan: MRI NECK SPINE W/O DYE LOINC : 09501-7 Pending 11/23/2017 Care Plan: X-RAY EXAM OF SHOULDER LOINC : 50017-8 Pending 11/23/2017 Appointment: Eula Springer WPtel: [address] [place] [address] (15 min) Moderate 11/19/2017 Visit Plan: Hypothyroidism [...] was given RX for physical therapy at [facility]. 07/22/2017 Appointment: [facility] Springer WPtel[facility] [phone] [facility] (15 min) Moderate 07/22/2017 Patient Education: Patient [...] care surrogate. 03/30/2017 Appointment: [facility]el[facility] [phone] [facility] [facility] - Annual Wellness Visit 03/30/2017 Patient Education: [...] patient's daughter to get this scheduled at [facility]. 03/23/2017 Appointment: [facility] Springer [facility]Ptel[facility] [phone] [facility] (15 min) Moderate 03/23/2017 Patient Education: Patient Medication Summary Completed 03/23/2017 Patient Education: Obesity Completed 03/23/2017 Appointment: Eula Springer WPtel: [facility]5 [facility] (15 min) Moderate 11/26/2016 Visit Plan: Hypothyroidism [...] supportive care. 11/25/2016 Appointment: Eula Springer WPtel: [facility]5 [facility] (15 min) Moderate 11/25/2016 Patient Education: Patient Medication Summary Completed 11/25/2016 Care Plan: Free T4 Pending 11/25/2016 Care Plan: Tsh Pending 11/25/2016 Appointment: Eula Springer WPtel: [facility]5 [facility] (15 min) Moderate 09/11/2016 Visit Plan: Hypothyroidism [...] on propranolol. 08/20/2016 Appointment: Eula Springer WPtel: [facility]5 [facility] (15 min) Moderate 08/20/2016 Patient Education: Patient [...] times daily. 07/21/2016 Appointment: [facility] Springer [facility]Ptel[facility] [phone] [facility] (15 min) Moderate 07/21/2016 Patient Education: Patient [...] of testing. 04/03/2016 Appointment: [facility] Springer [facility]Ptel[facility] [phone] [facility] (15 min) Moderate 04/03/2016 Patient Education: Patient [...] recommendations. 03/27/2015 Appointment: Eula Springer WPtel[facility] [phone] [facility] [place] New Patient 03/27/2015 Patient Education: Patient Medication [...] via darby - upper extremity numbness weakness. take 400mg [...] to see for Neurology for full work-up/eval. . Hypothyroidism - pt with chronic hypothyroidism, [...] was given RX for physical therapy at [facility]. . Mild Cognitive Impairment - discussed [...] patient's daughter to get this scheduled at [facility]. . Medicare Exam - today [...]
--- OUTSIDE RECORDS SUMMARY | 2018-05-24 20:34 | XMS REPORT | CCD ---
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 Name Role Phone PP Unavailable CCM Unavailable Summary Purpose Interface Exchange Insurance Providers Payer name Policy type / Coverage type Covered green party ID Effective Begin Date Effective End Date WPS Medicare Part B Medicare Part B [id number] Unknown Unknown [facility] Medicare Part B [id number] Unknown Unknown Family history Daughter Diagnosis Age [...] Unknown Retired 03/27/[address]: 445366440 Never smoker - but had extensive smoke exposure during marriage [address]: 985915741 Never drinks alcohol 03/27/2015 Allergies, Adverse Reactions, [...] Fill Instructions Namenda 10 mg tablet RxNorm: 362121 1 Tablet(s) PO BID 201707/07/2019 Active levothyroxine 50 mcg tablet RxNorm: 459082 TAKE 1 TABLET BY MOUTH ONCE DAILY 02/24/2018 No Stop Date Active Namenda 10 mg tablet RxNorm: 137769 1 Tablet(s) PO BID 201704/13/2018 Inactive propranolol 10 mg tablet RxNorm: 606995 Tablet(s) 1/2 tablet in morning, 1/2 at noon and 1 at hs (for tremors) 12/22/2017 No Stop Date Active Namenda 10 mg tablet RxNorm: 310702 1 Tablet(s) PO BID 201701/17/2018 Inactive Namenda 10 mg tablet RxNorm: 692783 1 Tablet(s) PO BID start with 1/2 tab hs x1wk then 1/2 tab bid x 1wk then 1/2 AM and 1 hs x 1wk then 1 bid thereafter 11/23/2017 12/21/2017 Inactive Zoloft 50 mg tablet RxNorm: 639439 TAKE ONE TABLET BY MOUTH ONCE DAILY 11/03/2017 No Stop Date Active propranolol 10 mg tablet RxNorm: 230078 TAKE ONE TABLET BY MOUTH TWICE DAILY 09/02/2017 12/21/2017 Inactive levothyroxine 50 mcg tablet RxNorm: 415957 TAKE ONE TABLET BY MOUTH ONCE DAILY 08/21/2017 02/23/2018 Inactive propranolol 10 mg tablet RxNorm: 460680 1 Tablet(s) PO BID 06/201608/14/2017 Inactive Zoloft 50 mg tablet RxNorm: 355910 1 Tablet(s) PO daily 201608/14/2017 Inactive levothyroxine 50 mcg tablet RxNorm: 603558 1 Tablet(s) PO daily 08/20/2016 08/14/2017 Inactive propranolol 10 mg tablet RxNorm: 822006 1 Tablet(s) PO BID 08/19/2016 Inactive levothyroxine 50 mcg tablet RxNorm: 956123 1 Tablet(s) PO daily 06/06/2016 08/19/2016 Inactive Sinemet 25 mg-100 mg tablet RxNorm: 066146 1 Tablet(s) PO BID 0900 and 1700 03/18/2016 06/02/2016 Inactive Sinemet 25 mg-100 mg tablet RxNorm: 427103 1 Tablet(s) PO BID 0900 and 1700 02/21/2016 03/17/2016 Inactive levothyroxine 50 mcg tablet RxNorm: 105604 1 Tablet(s) PO daily 10/22/2015 05/18/2016 Inactive Vitamin D2 50,000 unit capsule RxNorm: 269165 1 Capsule(s) PO QW x12 and take vit d 5000 u DAILY 10/22/2015 02/20/2016 Inactive Vitamin D2 50,000 unit capsule RxNorm: 760895 1 Capsule(s) PO QW x12 and take vit d 5000 u DAILY 07/31/2015 07/30/2015 Inactive levothyroxine 25 mcg tablet RxNorm: 749579 1 Tablet(s) PO daily 07/31/2015 10/21/2015 Inactive Vitamin D2 50,000 unit capsule RxNorm: 691657 1 Capsule(s) PO QW x12 and take vit d 5000 u DAILY 07/31/2015 10/21/2015 Inactive levothyroxine 25 mcg tablet RxNorm: 845908 1 Tablet(s) PO daily 07/31/2015 07/30/2015 Inactive Voltaren 1 % topical gel RxNorm: 059312 2 Gram(s) TOP QID to right hip/groin and right chest wall 07/12/2015 09/09/2015 Inactive ibuprofen oral RxNorm : 5640 oral No Start Date Active aspirin, buffered 81 mg tablet RxNorm: 315593 1 Tablet(s) PO daily No Start Date Active Vitamin D3 5,000 unit tablet RxNorm: 013938 1 Tablet(s) PO daily No Start Date Active multivitamin tablet RxNorm: 1 Tablet(s) PO daily No Start Date Active Vitamin B-12 1,000 mcg tablet RxNorm: 837361 1 Tablet(s) PO daily No Start Date Active Zoloft 50 mg tablet RxNorm: 369691 1 Tablet(s) PO daily No Start Date [...] Ord30 C/HDL 4.8 Ratio 07/17/2017 Comp Metabolic Fhe087 NA 140 mEq/L 03/23/2017 Comp Metabolic Hgz780 K 4.8 mEq/L 03/23/2017 Comp Metabolic Ges118 CL 105 mEq/L 03/23/2017 Comp Metabolic Wgb705 CO2 29.0 mEq/L 03/23/2017 Comp Metabolic Txw145 ANION GAP 11 03/23/2017 Comp Metabolic Zdy967 GLUCOSE 91 mg/dL 03/23/2017 Comp Metabolic Bbm295 Creat 1.0 mg/dL 03/23/2017 Comp Metabolic Enm181 eGFR 57 ml/min/1.73m2 03/23/2017 Comp Metabolic Krz966 BUN 15 mg/dL 03/23/2017 Comp Metabolic Roy008 B/C Ratio 15.0 Ratio 03/23/2017 Comp Metabolic Lix254 CALCIUM 9.6 mg/dL 03/23/2017 Comp Metabolic Mme213 ALK PHOS 127 U/L 03/23/2017 Comp Metabolic Lfp480 AST(SGOT) 19 U/L 03/23/2017 Comp Metabolic Wsa240 ALT(SGPT) 13 U/L 03/23/2017 Comp Metabolic Cyc177 BILI T 0.4 mg/dL 03/23/2017 Comp Metabolic Efw098 ALBUMIN 4.1 g/dL 03/23/2017 Comp Metabolic Qyo053 TPRO 6.6 g/dL 03/23/2017 Comp Metabolic Biw283 GLOB 2.5 g/dL 03/23/2017 Comp Metabolic Rnv411 A/G Ratio 1.6 Ratio 03/23/2017 Comp Metabolic Pmx793 Osmo 280 mOsmo 03/23/2017 Lipid Ord30 CHOL 209 mg/dL 03/23/2017 Lipid Ord30 HDL 36.0 mg/dl 03/23/2017 Lipid Ord30 TRIG 172 mg/dL 03/23/2017 Lipid Ord30 LDL 139 mg/dL 03/23/2017 Lipid Ord30 C/HDL 5.8 Ratio 03/23/2017 B12 Wcn963 B12 378.00 pg/ml 03/23/2017 Free T4 Wml225 FREE T4 0.82 ng/dL 03/23/2017 Vitamin D 25 Oh Hpt5411 VITAMIN D, 25 HYDROXY 50.18 ng/mL Cbc [...] 98.0 fl 03/23/2017 Cbc With Differential Ord2 [place]% 10.4 % 03/23/2017 Cbc With Differential Ord2 [...] 2.50 K/ul 03/23/2017 Cbc With Differential Ord2 [place] ABS# 0.8 K/ul 03/23/2017 Cbc With Differential Ord2 Eos ABS# 0.2 K/ul 03/23/2017 Cbc With Differential Ord2 Baso ABS# 0.1 K/ul 03/23/2017 Tsh Ord6 hTSH II 2.72 uIU/mL 03/23/2017 Free T4 Yep369 FREE T4 0.83 ng/dL 11/25/2016 Tsh Ord6 [...] hTSH II 2.42 uIU/mL 07/21/2016 Free T4 Sru920 FREE T4 0.87 ng/dL 07/21/2016 Comp Metabolic Pgy379 NA 135 mEq/L 02/21/2016 Comp Metabolic Udc689 K 4.4 mEq/L 02/21/2016 Comp Metabolic Hts539 CL 101 mEq/L 02/21/2016 Comp Metabolic Per548 CO2 25.0 mEq/L 02/21/2016 Comp Metabolic Eay379 ANION GAP 13 02/21/2016 Comp Metabolic Kpi351 GLUCOSE 89 mg/dL 02/21/2016 Comp Metabolic Kea591 Creat 1.0 mg/dL 02/21/2016 Comp Metabolic Iyk726 eGFR 59 ml/min/1.73m2 02/21/2016 Comp Metabolic Bay774 BUN 14 mg/dL 02/21/2016 Comp Metabolic Wof879 B/C Ratio 14.3 Ratio 02/21/2016 Comp Metabolic Yad381 CALCIUM 9.8 mg/dL 02/21/2016 Comp Metabolic Mbe155 ALK PHOS 134 U/L 02/21/2016 Comp Metabolic Uzu593 AST(SGOT) 21 U/L 02/21/2016 Comp Metabolic Rdh909 ALT(SGPT) 17 U/L 02/21/2016 Comp Metabolic Tsy813 BILI T 0.5 mg/dL 02/21/2016 Comp Metabolic Sjc015 ALBUMIN 4.3 g/dL 02/21/2016 Comp Metabolic Pan769 TPRO 7.0 g/dL 02/21/2016 Comp Metabolic Lyi838 GLOB 2.8 g/dL 02/21/2016 Comp Metabolic Fbd322 A/G Ratio 1.5 Ratio 02/21/2016 Comp Metabolic Qtp822 Osmo 270 mOsmo 02/21/2016 Free T4 Gwa770 FREE T4 0.88 ng/dL 02/21/2016 Tsh Ord6 hTSH II 2.02 uIU/mL 02/21/2016 Rpr 915225 RPR NON-REACTIVE 07/14/2015 Vitamin D 25 Oh Act9307 VITAMIN D, 25 HYDROXY 15.05 ng/mL Folate [...] 31.8 pg 07/12/2015 Cbc With Differential Ord2 [place]% 12.0 % 07/12/2015 Cbc With Differential Ord2 [...] 1.97 K/ul 07/12/2015 Cbc With Differential Ord2 [place] ABS# 0.9 K/ul 07/12/2015 Cbc With Differential Ord2 Eos ABS# 0.2 K/ul 07/12/2015 Cbc With Differential Ord2 Baso ABS# 0.0 K/ul 07/12/2015 Cbc With Differential Ord2 New Analyzer Notice Please note new ref ranges starting 07-04-2015 due to implemntation of new five part differential hematolgy analyzer. 07/12/2015 Free T4 Wdh811 FREE T4 0.69 ng/dL 07/12/2015 Tsh Ord6 hTSH II 5.53 uIU/mL 07/12/2015 Comp Metabolic Mhz090 NA 138 mEq/L 07/12/2015 Comp Metabolic Jxx580 K 4.4 mEq/L 07/12/2015 Comp Metabolic Mqp493 CL 105 mEq/L 07/12/2015 Comp Metabolic Use983 CO2 27.0 mEq/L 07/12/2015 Comp Metabolic Mjd857 ANION GAP 10 07/12/2015 Comp Metabolic Ugw248 GLUCOSE 69 mg/dL 07/12/2015 Comp Metabolic Acf065 Creat 0.8 mg/dL 07/12/2015 Comp Metabolic Yjq515 eGFR 71 ml/min/1.73m2 07/12/2015 Comp Metabolic Xok709 BUN 13 mg/dL 07/12/2015 Comp Metabolic Tjn938 B/C Ratio 15.7 Ratio 07/12/2015 Comp Metabolic Ysx420 CALCIUM 9.2 mg/dL 07/12/2015 Comp Metabolic Jay291 ALK PHOS 135 U/L 07/12/2015 Comp Metabolic Hbv365 AST(SGOT) 17 U/L 07/12/2015 Comp Metabolic Tra685 ALT(SGPT) 13 U/L 07/12/2015 Comp Metabolic Fbn127 BILI T 0.4 mg/dL 07/12/2015 Comp Metabolic Duh600 ALBUMIN 3.9 g/dL 07/12/2015 Comp Metabolic Tyk519 TPRO 6.3 g/dL 07/12/2015 Comp Metabolic Gkj843 GLOB 2.5 g/dL 07/12/2015 Comp Metabolic Rfx105 A/G Ratio 1.6 Ratio 07/12/2015 Comp Metabolic Omt205 Osmo 274 mOsmo 07/12/2015 B12 Qoc665 B12 374.00 pg/ml 07/12/2015 Review of Systems [...] G0439 03/30/2017 ADMIN PNEUMOCOCCAL VACCINE SNOMED CT: 84950797 CPT-4: G0009 03/30/2017 PNEUMOCOCCAL VACC [address]: 12268774 CPT-4: 13227 03/30/2017 ADMIN INFLUENZA VIRUS VAC CPT-4: G0008 03/23/2017 FLU VAC NO PRSV 4 UMANG 3 YRS+ CPT-4: 64837 03/23/2017 ADMIN INFLUENZA VIRUS VAC CPT-4: G0008 02/21/2016 FLU VACC PRSV FREE INC ANTIG CPT-4: 38130 02/21/2016 Vital Signs Date Vital 04/14/2018 Blood Pressure 1: 130/72 Code : 8480-6 BMI: 36.6 Code : 09868-7 Heart Rate 1 : 71 bpm Height: 5'5" SpO2: 96% Waist Measure (cm): 117 cm Weight: 220 lbs 12/22/2017 Blood Pressure 1: 110/74 Code : 8480-6 Heart Rate 1: 95 bpm Height: SpO2: 96% Weight: 210 lbs 11/23/2017 Blood Pressure 1: 114/72 Code : 8480-6 BMI: 34.4 Code : 07343-7 Heart Rate 1 : 76 bpm Height: 5'5" SpO2: 96% Weight: 207 lbs 07/22/2017 Blood Pressure 1: 120/80 Code : 8480-6 BMI: 34.8 Code : 28471-4 Heart Rate 1 : 73 bpm Height: 5'5" SpO2: 97% Weight: 209 lbs 03/30/2017 Blood Pressure 1: 136/74 Code : 8480-6 BMI: 33.8 Code : 57251-5 Heart Rate 1 : 76 bpm Height: 5'5" SpO2: 97% Waist Measure (cm): 102 cm Weight: 203 lbs 03/23/2017 Blood Pressure 1: 126/82 Code : 8480-6 BMI: 33.8 Code : 50989-9 Heart Rate 1 : 60 bpm Height: 5'5" SpO2: 98% Weight: 203 lbs 11/25/2016 Blood Pressure 1: 110/68 Code : 8480-6 BMI: 33.4 Code : 63723-8 Heart Rate 1 : 96 bpm Height: 5'5" SpO2: 97% Weight: 201 lbs 08/20/2016 Blood Pressure 1: 112/64 Code : 8480-6 BMI: 32.9 Code : 98185-7 Heart Rate 1 : 72 bpm Height: 5'5" SpO2: 96% Weight: 198 lbs 07/21/2016 Blood Pressure 1: 128/74 Code : 8480-6 BMI: 32.9 Code : 36914-6 Heart Rate 1 : 81 bpm Height: 5'5" SpO2: 97% Weight: 198 lbs 04/03/2016 Blood Pressure 1: 138/80 Code : 8480-6 BMI: 32.8 Code : 64803-0 Heart Rate 1 : 87 bpm Height: 5'5" SpO2: 98% Weight: 197 lbs 02/21/2016 Blood Pressure 1: 132/80 Code : 8480-6 BMI: 32.9 Code : 76518-1 Heart Rate 1 : 90 bpm Height: 5'5" SpO2: 97% Weight: 198 lbs 10/22/2015 Blood Pressure 1: 134/80 Code : 8480-6 BMI: 33.3 Code : 37061-9 Heart Rate 1 : 86 bpm Height: 5'5" SpO2: 94% Weight: 200 lbs 07/12/2015 Blood Pressure 1: 128/86 Code : 8480-6 BMI: 32.9 Code : 93916-1 Heart Rate 1 : 71 bpm Height: 5'5" SpO2: 96% Weight: 198 lbs 03/27/2015 Blood Pressure 1: 138/88 Code : 8480-6 BMI: 32.1 Code : 17341-9 Heart Rate 1 : 88 bpm Height: [...] Present Encounters Encounter Performer Location Codes Date 13067 EST. PATIENT, LEVEL III Diagnosis: Mild cognitive impairment, so stated[ICD10: G31.84] Diagnosis: Parkinson's disease[ICD10: G20] Eula Springer MD, [facility] CPT- 4: 40888 12/22/2017 ([id number]) 83419 EST. PATIENT, LEVEL IV Diagnosis: Atrophy of thyroid (acquired)[ICD10: E03.4] Diagnosis: Cervicalgia[ICD10: M54.2] Diagnosis: Muscle weakness (generalized)[ICD10: M62.81] Diagnosis: Pain in right shoulder[ICD10: M25.511] Eula Springer MD, [facility] CPT-4: 82458 11/23/2017 ([id number]) 30638 EST. PATIENT, LEVEL IV Diagnosis: Atrophy of thyroid (acquired)[ICD10: E03.4] Diagnosis: Essential tremor[ICD10: G25.0] Diagnosis: Pain in right hip[ICD10: M25.551] Diagnosis: Carpal tunnel syndrome, bilateral upper limbs[ICD10: G56.03] Eula Springer MD, [facility] CPT-4: 42472 07/22/2017 ([id number]) 30112 EST. PATIENT, LEVEL IV Diagnosis: Atrophy of thyroid (acquired)[ICD10: E03.4] Diagnosis: Vitamin B12 deficiency anemia due to intrinsic factor deficiency[ ICD10: D51.0] Diagnosis: Essential tremor[ICD10: G25.0] Diagnosis: Other vitamin B12 deficiency anemias[ICD10: D51.8] Diagnosis: Vitamin D deficiency, unspecified[ICD10: E55.9] Diagnosis: Encounter for immunization[ICD10: Z23] Diagnosis: Bicipital tendinitis, right shoulder[ICD10: M75.21] Eula Springer MD, [facility] CPT-4: 38517 03/23/2017 ([id number]) 32223 EST. PATIENT, LEVEL IV Diagnosis: Atrophy of thyroid (acquired)[ICD10: E03.4] Diagnosis: Mild cognitive impairment, so stated[ICD10: G31.84] Eula Springer MD [facility] CPT-4: 73287 11/25/2016 ([id number]) 45801 EST. PATIENT, LEVEL IV Diagnosis: Essential tremor[ICD10: G25.0] Diagnosis: Atrophy of thyroid (acquired)[ICD10: E03.4] Eula Springer MD [facility] CPT-4: 49526 08/20/2016 ([id number]) 63721 EST. PATIENT, LEVEL IV Diagnosis: Atrophy of thyroid (acquired)[ICD10: E03.4] Diagnosis: Essential tremor[ICD10: G25.0] Eula Springer MD [facility] CPT- 4: 74325 07/21/2016 ([id number]) 59014 EST. PATIENT, LEVEL IV Diagnosis: Mild cognitive impairment, so stated[ICD10: G31.84] Diagnosis: Atrophy of thyroid (acquired)[ICD10: E03.4] Diagnosis: Encounter for screening mammogram for malignant neoplasm of breast[ ICD10: Z12.31] Eula Springer MD, [facility] CPT-4: 96639 04/03/2016 ([id number]) 70584 EST. PATIENT, LEVEL IV Diagnosis: Hypothyroidism, unspecified[ICD10: E03.9] Diagnosis: Parkinson's disease[ICD10: G20] Diagnosis: Encounter for immunization[ICD10: Z23] Eula Springer MD, [facility] CPT-4: 31409 02/21/2016 ([id number]) 68820 EST. PATIENT, LEVEL III Diagnosis: Hypothyroidism, unspecified[ICD10: E03.9] Eula Springer MD [facility] CPT-4: 57413 10/22/2015 ([id number]) 08518 EST. 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] Diagnosis: Essential tremor[ICD10: G25.0] Diagnosis: Vitamin B12 deficiency anemia due to intrinsic factor deficiency[ ICD10: D51.0] Diagnosis: Disorder of bone, unspecified[ICD10: M89.9] [facility] CPT-4: 09089 07/12/2015 ([id number]) OFFICE VISIT, NEW - LEVEL 4 Diagnosis: Pain in left hip[ICD10: M25.552] Diagnosis: Lumbago with sciatica, unspecified side[ICD10: M54.40] [facility] CPT-4: 74552 03/27/2015 Plan of Care Planned Activity Notes [...] Summary Completed 04/14/2018 Appointment: Wendy Martinez WPtel: [facility] [place] [facility] - Annual Wellness Visit 04/05/2018 Visit Plan: Mild Cognitive Impairment - discussed with pt and family the diagnosis, continue with namenda. We will follow up with treatment at next office visit after review of testing. Parkinson's disease - change propranolol to 1/2 tab in morning and 1/2 tab at mid afternoon and 1 tab at hs. 12/22/2017 Appointment: [facility] Springer WPtel[facility] (15 min) Moderate 12/22/2017 Patient Education: Patient [...] numbness weakness. 11/23/2017 Appointment: Eula Springer WPtel: [address] [place], [place] [address] (15 min) Moderate 11/23/2017 Patient Education: Patient Medication Summary Completed 11/23/2017 Care Plan: MRI NECK SPINE W/O DYE LOINC : 00112-0 Pending 11/23/2017 Care Plan: X-RAY EXAM OF SHOULDER LOINC : 83971-2 Pending 11/23/2017 Appointment: Eula Springer WPtel: [address] [place], [place] [address] (15 min) Moderate 11/19/2017 Visit Plan: Hypothyroidism [...] was given RX for physical therapy at [facility]. 07/22/2017 Appointment: [facility] Springer [facility]Ptel[facility] [phone] [facility] (15 min) Moderate 07/22/2017 Patient Education: Patient [...] care surrogate. 03/30/2017 Appointment: Wendy Martinez WPtel: [phone] [facility] [place] [facility] - Annual Wellness Visit 03/30/2017 Patient [...] to get this scheduled at [facility]. 03/23/2017 Appointment: [facility] Springer WPtel[facility] [phone] [facility] (15 min) Moderate 03/23/2017 Patient Education: Patient Medication Summary Completed 03/23/2017 Patient Education: Obesity Completed 03/23/2017 Appointment: Eula Springer WPtel: [facility]5 [facility] (15 min) Moderate 11/26/2016 Visit Plan: Hypothyroidism [...] supportive care. 11/25/2016 Appointment: Eula Springer WPtel: [facility]5 [facility] (15 min) Moderate 11/25/2016 Patient Education: Patient Medication Summary Completed 11/25/2016 Care Plan: Free T4 Pending 11/25/2016 Care Plan: Tsh Pending 11/25/2016 Appointment: Eula Springer WPtel: [facility]5 [facility] (15 min) Moderate 09/11/2016 Visit [...] on propranolol. 08/20/2016 Appointment: Eula Springer WPtel: [facility]5 [facility] (15 min) Moderate 08/20/2016 Patient [...] daily. 07/21/2016 Appointment: [facility]el[facility] [phone] [facility] (15 min) Moderate 07/21/2016 Patient Education: Patient [...] of testing. 04/03/2016 Appointment: [facility]Ptel[facility] [phone] [facility] (15 min) Moderate 04/03/2016 Patient Education: Patient [...] recommendations. 03/27/2015 Appointment: [facility]Ptel[facility] [phone] [facility] [place] New Patient 03/27/2015 Patient Education: Patient [...] was given RX for physical therapy at [facility]. . Mild Cognitive Impairment - discussed with [...] to get this scheduled at [facility]. . Medicare Exam - today we discussed [...]
--- OUTSIDE RECORDS SUMMARY | 2018-05-24 20:36 | XMS REPORT | Continuity of Care Document ---
Author Author [facility] Organization [facility] Address Unknown Phone Unavailable Allergies Active Description Code Type Severity Reaction Onset Reported/Identified Relationship to Patient Clinical Status Yes No Known Drug Allergies [id number] Drug Allergy Unknown N/A 02/06/2015 Medications There is no data. Problems Date Dx Coded Attending Type Code Diagnosis Diagnosed By 02/07/2015 BERLIN GARAY, JUAN Espinoza Ot 599.0 URIN TRACT INFECTION NOS 02/07/2015 BERLIN GARAY, JUAN Espinoza Ot 787.91 DIARRHEA 04/17/2015 TERESA GARAY, ANNIE A Ot M16.12 04/17/2015 TERESA GARAY, ANNIE A Ot M47.814 04/17/2015 TERESA GARAY, ANNIE A Ot M47.817 04/17/2015 TERESA GARAY, ANNIE A Ot W19.XXXA 04/17/2015 TERESA GARAY, ANNIE A Ot Y99.8 04/24/2015 TERESA GARAY, ANNIE A Ot M16.12 04/24/2015 TERESA GARAY, ANNIE A Ot M47.814 04/24/2015 TERESA GARAY, ANNIE A Ot M47.817 04/24/2015 TERESA GARAY, ANNIE A Ot W19.XXXA 04/24/2015 TERESA GARAY, ANNIE A Ot Y99.8 08/17/2015 TERESA GARAY, ANNIE A Ot G31.84 08/17/2015 TERESA GARAY, ANNIE A Ot M51.26 08/17/2015 TERESA GARAY, ANNIE A Ot M51.36 08/17/2015 TERESA GARAY, ANNIE A Ot R15.9 08/17/2015 TERESA GARAY, ANNIE A Ot R26.9 08/23/2015 TERESA GARAY, ANNIE A Ot G31.84 08/23/2015 TERESA GARAY, ANNIE A Ot M51.26 08/23/2015 TERESA GARAY, ANNIE A Ot M51.36 08/23/2015 TERESA GARAY, ANNIE Gastelum Ot R15.9 08/23/2015 ANNIE MOORE MD Ot R26.9 11/23/2017 TERESA GARAY, ANNIE Gastelum Ot M16.12 UNILATERAL PRIMARY OSTEOARTHRITIS, LEFT 11/23/2017 TERSEA GARAY, ANNIE Gastelum Ot M47.814 SPONDYLOSIS W/O MYELOPATHY OR RADICULOPA 11/23/2017 ANNIE MOORE MD Ot M47.817 SPONDYLS W/O MYELOPATHY OR RADICULOPATHY 11/23/2017 TERESA GARAY, ANNIE Gastelum Ot W19.XXXA UNSPECIFIED FALL, INITIAL ENCOUNTER 11/23/2017 TERESA GAARY, ANNIE Gastelum Ot Y99.8 OTHER EXTERNAL CAUSE STATUS 11/23/2017 ANNIE MOORE MD Ot G31.84 MILD COGNITIVE IMPAIRMENT, SO STATED 11/23/2017 ANNIE MOORE MD Ot M51.26 OTHER INTERVERTEBRAL DISC DISPLACEMENT, 11/23/2017 ANNIE MOORE MD Ot M51.36 OTHER INTERVERTEBRAL DISC DEGENERATION, 11/23/2017 ANNIE MOORE MD Ot R15.9 FULL INCONTINENCE OF FECES 11/23/2017 ANNIE MOORE MD Ot R26.9 UNSPECIFIED ABNORMALITIES OF GAIT AND MO 11/24/2017 TERESA GARAY, ANNIE Gastelum Ot M19.011 PRIMARY OSTEOARTHRITIS, RIGHT SHOULDER 11/24/2017 ANNIE MOORE MD Ot M19.011 PRIMARY OSTEOARTHRITIS, RIGHT SHOULDER 11/30/2017 ANNIE MOORE MD Ot M48.02 SPINAL STENOSIS, CERVICAL REGION 11/30/2017 ANNIE MOORE MD Ot M50.30 OTHER CERVICAL DISC DEGENERATION, UNSP C 11/30/2017 ANNIE MOORE MD Ot 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 12/15/2017 ANNIE MOORE MD Ot M19.011 PRIMARY OSTEOARTHRITIS, RIGHT SHOULDER 12/17/2017 ANNIE MOORE MD Ot M48.02 SPINAL STENOSIS, CERVICAL REGION 12/17/2017 ANNIE MOORE MD Ot M50.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 Results There is no data. Encounters ACCT No. Visit Date/Time Discharge Status Pt. Type Provider Facility Loc./Unit Complaint [id number] 11/27/2017 10:08:00 11/27/2017 23:59:59 CLS Outpatient ANNIE MOORE MD [facility] RAD RT SHOULDER PAIN, NECK PAIN,HEADACHE [id number] 11/23/2017 12:00:00 11/23/2017 23:59:59 CLS Outpatient ANNIE MOORE MD [facility] RAD R SHOULDER PAIN,NECK PAIN [id number] 07/24/2015 07:33:00 07/24/2015 23:59:59 CLS Outpatient ANNIE MOORE MD [facility] RAD MILD COGNITIVE,GAIT ABNORMALITY [id number] 03/27/2015 12:17:00 03/27/2015 23:59:59 CLS Outpatient ANNEI MOORE MD [facility] RAD FELL AT [place] [id number] 02/06/2015 21:52:00 02/07/2015 00:18:00 DIS Emergency JUAN SLADE MD [facility] ER WEAKNESS,DIARRHEA
--- OUTSIDE RECORDS SUMMARY | 2018-05-24 20:36 | XMS REPORT | CCD ---
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 Name Role Phone PP Unavailable CCM Unavailable Summary Purpose Interface Exchange Insurance Providers Payer name Policy type / Coverage type Covered democrat ID Effective Begin Date Effective End Date WPS Medicare Part B Medicare Part B [id number] Unknown Unknown [facility] Medicare Part B [id number] Unknown Unknown Family history Daughter Diagnosis Age [...] Unknown Retired 03/27/[address]: 427485063 Never smoker - but had extensive smoke exposure during marriage [address]: 970972865 Never drinks alcohol 03/27/2015 Allergies, Adverse Reactions, Alerts Allergies, Adverse Reactions, Alerts data not found Past Medical History Illness Codes Condition Status Onset Date Resolved Date Encounter for general adult medical examination with abnormal findings ICD-9: V70.0 ICD-10: Z00.01 Active 03/30/2017 Unknown Encounter for immunization ICD-9: V03.82 ICD-10: Z23 Active 03/30/2017 Unknown 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 Active 04/02/2016 Unknown Bicipital tendinitis, right shoulder ICD-9: 726.12 ICD-10: M75.21 Active 03/23/2017 Unknown Encounter for immunization ICD-9: V03.9 ICD-10: Z23 Active 03/23/2017 Unknown Essential tremor ICD-9 : 333.1 ICD-10: G25.0 Active 07/11/2015 Unknown Other vitamin B12 deficiency anemias ICD-9: 281.1 ICD-10: D51.8 Active 03/23/2017 Unknown Vitamin B12 deficiency anemia due to intrinsic factor deficiency ICD-9: 281.0 ICD-10: D51.0 Active 07/11/2015 Unknown Vitamin D deficiency, unspecified ICD-9: 268.9 ICD-10: E55.9 Active 03/23/2017 Unknown Mild cognitive impairment, so stated ICD-9: 331.83 ICD-10: G31.84 Active 04/02/2016 Unknown Parkinson's disease ICD-9: 332.0 ICD-10: G20 Active 02/20/2016 Unknown Encounter for screening mammogram for malignant [...] findings ICD-9: V70.0 ICD-10: Z00.01 03/30/2017 Active Encounter for immunization ICD-9: V03.82 ICD-10: Z23 03/30/2017 Active 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 04/02/2016 Active Bicipital tendinitis, right shoulder ICD-9: 726.12 ICD-10: M75.21 03/23/2017 Active Encounter for immunization ICD-9: V03.9 ICD-10: Z23 03/23/2017 Active Essential tremor ICD-9 : 333.1 ICD-10: G25.0 07/11/2015 Active Other vitamin B12 deficiency anemias ICD-9: 281.1 ICD-10: D51.8 03/23/2017 Active Vitamin B12 deficiency anemia due to intrinsic factor deficiency ICD-9: 281.0 ICD-10: D51.0 07/11/2015 Active Vitamin D deficiency, unspecified ICD-9: 268.9 ICD-10: E55.9 03/23/2017 Active Mild cognitive impairment, so stated ICD-9: 331.83 ICD-10: G31.84 04/02/2016 Active Parkinson's disease ICD-9: 332.0 ICD-10: G20 02/20/2016 Active Encounter for screening mammogram for malignant [...] Fill Instructions propranolol 10 mg tablet RxNorm: 859650 1 Tablet(s) PO BID 06/201608/14/2017 Active Zoloft 50 mg tablet RxNorm: 790446 1 Tablet(s) PO daily 201608/14/2017 Active levothyroxine 50 mcg tablet RxNorm: 397360 1 Tablet(s) PO daily 08/20/2016 08/14/2017 Active propranolol 10 mg tablet RxNorm: 669898 1 Tablet(s) PO BID 08/19/2016 Inactive levothyroxine 50 mcg tablet RxNorm: 316765 1 Tablet(s) PO daily 06/06/2016 08/19/2016 Inactive Sinemet 25 mg-100 mg tablet RxNorm: 994500 1 Tablet(s) PO BID 0900 and 1700 03/18/2016 06/02/2016 Inactive Sinemet 25 mg-100 mg tablet RxNorm: 732365 1 Tablet(s) PO BID 0900 and 1700 02/21/2016 03/17/2016 Inactive levothyroxine 50 mcg tablet RxNorm: 839890 1 Tablet(s) PO daily 10/22/2015 05/18/2016 Inactive Vitamin D2 50,000 unit capsule RxNorm: 820829 1 Capsule(s) PO QW x12 and take vit d 5000 u DAILY 10/22/2015 02/20/2016 Inactive Vitamin D2 50,000 unit capsule RxNorm: 082268 1 Capsule(s) PO QW x12 and take vit d 5000 u DAILY 07/31/2015 07/30/2015 Inactive levothyroxine 25 mcg tablet RxNorm: 640164 1 Tablet(s) PO daily 07/31/2015 10/21/2015 Inactive Vitamin D2 50,000 unit capsule RxNorm: 167145 1 Capsule(s) PO QW x12 and take vit d 5000 u DAILY 07/31/2015 10/21/2015 Inactive levothyroxine 25 mcg tablet RxNorm: 146219 1 Tablet(s) PO daily 07/31/2015 07/30/2015 Inactive Voltaren 1 % topical gel RxNorm: 606283 2 Gram(s) TOP QID to right hip/groin and right chest wall 07/12/2015 09/09/2015 Inactive ibuprofen oral RxNorm : 5640 oral No Start Date Active aspirin, buffered 81 mg tablet RxNorm: 264394 1 Tablet(s) PO daily No Start Date Active Vitamin D3 5,000 unit tablet RxNorm: 382717 1 Tablet(s) PO daily No Start Date Active multivitamin tablet RxNorm: 1 Tablet(s) PO daily No Start Date Active Zoloft 50 mg tablet RxNorm: 528817 1 Tablet(s) PO daily No Start Date 08/19/2016 Inactive Medication Administered No Medication Administered data Immunizations Vaccine Codes Date Status Pneumococcal (Adult) CVX: 133 03/30/2017 completed Influenza CVX: 141 03/23/2017 completed Influenza CVX: 141 02/21/2016 completed Assessments Condition Codes Effective Dates Encounter for immunization ICD-10: Z23 ICD-9: V03.82 03/30/2017 Encounter for general adult medical examination with abnormal findings ICD-10: Z00.01 ICD-9: V70.0 03/30/2017 Other vitamin B12 deficiency anemias ICD-10: D51.8 ICD-9: 281.1 03/23/2017 Atrophy of thyroid (acquired) ICD-10: E03.4 ICD-9: 244.8 03/23/2017 Bicipital tendinitis, right shoulder ICD-10: M75.21 ICD-9: 726.12 03/23/2017 Encounter for immunization ICD-10: Z23 ICD-9: V03.9 03/23/2017 Essential tremor ICD-10: G25.0 ICD-9: 333.1 03/23/2017 Vitamin B12 deficiency anemia due to intrinsic factor deficiency ICD-10: D51.0 ICD-9: 281.0 03/23/2017 Vitamin D deficiency, unspecified ICD-10: E55.9 ICD-9: 268.9 03/23/2017 Mild cognitive impairment, so stated ICD-10: G31.84 ICD-9: 331.83 11/25/2016 Encounter for screening mammogram for malignant neoplasm of breast ICD-10: Z12.31 ICD-9: V76.12 04/03/2016 Encounter for immunization ICD-10: Z23 ICD-9: V04.81 02/21/2016 Hypothyroidism, unspecified ICD-10: E03.9 ICD-9: 244.9 02/21/2016 Parkinson's disease ICD-10: G20 ICD-9: 332.0 02/21/2016 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 ICD-9: 307.7 07/12/2015 Disorder of bone, unspecified ICD-10: M89.9 ICD-9: 733.90 07/12/2015 Pain in left hip ICD-10: M25.552 ICD-9: 719.45 03/27/2015 Lumbago with sciatica, unspecified side ICD-10: M54.40 ICD-9: 724.3 03/27/2015 Reason For Visit Reason For Visit Effective Dates Notes Annual Medicare Wellness Exam 03/30/2017 dyskinesia or [...] 07/17/2017 Lipid Ord30 C/HDL 4.8 Ratio 07/17/2017 Lipid Ord30 CHOL 209 mg/dL 03/23/2017 Lipid Ord30 HDL 36.0 mg/dl 03/23/2017 Lipid Ord30 TRIG 172 mg/dL 03/23/2017 Lipid Ord30 LDL 139 mg/dL 03/23/2017 Lipid Ord30 C/HDL 5.8 Ratio 03/23/2017 Cbc With Differential Ord2 WBC 7.89 K/ul 03/23/2017 Cbc With Differential Ord2 RBC 4.60 M/ul 03/23/2017 Cbc With Differential Ord2 HGB 14.8 g/dl 03/23/2017 Cbc With Differential Ord2 Neut% 54.3 % 03/23/2017 Cbc With Differential Ord2 HCT 45.1 % 03/23/2017 Cbc With Differential Ord2 Lymph% 31.7 % 03/23/2017 Cbc With Differential Ord2 MCV 98.0 fl 03/23/2017 Cbc With Differential Ord2 Whiteside% 10.4 % 03/23/2017 Cbc With Differential Ord2 [...] 2.50 K/ul 03/23/2017 Cbc With Differential Ord2 Whiteside ABS# 0.8 K/ul 03/23/2017 Cbc With Differential Ord2 Eos ABS# 0.2 K/ul 03/23/2017 Cbc With Differential Ord2 Baso ABS# 0.1 K/ul 03/23/2017 Vitamin D 25 Oh Ppr9626 VITAMIN D, 25 HYDROXY 50.18 ng/mL Free T4 Poi761 FREE T4 0.82 ng/dL 03/23/2017 B12 Rtl576 B12 378.00 pg/ml 03/23/2017 Comp Metabolic Krd723 NA 140 mEq/L 03/23/2017 Comp Metabolic Mrb643 K 4.8 mEq/L 03/23/2017 Comp Metabolic Thz103 CL 105 mEq/L 03/23/2017 Comp Metabolic Qmk635 CO2 29.0 mEq/L 03/23/2017 Comp Metabolic Ubf273 ANION GAP 11 03/23/2017 Comp Metabolic Vzc068 GLUCOSE 91 mg/dL 03/23/2017 Comp Metabolic Yxu706 Creat 1.0 mg/dL 03/23/2017 Comp Metabolic Kwm736 eGFR 57 ml/min/1.73m2 03/23/2017 Comp Metabolic Wva032 BUN 15 mg/dL 03/23/2017 Comp Metabolic Ldo990 B/C Ratio 15.0 Ratio 03/23/2017 Comp Metabolic Kcr782 CALCIUM 9.6 mg/dL 03/23/2017 Comp Metabolic Vvj942 ALK PHOS 127 U/L 03/23/2017 Comp Metabolic Tsj174 AST(SGOT) 19 U/L 03/23/2017 Comp Metabolic Fzj967 ALT(SGPT) 13 U/L 03/23/2017 Comp Metabolic Wue755 BILI T 0.4 mg/dL 03/23/2017 Comp Metabolic Ocb358 ALBUMIN 4.1 g/dL 03/23/2017 Comp Metabolic Osq571 TPRO 6.6 g/dL 03/23/2017 Comp Metabolic Kcv446 GLOB 2.5 g/dL 03/23/2017 Comp Metabolic Tha203 A/G Ratio 1.6 Ratio 03/23/2017 Comp Metabolic Nbz642 Osmo 280 mOsmo 03/23/2017 Tsh Ord6 hTSH II 2.72 uIU/mL 03/23/2017 Free T4 Twi112 FREE T4 0.83 ng/dL 11/25/2016 Tsh Ord6 [...] 07/21/2016 Metabolic Ord15 CALCIUM 9.6 mg/dL 07/21/2016 Free T4 Hpt603 FREE T4 0.87 ng/dL 07/21/2016 Tsh Ord6 hTSH II 2.42 uIU/mL 07/21/2016 Comp Metabolic Fsn146 NA 135 mEq/L 02/21/2016 Comp Metabolic Bmw927 K 4.4 mEq/L 02/21/2016 Comp Metabolic Vjz755 CL 101 mEq/L 02/21/2016 Comp Metabolic Hkp195 CO2 25.0 mEq/L 02/21/2016 Comp Metabolic Ujc944 ANION GAP 13 02/21/2016 Comp Metabolic Mhb550 GLUCOSE 89 mg/dL 02/21/2016 Comp Metabolic Hyl141 Creat 1.0 mg/dL 02/21/2016 Comp Metabolic Oqy893 eGFR 59 ml/min/1.73m2 02/21/2016 Comp Metabolic Gab599 BUN 14 mg/dL 02/21/2016 Comp Metabolic Yws425 B/C Ratio 14.3 Ratio 02/21/2016 Comp Metabolic Mma171 CALCIUM 9.8 mg/dL 02/21/2016 Comp Metabolic Nal639 ALK PHOS 134 U/L 02/21/2016 Comp Metabolic Xfa405 AST(SGOT) 21 U/L 02/21/2016 Comp Metabolic Mle591 ALT(SGPT) 17 U/L 02/21/2016 Comp Metabolic Iyk113 BILI T 0.5 mg/dL 02/21/2016 Comp Metabolic Mqx993 ALBUMIN 4.3 g/dL 02/21/2016 Comp Metabolic Rkn498 TPRO 7.0 g/dL 02/21/2016 Comp Metabolic Qbl887 GLOB 2.8 g/dL 02/21/2016 Comp Metabolic Ymx529 A/G Ratio 1.5 Ratio 02/21/2016 Comp Metabolic Dej460 Osmo 270 mOsmo 02/21/2016 Free T4 Jxi785 FREE T4 0.88 ng/dL 02/21/2016 Tsh Ord6 hTSH II 2.02 uIU/mL 02/21/2016 Rpr [id number] RPR NON-REACTIVE 07/14/2015 Vitamin D 25 Oh Awt0185 VITAMIN D, 25 HYDROXY 15.05 ng/mL Cbc With Differential Ord2 WBC 7.36 K/ul 07/12/2015 Cbc With Differential Ord2 RBC 4.43 M/ul 07/12/2015 Cbc With Differential Ord2 HGB 14.1 g/dl 07/12/2015 Cbc With Differential Ord2 HCT 43.1 % 07/12/2015 Cbc With Differential Ord2 Neut% 58.1 % 07/12/2015 Cbc With Differential Ord2 MCV 97.3 fl 07/12/2015 Cbc With Differential Ord2 Lymph% 26.8 % 07/12/2015 Cbc With Differential Ord2 Whiteside% 12.0 % 07/12/2015 Cbc With Differential Ord2 MCH 31.8 pg 07/12/2015 Cbc With Differential Ord2 Eos% 2.6 % 07/12/2015 Cbc With Differential Ord2 MCHC 32.7 pg 07/12/2015 Cbc With Differential Ord2 PLT 254 K/ul 07/12/2015 Cbc With Differential Ord2 Baso% 0.5 % 07/12/2015 Cbc With Differential Ord2 Neut ABS# 4.28 K/ul 07/12/2015 Cbc With Differential Ord2 RDW 13.8 % 07/12/2015 Cbc With Differential Ord2 Lymph ABS# 1.97 K/ul 07/12/2015 Cbc With Differential Ord2 Whiteside ABS# 0.9 K/ul 07/12/2015 Cbc With Differential Ord2 Eos ABS# 0.2 K/ul 07/12/2015 Cbc With Differential Ord2 Baso ABS# 0.0 K/ul 07/12/2015 Cbc With Differential Ord2 New Analyzer Notice Please note new ref ranges starting 07-04-2015 due to implemntation of new five part differential hematolgy analyzer. 07/12/2015 Tsh Ord6 hTSH II 5.53 uIU/mL 07/12/2015 B12 Slr736 B12 374.00 pg/ml 07/12/2015 Free T4 Ixh949 FREE T4 0.69 ng/dL 07/12/2015 Folate Ord36 Folate >24.50 ng/mL 07/12/2015 Comp Metabolic Yjy707 NA 138 mEq/L 07/12/2015 Comp Metabolic Ohc672 K 4.4 mEq/L 07/12/2015 Comp Metabolic Hwl913 CL 105 mEq/L 07/12/2015 Comp Metabolic Hem999 CO2 27.0 mEq/L 07/12/2015 Comp Metabolic Say238 ANION GAP 10 07/12/2015 Comp Metabolic Uqw686 GLUCOSE 69 mg/dL 07/12/2015 Comp Metabolic Esu912 Creat 0.8 mg/dL 07/12/2015 Comp Metabolic Bso527 eGFR 71 ml/min/1.73m2 07/12/2015 Comp Metabolic Okv448 BUN 13 mg/dL 07/12/2015 Comp Metabolic Brp677 B/C Ratio 15.7 Ratio 07/12/2015 Comp Metabolic Pkg503 CALCIUM 9.2 mg/dL 07/12/2015 Comp Metabolic Pdm805 ALK PHOS 135 U/L 07/12/2015 Comp Metabolic Qtu248 AST(SGOT) 17 U/L 07/12/2015 Comp Metabolic Gip404 ALT(SGPT) 13 U/L 07/12/2015 Comp Metabolic Lfb342 BILI T 0.4 mg/dL 07/12/2015 Comp Metabolic Moc098 ALBUMIN 3.9 g/dL 07/12/2015 Comp Metabolic Iuz388 TPRO 6.3 g/dL 07/12/2015 Comp Metabolic Pnk793 GLOB 2.5 g/dL 07/12/2015 Comp Metabolic Gcm850 A/G Ratio 1.6 Ratio 07/12/2015 Comp Metabolic Fvr791 Osmo 274 mOsmo 07/12/2015 Review of Systems System Result Effective Dates Constitutional No recent illness 2016 Constitutional No [...] tenderness 11/25/2016 None Full Exam - General 1995 Abdomen [...] lips 08/20/2016 None Full Exam - General 1995 Ears/Nose/Throat lips/teeth/gingiva Overall: normal dentition 08/20/2016 None [...] Date PPPS, SUBSEQ VISIT CPT -4: G0439 03/30/2017 ADMIN PNEUMOCOCCAL VACCINE SNOMED CT: 33310633 CPT-4: G0009 03/30/2017 PNEUMOCOCCAL VACC [address]: 74231402 CPT-4: 93804 03/30/2017 ADMIN INFLUENZA VIRUS VAC CPT-4: G0008 03/23/2017 FLU VAC NO PRSV 4 UMANG 3 YRS+ CPT-4: 59693 03/23/2017 ADMIN INFLUENZA VIRUS VAC CPT-4: G0008 02/21/2016 FLU VACC PRSV FREE INC ANTIG CPT-4: 68964 02/21/2016 Vital Signs Date Vital 03/30/2017 Blood Pressure 1: 136/74 Code : 8480-6 BMI: 33.8 Code : 77366-8 Heart Rate 1 : 76 bpm Height: 5'5" SpO2: 97% Waist Measure (cm): 102 cm Weight: 203 lbs 03/23/2017 Blood Pressure 1: 126/82 Code : 8480-6 BMI: 33.8 Code : 02087-0 Heart Rate 1 : 60 bpm Height: 5'5" SpO2: 98% Weight: 203 lbs 11/25/2016 Blood Pressure 1: 110/68 Code : 8480-6 BMI: 33.4 Code : 55694-7 Heart Rate 1 : 96 bpm Height: 5'5" SpO2: 97% Weight: 201 lbs 08/20/2016 Blood Pressure 1: 112/64 Code : 8480-6 BMI: 32.9 Code : 67205-9 Heart Rate 1 : 72 bpm Height: 5'5" SpO2: 96% Weight: 198 lbs 07/21/2016 Blood Pressure 1: 128/74 Code : 8480-6 BMI: 32.9 Code : 92583-3 Heart Rate 1 : 81 bpm Height: 5'5" SpO2: 97% Weight: 198 lbs 04/03/2016 Blood Pressure 1: 138/80 Code : 8480-6 BMI: 32.8 Code : 63575-5 Heart Rate 1 : 87 bpm Height: 5'5" SpO2: 98% Weight: 197 lbs 02/21/2016 Blood Pressure 1: 132/80 Code : 8480-6 BMI: 32.9 Code : 64222-6 Heart Rate 1 : 90 bpm Height: 5'5" SpO2: 97% Weight: 198 lbs 10/22/2015 Blood Pressure 1: 134/80 Code : 8480-6 BMI: 33.3 Code : 42404-7 Heart Rate 1 : 86 bpm Height: 5'5" SpO2: 94% Weight: 200 lbs 07/12/2015 Blood Pressure 1: 128/86 Code : 8480-6 BMI: 32.9 Code : 63277-3 Heart Rate 1 : 71 bpm Height: 5'5" SpO2: 96% Weight: 198 lbs 03/27/2015 Blood Pressure 1: 138/88 Code : 8480-6 BMI: 32.1 Code : 26671-2 Heart Rate 1 : 88 bpm Height: [...] Present Encounters Encounter Performer Location Codes Date ([id number]) [id number] EST. PATIENT, LEVEL IV Diagnosis: Atrophy of thyroid (acquired)[ICD10: E03.4] Diagnosis: Vitamin B12 deficiency anemia due to intrinsic factor deficiency[ ICD10: D51.0] Diagnosis: Essential tremor[ICD10: G25.0] Diagnosis: Other vitamin B12 deficiency anemias[ICD10: D51.8] Diagnosis: Vitamin D deficiency, unspecified[ICD10: E55.9] Diagnosis: Encounter for immunization[ICD10: Z23] Diagnosis: Bicipital tendinitis, right shoulder[ICD10: M75.21] Eula Springer MD, [facility] CPT-4: 22654 03/23/2017 ([id number]) 88233 EST. PATIENT, LEVEL IV Diagnosis: Atrophy of thyroid (acquired)[ICD10: E03.4] Diagnosis: Mild cognitive impairment, so stated[ICD10: G31.84] Eula Springer MD, [facility] CPT-4: 35718 11/25/2016 ([id number]) 96214 EST. PATIENT, LEVEL IV Diagnosis: Essential tremor[ICD10: G25.0] Diagnosis: Atrophy of thyroid (acquired)[ICD10: E03.4] Eula Springer MD, [facility] CPT-4: 82995 08/20/2016 ([id number]) 43966 EST. PATIENT, LEVEL IV Diagnosis: Atrophy of thyroid (acquired)[ICD10: E03.4] Diagnosis: Essential tremor[ICD10: G25.0] Eula Springer MD, [facility] CPT- 4: 48048 07/21/2016 ([id number]) [id number] EST. PATIENT, LEVEL IV Diagnosis: Mild cognitive impairment, so stated[ICD10: G31.84] Diagnosis: Atrophy of thyroid (acquired)[ICD10: E03.4] Diagnosis: Encounter for screening mammogram for malignant neoplasm of breast[ ICD10: Z12.31] Eula Springer MD, [facility] CPT-4: 55103 04/03/2016 ([id number]) 80673 EST. PATIENT, LEVEL IV Diagnosis: Hypothyroidism, unspecified[ICD10: E03.9] Diagnosis: Parkinson's disease[ICD10: G20] Diagnosis: Encounter for immunization[ICD10: Z23] [facility] CPT-4: 61053 02/21/2016 ([id number]) 99881 EST. PATIENT, LEVEL III Diagnosis: Hypothyroidism, unspecified[ICD10: E03.9] [facility] CPT-4: 19140 10/22/2015 ([id number]) 02955 EST. 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] Diagnosis: Essential tremor[ICD10: G25.0] Diagnosis: Vitamin B12 deficiency anemia due to intrinsic factor deficiency[ ICD10: D51.0] Diagnosis: Disorder of bone, unspecified[ICD10: M89.9] [facility] CPT-4: 85916 07/12/2015 ([id number]) OFFICE VISIT, NEW - LEVEL 4 Diagnosis: Pain in left hip[ICD10: M25.552] Diagnosis: Lumbago with sciatica, unspecified side[ICD10: M54.40] [facility] CPT-4: 96785 03/27/2015 Plan of Care Planned Activity Notes Codes Status Date Appointment: [facility] [facility] - Annual Wellness Visit 03/30/2017 Patient Education: Patient Medication Summary Completed 03/30/2017 Patient Education: Obesity Completed 03/30/2017 Appointment: [facility] Springer [facility] (15 min) Moderate 03/23/2017 Patient Education: Patient Medication Summary Completed 03/23/2017 Patient Education: Obesity Completed 03/23/2017 [facility]ment: [facility] [phone] [facility] [place] (15 min) Moderate 11/26/2016 App[facility]ment[facility] [phone] [facility] [place] (15 min) Moderate 11/25/2016 Patient Education: Patient Medication Summary Completed 11/25/2016 Care Plan: Free T4 Pending 11/25/2016 Care Plan: Tsh Pending 11/25/2016 [facility]ment[facility] [phone] [facility] [place] (15 min) Moderate 09/11/2016 Appointment: [facility] [phone] [facility] [place] (15 min) Moderate 08/20/2016 Patient Education: Patient Medication Summary Completed 08/20/2016 Patient Education: Obesity Completed 08/20/2016 [facility]ment[facility] [phone] [facility] [place] (15 min) Moderate 07/21/2016 Patient Education: Patient Medication Summary Completed 07/21/2016 Patient Education: Obesity Completed 07/21/2016 [facility]ment[facility] [phone] [facility] [place] (15 min) Moderate 04/03/2016 Patient Education: Patient Medication Summary Completed 04/03/2016 Patient Education: Obesity Completed 04/03/2016 Patient Education: Patient Medication Summary Completed 02/21/2016 Patient Education: Obesity Completed 02/21/2016 Patient Education: Patient Medication Summary Completed 10/22/2015 Patient Education: Obesity Completed 10/22/2015 Patient Education: Patient Medication Summary Completed 07/12/2015 [facility]ment: [facility] [phone] [facility] [place] New Patient 03/27/2015 Patient Education: Patient Medication Summary Completed 03/27/2015 Instructions No Instructions
[2018-05-25] VITALS (8 sets, daily range): BP systolic 110–144; BP diastolic 57–78
[2018-05-25] MEDS: HYDROcodone/APAP 5 MG/325 MG (LORTAB) TAB PO PRN ×3 (02:38→20:52)
[2018-05-25] MEDS ORDERED: ENOXAPARIN 100 MG/1 ML (LOVENOX) SYR SC SCH (05:00)
[2018-05-25] MEDS: NS IV 1000 ML 1,000 ML IV SCH ×3 (05:26→18:45)
[2018-05-25 06:38] LABS: HEMOGLOBIN 12.3 G/DL (11.5-16.0); MEAN PLATELET VOLUME 9.3 FL (7.4-10.4); RED BLOOD COUNT 3.75 10^6/uL (4.35-5.85); RED CELL DISTRIBUTION WIDTH 13.5 % (10.0-14.5); WHITE BLOOD COUNT 6.9 10^3/uL (4.3-11.0)
[2018-05-25 06:57] LABS: BUN/CREATININE RATIO 18; CALCIUM 8.7 MG/DL (8.5-10.1); CARBON DIOXIDE 21 MMOL/L (21-32); CHLORIDE 110 MMOL/L (98-107); CREATININE SERUM 0.85 MG/DL (0.60-1.30); GFR ESTIMATED > 60; GLUCOSE 97 MG/DL (70-105); POTASSIUM 4.1 MMOL/L (3.6-5.0); SODIUM 139 MMOL/L (135-145)
[2018-05-25] MEDS ORDERED: REGADENOSON 0.4 MG/5 ML SYR (LEXISCAN) IV ONE ×2 (08:03→08:15)
[2018-05-25] MEDS ORDERED: ASPIRIN E.C. 81 MG (ECOTRIN) TAB PO SCH (09:00)
[2018-05-25] MEDS ORDERED: ASPI-983 PO (09:16)
[2018-05-25] MEDS ORDERED: CHOL5000 PO (09:16)
[2018-05-25] MEDS ORDERED: IBUP-2055 PO (09:16)
[2018-05-25] MEDS ORDERED: CYAN500T2 PO (09:16)
--- NOTE | 2018-05-25 09:16 | History & Physicial ---
History of Present Illness History of Present Illness Date of Admission May 24, 2018 at 16:30 I consulted on this patient on 05/25/18 09:16 Attending Physician Annie Springer MD Admitting Physician Annie Springer MD Consult Allergies and Home Medications Allergies Coded Allergies: No Known Drug Allergies (Unverified , 02/06/15) Home Medications Aspirin 81 Mg Tablet.dr, 81 MG PO DAILY, (Reported) Cholecalciferol (Vitamin D3) 5,000 Unit Capsule, 5,000 UNIT PO DAILY, (Reported) Cyanocobalamin (Vitamin B-12) 500 Mcg Tablet, 500 MCG PO DAILY, (Reported) Ibuprofen 200 Mg Tablet, 600 MG PO TID, (Reported) Levothyroxine Sodium 50 Mcg Tablet, 50 MCG PO DAILY, (Reported) Memantine HCl 10 Mg Tablet, 10 MG PO BID, (Reported) Propranolol HCl 10 Mg Tablet, 5 MG PO TID, (Reported) TAKES 1/2 (10MG) TABLET Sertraline HCl 50 Mg Tablet, 50 MG PO DAILY, (Reported) Past Rpznbmj-Lhyrik-Nkcdrz Hx Patient Social History Marrital Status: Employed/Student: retired Alcohol Use: Denies Use Recreational Drug Use: No Smoking Status: Never a Smoker Physical Abuse Screen: No Sexual Abuse: No Recent Foreign Travel: No Contact w/other who traveled: No Recent Hopitalizations: No Recent Infectious Disease Expo: No Immunizations Up To Date Pediatric: Yes Date of Influenza Vaccine: May 10, 2018 Seasonal Allergies Seasonal Allergies: No Surgeries No Bladder Surgery, Gallbladder, Hysterectomy Respiratory No Cardiovascular No Neurological Yes Dementia, Parkinson's Disease Reproductive System : No Hx Reproductive Disorders: No Sexually Transmitted Disease: No HIV/AIDS: No Female Reproductive Disorders: Denies Genitourinary Yes (stress incont-wears pad) Gastrointestinal Yes Hemorrhoids Musculoskeletal Yes Degenerate Disk Disease, Chronic Back Pain Endocrine History of Endocrine Disorders: Yes Endocrine Disorders: Hypothyroidsim HEENT History of HEENT Disorders: Yes HEENT Disorders: Cataract Loss of Vision: Bilateral Hearing Impairment: Denies Cancer No Psychosocial History of Psychiatric Problem: No Integumentary History of Skin or Integumenta: No Blood Transfusions History of Blood Disorders: No Family Medical History Significant Family History: Heart Disease, Hypertension Family Hx: Patient reports no known family medical history. Physical Exam Vital Signs Vital Signs - First Documented 05/24/18 05/24/18 13:11 17:15 Temp 98.9 Pulse 78 Resp 18 B/P (MAP) 142/69 (93) Pulse Ox 96 O2 Delivery Room Air Capillary Refill : Less Than 3 Seconds Height, Weight, BMI Height: 5'5.00" Weight: 220lbs. oz. 99.098309ee; BMI Method:Stated Clinical Quality Measures DVT/VTE Risk/Contraindication: Risk Factor Score Per Nursin RFS Level Per Nursing on Admit: 2=Moderate ANNIE SPRINGER MD May 25, 2018 09:16
[2018-05-25] MEDS: DOCUSATE SODIUM 100 MG (COLACE) CAP PO SCH (10:46)
[2018-05-25] MEDS: LIDOCAINE 4% (SALONPAS) PATCH TOP SCH (10:47)
--- NOTE | 2018-05-25 13:49 | Physical Therapy Evaluation ---
PT Evaluation-General Medical Diagnosis Admission Date May 24, 2018 at 16:30 Medical Diagnosis: Right groin pain, Chest pain Onset Date: May 23, 2018 Therapy Diagnosis Therapy Diagnosis: general weakness Height/Weight Height (Feet): 5 Height (Inches): 5.00 Weight (Pounds): 220 Precautions Precautions/Isolations: Fall Prevention, Standard Precautions Weight Bear Status Right Lower Extremity: Right Full Weight Bearing Left Lower Extremity: Left Full Weight Bearing Referral Physician: Eula Springer MD Reason for Referral: Evaluation/Treatment Medical History Pertinent Medical History: HTN, Hypothroidism, Parkinson's Current History Pt reported to ER for right groin pain. Reviewed History: Yes Social History Home: Single Level Current Living Status: Children Entry Into Home: Stairs With Railing PT Steps Into Home: 2 PT Steps Inside Home: 0 Prior/Core FIM Prior Level of Function Therapy Code Descriptions/Definitions Functional [place] Measure: 0=Not Assessed/NA 4=Minimal Assistance 1=Total Assistance 5=Supervision or Setup 2=Maximal Assistance 6=Modified [place] 3=Moderate Assistance 7=Complete [place] Therapy Quality Codes: 6 Independent with activity with or without an assistive device 5 Patient requires set up or clean up by helper. Patient completes activity by themselves 4 Supervision or touching assist (CGA). [place] provide cues , steadying assist 3 The helper provides less than half the effort to complete the activity 2 The helper provides more than half the effort to complete the activity 1 Dependent. The helper does all the effort to complete an activity 7 Patient refused to complete or attempt activity 9 The patient did not perform the activity before the current illness or injury 88 Not attempted due to Medical conditions or safety concerns Functional Abilities and Goals: Independent: Patient completed the activities by him/herself, with or without an assistive device, with no assistance from a helper. Needed Some Help: Patient needed partial assistance from another person to complete activities. Dependent: A helper completed the activities for the patient. Unknown: Not Applicable: Bed Mobility: 7 Transfers (B,C,W/C) (FIM): 7 Gait: 7 Stairs: 7 Indoor Mobility (Ambulation): Independent Stairs: Independent Prior Devices Use: None PT Evaluation-Current Subjective Pt awake in room with daughter when PT arrived. Pt agreed to PT evaluation. Pain Numeric Pain Scale: 5-Moderate Pain Location: Bone, Right Location Body Site: Thigh Pain Description: Stabbing, Heavy Objective Patient Orientation: Normal For Age Problem Solving: Fair Attachments: IV ROM/Strength ROM Upper Extremities WNL ROM Lower Extremities WNL Strength Upper Extremities WNL Strength Lower Extremities R hip flexor 2+/5 WNL BLE Integumentary/Posture Bowel Incontinence: No Bladder Incontinence: No Posture WFL Neuromuscular (Tone, Coordination, Reflexes) Gross motor coordination intact Sensory Vision: Functional Hearing: Functional Sensation Right Upper Extremit: Intact Sensation Left Upper Extremity: Intact Sensation Right Lower Extremit: Intact Sensation Left Lower Extremity: Intact Transfers Therapy Code Descriptions/Definitions Functional [place] Measure: 0=Not Assessed/NA 4=Minimal Assistance 1=Total Assistance 5=Supervision or Setup 2=Maximal Assistance 6=Modified [place] 3=Moderate Assistance 7=Complete [place] Transfers (B, C, W/C) (FIM): 6 Scootin Rollin Supine to/from Sit: 6 Sit to/from Stand: 6 Gait Mode of Locomotion: Walk Anticipated Mode of Locomotion: Walk Gait (FIM): 6 Distance (FIM): 3=150 ft Distance: 400' Gait Level of Assist: 6 Gait Persons Needed: 1 Gait Assistive Device: FWW Comments/Gait Description with and without FWW equal distances Stairs Stairs (FIM): 1 #of Steps: 2 Level of Assist: 6 Patient limited in ascending and descending steps due to IV pole. Balance Sitting Static: Good Sitting Dynamic: Good Standing Static: Good Standing Dynamic: Good Assessment/Needs Patient is able to ambulate for 400' with and without an AD and is Mod I to independent. Patient is able to ascend and descend stairs with a step to pattern but is currently limited to two steps due to IV pole. Patient has normal strength for BLE besides R hip flexors being a 3+/5 for gross motor function. Patient will receive inpatient PT x 2-3 sessions and this PT recommends outpatient PT upon dismissal from hospital Rehab Potential: Fair PT Short Term Goals Short Term Goals Time Frame: May 27, 2018 Transfers (B,C,W/C) (FIM): 7 Gait (FIM): 7 Distance (FIM): 3=150 ft Gait Level of Assist: 7 Gait Assistive Device: None PT Plan Treatment/Plan Treatment Plan: Continue Plan of Care Treatment Plan: Gait, Therapeutic Exercise, Other Treatment Duration: May 25, 2018 Frequency: 3 times per week Estimated Hrs Per Day: .25 hour per day Patient and/or Family Agrees t: Yes Discharge Recommendations Therapy D/C Recommendations: Home w/ Family Support, Physical Therapy Outpatient Time/GCodes Time In: 1250 Time Out: 1305 Total Billed Treatment Time: 15 Total Billed Treatment 1 Visit EVL - 15' G Codes Necessary: Yes PT/OT Therapy GCodes Therapy Functional Limitation: Physical Therapy Test(s)/Tool used to determine: FIM Functional Limitation-Current Modifier: CI Functional Limitation-Goal Modifier: KAITLIN BLACKWOOD PT May 25, 2018 13:49
--- NOTE | 2018-05-25 14:57 | Diagnostic Imaging Report ---
PROCEDURE: US Venous Lower Ext Pedro. TECHNIQUE: Multiple real-time grayscale images were obtained over the lower extremities in various projections, bilaterally. Additional duplex Doppler and color Doppler images were also obtained. INDICATION: Right groin pain and edema. There is no evidence of a right lower extremity or left lower extremity DVT. Both lower extremity deep venous systems demonstrate normal compressibility with normal response to augmentation and Valsalva. No fluid collection or mass is seen. IMPRESSION: No evidence of right or left lower extremity DVT. Dictated by: Dictated on workstation # [id number]
--- NOTE | 2018-05-25 15:28 | STRESS TEST ---
DATE OF SERVICE: 05/25/2018 LEXISCAN MYOVIEW STRESS TEST REPORT Baseline heart rate is 70. Baseline blood pressure 123/67. Baseline EKG, sinus rhythm with no ischemic changes. In summary, the patient was injected with 10.72 mCi of technetium-99 Myoview and the resting images were obtained. Then, the patient received 0.4 mg of Lexiscan followed by 32.0 mCi of technetium-99 Myoview. Throughout the test, there were no EKG changes. The resting and stress images were reviewed and compared in the short axis, horizontal long axis, and vertical long axis views. Review of the images showed breast attenuation affecting the quality of the images. There is mild decreased uptake involving the mid to apical anterior wall with mild reversibility. SSS is 6. SDS 6. TID value 0.9. On the gated images, the left ventricle appeared to be in normal size with normal contractility. Calculated ejection fraction 82%. CONCLUSION: 1. The patient tolerated Lexiscan well. 2. Breast attenuation with mild ischemia involving the mid to apical anterior wall and anterolateral wall. 3. Normal left ventricular size with normal contractility. Calculated ejection fraction 82%. Job ID: [id number] DocumentID: [id number] Dictated Date: 05/25/2018 13:00:19 Financial Services Intern Date: 05/25/2018 15:27:24 Dictated By: HOLLIS BARRIOS MD
--- NOTE | 2018-05-25 16:42 | Cardiology Progress Note ---
Subjective Date Seen by Provider: May 25, 2018 Time Seen by Provider: 12:30 Subjective/Events-last exam Patient is laying down in bed, still having right groin and leg pain. Denied any chest pain. No palpitation Review of Systems General: No Chills, No Night Sweats, No Fatigue, No Malaise, No Appetite, No Other HEENT: No Head Aches, No Visual Changes, No Eye Pain, No Ear Pain, No Dysphasia , No Sinus Congestion, No Post Nasal Drip, No Sore Throat, No Other Pulmonary: No Dyspnea, No Cough, No Pleuritic Chest Pain, No Other Cardiovascular: No: Chest Pain, Palpitations, Orthopnea, Paroxysmal Noc. Dyspnea, Edema, Lt Headedness, Other Objective-Cardiology Exam Last Set of Vital Signs Vital Signs 05/25/18 05/25/18 12:00 13:10 Temp 97.2 Pulse 72 Resp 18 B/P (MAP) 131/65 (87) Pulse Ox 97 O2 Delivery Room Air Capillary Refill : Less Than 3 Seconds I&O Intake and Output 05/25/18 00:00 Intake Total 240 ml Balance 240 ml Intake Oral 240 ml # Voids 3 Daily Weight Change No General: Alert, Oriented X3, Cooperative HEENT: Atraumatic, PERRLA Neck: Supple, No JVD, No Thyromegaly Lungs: Clear to Auscultation, Normal Air Movement Heart: Regular Rate, Normal S1, Normal S2, No Murmurs Abdomen: Normal Bowel Sounds, Soft, No Tenderness, No Hepatosplenomegaly, No Masses Extremities: No Clubbing, No Cyanosis, No Edema, Normal Pulses, No Tenderness/ Swelling Skin: No Rashes, No Breakdown, No Significant Lesion Neuro: Normal Gait, Normal Speech, Strength at 5/5 X4 Ext, Normal Tone, Sensation Intact Psych/Mental Status: Mental Status NL, Mood NL Results Lab Laboratory Tests 05/25/18 06:15 A/P-Cardiology Admission Diagnosis Chest pain Shortness of breath Pedal edema Leg pain Assessment/Plan Chest pain nonspecific etiology, stress test is abnormal with breast attenuation and mild ischemia involving the mid to apical anterior wall and anterior lateral wall, discussed the management plan recommended cardiac catheterization possible PTCA Mild pedal edema, BNP is normal, questionable venous insufficiency, venous Doppler did not show DVT. Questionable psoas muscle injury. Had history of injury to the left side and the past. Physical therapy consulted Hypertension, continue to monitor blood pressure Mild epigastric pain and right upper quadrant pain, history of cholecystectomy in the past. Started on PPI and monitor Mild tremor for which she takes propranolol Early dementia, maintained on Namenda History of cholecystectomy Clinical Quality Measures DVT/VTE Risk/Contraindication: Risk Factor Score Per Nursin RFS Level Per Nursing on Admit: 2=Moderate HOLLIS BARRIOS MD May 25, 2018 16:42
[2018-05-25] MEDS ORDERED: ENOXAPARIN 40 MG/0.4 ML (LOVENOX) SYR SQ SCH (16:45)
[2018-05-25] MEDS: LIDOCAINE PATCH REMOVAL TP SCH (20:52)
[2018-05-26] VITALS (28 sets, daily range): BP systolic 87–147; BP diastolic 52–88
[2018-05-26] MEDS: NS IV 1000 ML 1,000 ML IV SCH ×6 (00:34→15:14)
[2018-05-26] MEDS ORDERED: ENOXAPARIN 40 MG/0.4 ML (LOVENOX) SYR SC SCH (06:00)
[2018-05-26 06:22] LABS: MEAN PLATELET VOLUME 9.5 FL (7.4-10.4); RED BLOOD COUNT 3.8 10^6/uL (4.35-5.85); RED CELL DISTRIBUTION WIDTH 13.3 % (10.0-14.5); WHITE BLOOD COUNT 6.3 10^3/uL (4.3-11.0)
[2018-05-26 06:41] LABS: ALANINE AMINOTRANSFERASE 15 U/L (0-55); ALBUMIN 3.3 GM/DL (3.2-4.5); ALKALINE PHOSPHATASE 100 U/L (40-136); BILIRUBIN,TOTAL 0.4 MG/DL (0.1-1.0); BUN/CREATININE RATIO 12; CALCIUM 8.9 MG/DL (8.5-10.1); CARBON DIOXIDE 22 MMOL/L (21-32); CHLORIDE 111 MMOL/L (98-107); CREATININE SERUM 0.83 MG/DL (0.60-1.30); GFR ESTIMATED > 60; GLUCOSE 95 MG/DL (70-105); SODIUM 141 MMOL/L (135-145); TOTAL PROTEIN 5.7 GM/DL (6.4-8.2)
[2018-05-26] MEDS ORDERED: LIDOCAINE 1% INJ 20 ML 20 ML VIAL ONE (06:56)
[2018-05-26] MEDS ORDERED: HEParin (CATH LAB) 2,000 ML IV ONE (06:56)
--- NOTE | 2018-05-26 07:48 | Cardiology Progress Note ---
Subjective Date Seen by Provider: May 26, 2018 Time Seen by Provider: 07:47 Subjective/Events-last exam Patient is in bed, still having groin pain, no chest pain today Review of Systems General: No Chills, No Night Sweats, No Fatigue, No Malaise, No Appetite, No Other HEENT: No Head Aches, No Visual Changes, No Eye Pain, No Ear Pain, No Dysphasia , No Sinus Congestion, No Post Nasal Drip, No Sore Throat, No Other Pulmonary: No Dyspnea, No Cough, No Pleuritic Chest Pain, No Other Cardiovascular: No: Chest Pain, Palpitations, Orthopnea, Paroxysmal Noc. Dyspnea, Edema, Lt Headedness, Other Objective-Cardiology Exam Last Set of Vital Signs Vital Signs 05/26/18 04:00 Temp 98.6 Pulse 82 Resp 20 B/P (MAP) 127/62 (83) Pulse Ox 94 O2 Delivery Room Air Capillary Refill : Less Than 3 Seconds I&O Intake and Output 05/26/18 00:00 Intake Total 1940 ml Balance 1940 ml Intake Oral 1940 ml # Voids 8 General: Alert, Oriented X3, Cooperative HEENT: Atraumatic, PERRLA Neck: Supple, No JVD, No Thyromegaly Lungs: Clear to Auscultation, Normal Air Movement Heart: Regular Rate, Normal S1, Normal S2, No Murmurs Abdomen: Normal Bowel Sounds, Soft, No Tenderness, No Hepatosplenomegaly, No Masses Extremities: No Clubbing, No Cyanosis, No Edema, Normal Pulses, No Tenderness/ Swelling Skin: No Rashes, No Breakdown, No Significant Lesion Neuro: Normal Gait, Normal Speech, Strength at 5/5 X4 Ext, Normal Tone, Sensation Intact Psych/Mental Status: Mental Status NL, Mood NL Results Lab Laboratory Tests 05/26/18 05:50 A/P-Cardiology Admission Diagnosis Chest pain Shortness of breath Pedal edema Leg pain Assessment/Plan Chest pain nonspecific etiology, stress test is abnormal with breast attenuation and mild ischemia involving the mid to apical anterior wall and anterior lateral wall, planning for cardiac cath today Mild pedal edema, BNP is normal, questionable venous insufficiency, venous Doppler did not show DVT. Questionable psoas muscle injury. Had history of injury to the left side and the past. Physical therapy consulted Hypertension, continue to monitor blood pressure Mild epigastric pain and right upper quadrant pain, history of cholecystectomy in the past. Started on PPI and monitor Mild tremor for which she takes propranolol Early dementia, maintained on Namenda History of cholecystectomy Clinical Quality Measures DVT/VTE Risk/Contraindication: Risk Factor Score Per Nursin RFS Level Per Nursing on Admit: 2=Moderate HOLLIS BARRIOS MD May 26, 2018 07:48
--- NOTE | 2018-05-26 07:49 | Cardiac Procedure Note-CS/ASA ---
Pre-Procedure Note Pre-Op Procedure Note H&P Reviewed The H&P was reviewed, patient examined and no changes noted. Date H&P Reviewed: May 26, 2018 Time H&P Reviewed: 07:49 Conscious Sedation Pre-Proced Time 07:49 ASA Score 3 For ASA 3 and 4: Consider anesthesia and medical clearance. Also, for patients with a history of failed moderate sedation consider anesthesia. Airway Lungs Heart ASA score ASA 1: a normal healthy patient ASA 2: a patient with a mild systemic disease (mid diabetes, controlled hypertension, obesity x ASA 3: a patient with a severe systemic disease that limits activity (angina , COPD, prior Myocardial infarction) ASA 4: a patient with an incapacitating disease that is a constant threat to life (CHF, renal failure) ASA 5: a moribund patient not expected to survive 24 hrs. (ruptured aneurysm) ASA 6: a declared brain patient whose organs are being harvested. For emergent operations, add the letter E after the classification Mallampati Classification Grade 3 Sedation Plan Analgesia, Amnesia, Plan communicated to team members, Discussed options with patient/fam, Discussed risks with patient/fam The patient is an appropriate candidate to undergo the planned procedure, sedation, and anesthesia. The patient immediately re-assessed prior to indication. HOLLIS BARRIOS MD May 26, 2018 07:49
[2018-05-26] MEDS ORDERED: MIDAZOLAM 5 MG/5 ML (VERSED) VIAL ONE ×2 (09:20→09:30)
[2018-05-26] MEDS ORDERED: fentaNYL INJECTION 100 MCG/2 ML AMP ONE ×3 (09:20→13:18)
[2018-05-26] MEDS ORDERED: HEParin 1000 UNIT/ML (10ML VIAL) FOR BOLUS ONE (10:24)
[2018-05-26] MEDS ORDERED: NITRO DRIP 25000 MCG/D5W 250 ML IV ONE (10:33)
[2018-05-26] MEDS ORDERED: ATROPINE INJECTION 1 MG/10 ML SYR (ABBOTT) ONE (10:36)
[2018-05-26] MEDS ORDERED: TICAGRELOR 90 MG TABLET (BRILINTA) PO ONE (10:57)
[2018-05-26] MEDS ORDERED: ASPIRIN 325 MG (5 GR) TABLET ONE (10:57)
[2018-05-26] MEDS ORDERED: PATIENT MAY USE OWN MEDS, ALL PO SCH (11:00)
--- NOTE | 2018-05-26 11:03 | Cardiac Cath Report ---
Cardiac Cath Report Physician (s)/Architectural Technician (s) Physician HOLLIS BARRIOS MD Pre-Procedure Diagnosis Pre-Procedure Diagnosis: coronary artery disease, chest pain Post-Procedure Note Procedure Start Date: May 26, 2018 Name of Procedure: left heart catheterization Left ventriculogram Abdominal aortogram FFR to the right coronary artery Stent to the right coronary artery Findings/Procedure Note PROCEDURE NOTE: After explaining the procedure to the patient, all pros and cons were explained , all questions were answered. The patient signed the consent and then she was placed on the cardiac catheterization laboratory. Groin was prepped SL fashion local anesthesia was used. Sheath placed in the left femoral artery. I was unable to advance the J-wire through the iliac artery, I used a long stork wire, Aaron right catheter was advanced to the right coronary artery, angiogram was done, exchanged over long stork wire into Aaron left catheter advanced to the left corner system and angiogram was done then exchanged into a pigtail catheter and advanced to the left ventricular cavity left ventriculogram was done, pullback LV to aorta was done. Then the catheter was pulled down to the abdominal aorta at the bifurcation and abdominal aortogram was done and evaluated the bifurcation. Then I exchanged the catheter again into if our guide with sideholes. Advanced it back to the right coronary artery. Patient had severe ostial right coronary artery stenosis. Next Given initially 4000 units of heparin and then 2000 units of heparin then FFR wire was advanced, at baseline FFR was 0.69. I decided to proceed with percutaneous intervention, has severe ostial stenosis. I used Xience Nae 3 12 stent positioned carefully at the ostium of the right coronary artery, up and inflating the balloon the stent balloon was slipped slightly back, reinflated the balloon multiple time up to 15 tika then angiogram showed excellent result with few struts of the stent extending beyond the ostium. At the end of the procedure the sheath was removed. Closure device Was used FINDINGS: Hemodynamics LV 143/18, end-diastolic pressure of 18 Aorta 151/77 mean of 89 ANATOMY: Left Main has mild disease nonobstructive disease Left Anterior Descending is slightly tortuous with mild disease nonobstructive disease Left Circumflex has mild disease nonobstructive disease Right Coronory Artery is large dominant artery with severe ostial stenosis, FFR 0.69 at baseline. Successful deployment of Nae stent 312 mm up to 3.25 mm with excellent results, up and deployment of the stent at the ostium of the right coronary artery it slipped slightly out which left a few struts of outside the ostium. LV Gram was done showing normal left ventricular size and function. Ejection fraction 60 percent Aorta evaluation done with abdominal aortogram which showed mild atherosclerotic plaques especially at the bifurcation. No dissection or aneurysm, renal arteries and inferior mesenteric arteries were normal CONCLUSION: 1. Severe ostial right coronary artery stenosis successful deployment of Nae 3.012 mm stent expanded to 3.25 mm with excellent results, few struts of the stent extending beyond the ostium 2. Mild disease in the LAD and circumflex artery nonobstructive disease 3. Normal left ventricular size and systolic function estimated ejection fraction 60 percent 4. Normal abdominal aorta with mild atherosclerotic plaques at the bifurcation DISCUSSION AND RECOMMENDATION: Patient was started on aspirin and Brilinta and will be treated for at least one year Anesthesia Type: Conscious Sedation Estimated blood loss (mL): 25 ml Contrast Amount: 195 ml Total Radiation Dose: 2286 mGy Post-Procedure Diagnosis Post-operative diagnosis: Chest pain Coronary artery disease Hypertension Hyperlipidemia HOLLIS BARRIOS MD May 26, 2018 11:03
--- NOTE | 2018-05-26 11:34 | Physical Therapy Progress Note ---
Therapy Progress Note 1043am Attempted visit, pt having heart cath per nsg 1130am Pt just returned from procedure, No PT at this time JABIER MADRID PTA May 26, 2018 11:34
[2018-05-26] MEDS: HYDROcodone/APAP 5 MG/325 MG (LORTAB) TAB PO PRN ×2 (11:54→20:44)
[2018-05-26] MEDS: DOCUSATE SODIUM 100 MG (COLACE) CAP PO SCH (11:54)
[2018-05-26] MEDS ORDERED: fentaNYL INJECTION 100 MCG/2 ML AMP IVP PRN (13:15)
[2018-05-26] MEDS ORDERED: ONDANSETRON 4 MG/2 ML (SDV) Z0FRAN IVP PRN (13:15)
[2018-05-26] MEDS ORDERED: ONDANSETRON 4 MG/2 ML (SDV) Z0FRAN ONE (13:19)
[2018-05-26 15:18] LABS: BASOPHILS % (AUTO) 0 % (0-10); EOSINOPHILS # (AUTO) 0.1 10^3/uL (0.0-0.3); EOSINOPHILS % (AUTO) 1 % (0-10); HEMATOCRIT 33 % (35-52); HEMOGLOBIN 10.9 G/DL (11.5-16.0); LYMPHOCYTES # (AUTO) 1.2 X 10^3 (1.0-4.0); LYMPHOCYTES % (AUTO) 13 % (12-44); MEAN CORPUSCULAR HEMOGLOBIN 33 PG (25-34); MEAN CORPUSCULAR HGB CONC 33 G/DL (32-36); MEAN CORPUSCULAR VOLUME 98 FL (80-99); MEAN PLATELET VOLUME 9.5 FL (7.4-10.4); MONOCYTES # (AUTO) 0.7 X 10^3 (0.0-1.0); MONOCYTES % (AUTO) 7 % (0-12); NEUTROPHILS # (AUTO) 7.4 X 10^3 (1.8-7.8); NEUTROPHILS % (AUTO) 79 % (42-75); PLATELET COUNT 207 10^3/uL (130-400); RED BLOOD COUNT 3.35 10^6/uL (4.35-5.85); WHITE BLOOD COUNT 9.4 10^3/uL (4.3-11.0)
[2018-05-26] MEDS: LIDOCAINE 4% (SALONPAS) PATCH TOP SCH (15:19)
--- NOTE | 2018-05-26 16:02 | Diagnostic Imaging Report ---
PROCEDURE: CT of the abdomen and pelvis without contrast. TECHNIQUE: Multiple contiguous axial images were obtained through the abdomen and pelvis without the use of intravenous contrast. INDICATION: Status post cardiac catheterization. Patient became hypotensive. Patient also complains of groin pain and back pain. Study is performed to evaluate for retroperitoneal hemorrhage. COMPARISON: Correlation is made with recent CT from 05/24/2018. FINDINGS: There are small bilateral pleural effusions. A tiny nodule in the right middle lobe is seen measuring 5-6 mm. The liver is unremarkable. Gallbladder is surgically absent. The pancreas and spleen are unremarkable. No adrenal mass is seen. There is contrast within both renal collecting systems. There is some high-density fluid in the left retroperitoneum. This commences at approximately the level of the lower pole of the left kidney and extends inferiorly to the left groin. This is consistent with retroperitoneal hemorrhage. This is classified as moderate. No other regions of hemorrhage are seen. The bladder is unremarkable. Aorta is normal in caliber. Bowel loops are normal in caliber. Bony structures appear nonacute. IMPRESSION: Features consistent with [id number] retroperitoneal hemorrhage on the left. Results were discussed with Dr. Ash prior to this dictation. Dictated by: Dictated on workstation # [id number]
[2018-05-26] MEDS: TICAGRELOR 90 MG TABLET (BRILINTA) PO SCH (20:44)
[2018-05-26] MEDS: LIDOCAINE PATCH REMOVAL TP SCH (20:55)
[2018-05-26 21:59] LABS: HEMOGLOBIN 11.1 G/DL (11.5-16.0)
[2018-05-27] VITALS (27 sets, daily range): BP systolic 96–137; BP diastolic 52–80
[2018-05-27 03:55] LABS: BASOPHILS % (AUTO) 0 % (0-10); EOSINOPHILS # (AUTO) 0.1 10^3/uL (0.0-0.3); EOSINOPHILS % (AUTO) 1 % (0-10); HEMATOCRIT 34 % (35-52); HEMOGLOBIN 11.4 G/DL (11.5-16.0); LYMPHOCYTES # (AUTO) 1.9 X 10^3 (1.0-4.0); LYMPHOCYTES % (AUTO) 17 % (12-44); MEAN CORPUSCULAR HEMOGLOBIN 32 PG (25-34); MEAN CORPUSCULAR HGB CONC 34 G/DL (32-36); MEAN CORPUSCULAR VOLUME 94 FL (80-99); MEAN PLATELET VOLUME 9.7 FL (7.4-10.4); MONOCYTES # (AUTO) 1.3 X 10^3 (0.0-1.0); MONOCYTES % (AUTO) 13 % (0-12); NEUTROPHILS # (AUTO) 7.4 X 10^3 (1.8-7.8); NEUTROPHILS % (AUTO) 69 % (42-75); PLATELET COUNT 205 10^3/uL (130-400); RED BLOOD COUNT 3.58 10^6/uL (4.35-5.85); RED CELL DISTRIBUTION WIDTH 14.9 % (10.0-14.5); WHITE BLOOD COUNT 10.7 10^3/uL (4.3-11.0)
[2018-05-27 04:23] LABS: BUN/CREATININE RATIO 14; CALCIUM 8.5 MG/DL (8.5-10.1); CARBON DIOXIDE 21 MMOL/L (21-32); CHLORIDE 111 MMOL/L (98-107); CREATININE SERUM 0.84 MG/DL (0.60-1.30); GFR ESTIMATED > 60; GLUCOSE 103 MG/DL (70-105); MAGNESIUM 1.9 MG/DL (1.8-2.4); POTASSIUM 3.8 MMOL/L (3.6-5.0); SODIUM 141 MMOL/L (135-145)
[2018-05-27] MEDS ORDERED: RT-ALBUTEROL/IPRATROPIUM 3 ML (DUONEB) VIAL INH PRN (04:45)
--- NOTE | 2018-05-27 07:57 | Diagnostic Imaging Report ---
INDICATION: Chest pain. TECHNIQUE: Single view chest 05:23 a.m. CORRELATION STUDY: 05/24/2018. FINDINGS: Heart size borderline. Vasculature overall improved on followup. Mildly prominent interstitial markings appear less congested. No new infiltrate. IMPRESSION: 1. Overall appears to be improved features of congestive heart failure. Some congestion does remain. Dictated by: Dictated on workstation # [id number]
--- NOTE | 2018-05-27 08:03 | Physical Therapy Progress Note ---
Therapy Progress Note PT will require new orders to continue with therapy. KAITLIN DELGADO PT May 27, 2018 08:03
[2018-05-27] MEDS: TICAGRELOR 90 MG TABLET (BRILINTA) PO SCH ×2 (09:30→20:59)
[2018-05-27] MEDS: ASPIRIN E.C. 81 MG (ECOTRIN) TAB PO SCH (09:30)
[2018-05-27] MEDS: HYDROcodone/APAP 5 MG/325 MG (LORTAB) TAB PO PRN ×2 (09:30→21:00)
[2018-05-27] MEDS: DOCUSATE SODIUM 100 MG (COLACE) CAP PO SCH (09:30)
--- NOTE | 2018-05-27 09:45 | Progress Note ---
Objective Exam Last Set of Vital Signs Vital Signs Date Time Temp Pulse Resp B/P (MAP) Pulse Ox O2 Delivery O2 Flow Rate FiO2 05/27/18 09:00 75 13 127/73 (91) 94 Nasal Cannula 2.00 05/27/18 06:00 97.2 05/27/18 04:18 32 Capillary Refill : Less Than 3 Seconds I&O Intake and Output 05/27/18 00:00 Intake Total 740 ml Output Total 1200 ml Balance -460 ml Intake Oral 740 ml Output Urine Total 1200 ml # Voids 4 General: Alert, Oriented X3, Cooperative HEENT: Atraumatic, PERRLA Neck: Supple, No JVD, No Thyromegaly Lungs: Clear to Auscultation, Normal Air Movement Heart: Regular Rate, Normal S1, Normal S2, No Murmurs Abdomen: Normal Bowel Sounds, Soft, No Tenderness, No Hepatosplenomegaly, No Masses Extremities: No Clubbing, No Cyanosis, No Edema, Normal Pulses, No Tenderness/ Swelling Skin: No Rashes, No Breakdown, No Significant Lesion Neuro: Normal Gait, Normal Speech, Strength at 5/5 X4 Ext, Normal Tone, Sensation Intact Psych/Mental Status: Mental Status NL, Mood NL Results Lab Laboratory Tests 05/26/18 15:05: White Blood Count 9.4, Red Blood Count 3.35L, Hemoglobin 10.9L, Hematocrit 33L, Mean Corpuscular Volume 98, Mean Corpuscular Hemoglobin 33, Mean Corpuscular Hemoglobin Concent 33, Red Cell Distribution Width 13.0, Platelet Count 207, Mean Platelet Volume 9.5, Neutrophils (%) (Auto) 79H, Lymphocytes (%) (Auto) 13 , Monocytes (%) (Auto) 7, Eosinophils (%) (Auto) 1, Basophils (%) (Auto) 0, Neutrophils # (Auto) 7.4, Lymphocytes # (Auto) 1.2, Monocytes # (Auto) 0.7, Eosinophils # (Auto) 0.1, Basophils # (Auto) 0.0 05/26/18 21:48: Hemoglobin 11.1L, Hematocrit 33L 05/27/18 02:40: White Blood Count 10.7, Red Blood Count 3.58L, Hemoglobin 11.4L, Hematocrit 34L , Mean Corpuscular Volume 94, Mean Corpuscular Hemoglobin 32, Mean Corpuscular Hemoglobin Concent 34, Red Cell Distribution Width 14.9H, Platelet Count 205, Mean Platelet Volume 9.7, Neutrophils (%) (Auto) 69, Lymphocytes (%) (Auto) 17, Monocytes (%) (Auto) 13H, Eosinophils (%) (Auto) 1, Basophils (%) (Auto) 0, Neutrophils # (Auto) 7.4, Lymphocytes # (Auto) 1.9, Monocytes # (Auto) 1.3H, Eosinophils # (Auto) 0.1, Basophils # (Auto) 0.0, Sodium Level 141, Potassium Level 3.8, Chloride Level 111H, Carbon Dioxide Level 21, Anion Gap 9, Blood Urea Nitrogen 12, Creatinine 0.84, Estimat Glomerular Filtration Rate > 60, BUN/ Creatinine Ratio 14, Glucose Level 103, Calcium Level 8.5, Phosphorus Level 3.0 , Magnesium Level 1.9 Clinical Quality Measures DVT/VTE Risk/Contraindication: Risk Factor Score Per Nursin RFS Level Per Nursing on Admit: 2=Moderate ANNIE MOORE MD May 27, 2018 09:45
[2018-05-27] MEDS ORDERED: POLYETHYLENE GLYCOL 17 GM (MIRALAX) PACK PO ONE (10:00)
[2018-05-27] MEDS ORDERED: POLYETHYLENE GLYCOL 17 GM (MIRALAX) PACK ONE (10:00)
--- NOTE | 2018-05-27 11:02 | Cardiology Progress Note ---
Subjective Date Seen by Provider: May 27, 2018 Time Seen by Provider: 11:00 Subjective/Events-last exam patient is laying down in bed, feeling better. Denied any chest pain. No palpitation. Blood pressure is better Review of Systems General: No Chills, No Night Sweats, No Fatigue, No Malaise, No Appetite, No Other HEENT: No Head Aches, No Visual Changes, No Eye Pain, No Ear Pain, No Dysphasia , No Sinus Congestion, No Post Nasal Drip, No Sore Throat, No Other Pulmonary: No Dyspnea, No Cough, No Pleuritic Chest Pain, No Other Cardiovascular: No: Chest Pain, Palpitations, Orthopnea, Paroxysmal Noc. Dyspnea, Edema, Lt Headedness, Other Objective-Cardiology Exam Last Set of Vital Signs Vital Signs 05/27/18 05/27/18 05/27/18 05/27/18 05/27/18 04:18 06:00 09:00 10:00 10:35 Temp 97.2 Pulse 86 Resp 18 B/P (MAP) 115/67 (83) Pulse Ox 94 O2 Delivery Nasal Cannula O2 Flow Rate 3.00 FiO2 32 Capillary Refill : Less Than 3 Seconds I&O Intake and Output 05/27/18 00:00 Intake Total 740 ml Output Total 1200 ml Balance -460 ml Intake Oral 740 ml Output Urine Total 1200 ml # Voids 4 General: Alert, Oriented X3, Cooperative HEENT: Atraumatic, PERRLA Neck: Supple, No JVD, No Thyromegaly Lungs: Clear to Auscultation, Normal Air Movement Heart: Regular Rate, Normal S1, Normal S2, No Murmurs Abdomen: Normal Bowel Sounds, Soft, No Tenderness, No Hepatosplenomegaly, No Masses Extremities: No Clubbing, No Cyanosis, No Edema, Normal Pulses, No Tenderness/ Swelling Skin: No Rashes, No Breakdown, No Significant Lesion Neuro: Normal Gait, Normal Speech, Strength at 5/5 X4 Ext, Normal Tone, Sensation Intact Psych/Mental Status: Mental Status NL, Mood NL Results Lab Laboratory Tests 05/26/18 15:05 05/26/18 21:48 05/27/18 02:40 A/P-Cardiology Admission Diagnosis Chest pain Shortness of breath Pedal edema Leg pain Assessment/Plan Chest pain nonspecific etiology, status post cardiac catheterization and stent. Coronary artery disease, severe ostial right coronary artery stenosis status post stent using a Xience three-time 12 mm expanded to 3.25 at the ostium of the right coronary artery with a few struts extending outside the ostium, feeling well. Status post transient hypotension and lethargy, probably vasovagal on top of a small retroperitoneal bleed, improved after receiving IV fluid. I proceeded with transfusing 2 units of packed RBCs, continue to monitor. Mild pedal edema, BNP is normal, questionable venous insufficiency, venous Doppler did not show DVT. Questionable psoas muscle injury. Had history of injury to the left side and the past. Physical therapy consulted Hypertension, continue to monitor blood pressure Mild epigastric pain and right upper quadrant pain, history of cholecystectomy in the past. Started on PPI and monitor Mild tremor for which she takes propranolol Early dementia, maintained on Namenda History of cholecystectomy Clinical Quality Measures DVT/VTE Risk/Contraindication: Risk Factor Score Per Nursin RFS Level Per Nursing on Admit: 2=Moderate HOLLIS BARRIOS MD May 27, 2018 11:02
[2018-05-27] MEDS: LIDOCAINE 4% (SALONPAS) PATCH TOP SCH (11:18)
--- NOTE | 2018-05-27 14:45 | Physical Therapy Evaluation ---
PT Evaluation-General Medical Diagnosis Admission Date May 27, 2018 at 09:43 Medical Diagnosis: Right groin pain, Chest pain Onset Date: May 26, 2018 Therapy Diagnosis Therapy Diagnosis: General weakness Height/Weight Height (Feet): 5 Height (Inches): 5.00 Weight (Pounds): 220 Precautions Precautions/Isolations: Fall Prevention, Standard Precautions Weight Bear Status Right Lower Extremity: Right Full Weight Bearing Left Lower Extremity: Left Full Weight Bearing Referral Physician: Eula Springer MD Reason for Referral: Evaluation/Treatment Medical History Pertinent Medical History: HTN, Hypothroidism, Parkinson's Reviewed History: Yes Social History Home: Single Level Current Living Status: Children Entry Into Home: Stairs With Railing PT Steps Into Home: 2 PT Steps Inside Home: 0 Prior/Core FIM Prior Level of Function Therapy Code Descriptions/Definitions Functional [place] Measure: 0=Not Assessed/NA 4=Minimal Assistance 1=Total Assistance 5=Supervision or Setup 2=Maximal Assistance 6=Modified [place] 3=Moderate Assistance 7=Complete [place] Therapy Quality Codes: 6 Independent with activity with or without an assistive device 5 Patient requires set up or clean up by helper. Patient completes activity by themselves 4 Supervision or touching assist (CGA). [place] provide cues , steadying assist 3 The helper provides less than half the effort to complete the activity 2 The helper provides more than half the effort to complete the activity 1 Dependent. The helper does all the effort to complete an activity 7 Patient refused to complete or attempt activity 9 The patient did not perform the activity before the current illness or injury 88 Not attempted due to Medical conditions or safety concerns Functional Abilities and Goals: Independent: Patient completed the activities by him/herself, with or without an assistive device, with no assistance from a helper. Needed Some Help: Patient needed partial assistance from another person to complete activities. Dependent: A helper completed the activities for the patient. Unknown: Not Applicable: Bed Mobility: 7 Transfers (B,C,W/C) (FIM): 7 Gait: 7 Stairs: 7 Indoor Mobility (Ambulation): Independent Stairs: Independent Prior Devices Use: None PT Evaluation-Current Subjective Pt awake in chair visiting with daughter when PT arrived. Pt agreed to PT evaluation. Pain Numeric Pain Scale: 0-No Pain Location: No Pain Reported Objective Patient Orientation: Normal For Age Problem Solving: Fair Attachments: SCD's, IV ROM/Strength ROM Upper Extremities WNL ROM Lower Extremities WNL Strength Upper Extremities WNL Strength Lower Extremities WNL R Hip flexor 2+/5 Integumentary/Posture Bowel Incontinence: No Bladder Incontinence: No Sensory Vision: Functional Hearing: Functional Sensation Right Upper Extremit: Intact Sensation Left Upper Extremity: Intact Sensation Right Lower Extremit: Intact Sensation Left Lower Extremity: Intact Transfers Therapy Code Descriptions/Definitions Functional [place] Measure: 0=Not Assessed/NA 4=Minimal Assistance 1=Total Assistance 5=Supervision or Setup 2=Maximal Assistance 6=Modified [place] 3=Moderate Assistance 7=Complete [place] Transfers (B, C, W/C) (FIM): 5 Rollin Supine to/from Sit: 5 Sit to/from Stand: 5 Gait Mode of Locomotion: Walk Anticipated Mode of Locomotion: Walk Gait (FIM): 2 Distance (FIM): 6=767-59 ft Distance: 50' Gait Level of Assist: 4 Gait Persons Needed: 1 Gait Assistive Device: FWW Balance Sitting Static: Good Sitting Dynamic: Good Standing Static: Good Standing Dynamic: Good Assessment/Needs Pt is able to ambulate with a FWW requiring CGA. Patient did not show signs of fatigue but reported she felt light headed. Patient returned to her room and requested to use commode. Patient will continue therapy to improve LE strength and endurance for functional activities. Rehab Potential: Good PT Short Term Goals Short Term Goals Time Frame: May 27, 2018 Transfers (B,C,W/C) (FIM): 7 Gait (FIM): 7 Distance (FIM): 3=150 ft Gait Level of Assist: 7 Gait Assistive Device: None PT Back Hoe Operator Goals Back Hoe Operator Goals PT Longterm Goals Time Frame: Jun 04, 2018 Transfers (B,C,W/C) (FIM): 7 Gait (FIM): 7 Gait distance (FIM): 3=150 ft Distance: 200' Gait Level of Assist: 7 Gait Assistive Device: None PT Plan Problem List Problem List: Activity Tolerance, Functional Strength, Safety, Balance, Gait, Transfer, Bed Mobility, ROM Treatment/Plan Treatment Plan: Continue Plan of Care Treatment Plan: Bed Mobility, Education, Functional Activity Erna, Functional Strength, Gait, Safety, Therapeutic Exercise, Transfers, Other Treatment Duration: May 25, 2018 Frequency: 6 times per week Estimated Hrs Per Day: .25 hour per day Patient and/or Family Agrees t: Yes Time/GCodes Time In: 1410 Time Out: 1425 Total Billed Treatment Time: 15 Total Billed Treatment 1 Visit EVL- 15' PT/OT Therapy GCodes Therapy Functional Limitation: Physical Therapy Test(s)/Tool used to determine: FIM Functional Limitation-Current Modifier: CI Functional Limitation-Goal Modifier: KAITLIN BLACKWOOD PT May 27, 2018 14:44
--- NOTE | 2018-05-27 16:15 | Occupational Therapy Eval ---
OT Evaluation-General/PLF Medical Diagnosis Admission Date May 27, 2018 at 09:43 Medical Diagnosis: Right groin pain, Chest pain Onset Date: May 26, 2018 Therapy Diagnosis Therapy Diagnosis: Weakness Height/Weight Height (Feet): 5 Height (Inches): 5.00 Weight (Pounds): 220 Precautions Precautions/Isolations: Fall Prevention, Standard Precautions Safety Interventions: None Weight Bear Status Weight Bearing Restriction: Weight Bearing/Tolerated Referral Physician: Eula Springer MD Referral Reason: Activity Tolerance, Self Care, Evaluation/Treatment, Strengthening/ROM Medical History Pertinent Medical History: HTN, Hypothroidism, Parkinson's Additional Medical History Bladder surgery, hysterectomy, dementia, Parkinsons Current History Pt. came to ER with anterior groin pain. Began to have chest pain. Pt. underwent heart cath with stent on 05-26-18. Reviewed History: Yes Social History Home: Single Level Current Living Status: Children (Daughter who is gone during day.) Entry Into Home: Stairs With Railing Steps Into Home: 2 Steps Inside Home: 0 ADL-Prior Level of Function Therapy Code Descriptions/Definitions Functional [place] Measure: 0=Not Assessed/NA 4=Minimal Assistance 1=Total Assistance 5=Supervision or Setup 2=Maximal Assistance 6=Modified [place] 3=Moderate Assistance 7=Complete [place] Therapy Quality Codes: 6 Independent with activity with or without an assistive device 5 Patient requires set up or clean up by helper. Patient completes activity by themselves 4 Supervision or touching assist (CGA). [place] provide cues , steadying assist 3 The helper provides less than half the effort to complete the activity 2 The helper provides more than half the effort to complete the activity 1 Dependent. The helper does all the effort to complete an activity 7 Patient refused to complete or attempt activity 9 The patient did not perform the activity before the current illness or injury 88 Not attempted due to Medical conditions or safety concerns Functional Abilities and Goals: Independent: Patient completed the activities by him/herself, with or without an assistive device, with no assistance from a helper. Needed Some Help: Patient needed partial assistance from another person to complete activities. Dependent: A helper completed the activities for the patient. Unknown: Not Applicable: ADL PLOF Comments Pt. states that she is independent with daily tasks. Self Care: Independent Functional Cognition: Independent DME/Equipment Comments Pt.has a walker that she uses "occasionally." States that she has a walk in shower. OT Current Status Subjective Pt. reports pain in right LE with movement, but does not state pain level. Pain subsides when movement does. Appearance Pt. in bed. Agrees to work with OT. Mental Status/Objective Patient Orientation: Person, Place Attachments: IV, Telemetry Current Hand Dominance: Right Upper Extremity ROM WFL Upper Extremity Strength 3+/5 bilateral UE strength. ADL-Treatment Therapy Code Descriptions/Definitions Functional [place] Measure: 0=Not Assessed/NA 4=Minimal Assistance 1=Total Assistance 5=Supervision or Setup 2=Maximal Assistance 6=Modified [place] 3=Moderate Assistance 7=Complete [place] Therapy Quality Codes: 6 Independent with activity with or without an assistive device 5 Patient requires set up or clean up by helper. Patient completes activity by themselves 4 Supervision or touching assist (CGA). [place] provide cues , steadying assist 3 The helper provides less than half the effort to complete the activity 2 The helper provides more than half the effort to complete the activity 1 Dependent. The helper does all the effort to complete an activity 7 Patient refused to complete or attempt activity 9 The patient did not perform the activity before the current illness or injury 88 Not attempted due to Medical conditions or safety concerns Eating (FIM): 5 (Reports that she has not been hungry, but is able to feed self with set up with no difficulty.) Lower Body Dressing (FIM): 2 (Pt. is unable to reach bilateral LE.) Transfers (B, C, W/C) (FIM): 3 (Pt. requires mod assist for supine-sit, and then min assist sit-stand. States that she needs her right LE assisted. In stance, HR and BP monitored as pt. reports feeling "woozy." All vitals are appropriate. Stands approximately 4 minutes and is able to take steps toward right side, (HOB), and sit back down. Transfers sit-supine with min assist.) Education OT Patient Education: Correct positioning, Modified ADL techniques, Progress toward Goal/Update tx plan, Purpose of tx/functional activities, Reviewed precautions, Rehab process, Transfer techniques Teaching Recipient: Patient Teaching Methods: Demonstration, Discussion Response to Teaching: Verbalize Understanding, Return Demonstration OT Short Term Goals Short Term Goals Time Frame: Jun 03, 2018 Eating(FIM): 6 Grooming(FIM): 5 Bathing(FIM): 4 Upper Body Dressing(FIM): 5 Lower Body Dressing(FIM): 5 Toileting(FIM): 6 Transfers (B,C,W/C) (FIM): 5 Toilet/Commode Transfer(FIM): 5 Additional Short Term Goals: 1-Demonstrate ADL Tasks, 2-Verbalize Understanding , 3-ImproveStrength/Erna 1=Demonstrate adherence to instructed precautions during ADL tasks. 2=Patient will verbalize/demonstrate understanding of assistive devices/ modifications for ADL. 3=Patient will improve strength/tolerance for activity to enable patient to perform ADL's. OT Shelter Goals Milking System Installer Goals Time Frame: Jun 10, 2018 Eating (FIM): 6 Grooming(FIM): 6 Bathing(FIM): 5 Upper Body Dressing(FIM): 6 Lower Body Dressing(FIM): 6 Toileting(FIM): 6 Transfers (B,C,W/C) (FIM): 6 Toilet/Commode Transfer(FIM): 6 Shower Transfer(FIM): 5 Additional Goals: 1-Demonstrate ADL Tasks, 2-Verbalize Understanding, 3- ImproveStrength/Erna 1=Demonstrate adherence to instructed precautions during ADL tasks. 2=Patient will verbalize/demonstrate understanding of assistive devices/ modifications for ADL. 3=Patient will improve strength/tolerance for activity to enable patient to perform ADL's. OT Education/Plan Problem List/Assessment Assessment: Decreased Activ Tolerance, Impaired Bed Mobility, Impaired I ADL's , Impaired Self-Care Skills Discharge Recommendations Plan/Recommendations: Continue POC Treatment Plan/Plan of Care Treatment,Training & Education: Yes Patient would benefit from OT for education, treatment and training to promote independence in ADL's, mobility, safety and/or upper extremity function for ADL' s. Plan of Care: ADL Retraining, Functional Mobility, UE Funct Exercise/Act Treatment Duration: Jun 10, 2018 Frequency: 5 times per week Estimated Hrs Per Day: .5 hour per day Agreement: Yes Rehab Potential: Good Time/GCodes Start Time: 14:45 Stop Time: 15:05 Total Time Billed (hr/min): 20 Billed Treatment Time 1, EVM PT/OT Therapy GCodes Therapy Functional Limitation: Physical Therapy Test(s)/Tool used to determine: FIM Functional Limitation-Current Modifier: CI Functional Limitation-Goal Modifier: MAYUR LOPEZ OT May 27, 2018 16:15
[2018-05-27] MEDS: NS IV 1000 ML 1,000 ML IV SCH (17:11)
[2018-05-27] MEDS: LIDOCAINE PATCH REMOVAL TP SCH (21:00)
[2018-05-28] VITALS (10 sets, daily range): BP systolic 119–130; BP diastolic 60–92
[2018-05-28] MEDS: HYDROcodone/APAP 5 MG/325 MG (LORTAB) TAB PO PRN ×2 (01:55→07:50)
[2018-05-28 04:01] LABS: BASOPHILS % (AUTO) 0 % (0-10); EOSINOPHILS # (AUTO) 0.4 10^3/uL (0.0-0.3); EOSINOPHILS % (AUTO) 4 % (0-10); HEMATOCRIT 33 % (35-52); HEMOGLOBIN 10.9 G/DL (11.5-16.0); LYMPHOCYTES # (AUTO) 1.7 X 10^3 (1.0-4.0); LYMPHOCYTES % (AUTO) 16 % (12-44); MEAN CORPUSCULAR HEMOGLOBIN 32 PG (25-34); MEAN CORPUSCULAR HGB CONC 33 G/DL (32-36); MEAN CORPUSCULAR VOLUME 95 FL (80-99); MEAN PLATELET VOLUME 9.7 FL (7.4-10.4); MONOCYTES # (AUTO) 1.2 X 10^3 (0.0-1.0); MONOCYTES % (AUTO) 12 % (0-12); NEUTROPHILS # (AUTO) 6.8 X 10^3 (1.8-7.8); NEUTROPHILS % (AUTO) 68 % (42-75); PLATELET COUNT 183 10^3/uL (130-400); RED BLOOD COUNT 3.45 10^6/uL (4.35-5.85); RED CELL DISTRIBUTION WIDTH 14.7 % (10.0-14.5); WHITE BLOOD COUNT 10.1 10^3/uL (4.3-11.0)
[2018-05-28 04:21] LABS: BUN/CREATININE RATIO 14; CALCIUM 8.7 MG/DL (8.5-10.1); CARBON DIOXIDE 20 MMOL/L (21-32); CHLORIDE 110 MMOL/L (98-107); CREATININE SERUM 0.84 MG/DL (0.60-1.30); GFR ESTIMATED > 60; GLUCOSE 103 MG/DL (70-105); MAGNESIUM 1.7 MG/DL (1.8-2.4); PHOSPHORUS 2.4 MG/DL (2.3-4.7); POTASSIUM 3.9 MMOL/L (3.6-5.0); SODIUM 139 MMOL/L (135-145)
[2018-05-28] MEDS: NS IV 1000 ML 1,000 ML IV SCH (04:46)
[2018-05-28] MEDS: MAGNESIUM 1 GM/100 ML IVPB 100 ML IV SCH ×2 (05:21→06:27)
[2018-05-28] MEDS ORDERED: MAGNESIUM 1 GM/100 ML IVPB 100 ML IV SCH (06:00)
[2018-05-28] MEDS ORDERED: POTASSIUM CL 10MEQ/50ML IVPB 50 ML IV SCH (06:00)
[2018-05-28] MEDS ORDERED: KCL 20 MEQ TAB (K-DUR) PO SCH (06:00)
--- NOTE | 2018-05-28 07:21 | Diagnostic Imaging Report ---
INDICATION: Shortness of breath. COMPARISON: 05/27/2018. FINDINGS: Single view of the chest demonstrates cardiac enlargement without overt pulmonary edema. Minimal atelectasis is seen in left base. There is no pneumothorax or large effusion. Osseous structures are stable. IMPRESSION: Unchanged aeration of the lungs. Dictated by: Dictated on workstation # [id number]
--- NOTE | 2018-05-28 08:26 | Cardiology Progress Note ---
Subjective Date Seen by Provider: May 28, 2018 Time Seen by Provider: 08:23 Subjective/Events-last exam patient is laying down in bed, complaining of right leg pain, right arm pain, bilateral shoulder pain. No chest pain Review of Systems General: No Chills, No Night Sweats, No Fatigue, No Malaise, No Appetite, No Other HEENT: No Head Aches, No Visual Changes, No Eye Pain, No Ear Pain, No Dysphasia , No Sinus Congestion, No Post Nasal Drip, No Sore Throat, No Other Pulmonary: No Dyspnea, No Cough, No Pleuritic Chest Pain, No Other Cardiovascular: No: Chest Pain, Palpitations, Orthopnea, Paroxysmal Noc. Dyspnea, Edema, Lt Headedness, Other Objective-Cardiology Exam Last Set of Vital Signs Vital Signs 05/27/18 05/27/18 05/28/18 05/28/18 04:18 20:00 04:00 06:00 Temp 97.7 Pulse 78 Resp 17 B/P (MAP) 119/60 (79) Pulse Ox 92 O2 Delivery Room Air O2 Flow Rate 2.00 FiO2 32 Capillary Refill : Less Than 3 Seconds I&O Intake and Output 05/28/18 00:00 Intake Total 1000 ml Output Total 975 ml Balance 25 ml Intake Oral 1000 ml Output Urine Total 975 ml # Voids 2 # Urine Diapers 3 General: Alert, Oriented X3, Cooperative HEENT: Atraumatic, PERRLA Neck: Supple, No JVD, No Thyromegaly Lungs: Clear to Auscultation, Normal Air Movement Heart: Regular Rate, Normal S1, Normal S2, No Murmurs Abdomen: Normal Bowel Sounds, Soft, No Tenderness, No Hepatosplenomegaly, No Masses Extremities: No Clubbing, No Cyanosis, No Edema, Normal Pulses, No Tenderness/ Swelling Skin: No Rashes, No Breakdown, No Significant Lesion Neuro: Normal Gait, Normal Speech, Strength at 5/5 X4 Ext, Normal Tone, Sensation Intact Psych/Mental Status: Mental Status NL, Mood NL Results Lab Laboratory Tests 05/28/18 03:15 A/P-Cardiology Admission Diagnosis Chest pain Shortness of breath Pedal edema Leg pain Assessment/Plan Chest pain nonspecific etiology, status post cardiac catheterization and stent. Reporting improvement Coronary artery disease, severe ostial right coronary artery stenosis status post stent using a Xience three-time 12 mm expanded to 3.25 at the ostium of the right coronary artery with a few struts extending outside the ostium, feeling well.EKG showed no changes. Okay for discharge from cardiology standpoint Status post transient hypotension and lethargy, probably vasovagal on top of a small retroperitoneal bleed, improved after receiving IV fluid. I proceeded with transfusing 2 units of packed RBCs, continue to monitor. Mild pedal edema, BNP is normal, questionable venous insufficiency, venous Doppler did not show DVT. Hypertension, good control at this time. Continue to monitor Right leg pain, questionable psoas muscle injury, had history of injury to the psoas muscle on the left in the past. Physical therapy are managing her. Mild epigastric pain and right upper quadrant pain, history of cholecystectomy in the past. Started on PPI and monitor Mild tremor for which she takes propranolol Early dementia, maintained on Namenda History of cholecystectomy Clinical Quality Measures DVT/VTE Risk/Contraindication: Risk Factor Score Per Nursin RFS Level Per Nursing on Admit: 2=Moderate HOLLIS BARRIOS MD May 28, 2018 08:26
[2018-05-28] MEDS ORDERED: TICA90TA PO (09:17)
[2018-05-28] MEDS ORDERED: ACHD5005 PO (09:17)
[2018-05-28] MEDS ORDERED: DOCU100C37 PO (09:17)
--- NOTE | 2018-05-28 09:19 | Discharge Summary ---
Diagnosis/Chief Complaint Date of Admission May 27, 2018 at 09:43 Date of Discharge Discharge Date: May 28, 2018 Discharge Time: 919 Discharge Summary Discharge Physical Examination Allergies: Coded Allergies: No Known Drug Allergies (Unverified , 02/06/15) Vitals & I&Os Vital Signs Date Time Temp Pulse Resp B/P (MAP) Pulse Ox O2 Delivery O2 Flow Rate FiO2 05/28/18 08:00 74 14 127/66 (86) 93 Room Air 05/28/18 04:00 97.7 05/27/18 20:00 2.00 05/27/18 04:18 32 General Appearance: Alert, Oriented X3, Cooperative HEENT: Atraumatic, PERRLA Respiratory: Clear to Auscultation, Normal Air Movement Cardiovascular: Regular Rate, Normal S1, Normal S2, No Murmurs Abdominal: Normal Bowel Sounds, Soft, No Tenderness, No Hepatosplenomegaly, No Masses Extremities: No Clubbing, No Cyanosis, No Edema, Normal Pulses, No Tenderness/ Swelling Skin: No Rashes, No Breakdown, No Significant Lesion Neuro: Normal Gait, Normal Speech, Strength at 5/5 X4 Ext, Normal Tone, Sensation Intact Psych/Mental Status: Mental Status NL, Mood NL Hospital Course Pending Labs Laboratory Tests 05/28/18 03:15: White Blood Count 10.1, Red Blood Count 3.45, Hemoglobin 10.9, Hematocrit 33, Mean Corpuscular Volume 95, Mean Corpuscular Hemoglobin 32, Mean Corpuscular Hemoglobin Concent 33, Red Cell Distribution Width 14.7, Platelet Count 183, Mean Platelet Volume 9.7, Neutrophils (%) (Auto) 68, Lymphocytes (%) (Auto) 16, Monocytes (%) (Auto) 12, Eosinophils (%) (Auto) 4, Basophils (%) (Auto) 0, Neutrophils # (Auto) 6.8, Lymphocytes # (Auto) 1.7, Monocytes # (Auto) 1.2, Eosinophils # (Auto) 0.4, Basophils # (Auto) 0.0, Sodium Level 139, Potassium Level 3.9, Chloride Level 110, Carbon Dioxide Level 20, Anion Gap 9, Blood Urea Nitrogen 12, Creatinine 0.84, Estimat Glomerular Filtration Rate > 60, BUN/ Creatinine Ratio 14, Glucose Level 103, Calcium Level 8.7, Phosphorus Level 2.4 , Magnesium Level 1.7 Discharge Instructions to patient/family Please see electronic discharge instructions given to patient. Discharge Medications Reviewed and agree with Discharge Medication list on patient's Discharge Instruction sheet Clinical Quality Measures DVT/VTE Risk/Contraindication: Risk Factor Score Per Nursin RFS Level Per Nursing on Admit: 2=Moderate ANNIE MOORE MD May 28, 2018 09:19
[2018-05-28] MEDS: LIDOCAINE 4% (SALONPAS) PATCH TOP SCH (09:37)
[2018-05-28] MEDS: TICAGRELOR 90 MG TABLET (BRILINTA) PO SCH (09:38)
[2018-05-28] MEDS: DOCUSATE SODIUM 100 MG (COLACE) CAP PO SCH (09:38)
[2018-05-28] MEDS: ASPIRIN E.C. 81 MG (ECOTRIN) TAB PO SCH (09:38)
[2018-05-28] MEDS ORDERED: IBUP-30 PO (12:14)
--- OUTSIDE RECORDS SUMMARY | 2018-05-31 08:43 | XMS REPORT | Clinical Summary ---
Author Author [facility] Organization [facility] Address Unknown Phone Unavailable Care Team Providers Care Director Of Psychiatry Name Role Phone Eula Springer MD PCP Source Comments Some departments are not documenting in the electronic medical record. If you do not see the information that you expected, contact Release of Information in the Health Information Management department at [phone] for further assistance in locating additional records.[facility] Allergies Comments Active Allergy Reactions Severity Noted [...] Taken Vital Sign Reading 04/28/2016 12:53 PM OPERATING ROOM TECHNOLOGIST Blood Pressure 137/75 04/28/2016 12:53 PM OPERATING ROOM TECHNOLOGIST Pulse 99 - Temperature - - Respiratory Rate - - Oxygen Saturation - - Inhaled Oxygen - Concentration 04/28/2016 12:53 PM OPERATING ROOM TECHNOLOGIST Weight 91.2 kg (201 lb) 04/28/2016 12:53 PM OPERATING ROOM TECHNOLOGIST Height 165.1 cm (5' 5") 04/28/2016 12:53 PM OPERATING ROOM TECHNOLOGIST Body Mass Index 33.45 Plan of Treatment [...] on file. For more information, please contact: [facility] [address] [place] [address]
--- OUTSIDE RECORDS SUMMARY | 2018-05-31 08:49 | XMS REPORT | Continuity of Care Document ---
Author Author [facility] Organization [facility] Address Unknown Phone Unavailable Allergies Active Description Code Type Severity Reaction Onset Reported/Identified Relationship to Patient Clinical Status Yes No Known Drug Allergies [id number] Drug Allergy Unknown N/A 02/06/2015 Medications There is no data. Problems Date Dx Coded Attending Type Code Diagnosis Diagnosed By 02/07/2015 BERLIN GARAY, JUAN Espinoza Ot 599.0 URIN TRACT INFECTION NOS 02/07/2015 BERLIN GARAY, JUAN Espinoza Ot 787.91 DIARRHEA 04/17/2015 TERESA GARAY, ANNIE A Ot M16.12 04/17/2015 TERESA GARAY, NANIE A Ot M47.814 04/17/2015 TERESA GARAY, ANNIE [...] AND DISC STENOSIS OF INTVRT FO 05/26/2018 ANNEI MOORE MD Ot M16.12 UNILATERAL PRIMARY OSTEOARTHRITIS, [...] RED CELLS LEUKO REDUCED AS1 TRANSFUSED 05/26/18 9607 [employer] [facility] Blood type T Indirect antibody screen panel - 05/26/18 15:05 ABO+Rh group AP NR Transfusion band number [id number] [employer] [facility] Blood group antibody screen NEGATIVE [employer] [facility] Whole blood hemoglobin and hematocrit panel - [...] - 05/28/18 03:15 Magnesium 1.7 mg/dL 1.8-2.4 Complete blood count (CBC) with automated white blood cell (WBC) differential - 05/30/18 04:30 Blood leukocytes automated count (number/volume) 9.2 10*3/uL 4.3-11.0 Blood erythrocytes automated count (number/volume) 3.41 10*6/uL 4.35-5.85 Venous blood hemoglobin measurement (mass/volume) 10.8 g/dL 11.5-16.0 Blood hematocrit (volume fraction) 33 % 35-52 Automated erythrocyte mean corpuscular volume 97 [foz_us] 80-99 Automated erythrocyte mean corpuscular hemoglobin (mass per erythrocyte) 32 pg 25-34 Automated erythrocyte mean corpuscular hemoglobin concentration measurement ( mass/volume) 33 g/dL 32-36 Automated erythrocyte distribution width ratio 14.0 % 10.0-14.5 Automated blood platelet count (count/volume) 215 10*3/uL 130-400 Automated blood platelet mean volume measurement 9.4 [foz_us] 7.4-10.4 Automated blood neutrophils/100 leukocytes 72 % 42-75 Automated blood lymphocytes/100 leukocytes 13 % 12-44 Blood monocytes/100 leukocytes 11 % 0-12 Automated blood eosinophils/100 leukocytes 4 % 0-10 Automated blood basophils/100 leukocytes 0 % 0-10 Blood neutrophils automated count (number/volume) 6.6 10*3 1.8-7.8 Blood lymphocytes automated count (number/volume) 1.2 10*3 1.0-4.0 Blood monocytes automated count (number/volume) 1.0 10*3 0.0-1.0 Automated eosinophil count 0.4 10*3/uL 0.0-0.3 Automated blood basophil count (count/volume) 0.0 10*3/uL 0.0-0.1 Encounters ACCT No. Visit Date/Time Discharge Status Pt. Type Provider Facility Loc./Unit Complaint [id number] 11/27/2017 10:08:00 11/27/2017 23:59:59 CLS Outpatient ANNIE MOORE MD [facility] RAD RT SHOULDER PAIN, NECK PAIN,HEADACHE [id number] 11/23/2017 12:00:00 11/23/2017 23:59:59 CLS Outpatient ANNIE MOORE MD [facility] RAD R SHOULDER PAIN,NECK PAIN [id number] 07/24/2015 07:33:00 07/24/2015 23:59:59 CLS Outpatient ANNIE MOORE MD [facility] RAD MILD COGNITIVE,GAIT ABNORMALITY [id number] 03/27/2015 12:17:00 03/27/2015 23:59:59 CLS Outpatient ANNIE MOORE MD [facility] RAD FELL AT [place] [id number] 02/06/2015 21:52:00 02/07/2015 00:18:00 DIS Emergency BERLIN GARAY, JUAN Espinoza [facility] ER WEAKNESS,DIARRHEA [id number] 05/29/2018 08:19:00 Document Registration [id number] 05/24/2018 16:30:00 ACT Inpatient TERESA GARAY, ANNIE Gastelum [facility] ICU R GROIN PAIN,CHEST PAIN,[facility]
--- OUTSIDE RECORDS SUMMARY | 2018-05-31 09:42 | XMS REPORT | Clinical Summary ---
Author Author [facility] Organization [facility] Address Unknown Phone Unavailable Care Team Providers Care Regional Sales Executive Name Role Phone Eula Springer MD PCP Source Comments Some departments are not documenting in the electronic medical record. If you do not see the information that you expected, contact Release of Information in the Health Information Management department at [phone] for further assistance in locating additional records.[facility] Allergies Comments Active Allergy Reactions Severity Noted [...] Taken Vital Sign Reading 04/28/2016 12:53 PM NEEDLE PUNCH OPERATOR Blood Pressure 137/75 04/28/2016 12:53 PM NEEDLE PUNCH OPERATOR Pulse 99 - Temperature - - Respiratory Rate - - Oxygen Saturation - - Inhaled Oxygen - Concentration 04/28/2016 12:53 PM NEEDLE PUNCH OPERATOR Weight 91.2 kg (201 lb) 04/28/2016 12:53 PM NEEDLE PUNCH OPERATOR Height 165.1 cm (5' 5") 04/28/2016 12:53 PM NEEDLE PUNCH OPERATOR Body Mass Index 33.45 Plan of Treatment [...] on file. For more information, please contact: [facility] [address] [place] [address]
--- OUTSIDE RECORDS SUMMARY | 2018-05-31 09:48 | XMS REPORT | Continuity of Care Document ---
Author Author [facility] Organization [facility] Address Unknown Phone Unavailable Allergies Active Description Code Type Severity Reaction Onset Reported/Identified Relationship to Patient Clinical Status Yes No Known Drug Allergies [id number] Drug Allergy Unknown N/A 02/06/2015 Medications There [...] RED CELLS LEUKO REDUCED AS1 TRANSFUSED 05/26/18 [id number] [facility] Blood type T Indirect antibody screen panel - 05/26/18 15:05 ABO+Rh group AP NR Transfusion band number [id number] [facility] Blood group antibody screen NEGATIVE [facility] Whole blood hemoglobin and hematocrit panel - [...] Status Pt. Type Provider Facility Loc./Unit Complaint [id number] 11/27/2017 10:08:00 11/27/2017 23:59:59 CLS Outpatient ANNIE MOORE MD [facility] RAD RT SHOULDER PAIN, NECK PAIN,HEADACHE [id number] 11/23/2017 12:00:00 11/23/2017 23:59:59 CLS Outpatient ANNIE MOORE MD [facility] RAD R SHOULDER PAIN,NECK PAIN [id number] 07/24/2015 07:33:00 07/24/2015 23:59:59 CLS Outpatient ANNIE MOORE MD [facility] RAD MILD COGNITIVE,GAIT ABNORMALITY [id number] 03/27/2015 12:17:00 03/27/2015 23:59:59 CLS Outpatient ANNIE MOORE MD [facility] RAD FELL AT [place] [id number] 02/06/2015 21:52:00 02/07/2015 00:18:00 DIS Emergency BERLIN GARAY, JUAN Espinoza [facility] ER WEAKNESS,DIARRHEA [id number] 05/29/2018 08:19:00 Document Registration [id number] 05/24/2018 16:30:00 ACT Inpatient TERESA GARAY, ANNIE Gastelum [facility] ICU R GROIN PAIN,CHEST PAIN,[facility]
== END 2018-05-28 11:15 | DRG 983 ==
LOC: EDUNIT# 12:56 → ER 12:57 → UNDOADMOB 16:30 → 4TH 16:30 → CATH 17:45 → 4TH 17:45 → ICU 05-26 16:00 → 4TH 05-26 16:00 → ICU 05-26 16:00 → CATH 05-27 09:42 → OBSVTOIN 05-27 09:43 → INTOOBSV 05-27 09:43 → ICU 05-27 09:43 → UNDODISIN 05-28 11:15
PROVIDERS: ADMIT Family Medicine; ATTEND Family Medicine
PROC: 027034Z Dilation of Coronary Artery, One Artery with Drug-eluting Intraluminal Device, Percutaneous Approach (ICD-10-PCS; principal; 2018-05-26)
PROC: 4A033BC Measurement of Arterial Pressure, Coronary, Percutaneous Approach (ICD-10-PCS; 2018-05-26)
PROC: 4A023N7 Measurement of Cardiac Sampling and Pressure, Left Heart, Percutaneous Approach (ICD-10-PCS; 2018-05-26)
PROC: B2111ZZ Fluoroscopy of Multiple Coronary Arteries using Low Osmolar Contrast (ICD-10-PCS; 2018-05-26)
PROC: B2151ZZ Fluoroscopy of Left Heart using Low Osmolar Contrast (ICD-10-PCS; 2018-05-26)
PROC: B4101ZZ Fluoroscopy of Abdominal Aorta using Low Osmolar Contrast (ICD-10-PCS; 2018-05-26)
DX: I97.610 Postprocedural hemorrhage of a circulatory system organ or structure following a cardiac catheterization (principal); I95.81 Postprocedural hypotension; I25.10 Atherosclerotic heart disease of native coronary artery without angina pectoris; R10.31 Right lower quadrant pain; R60.0 Localized edema; I10 Essential (primary) hypertension; E78.5 Hyperlipidemia, unspecified; F03.90 Unspecified dementia, unspecified severity, without behavioral disturbance, psychotic disturbance, mood disturbance, and anxiety; G20 Parkinson's disease; E03.9 Hypothyroidism, unspecified; N39.3 Stress incontinence (female) (male); K64.9 Unspecified hemorrhoids; R10.11 Right upper quadrant pain; R10.13 Epigastric pain; R25.1 Tremor, unspecified
CPT/HCPCS: 36415; 71045; 74176; 74177; 78452; 80048; 80053; 81000; 83735; 83880; 84100; 84439; 84443; 84484; 85014; 85018; 85025; 85027; 85610; 85730; 86850; 86900; 86901; 86920; 93005; 93017; 93308; 93458; 93970; G0378

== ENCOUNTER 2018-05-28 10:00 | Inpatient (IN) | payer MEDICARE ==
[~2018-05-28] VITALS: Ht 165.1 cm; Wt 99.8 kg
[~2018-05-28 10:00] MED LIST changes: +ACHD5005 PO; +ASPI-983 PO; +CHOL5000 PO; +CYAN500T2 PO; +DOCU100C37 PO; +IBUP-2055 PO; +LEVO50TA6 PO; +MEMA10TA2 PO; +PROP10TA8 PO; +SERT50TA9 PO; +TICA90TA PO
--- OUTSIDE RECORDS SUMMARY | 2018-05-28 11:17 | XMS REPORT | Clinical Summary ---
Author Author [facility] Organization [facility] Address Unknown Phone Unavailable Care Team Providers Care Pharmacy Technician Assistant Name Role Phone Eula Springer MD PCP Source Comments Some departments are not documenting in the electronic medical record. If you do not see the information that you expected, contact Release of Information in the Health Information Management department at [phone] for further assistance in locating additional records.[facility] Allergies Comments Active Allergy Reactions Severity Noted Date Morphine UNKNOWN Low 04/28/2016 Medications End Date Status Medication Sig Dispensed Refills Start Date Active levothyroxine (SYNTHROID) Take 50 mcg 0 50 mcg tablet by mouth daily 30 minutes before breakfast. Active carbidopa/levodopa Take 1 Tab by 0 (SINEMET) 25/100 mg mouth twice tablet daily. Active ERGOCALCIFEROL (VITAMIN Take 5,000 0 D2) (VITAMIN D PO) Units by mouth daily. Active aspirin EC 81 mg tablet Take 81 mg by 0 mouth daily. Take with food. Active MULTIVITAMIN PO Take by 0 mouth daily. Active sertraline (ZOLOFT) 50 mg Take 1 Tab by 30 Tab 5 tabletIndications: mouth daily. 6 Anxiety with Depression Indications: ANXIETY WITH DEPRESSION Active Problems No known active problems Family History Medical History Relation Name Comments Stroke Father Thyroid Disease Father Hypertension Mother Other Mother renal failure Thyroid Disease Mother Relation Name Status Comments Father Mother Social History Date Tobacco Use Types Packs/Day Years Used Never Smoker Smokeless Tobacco: Never Used Alcohol Use Drinks/Week oz/Week Comments Yes 0 Standard 0.0 rare occassions drinks or equivalent Sex Assigned at Date Recorded Not on file Industry Job Start Date Occupation Not on file Not on file Not on file Travel End Travel History Travel Start No recent travel history available. Last Filed Vital Signs Time Taken Vital Sign Reading 04/28/2016 12:53 PM [employer] Blood Pressure 137/75 04/28/2016 12:53 PM [employer] Pulse 99 - Temperature - - Respiratory Rate - - Oxygen Saturation - - Inhaled Oxygen - Concentration 04/28/2016 12:53 PM [employer] Weight 91.2 kg (201 lb) 04/28/2016 12:53 PM [employer] Height 165.1 cm (5' 5") 04/28/2016 12:53 PM [employer] Body Mass Index 33.45 Plan of Treatment Health Maintenance Due Date Last Done Comments PHYSICAL (COMPREHENSIVE) 1947 EXAM DTAP/TDAP VACCINES (1 - 1958 Tdap) SHINGLES RECOMBINANT 1990 VACCINE (1 of 2) OSTEOPOROSIS 2005 SCREENING/MONITORING PNEUMONIA (PCV13/PPSV23) 2005 VACCINES (1 of 2 - PCV13) INFLUENZA VACCINE 01/20/2018 Results Not on filefrom Last 3 Months Insurance Payer Benefit Subscriber ID Type Phone Address Plan / Group MEDICARE MEDICARE xxxxxxxxxx Medicare PART A AND B BCBS BCBS xxxxxxxxxxxx Medicare SUPPLEMENT Advance Directives Patient has advance care planning documents on file. For more information, please contact: [facility] [address] [place] [address]
--- OUTSIDE RECORDS SUMMARY | 2018-05-28 11:22 | XMS REPORT | Continuity of Care Document ---
Author Author [facility] Organization [facility] Address Unknown Phone Unavailable Allergies Active Description Code Type Severity Reaction Onset Reported/Identified Relationship to Patient Clinical Status Yes No Known Drug Allergies [id number] Drug Allergy Unknown N/A 02/06/2015 Medications There [...] Ot M16.12 UNILATERAL PRIMARY OSTEOARTHRITIS, LEFT 11/23/2017 TERESA GARAY, ANNIE Gastelum Ot M47.814 SPONDYLOSIS W/O MYELOPATHY OR RADICULOPA 11/23/2017 ANNIE MOORE MD Ot M47.817 SPONDYLS W/O MYELOPATHY OR RADICULOPATHY 11/23/2017 TERESA GARAY, ANNIE Gastelum Ot W19.XXXA UNSPECIFIED FALL, INITIAL ENCOUNTER 11/23/2017 TERESA GARAY, ANNIE Gastelum Ot Y99.8 OTHER EXTERNAL CAUSE [...] Ot M19.011 PRIMARY OSTEOARTHRITIS, RIGHT SHOULDER 12/22/2017 ANNIE MOORE MD Ot M48.02 SPINAL STENOSIS, CERVICAL REGION 12/22/2017 ANNIE MOORE MD, Ot M50.30 OTHER CERVICAL DISC DEGENERATION, UNSP C 12/22/2017 ANNIE MOORE MD, Ot 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 05/26/2018 ANNIE MOORE MD Ot M16.12 UNILATERAL PRIMARY OSTEOARTHRITIS, LEFT 05/26/2018 ANNIE MOORE MD Ot M47.814 SPONDYLOSIS W/O MYELOPATHY OR RADICULOPA 05/26/2018 ANNIE MOORE MD, Ot M47.817 SPONDYLS W/O MYELOPATHY OR RADICULOPATHY 05/26/2018 ANNIE MOORE MD Ot W19.XXXA UNSPECIFIED FALL, INITIAL ENCOUNTER 05/26/2018 ANNIE MOORE MD Ot Y99.8 OTHER EXTERNAL CAUSE STATUS 05/26/2018 ANNIE MOORE MD, Ot G31.84 MILD COGNITIVE IMPAIRMENT, SO STATED 05/26/2018 ANNIE MOORE MD, Ot M51.26 OTHER INTERVERTEBRAL DISC DISPLACEMENT, 05/26/2018 ANNIE MOORE MD Ot M51.36 OTHER INTERVERTEBRAL DISC DEGENERATION, 05/26/2018 ANNIE MOORE MD Ot R15.9 FULL INCONTINENCE OF FECES 05/26/2018 ANNIE MOORE MD Ot R26.9 UNSPECIFIED ABNORMALITIES OF GAIT AND MO 05/26/2018 ANNIE MOORE MD, Ot M19.011 PRIMARY OSTEOARTHRITIS, RIGHT SHOULDER 05/26/2018 ANNIE MOORE MD Ot M48.02 SPINAL STENOSIS, CERVICAL REGION 05/26/2018 ANNIE MOORE MD, Ot M50.30 OTHER CERVICAL DISC DEGENERATION, UNSP C 05/26/2018 ANNIE MOORE MD, Ot 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 Results Test Result Range Complete blood count (CBC) with automated white blood cell (WBC) differential - 05/24/18 14:30 Blood leukocytes automated count (number/volume) 10.3 10*3/uL 4.3-11.0 Blood erythrocytes automated count (number/volume) 4.15 10*6/uL 4.35-5.85 Venous blood hemoglobin measurement (mass/volume) 13.4 g/dL 11.5-16.0 Blood hematocrit (volume fraction) 40 % 35-52 Automated erythrocyte mean corpuscular volume 97 [foz_us] 80-99 Automated erythrocyte mean corpuscular hemoglobin (mass per erythrocyte) 32 pg 25-34 Automated erythrocyte mean corpuscular hemoglobin concentration measurement ( mass/volume) 33 g/dL 32-36 Automated erythrocyte distribution width ratio 13.2 % 10.0-14.5 Automated blood platelet count (count/volume) 220 10*3/uL 130-400 Automated blood platelet mean volume measurement 9.6 [foz_us] 7.4-10.4 Automated blood neutrophils/100 leukocytes 74 % 42-75 Automated blood lymphocytes/100 leukocytes 16 % 12-44 Blood monocytes/100 leukocytes 8 % 0-12 Automated blood eosinophils/100 leukocytes 2 % 0-10 Automated blood basophils/100 leukocytes 0 % 0-10 Blood neutrophils automated count (number/volume) 7.6 10*3 1.8-7.8 Blood lymphocytes automated count (number/volume) 1.7 10*3 1.0-4.0 Blood monocytes automated count (number/volume) 0.8 10*3 0.0-1.0 Automated eosinophil count 0.2 10*3/uL 0.0-0.3 Automated blood basophil count (count/volume) 0.0 10*3/uL 0.0-0.1 Comprehensive metabolic panel - 05/24/18 14:30 Serum or plasma sodium measurement (moles/volume) 138 mmol/L 135-145 Serum or plasma potassium measurement (moles/volume) 4.3 mmol/L 3.6-5.0 Serum or plasma chloride measurement (moles/volume) 106 mmol/L 98-107 Carbon dioxide 20 mmol/L 21-32 Serum or plasma anion gap determination (moles/volume) 12 mmol/L 5-14 Serum or plasma urea nitrogen measurement (mass/volume) 18 mg/dL 7-18 Serum or plasma creatinine measurement (mass/volume) 1.08 mg/dL 0.60-1.30 Serum or plasma urea nitrogen/creatinine mass ratio 17 NRG Serum or plasma creatinine measurement with calculation of estimated glomerular filtration rate 49 NRG Serum or plasma glucose measurement (mass/volume) 90 mg/dL 70-105 Serum or plasma calcium measurement (mass/volume) 9.4 mg/dL 8.5-10.1 Serum or plasma total bilirubin measurement (mass/volume) 0.4 mg/dL 0.1-1.0 Serum or plasma alkaline phosphatase measurement (enzymatic activity/volume) 124 U/L 40-136 Serum or plasma aspartate aminotransferase measurement (enzymatic activity/ volume) 23 U/L 5-34 Serum or plasma alanine aminotransferase measurement (enzymatic activity/volume ) 14 U/L 0-55 Serum or plasma protein measurement (mass/volume) 6.8 g/dL 6.4-8.2 Serum or plasma albumin measurement (mass/volume) 3.9 g/dL 3.2-4.5 CALCIUM CORRECTED 9.5 mg/dL 8.5-10.1 Serum or plasma lithium measurement (moles/volume) - 05/24/18 14:30 BNP level 96.7 pg/mL <100.0 Complete urinalysis with reflex to culture - 05/24/18 17:00 Urine color determination YELLOW NRG Urine clarity determination CLEAR NRG Urine pH measurement by test strip 6 5-9 Specific gravity of urine by test strip 1.010 1.016- 1.022 Urine protein assay by test strip, semi-quantitative NEGATIVE NEGATIVE Urine glucose detection by automated test strip NEGATIVE NEGATIVE Erythrocytes detection in urine sediment by light microscopy NEGATIVE NEGATIVE Urine ketones detection by automated test strip NEGATIVE NEGATIVE Urine nitrite detection by test strip NEGATIVE NEGATIVE Urine total bilirubin detection by test strip NEGATIVE NEGATIVE Urine urobilinogen measurement by automated test strip (mass/volume) NORMAL NORMAL Urine leukocyte esterase detection by dipstick NEGATIVE NEGATIVE Automated urine sediment erythrocyte count by microscopy (number/high power field) NONE NRG Automated urine sediment leukocyte count by microscopy (number/high power field ) NONE NRG Bacteria detection in urine sediment by light microscopy NEGATIVE NRG Squamous epithelial cells detection in urine sediment by light microscopy 2-5 NRG Crystals detection in urine sediment by light microscopy NONE NRG Casts detection in urine sediment by light microscopy NONE NRG Mucus detection in urine sediment by light microscopy NEGATIVE NRG Complete urinalysis with reflex to culture NO NRG Automated blood complete blood count (hemogram) panel - 05/25/18 06:15 Blood leukocytes automated count (number/volume) 6.9 10*3/uL 4.3-11.0 Blood erythrocytes automated count (number/volume) 3.75 10*6/uL 4.35-5.85 Venous blood hemoglobin measurement (mass/volume) 12.3 g/dL 11.5-16.0 Blood hematocrit (volume fraction) 37 % 35-52 Automated erythrocyte mean corpuscular volume 98 [foz_us] 80-99 Automated erythrocyte mean corpuscular hemoglobin (mass per erythrocyte) 33 pg 25-34 Automated erythrocyte mean corpuscular hemoglobin concentration measurement ( mass/volume) 33 g/dL 32-36 Automated erythrocyte distribution width ratio 13.5 % 10.0-14.5 Automated blood platelet count (count/volume) 216 10*3/uL 130-400 Automated blood platelet mean volume measurement 9.3 [foz_us] 7.4-10.4 Whole blood basic metabolic panel - 05/25/18 06:15 Serum or plasma sodium measurement (moles/volume) 139 mmol/L 135-145 Serum or plasma potassium measurement (moles/volume) 4.1 mmol/L 3.6-5.0 Serum or plasma chloride measurement (moles/volume) 110 mmol/L 98-107 Carbon dioxide 21 mmol/L 21-32 Serum or plasma anion gap determination (moles/volume) 8 mmol/L 5-14 Serum or plasma urea nitrogen measurement (mass/volume) 15 mg/dL 7-18 Serum or plasma creatinine measurement (mass/volume) 0.85 mg/dL 0.60-1.30 Serum or plasma urea nitrogen/creatinine mass ratio 18 NRG Serum or plasma creatinine measurement with calculation of estimated glomerular filtration rate > NRG Serum or plasma glucose measurement (mass/volume) 97 mg/dL 70-105 Serum or plasma calcium measurement (mass/volume) 8.7 mg/dL 8.5-10.1 Serum or plasma troponin i.cardiac measurement (mass/volume) - 05/25/18 06:15 Serum or plasma troponin i.cardiac measurement (mass/volume) < ng/ mL <0.30 Automated blood complete blood count (hemogram) panel - 05/26/18 05:50 Blood leukocytes automated count (number/volume) 6.3 10*3/uL 4.3-11.0 Blood erythrocytes automated count (number/volume) 3.80 10*6/uL 4.35-5.85 Venous blood hemoglobin measurement (mass/volume) 12.0 g/dL 11.5-16.0 Blood hematocrit (volume fraction) 37 % 35-52 Automated erythrocyte mean corpuscular volume 97 [foz_us] 80-99 Automated erythrocyte mean corpuscular hemoglobin (mass per erythrocyte) 32 pg 25-34 Automated erythrocyte mean corpuscular hemoglobin concentration measurement ( mass/volume) 32 g/dL 32-36 Automated erythrocyte distribution width ratio 13.3 % 10.0-14.5 Automated blood platelet count (count/volume) 204 10*3/uL 130-400 Automated blood platelet mean volume measurement 9.5 [foz_us] 7.4-10.4 PT panel in platelet poor plasma by coagulation assay - 05/26/18 05:50 Prothrombin time (PT) in platelet poor plasma by coagulation assay 13.0 s 12.2-14.7 INR in platelet poor plasma or blood by coagulation assay 1.0 0.8-1.4 Activated partial thromboplastin time (aPTT) in platelet poor plasma bycoagulation assay - 05/26/18 05:50 Activated partial thromboplastin time (aPTT) in platelet poor plasma bycoagulation assay 34 s 24-35 Comprehensive metabolic panel - 05/26/18 05:50 Serum or plasma sodium measurement (moles/volume) 141 mmol/L 135-145 Serum or plasma potassium measurement (moles/volume) 4.0 mmol/L 3.6-5.0 Serum or plasma chloride measurement (moles/volume) 111 mmol/L 98-107 Carbon dioxide 22 mmol/L 21-32 Serum or plasma anion gap determination (moles/volume) 8 mmol/L 5-14 Serum or plasma urea nitrogen measurement (mass/volume) 10 mg/dL 7-18 Serum or plasma creatinine measurement (mass/volume) 0.83 mg/dL 0.60-1.30 Serum or plasma urea nitrogen/creatinine mass ratio 12 NRG Serum or plasma creatinine measurement with calculation of estimated glomerular filtration rate > NRG Serum or plasma glucose measurement (mass/volume) 95 mg/dL 70-105 Serum or plasma calcium measurement (mass/volume) 8.9 mg/dL 8.5-10.1 Serum or plasma total bilirubin measurement (mass/volume) 0.4 mg/dL 0.1-1.0 Serum or plasma alkaline phosphatase measurement (enzymatic activity/volume) 100 U/L 40-136 Serum or plasma aspartate aminotransferase measurement (enzymatic activity/ volume) 31 U/L 5-34 Serum or plasma alanine aminotransferase measurement (enzymatic activity/volume ) 15 U/L 0-55 Serum or plasma protein measurement (mass/volume) 5.7 g/dL 6.4-8.2 Serum or plasma albumin measurement (mass/volume) 3.3 g/dL 3.2-4.5 CALCIUM CORRECTED 9.5 mg/dL 8.5-10.1 Complete blood count (CBC) with automated white blood cell (WBC) differential - 05/26/18 15:05 Blood leukocytes automated count (number/volume) 9.4 10*3/uL 4.3-11.0 Blood erythrocytes automated count (number/volume) 3.35 10*6/uL 4.35-5.85 Venous blood hemoglobin measurement (mass/volume) 10.9 g/dL 11.5-16.0 Blood hematocrit (volume fraction) 33 % 35-52 Automated erythrocyte mean corpuscular volume 98 [foz_us] 80-99 Automated erythrocyte mean corpuscular hemoglobin (mass per erythrocyte) 33 pg 25-34 Automated erythrocyte mean corpuscular hemoglobin concentration measurement ( mass/volume) 33 g/dL 32-36 Automated erythrocyte distribution width ratio 13.0 % 10.0-14.5 Automated blood platelet count (count/volume) 207 10*3/uL 130-400 Automated blood platelet mean volume measurement 9.5 [foz_us] 7.4-10.4 Automated blood neutrophils/100 leukocytes 79 % 42-75 Automated blood lymphocytes/100 leukocytes 13 % 12-44 Blood monocytes/100 leukocytes 7 % 0-12 Automated blood eosinophils/100 leukocytes 1 % 0-10 Automated blood basophils/100 leukocytes 0 % 0-10 Blood neutrophils automated count (number/volume) 7.4 10*3 1.8-7.8 Blood lymphocytes automated count (number/volume) 1.2 10*3 1.0-4.0 Blood monocytes automated count (number/volume) 0.7 10*3 0.0-1.0 Automated eosinophil count 0.1 10*3/uL 0.0-0.3 Automated blood basophil count (count/volume) 0.0 10*3/uL 0.0-0.1 RED CELLS LEUKO REDUCED AS1 - 05/26/18 15:05 RED CELLS LEUKO REDUCED AS1 TRANSFUSED 05/26/18 0597 [facility] Blood type T Indirect antibody screen panel - 05/26/18 15:05 ABO+Rh group AP NR Transfusion band number [id number] [facility] Blood group antibody screen NEGATIVE [facility] Whole blood hemoglobin and hematocrit panel - 05/26/18 21:48 Venous blood hemoglobin measurement (mass/volume) 11.1 g/dL 11.5-16.0 Blood hematocrit (volume fraction) 33 % 35-52 Complete blood count (CBC) with automated white blood cell (WBC) differential - 05/27/18 02:40 Blood leukocytes automated count (number/volume) 10.7 10*3/uL 4.3-11.0 Blood erythrocytes automated count (number/volume) 3.58 10*6/uL 4.35-5.85 Venous blood hemoglobin measurement (mass/volume) 11.4 g/dL 11.5-16.0 Blood hematocrit (volume fraction) 34 % 35-52 Automated erythrocyte mean corpuscular volume 94 [foz_us] 80-99 Automated erythrocyte mean corpuscular hemoglobin (mass per erythrocyte) 32 pg 25-34 Automated erythrocyte mean corpuscular hemoglobin concentration measurement ( mass/volume) 34 g/dL 32-36 Automated erythrocyte distribution width ratio 14.9 % 10.0-14.5 Automated blood platelet count (count/volume) 205 10*3/uL 130-400 Automated blood platelet mean volume measurement 9.7 [foz_us] 7.4-10.4 Automated blood neutrophils/100 leukocytes 69 % 42-75 Automated blood lymphocytes/100 leukocytes 17 % 12-44 Blood monocytes/100 leukocytes 13 % 0-12 Automated blood eosinophils/100 leukocytes 1 % 0-10 Automated blood basophils/100 leukocytes 0 % 0-10 Blood neutrophils automated count (number/volume) 7.4 10*3 1.8-7.8 Blood lymphocytes automated count (number/volume) 1.9 10*3 1.0-4.0 Blood monocytes automated count (number/volume) 1.3 10*3 0.0-1.0 Automated eosinophil count 0.1 10*3/uL 0.0-0.3 Automated blood basophil count (count/volume) 0.0 10*3/uL 0.0-0.1 Whole blood basic metabolic panel - 05/27/18 02:40 Serum or plasma sodium measurement (moles/volume) 141 mmol/L 135-145 Serum or plasma potassium measurement (moles/volume) 3.8 mmol/L 3.6-5.0 Serum or plasma chloride measurement (moles/volume) 111 mmol/L 98-107 Carbon dioxide 21 mmol/L 21-32 Serum or plasma anion gap determination (moles/volume) 9 mmol/L 5-14 Serum or plasma urea nitrogen measurement (mass/volume) 12 mg/dL 7-18 Serum or plasma creatinine measurement (mass/volume) 0.84 mg/dL 0.60-1.30 Serum or plasma urea nitrogen/creatinine mass ratio 14 NRG Serum or plasma creatinine measurement with calculation of estimated glomerular filtration rate > NRG Serum or plasma glucose measurement (mass/volume) 103 mg/dL 70-105 Serum or plasma calcium measurement (mass/volume) 8.5 mg/dL 8.5-10.1 Serum or plasma phosphate measurement (mass/volume) - 05/27/18 02:40 Serum or plasma phosphate measurement (mass/volume) 3.0 mg/dL 2.3-4.7 Magnesium - 05/27/18 02:40 Magnesium 1.9 mg/dL 1.8-2.4 Complete blood count (CBC) with automated white blood cell (WBC) differential - 05/28/18 03:15 Blood leukocytes automated count (number/volume) 10.1 10*3/uL 4.3-11.0 Blood erythrocytes automated count (number/volume) 3.45 10*6/uL 4.35-5.85 Venous blood hemoglobin measurement (mass/volume) 10.9 g/dL 11.5-16.0 Blood hematocrit (volume fraction) 33 % 35-52 Automated erythrocyte mean corpuscular volume 95 [foz_us] 80-99 Automated erythrocyte mean corpuscular hemoglobin (mass per erythrocyte) 32 pg 25-34 Automated erythrocyte mean corpuscular hemoglobin concentration measurement ( mass/volume) 33 g/dL 32-36 Automated erythrocyte distribution width ratio 14.7 % 10.0-14.5 Automated blood platelet count (count/volume) 183 10*3/uL 130-400 Automated blood platelet mean volume measurement 9.7 [foz_us] 7.4-10.4 Automated blood neutrophils/100 leukocytes 68 % 42-75 Automated blood lymphocytes/100 leukocytes 16 % 12-44 Blood monocytes/100 leukocytes 12 % 0-12 Automated blood eosinophils/100 leukocytes 4 % 0-10 Automated blood basophils/100 leukocytes 0 % 0-10 Blood neutrophils automated count (number/volume) 6.8 10*3 1.8-7.8 Blood lymphocytes automated count (number/volume) 1.7 10*3 1.0-4.0 Blood monocytes automated count (number/volume) 1.2 10*3 0.0-1.0 Automated eosinophil count 0.4 10*3/uL 0.0-0.3 Automated blood basophil count (count/volume) 0.0 10*3/uL 0.0-0.1 Whole blood basic metabolic panel - 05/28/18 03:15 Serum or plasma sodium measurement (moles/volume) 139 mmol/L 135-145 Serum or plasma potassium measurement (moles/volume) 3.9 mmol/L 3.6-5.0 Serum or plasma chloride measurement (moles/volume) 110 mmol/L 98-107 Carbon dioxide 20 mmol/L 21-32 Serum or plasma anion gap determination (moles/volume) 9 mmol/L 5-14 Serum or plasma urea nitrogen measurement (mass/volume) 12 mg/dL 7-18 Serum or plasma creatinine measurement (mass/volume) 0.84 mg/dL 0.60-1.30 Serum or plasma urea nitrogen/creatinine mass ratio 14 NRG Serum or plasma creatinine measurement with calculation of estimated glomerular filtration rate > NRG Serum or plasma glucose measurement (mass/volume) 103 mg/dL 70-105 Serum or plasma calcium measurement (mass/volume) 8.7 mg/dL 8.5-10.1 Serum or plasma phosphate measurement (mass/volume) - 05/28/18 03:15 Serum or plasma phosphate measurement (mass/volume) 2.4 mg/dL 2.3-4.7 Magnesium - 05/28/18 03:15 Magnesium 1.7 mg/dL 1.8-2.4 Encounters ACCT No. Visit Date/Time Discharge Status Pt. Type Provider Facility Loc./Unit Complaint [id number] 11/27/2017 10:08:00 11/27/2017 23:59:59 CLS Outpatient ANNIE MOORE MD [facility] RAD RT SHOULDER PAIN, NECK PAIN,HEADACHE [id number] 11/23/2017 12:00:00 11/23/2017 23:59:59 CLS Outpatient ANNIE MOORE MD [facility] RAD R SHOULDER PAIN,NECK PAIN [id number] 07/24/2015 07:33:00 07/24/2015 23:59:59 CLS Outpatient ANNIE MOORE MD [facility] RAD MILD COGNITIVE,GAIT ABNORMALITY [id number] 03/27/2015 12:17:00 03/27/2015 23:59:59 CLS Outpatient ANNIE MOORE MD [facility] RAD FELL AT [place] [id number] 02/06/2015 21:52:00 02/07/2015 00:18:00 DIS Emergency BERLIN GARAY, JUAN Espinoza [facility] ER WEAKNESS,DIARRHEA [id number] 05/24/2018 16:30:00 ACT Inpatient ANNIE MOORE MD [facility] ICU R GROIN PAIN,CHEST PAIN,[facility]
[2018-05-28] MEDS ORDERED: RT-ALBUTEROL/IPRATROPIUM 3 ML (DUONEB) VIAL INH PRN (11:30)
--- NOTE | 2018-05-28 11:42 | Physical Therapy Evaluation ---
PT Evaluation-General Medical Diagnosis Admission Date May 28, 2018 at 11:10 Medical Diagnosis: right groin pain Onset Date: May 28, 2018 Therapy Diagnosis Therapy Diagnosis: weakness; abn gait Height/Weight Height (Feet): 5 Height (Inches): 5.00 Weight (Pounds): 220 Precautions Precautions/Isolations: Standard Precautions Weight Bear Status Right Lower Extremity: Right Weight Bearing/Tolerated Left Lower Extremity: Left Weight Bearing/Tolerated Referral Physician: Sandeep Reason for Referral: Evaluation/Treatment Medical History Pertinent Medical History: Dementia, HTN, Hypothroidism, Parkinson's Additional Medical History DDD, chronic back pain, hypothyroidism Current History Pt admitted to [facility] with complaints of right groin pain and then transferred to [facility] for continued therapy services to promote functional indep; pt is post heart cath with stent on 05/26/18 Reviewed History: Yes Social History Home: Single Level Current Living Status: Other Family (pt was living with her daugther in [facility]) Entry Into Home: Stairs With Railing (2) PT Steps Into Home: 2 Prior/Core FIM Prior Level of Function Therapy Code Descriptions/Definitions Functional [place] Measure: 0=Not Assessed/NA 4=Minimal Assistance 1=Total Assistance 5=Supervision or Setup 2=Maximal Assistance 6=Modified [place] 3=Moderate Assistance 7=Complete [place] Therapy Quality Codes: 6 Independent with activity with or without an assistive device 5 Patient requires set up or clean up by helper. Patient completes activity by themselves 4 Supervision or touching assist (CGA). [place] provide cues , steadying assist 3 The helper provides less than half the effort to complete the activity 2 The helper provides more than half the effort to complete the activity 1 Dependent. The helper does all the effort to complete an activity 7 Patient refused to complete or attempt activity 9 The patient did not perform the activity before the current illness or injury 88 Not attempted due to Medical conditions or safety concerns Functional Abilities and Goals: Independent: Patient completed the activities by him/herself, with or without an assistive device, with no assistance from a helper. Needed Some Help: Patient needed partial assistance from another person to complete activities. Dependent: A helper completed the activities for the patient. Unknown: Not Applicable: Bed Mobility: 7 Transfers (B,C,W/C) (FIM): 7 Gait: 7 Stairs: 5 Indoor Mobility (Ambulation): Independent Stairs: Needed Some Help Pt was indep with mobility and self care; although starting to need a little assist intermittently. PT Evaluation-Current Subjective Pt agreeable to PT transfer to ARU; anxious to participate with therapy and get stronger to return home or [facility]. Pain Numeric Pain Scale: 6 Location: Right Location Body Site: Thigh (groin) Pain Description: Stabbing (grabbing) Comment: pain noted with activation of right hip flexors Pt/Family Goals Discharge to [place] Objective Patient Orientation: Person, Place, Time, Situation Problem Solving: Fair ROM/Strength ROM Lower Extremities WFL Strenght Lower Extremities Left LE is grossly 4/5; right hip flexion is 3/5 (primarily due to pain) and other is grossly 4-/5 Integumentary/Posture Integumentary Refer to nursing notes. Bowel Incontinence: No Bladder Incontinence: Yes (stress incont) Posture normal and symmetrical Neuromuscular (Tone, Coordination, Reflexes) No noted functional deficits Sensory Vision: Wears Glasses Hearing: Functional Hand Dominance: Right Sensation Right Lower Extremit: Intact Sensation Left Lower Extremity: Intact Transfers Therapy Code Descriptions/Definitions Functional [place] Measure: 0=Not Assessed/NA 4=Minimal Assistance 1=Total Assistance 5=Supervision or Setup 2=Maximal Assistance 6=Modified [place] 3=Moderate Assistance 7=Complete [place] Therapy Quality Codes: 6 Independent with activity with or without an assistive device 5 Patient requires set up or clean up by helper. Patient completes activity by themselves 4 Supervision or touching assist (CGA). [place] provide cues , steadying assist 3 The helper provides less than half the effort to complete the activity 2 The helper provides more than half the effort to complete the activity 1 Dependent. The helper does all the effort to complete an activity 7 Patient refused to complete or attempt activity 9 The patient did not perform the activity before the current illness or injury 88 Not attempted due to Medical conditions or safety concerns Transfers (B, C, W/C) (FIM): 4 (with skilled cues for sequencing. ) Roll Left to Right (QC): 4 Supine to/from Sit: 4 (assist with her right leg; skilled cues to sequence. ) Sit to/from Stand: 4 (CGA and cues for hand placement) Sit to Lying (QC): 4 Lying to Sitting/Side of Bed(Q: 4 Sit to Stand (QC): 4 Chair/Dig-lq-Lgesr Xfer(QC): 4 Car Transfer (QC): 4 Gait Does the Patient Walk?: Yes Mode of Locomotion: Walk Anticipated Mode of Locomotion: Walk Gait (FIM): 2 Distance (FIM): 6=642-10 ft Walk 10 feet (QC): 4 Walk 50 ft with 2 Turns(QC): 4 Walk 150 ft (QC): 88 Walking 10ft/uneven surface-QC: 4 Distance: 50 ft with FWW with CGA Gait Level of Assist: 4 Gait Persons Needed: 1 Gait Assistive Device: FWW Comments/Gait Description slow gait but steady; CGA for safety Wheelchair Training Does the Pt Use a Wheelchair?: No Stairs Stairs (FIM): 2 #of Steps: 1 Level of Assist: 4 1 Step (curb) (QC): 4 4 Steps (QC): 88 Assistive Device: Walker 12 Steps (QC): 88 Cues for sequencing. Balance Sitting Static: Good Sitting Dynamic: Good Standing Static: Fair Standing Dynamic: Fair Picking up an Object (QC): 88 (unsafe/unable to attempt) Treatment Toilet transfer x 2 with CGA for transfer; functional gait training in the room and bathroom with focus on safe use of the walker and sequencing/safety in a small area. Assessment/Needs Pt presents with general need for assist with all transfers, bed mobility and gait due to right groin pain and right LE weakness. She does demonstrate slight problem solving deficits and decreased safety awareness requiring skilled cues to complete tasks effectively and safely. She is very pleasant and motivated with good family support. She has potential to make functional gains and return to a mod indep level of mobiltiy. Rehab Potential: Good PT Short Term Goals Short Term Goals Time Frame: Jun 04, 2018 Transfers (B,C,W/C) (FIM): 5 Gait (FIM): 4 Distance (FIM): 3=150 ft Gait Level of Assist: 4 Gait Assistive Device: FWW PT Penitentiary Goals Penitentiary Goals PT Penitentiary Goals Time Frame: Jun 11, 2018 Transfers (B,C,W/C) (FIM): 7 Sit to Lying (QC): 6 Lying-Sitting on Side/Bed(QC): 6 Sit to Stand (QC): 6 Roll Left to Right (QC): 6 Chair/Tsj-nh-Suqru Xfer(QC): 6 Car Transfer (QC): 6 Does the Patient Walk: Yes Gait (FIM): 6 Gait distance (FIM): 3=150 ft Walk 10 feet (QC): 6 Walk 10ft-Uneven Surface(QC): 6 Walk 50ft with 2 Turns (QC): 6 Walk 150 ft (QC): 6 Gait Assistive Device: FWW Does the Pt use WC or Scooter?: No Stairs (FIM): 5 # of Steps: 4 (household exception) 1 Step (curb) (QC): 6 4 Steps (QC): 6 12 Steps (QC): 88 Stairs Level Of Assist: 6 Picking up an Object (QC): 4 Goal is for patient to discharge to an [facility] at a mod indep level. PT Plan Problem List Problem List: Activity Tolerance, Functional Strength, Safety, Balance, Gait, Transfer, Bed Mobility Treatment/Plan Treatment Plan: Continue Plan of Care Treatment Plan: Bed Mobility, Education, Functional Activity Erna, Functional Strength, Group Therapy, Gait, Safety, Therapeutic Exercise, Transfers Treatment Duration: Jun 11, 2018 Frequency: At least 5 of 7 days/Wk (IRF) Estimated Hrs Per Day: 1.5 hours per day Patient and/or Family Agrees t: Yes Safety Risks/Education Patient Education: Transfer Techniques, Safety Issues Teaching Recipient: Patient Teaching Methods: Demonstration, Discussion Response to Teaching: Reinforcement Needed Discharge Recommendations Therapy D/C Recommendations: Physical Therapy Home Care Time/GCodes Time In: 1045 Time Out: 1130 Total Billed Treatment Time: 45 Total Billed Treatment visit EVM 15 FA 30 APOORVA HERRERA PT May 28, 2018 11:42
[2018-05-28] MEDS ORDERED: ONDANSETRON 4 MG/2 ML (SDV) Z0FRAN IVP PRN (11:45)
[2018-05-28] MEDS ORDERED: IBUP-30 PO (12:14)
--- NOTE | 2018-05-28 13:30 | Occupational Therapy Eval ---
OT Evaluation-General/PLF Medical Diagnosis Admission Date May 28, 2018 at 11:10 Medical Diagnosis: right groin pain Onset Date: May 28, 2018 Therapy Diagnosis Therapy Diagnosis: decreased self care skills Height/Weight Height (Feet): 5 Height (Inches): 5.00 Weight (Pounds): 220 Precautions Precautions/Isolations: Standard Precautions Referral Physician: Sandeep Medical History Pertinent Medical History: Dementia, HTN, Hypothroidism, Parkinson's Additional Medical History DDD, chronic back pain, hypothyroidism Current History Pt admitted with c/o right groin pain. Had heart cath 05/26/18. Reviewed History: Yes Social History Home: Single Level Current Living Status: Other Family (pt was living with her daugther in [facility]) Entry Into Home: Stairs With Railing (2) Steps Into Home: 2 ADL-Prior Level of Function Therapy Code Descriptions/Definitions Functional [place] Measure: 0=Not Assessed/NA 4=Minimal Assistance 1=Total Assistance 5=Supervision or Setup 2=Maximal Assistance 6=Modified [place] 3=Moderate Assistance 7=Complete [place] Therapy Quality Codes: 6 Independent with activity with or without an assistive device 5 Patient requires set up or clean up by helper. Patient completes activity by themselves 4 Supervision or touching assist (CGA). [place] provide cues , steadying assist 3 The helper provides less than half the effort to complete the activity 2 The helper provides more than half the effort to complete the activity 1 Dependent. The helper does all the effort to complete an activity 7 Patient refused to complete or attempt activity 9 The patient did not perform the activity before the current illness or injury 88 Not attempted due to Medical conditions or safety concerns Functional Abilities and Goals: Independent: Patient completed the activities by him/herself, with or without an assistive device, with no assistance from a helper. Needed Some Help: Patient needed partial assistance from another person to complete activities. Dependent: A helper completed the activities for the patient. Unknown: Not Applicable: ADL PLOF Comments Pt initially states she was independent with all basic ADLs, With further discussion pt reveals she was receiving assistance with shoes and socks secondary to right groin pain. Did not use any AD for mobility. Self Care: Needed Some Help Functional Cognition: Needed Some Help DME/Equipment: Bath Chair, Grab Bars, Shower, Tall Toilet OT Current Status Subjective Pt sitting in chair, agrees to therapy. Pt reports 8/10 groin pain. Mental Status/Objective Patient Orientation: Person, Place Current Glasses/Contacts: Yes Hearing Aids: No Dentures/Partials: No Hand Dominance: Right Upper Extremity ROM Grossly WFL Upper Extremity Coordination Intact ADL-Treatment ADL-Current Pt sit to stand with supervision. Gait to restroom with FWW. Sponge bath was completed seated at sink. Unable to complete shower at this time secondary to no hot water. Pt washed upper body, upper legs, and tiara area with SBA. Assist required to wash lower legs and feet. Don pullover shirt with SBA. Pt required assist to start Depends and pants over feet. Then able to stand and complete pant hike with CGA for balance. Pt unable to reach feet to doff/don socks and shoes secondary to groin pain. Assist required to complete task. Transfer to toilet with CGA using grab bars for safety. Pt completed toileting hygiene, CGA for balance during clothing management. Grooming tasks completed seated at sink. Pt brushed teeth and combed hair with SBA. Pt returned to recliner chair, sitting with needs met and social worker psychiatric present after session. Eating (FIM): 5 (set up by report) Eating (QC): 5 Grooming (FIM): 5 Oral Hygiene (QC): 4 Bathing (FIM): 4 Shower/Bathe Self (QC): 3 Upper Body Dressing (FIM): 5 Upper Body Dressing (QC): 4 Lower Body Dressing (FIM): 3 Lower Body Dressing (QC): 3 Toileting (FIM): 4 Toileting Hygiene (QC): 4 Toilet/Commode Transfer (FIM): 4 (CGA) Toilet Transfer (QC): 4 Education OT Patient Education: Rehab process Teaching Recipient: Patient Teaching Methods: Discussion Response to Teaching: Verbalize Understanding, Reinforcement Needed OT Short Term Goals Short Term Goals Time Frame: Jun 04, 2018 Lower Body Dressing(FIM): 4 Toileting(FIM): 5 Toilet/Commode Transfer(FIM): 5 Additional Short Term Goals: 1-Demonstrate ADL Tasks, 2-Verbalize Understanding , 3-ImproveStrength/Erna 1=Demonstrate adherence to instructed precautions during ADL tasks. 2=Patient will verbalize/demonstrate understanding of assistive devices/ modifications for ADL. 3=Patient will improve strength/tolerance for activity to enable patient to perform ADL's. OT Traction Power Engineer Goals Traction Power Engineer Goals Time Frame: Jun 18, 2018 Eating (FIM): 6 Eating (QC): 6 Groomin Oral Hygiene (QC): 6 Bathing(FIM): 5 Shower/Bathe Self (QC): 5 Upper Body Dressing(FIM): 6 Upper Body Dressing (QC): 6 Lower Body Dressing(FIM): 6 Lower Body Dressing (QC): 6 On/Off Footwear (QC): 6 Toileting(FIM): 6 Toileting Hygiene (QC): 6 Toilet/Commode Transfer(FIM): 6 Toilet/Commode Transfer (QC): 6 Shower Transfer(FIM): 5 Additional Goals: 2-Verbalize Understanding, 3-ImproveStrength/Erna 1=Demonstrate adherence to instructed precautions during ADL tasks. 2=Patient will verbalize/demonstrate understanding of assistive devices/ modifications for ADL. 3=Patient will improve strength/tolerance for activity to enable patient to perform ADL's. OT Education/Plan Problem List/Assessment Assessment: Decreased Activ Tolerance, Decreased UE Strength, Dependent Transfers, Impaired Self-Care Skills Pt to benefit from skilled OT intervention for ADL training, transfers, strengthening, and safety education to increase level of function and allow safe discharge plan. Discharge Recommendations Plan/Recommendations: Continue POC Treatment Plan/Plan of Care Treatment,Training & Education: Yes Patient would benefit from OT for education, treatment and training to promote independence in ADL's, mobility, safety and/or upper extremity function for ADL' s. Plan of Care: ADL Retraining, Functional Mobility, Group Exercise/Act as Ind, UE Funct Exercise/Act Treatment Duration: Jun 18, 2018 Frequency: At least 5 of 7 days/Wk (IRF) Estimated Hrs Per Day: 1.5 hours per day Agreement: Yes Rehab Potential: Good Time/GCodes Start Time: 11:30 Stop Time: 12:20 Total Time Billed (hr/min): 50 Billed Treatment Time 1 visit, EVM (15minutes), ADLx2(35minutes) LARY ROCHA OT May 28, 2018 13:30
--- NOTE | 2018-05-28 14:48 | Therapy Group Daily Note ---
Therapy Daily Group Note Patient Education Topic Other List Below (exercise benefits, ARU orientation) Exercises LE Seated Exercise, UE Exercise Other/Notes Pt ambulated using FWW with CGA to [facility] area for OT/PT group. Group consisted of introductions (name, place living, icebreaker questions), benefits of exercise, peer led UE/LE seated exercises and orientation to ARU. Pt introduced self appropriately actively listened to peers introduce themselves. Pt was able to read exercise card and lead peers in an exercise then completed others without difficulty. Pt was able to answer icebreaker questions after rolling/throwing [employer] Universityo dice. Pt asked appropriate questions to peers. Verbalized understanding of educational topics. After group, pt sitting in recliner with call light/phone in reach. All needs met in room. Start Time: 13:00 Stop Time: 14:20 Total Billed Treatment Time: 80 Total Billed Treatment 1-GRP APOORVA CROWLEY May 28, 2018 14:48
[2018-05-28] MEDS: PROPRANOLOL 20 MG (INDERAL) TABLET PO SCH ×2 (14:50→21:07)
--- NOTE | 2018-05-28 15:48 | ST Cognitive Linguistic Eval ---
Speech Evaluation-General Medical Diagnosis right groin pain Onset Date: May 28, 2018 Therapy Diagnosis Therapy Diagnosis: Cognitive-communication Precautions Precautions: Fall Precautions/Isolations: Standard Precautions Medical History Pertinent Medical History: Dementia, HTN, Hypothroidism, Parkinson's Reviewed History: Yes Social History Current Living Status: Other Family (pt was living with her daugther in [facility]) Speech PLF-Current Status Prior Level of Function Patient lived at home alone and was independent with all of her daily needs. Subjective Patient pleasant and cooperative. Language Eval: Auditory Comprehends Simple Yes/No Ques: Mild Indent/Objects Multiple Rosario: Mild Ident/Pics in Multiple Rosario: Mild Follows 1-Step Commands: Mild Follows Complex Directions: Mild Follows General Conversations: Mild Language Eval: Verbal Language Completes Spontaneous Greeting: Functional Produces Auto, Serial Info: Functional Imitates Simple Words/Phrases: Functional Word Finding: Mild Requests Basic Needs: Mild States Basic Personal Info: Functional Expresses Complex Ideas: Mild Language Evaluation: Reading Within functional limits. Cognitive Patient Orientation Patient oriented x3, however her memory is decreased. Objective Cognitive Domain Attention: WNL Memory: Mild Problem Solving: Mild Executive Functions: Mild Objective Formal/Standardized Tests [facility] Cognitive/Communication Results Memory: Immediate: 3:3, Delayed 2:3, with cues 3:3, Mental Control exercises: 2 :2, Organization/Sequencin:4, Problem Solvin:4 Oral Motor/Speech Production Within Functional Limits Impression Patient displays mild deficit with memory. Family states she has been on medication for memory for the past year without noted difference. Communication/Social Cognition Comprehension: 4 Expression: 5 Social Interaction: 5 Problem Solvin Memory: 3 Speech Patient Assess Expression of Ideas/Wants: Exhibits (3) Understanding Verbal Content: Usually Understands (3) Brief Interview-Mental Status: Yes Repetition of Three Words: Three (3) Temporal Orientation: Year: Missed by 1 year (2) Temporal Orientation: Day: Correct (1) Recall : Wear to say "Sock": Yes, no cue required (2) Recall : Color: Yes, no cue required (2) Recall : Bed: Yes,after cueing (1) Memory/Recall Ability: Current season, Location of own room, That he or she is in a hsp/hsp unit Speech Short Term Goals Short Term Goals Short Term Goals Patient will be able to recall words provided to respond to questions in sentence form with 90% or greater accuracy. Patient will recall information presented in paragraphs with 90% or greater accuracy. Patient will recall safety precautions with minimal verbal and/or visual cuing at 90% or greater accuracy. Speech Senior Care Goals Senior Care Goals Patient will be able to demonstrate safety awareness and independence within her immediate environment with minimal cues at 90% accuracy. Speech-Plan Patient/Family Goals Patient/Family Goals: Patient's family is planning for patient to go to assisted living post rehab. Treatment Plan Speech Therapy Treatment Plan: Continue Plan of Care Patient is recommended for skilled ST services based on cognitive test results. Treatment Duration: Jun 04, 2018 Frequency: 5 times per week Estimated Hrs Per Day: .5 hour per day Rehab Potential: Good Barriers to Learning: Patient has memory deficit. Pt/Family Agrees to Plan: Yes Safety Risks/Education Teaching Recipient: Health Care Proxy, Family Teaching Methods: Discussion Response to Teaching: Verbalize Understanding Education Topics Provided: Safety within her room. Time Speech Therapy Time In: 15:15 Speech Therapy Time Out: 15:30 Total Billed Time: 15 Billed Treatment Time 1, ASH Morse May 28, 2018 15:47
[2018-05-28] MEDS: HYDROcodone/APAP 5 MG/325 MG (LORTAB) TAB PO PRN (17:25)
[2018-05-28 18:00] VITALS: BP 136/68
[2018-05-28] MEDS: TICAGRELOR 90 MG TABLET (BRILINTA) PO SCH (21:07)
[2018-05-28] MEDS: SERTRALINE 50 MG (ZOLOFT) TABLET PO SCH (21:07)
[2018-05-28] MEDS: MEMANTINE 10 MG (NAMENDA) TABLET PO SCH (21:07)
[2018-05-28] MEDS: LIDOCAINE PATCH REMOVAL TP SCH (21:09)
[2018-05-29 05:30] VITALS: BP 122/59
[2018-05-29] MEDS ORDERED: LEVOTHYROXINE 50 MCG (LEVOTHROID) TAB PO ONE (06:30)
[2018-05-29] MEDS: PROPRANOLOL 20 MG (INDERAL) TABLET PO SCH ×3 (06:37→20:54)
[2018-05-29] MEDS: CYANOCOBALAMIN 1,000 MCG (VITAMIN B-12) TABLET PO SCH (06:37)
--- NOTE | 2018-05-29 08:24 | PM&R Post Admission Assessment ---
Post Admission Physician Asses Date seen by provider: May 29, 2018 Time seen by provider: 07:50 The preadmission screen agrees with the post admission assessment that the patient is a good candidate for inpatient rehabilitation. The patient will have a comprehensive program of inpatient rehabilitation with a goal of maximizing level of functional independence prior to discharge home with daughter. The patient will have PT/OT ninety minutes per day, each discipline, five days a week for 2 weeks for gait, strengthening, conditioning, balance, ADLs, any patient/family/caregiver training as necessary. Speech therapy to do cognitive assessment and treat as indicated 3 to 5 times a week for 30 to 45 min per day for 2 weeks. Rehabilitation nursing to assist with bowel, bladder, skin, medication administration, pain management. National Sales Manager to assist with discharge planning, community reentry. SCD's for DVT prophylaxis. She appears to be well motivated to participate in three hours of therapy a day. She should be able to tolerate three hours of therapy a day from a medical standpoint. She should benefit from the three hours of therapy a day. She has a reasonable discharge plan, reasonable discharge rehabilitation goals and a supportive family. She has various comorbidities that need to be closely monitored with medications and treatments adjusted on a daily basis as needed. These include: Chronic pain dementia park D HTN [facility] code 16 Etioloic DX Zina Espinoza Barriers to discharge for this patient who had been independent prior to this are for her to be modified independent to supervision for ADLs and mobility skills prior to discharge home with daughter, so as to lessen the burden of the caregivers. Risks for this patient include: 1. Fall 2. Fracture 3. DVT 4. Pulmonary embolism 5. Worsening confusion 6. Skin breakdown 7. Contractures 8. Poorly controlled pain 9. Urinary retention 10. UTI 11. Respiratory infection 12. Aspiration 13.Poorly controlled HTN Estimated Length of Stay: 14 days Prognosis: Rehab prognosis appears good for goal of discharge home with daughter modified independent to supervision for ADLs and mobility skills. Date Identified: May 29, 2018 Time Identified: 08:00 Action Plan to Resolve CSMI: Transfer meds reviewed and approved General: Alert, Cooperative, No Acute Distress HEENT: Atraumatic, PERRLA, EOMI, Mucous Memb Moist/[place] Neck: Supple, No JVD Lungs: Clear to Auscultation Heart: Regular Rate Abdomen: Normal Bowel Sounds, Soft, No Tenderness Extremities: No Edema Skin: No Rashes Neuro: Other (Left LE 4/5 RT hip flex 3/5 with guarding Mild dementa) SAMUEL NEWTON MD May 29, 2018 08:24
[2018-05-29] MEDS: DOCUSATE SODIUM 100 MG (COLACE) CAP PO SCH (09:31)
[2018-05-29] MEDS: TICAGRELOR 90 MG TABLET (BRILINTA) PO SCH ×2 (09:31→20:54)
[2018-05-29] MEDS: MEMANTINE 10 MG (NAMENDA) TABLET PO SCH ×2 (09:31→20:53)
[2018-05-29] MEDS: ASPIRIN E.C. 81 MG (ECOTRIN) TAB PO SCH (09:31)
[2018-05-29] MEDS: VITAMIN D3 5,000 UNITS (CHOLECALCIFEROL ) CAPSULE PO SCH (09:31)
[2018-05-29] MEDS: HYDROcodone/APAP 5 MG/325 MG (LORTAB) TAB PO PRN (09:34)
--- NOTE | 2018-05-29 09:55 | Diagnostic Imaging Report ---
PROCEDURE: MRI right joint lower extremity without contrast. TECHNIQUE: Multiplanar, multisequence non contrast-enhanced MRI of the pelvis with smaller [id number] sequences of the right hip. Indication: Right groin pain. Comparison: None Findings: No acute fracture is seen in the hips bilaterally or in the pelvis. No aggressive osseous lesions are seen. There are mild degenerative changes in the hip joints and in the pubic symphysis. No cortical erosions are seen. No joint effusion is seen bilaterally. The labrum is not well evaluated in the absence of contrast, although there is likely degenerative tearing. No para-labral cyst is seen. There is significantly increased signal about the right iliopsoas tendon. The iliacus component appears completely torn, retracted approximately 6 cm. There is also a high grade tear of the psoas component, with a few fibers remaining extending to the lesser trochanter. There is muscle strain of the right iliacus. The hamstring tendons are intact. The left iliopsoas tendon appears intact. The right gluteus minimus tendon demonstrates moderate tendinopathy. There is mild tendinopathy of the left gluteus minimus tendon. No muscular atrophy is seen. No soft tissue fluid collections are seen. There is mild subcutaneous edema anteriorly. There is heterogeneous fluid extending superiorly from the left inguinal region into the left retroperitoneum, consistent with a retroperitoneal hematoma. Findings appear similar to the CT from 05/26/2018. Impression: 1. Tear of the right iliopsoas tendon, with complete tear of the iliacus component and high-grade partial tear of the psoas component. There is associated muscle strain of the right iliacus. 2. Left retroperitoneal hematoma, similar to the prior CT abdomen and pelvis. 3. Tendinopathy of the gluteus minimus tendons, right greater than left. Dictated by: Dictated on workstation # [id number]
--- NOTE | 2018-05-29 10:36 | Physical Therapy Daily Note ---
PT Daily Note-Current Subjective Pt. declines Rx stating she is in pain and very fatigued . States she is just back from testing and it was very difficult, just had pain meds. Pain Numeric Pain Scale: 7 Location: Right Location Body Site: Hip (groin) Pain Description: Stabbing Mental Status Patient Orientation: Person, Place, Time, Situation, Normal For Age Transfers Therapy Code Descriptions/Definitions Functional [place] Measure: 0=Not Assessed/NA 4=Minimal Assistance 1=Total Assistance 5=Supervision or Setup 2=Maximal Assistance 6=Modified [place] 3=Moderate Assistance 7=Complete [place] Therapy Quality Codes: 6 Independent with activity with or without an assistive device 5 Patient requires set up or clean up by helper. Patient completes activity by themselves 4 Supervision or touching assist (CGA). [place] provide cues , steadying assist 3 The helper provides less than half the effort to complete the activity 2 The helper provides more than half the effort to complete the activity 1 Dependent. The helper does all the effort to complete an activity 7 Patient refused to complete or attempt activity 9 The patient did not perform the activity before the current illness or injury 88 Not attempted due to Medical conditions or safety concerns Weight Bearing Right Lower Extremity: Right Weight Bearing/Tolerated Left Lower Extremity: Left Weight Bearing/Tolerated Assessment Current Status: Refused Treatment PT Short Term Goals Short Term Goals Time Frame: Jun 04, 2018 Gait (FIM): 4 Distance (FIM): 3=150 ft Gait Level of Assist: 4 Gait Assistive Device: FWW PT Bunch Maker Hand Goals Bunch Maker Hand Goals PT Bunch Maker Hand Goals Time Frame: Jun 11, 2018 Transfers (B,C,W/C) (FIM): 7 Sit to Lying (QC): 6 Lying-Sitting on Side/Bed(QC): 6 Sit to Stand (QC): 6 Roll Left to Right (QC): 6 Chair/Uae-py-Mcail Xfer(QC): 6 Car Transfer (QC): 6 Does the Patient Walk: Yes Gait (FIM): 6 Gait distance (FIM): 3=150 ft Walk 10 feet (QC): 6 Walk 10ft-Uneven Surface(QC): 6 Walk 50ft with 2 Turns (QC): 6 Walk 150 ft (QC): 6 Gait Assistive Device: FWW Does the Pt use WC or Scooter?: No Stairs (FIM): 5 # of Steps: 4 (household exception) 1 Step (curb) (QC): 6 4 Steps (QC): 6 12 Steps (QC): 88 Stairs Level Of Assist: 6 Picking up an Object (QC): 4 PT Plan Treatment/Plan Treatment Plan: Continue Plan of Care Treatment Plan: Bed Mobility, Education, Functional Activity Erna, Functional Strength, Group Therapy, Gait, Safety, Therapeutic Exercise, Transfers Treatment Duration: Jun 11, 2018 Frequency: At least 5 of 7 days/Wk (IRF) Estimated Hrs Per Day: 1.5 hours per day Patient and/or Family Agrees t: Yes Time/GCodes Time In: 952 Time Out: 955 Total Billed Treatment Time: 3 Total Billed Treatment 1,no Rx, no chg G Codes Necessary: No FERNANDO CALIXTO MERCHANDISING CONSULTANT May 29, 2018 10:36
[2018-05-29] MEDS: LIDOCAINE (LIDODERM) 5% PATCH TOP SCH (15:06)
[2018-05-29 17:10] VITALS: BP 118/73
[2018-05-29] MEDS: LIDOCAINE PATCH REMOVAL TP SCH (19:39)
[2018-05-29] MEDS: SERTRALINE 50 MG (ZOLOFT) TABLET PO SCH (20:54)
[2018-05-30 04:41] LABS: BASOPHILS % (AUTO) 0 % (0-10); EOSINOPHILS # (AUTO) 0.4 10^3/uL (0.0-0.3); EOSINOPHILS % (AUTO) 4 % (0-10); HEMATOCRIT 33 % (35-52); HEMOGLOBIN 10.8 G/DL (11.5-16.0); LYMPHOCYTES # (AUTO) 1.2 X 10^3 (1.0-4.0); LYMPHOCYTES % (AUTO) 13 % (12-44); MEAN CORPUSCULAR HEMOGLOBIN 32 PG (25-34); MEAN CORPUSCULAR HGB CONC 33 G/DL (32-36); MEAN CORPUSCULAR VOLUME 97 FL (80-99); MEAN PLATELET VOLUME 9.4 FL (7.4-10.4); MONOCYTES % (AUTO) 11 % (0-12); NEUTROPHILS # (AUTO) 6.6 X 10^3 (1.8-7.8); NEUTROPHILS % (AUTO) 72 % (42-75); PLATELET COUNT 215 10^3/uL (130-400); RED BLOOD COUNT 3.41 10^6/uL (4.35-5.85); WHITE BLOOD COUNT 9.2 10^3/uL (4.3-11.0)
[2018-05-30 04:46] VITALS: BP 112/79
[2018-05-30] MEDS: CYANOCOBALAMIN 1,000 MCG (VITAMIN B-12) TABLET PO SCH (06:30)
[2018-05-30] MEDS: PROPRANOLOL 20 MG (INDERAL) TABLET PO SCH ×3 (06:30→22:14)
[2018-05-30] MEDS: HYDROcodone/APAP 5 MG/325 MG (LORTAB) TAB PO PRN ×4 (06:30→21:11)
[2018-05-30] MEDS: MEMANTINE 10 MG (NAMENDA) TABLET PO SCH ×2 (08:46→20:35)
[2018-05-30] MEDS: TICAGRELOR 90 MG TABLET (BRILINTA) PO SCH ×2 (08:46→20:35)
[2018-05-30] MEDS: ASPIRIN E.C. 81 MG (ECOTRIN) TAB PO SCH (08:46)
[2018-05-30] MEDS: VITAMIN D3 5,000 UNITS (CHOLECALCIFEROL ) CAPSULE PO SCH (08:46)
[2018-05-30] MEDS: DOCUSATE SODIUM 100 MG (COLACE) CAP PO SCH (08:47)
[2018-05-30 08:52] VITALS: BP 112/79
[2018-05-30] MEDS: LIDOCAINE (LIDODERM) 5% PATCH TOP SCH (08:55)
[2018-05-30 14:09] VITALS: BP 107/70
[2018-05-30 15:47] VITALS: BP 99/56
[2018-05-30] MEDS: SERTRALINE 50 MG (ZOLOFT) TABLET PO SCH (20:35)
[2018-05-30] MEDS: LIDOCAINE PATCH REMOVAL TP SCH (20:40)
--- NOTE | 2018-05-30 20:50 | HISTORY AND PHYSICAL ---
DATE OF SERVICE: 05/29/2018 ADMISSION HISTORY AND PHYSICAL CHIEF COMPLAINT: Painful right groin and leg. HISTORY OF PRESENT ILLNESS: The patient is a 78-year-old female who was admitted via the ED to [facility] by Dr. Springer, PCP due to right hip and leg pain, which began after getting out of the vehicle prior day. She had assessment and was also seen by cardiology and went on to have a cardiac catheterization and this stenting for coronary artery disease. The patient was then referred to inpatient rehabilitation unit due to decline in functional independence. She had been modified independent and living with her daughter in [place], [place]. An MRI of the right lower limb was ordered, which revealed prior known left retroperitoneal hematoma, but a right iliopsoas tendon tear as well as tendinopathy involving gluteus minimus bilateral right more than left as well as a muscle strain explaining for her complaints. She had a decline in functional independence due to this and now therapy and pain management has been ordered.Currently she is Setup for eating and grooming as well as upper body dressing Mod assist for lower body dressing.Min assist for toileting.She is min assist for transfers and CGA for gait with WW. PAST MEDICAL HISTORY: Hypertension, Parkinson's disease, mild dementia.Mild tremor on propranolol CAD s/p stenting as per above PAST SURGICAL HISTORY: Noncontributory. ALLERGIES: No known medication allergies. FAMILY HISTORY: Noncontributory. SOCIAL HISTORY: She is a and lives with her daughter in [facility].She had been Independent prior to this for basic adl and mobility skills REVIEW OF SYSTEMS: A 10-point review of systems significant for some memory loss, pain and weakness in the right leg. MEDICATIONS: Colace 100 mg p.o. daily, ASA 81 mg p.o. daily, vitamin D3 5000 units p.o. daily, Lidoderm patch apply daily, vitamin B12 500 mcg p.o. daily, Brilinta 90 mg p.o. b.i.d., Namenda 10 mg p.o. b.i.d., Zoloft 50 mg p.o. at bedtime, propranolol 5 mg p.o. q.8 hours, Zofran 4 mg p.o. q.4 hours p.r.n. nausea, hydrocodone/APAP 5 one tablet p.o. q.4 hours p.r.n. moderate pain, DuoNeb treatments 3 mL q.4 hours p.r.n. shortness of breath. PHYSICAL EXAMINATION: GENERAL: Significant for a pleasant female appearing her stated age, alert able to follow simple commands, in no acute distress. VITAL SIGNS: She is afebrile, pulse is 68, respirations 16, blood pressure 99/56, and O2 sat 98% on room air. HEENT: Vision, speech, hearing is grossly intact. No oral lesion noted. NECK: Supple without mass. HEART: Regular rhythm. CHEST: Clear. ABDOMEN: Soft, nontender, bowel sounds present. EXTREMITIES: No lower leg edema, no calf tenderness. MUSCULOSKELETAL: The left lower extremity strength grossly 4/5, right hip flexion 3/5, primarily due to pain, otherwise 4-/5.4-/5 strength BUES NEUROLOGIC: Sensation is grossly intact to touch. Cognition: She has mild impairment in memory, problem solving and executive function. IMPRESSION: 1. Ambulatory dysfunction secondary to right iliopsoas tear. 2. Left retroperitoneal hematoma. 3. Parkinson's. 4. Mild dementia. 5. HTN 6. CAD s/p stent 7.Mild tremor for which she takes propranolol PLAN: The patient will have a comprehensive program of inpatient rehabilitation with goal of maximizing level of functional independence prior to discharge home with her daughter. The patient will have PT, OT 90 minutes per day each discipline 5 days a week for 2 weeks with the above goals in mind. Specifically, modified independent to supervision for ADLs and mobility skills with decreased pain. Speech therapy to do cognitive assessment and treat as indicated. Rehabilitation nursing to assist with bowel, bladder, skin care, medication administration, pain management and social security benefits interviewer assist with discharge planning, community reentry. Follow up with Dr. Springer as per schedule. Consider orthopedic consult as needed.F/U with Cardiology prn. ESTIMATED LENGTH OF STAY: Two weeks. PROGNOSIS: Rehab prognosis appears good for goal of discharging home with her daughter hopefully at PLOF - modified independent to supervision for ADLs and mobility skills. DIET: Regular. CODE STATUS: Full code. Job ID: [id number] DocumentID: [id number] Dictated Date: 05/30/2018 19:57:20 Cloth Stock Sorter Date: 05/30/2018 20:50:13 Dictated By: SAMUEL NEWTON MD [facility]
[2018-05-31 05:52] VITALS: BP 107/59
[2018-05-31] MEDS: PROPRANOLOL 20 MG (INDERAL) TABLET PO SCH ×3 (06:27→21:09)
[2018-05-31] MEDS: CYANOCOBALAMIN 1,000 MCG (VITAMIN B-12) TABLET PO SCH (06:27)
--- NOTE | 2018-05-31 08:27 | Cardiology Progress Note ---
Subjective Date Seen by Provider: May 31, 2018 Time Seen by Provider: 08:26 Subjective/Events-last exam Patient is receiving physical therapy. Continues to complain of right groin pain. Denies any CP or increased dyspnea. Review of Systems General: No Night Sweats, No Fatigue, No Malaise HEENT: No Visual Changes, No Dysphasia Pulmonary: Dyspnea; No Cough Cardiovascular: No: Chest Pain, Palpitations, Paroxysmal Noc. Dyspnea, Edema Gastrointestinal: No: Nausea, Vomiting, Abdominal Pain Genitourinary: No Dysuria, No Frequency Musculoskeletal: No: neck pain, back pain Neurological: No: Weakness, Numbness, Change in speech, Confusion Objective-Cardiology Exam Last Set of Vital Signs Vital Signs 05/31/18 05:52 Temp 97.6 Pulse 72 Resp 18 B/P (MAP) 107/59 (75) Pulse Ox 93 O2 Delivery Room Air Capillary Refill : I&O Intake and Output 05/31/18 00:00 Intake Total 1280 ml Balance 1280 ml Intake Oral 1280 ml # Voids 6 # Bowel Movements 2 General: Alert, Cooperative, No Acute Distress HEENT: Atraumatic, PERRLA, EOMI, Mucous Memb Moist/[place] Neck: Supple, No JVD Lungs: Clear to Auscultation Heart: Regular Rate Abdomen: Normal Bowel Sounds, Soft, No Tenderness Extremities: No Edema Skin: No Rashes Neuro: Other (Left LE 4/5 RT hip flex 3/5 with guarding Mild dementa) A/P-Cardiology Admission Diagnosis Chest pain CAD HTN Right leg pain Assessment/Plan Chest pain nonspecific etiology, status post cardiac catheterization and stent. Reporting improvement Coronary artery disease, severe ostial right coronary artery stenosis status post stent using a Xience three-time 12 mm expanded to 3.25 at the ostium of the right coronary artery with a few struts extending outside the ostium, feeling well.EKG showed no changes. Status post transient hypotension and lethargy, probably vasovagal on top of a small retroperitoneal bleed, improved after receiving IV fluid. I proceeded with transfusing 2 units of packed RBCs, continue to monitor. Mild pedal edema, BNP is normal, questionable venous insufficiency, venous Doppler did not show DVT. Hypertension, good control at this time. Continue to monitor Right leg pain, MRI lower extremities done 05/29/18 revealed tear of right iliopsoas tendon with muscle strain of right iliacus, tendinopathy of gluteus minimus R>L. Continue physical therapy, management per PCP. Mild epigastric pain and right upper quadrant pain, history of cholecystectomy in the past. Started on PPI and monitor Mild tremor for which she takes propranolol Early dementia, maintained on Namenda History of cholecystectomy Clinical Quality Measures DVT/VTE Risk/Contraindication: Risk Factor Score Per Nursin RFS Level Per Nursing on Admit: 4+=Very High LETY BRADFORD May 31, 2018 08:27
[2018-05-31] MEDS: VITAMIN D3 5,000 UNITS (CHOLECALCIFEROL ) CAPSULE PO SCH (08:53)
[2018-05-31] MEDS: HYDROcodone/APAP 5 MG/325 MG (LORTAB) TAB PO PRN ×2 (08:53→22:49)
[2018-05-31] MEDS: MEMANTINE 10 MG (NAMENDA) TABLET PO SCH ×2 (08:53→21:10)
[2018-05-31] MEDS: TICAGRELOR 90 MG TABLET (BRILINTA) PO SCH ×2 (08:53→21:09)
[2018-05-31] MEDS: DOCUSATE SODIUM 100 MG (COLACE) CAP PO SCH (08:53)
[2018-05-31] MEDS: ASPIRIN E.C. 81 MG (ECOTRIN) TAB PO SCH (08:53)
[2018-05-31] MEDS: LIDOCAINE (LIDODERM) 5% PATCH TOP SCH (08:54)
--- NOTE | 2018-05-31 08:59 | Physical Therapy Daily Note ---
PT Daily Note-Current Subjective Patient in bed pre tx, agrees to PT, has pain of 8/10 in right groin area, also has developed pain in left groin. Appearance Patient in recliner post tx with nurse call,phone, tray, all needs met. Mental Status Patient Orientation: Person, Place Transfers Therapy Code Descriptions/Definitions Functional [place] Measure: 0=Not Assessed/NA 4=Minimal Assistance 1=Total Assistance 5=Supervision or Setup 2=Maximal Assistance 6=Modified [place] 3=Moderate Assistance 7=Complete [place] Therapy Quality Codes: 6 Independent with activity with or without an assistive device 5 Patient requires set up or clean up by helper. Patient completes activity by themselves 4 Supervision or touching assist (CGA). Deputy provide cues , steadying assist 3 The helper provides less than half the effort to complete the activity 2 The helper provides more than half the effort to complete the activity 1 Dependent. The helper does all the effort to complete an activity 7 Patient refused to complete or attempt activity 9 The patient did not perform the activity before the current illness or injury 88 Not attempted due to Medical conditions or safety concerns Transfers (B, C, W/C) (FIM): 5 Scootin Rollin Supine to/from Sit: 5 Sit to/from Stand: 5 Bed to/from Chair: 5 Cues for hand placement and safety. Weight Bearing Right Lower Extremity: Right Weight Bearing/Tolerated Left Lower Extremity: Left Weight Bearing/Tolerated Gait Training Gait (FIM): 5 Distance: 150'x2 Gait Level of Assist: 5 Gait Persons Needed: 1 Gait Assistive Device: FWW Slow but steady ambulation. Exercises Supine Ex: Ankle pumps, Quad Set, Glut sets, Hip abd/add Supine Reps: 20 LAQ alternating for 5 min NuStep Minutes: 15 NuStep Workload: 4 Treatments bed mobility and transfers, ambulation, functional strengthening, patient was also toileted once with SBA Assessment Current Status: Fair Progress improving ambulation PT Short Term Goals Short Term Goals Time Frame: Jun 04, 2018 Gait (FIM): 4 Distance (FIM): 3=150 ft Gait Level of Assist: 4 Gait Assistive Device: FWW PT Jail Goals Jail Goals PT Supervisor Wood Room Goals Time Frame: Jun 11, 2018 Transfers (B,C,W/C) (FIM): 7 Sit to Lying (QC): 6 Lying-Sitting on Side/Bed(QC): 6 Sit to Stand (QC): 6 Roll Left to Right (QC): 6 Chair/Mkr-js-Szmby Xfer(QC): 6 Car Transfer (QC): 6 Does the Patient Walk: Yes Gait (FIM): 6 Gait distance (FIM): 3=150 ft Walk 10 feet (QC): 6 Walk 10ft-Uneven Surface(QC): 6 Walk 50ft with 2 Turns (QC): 6 Walk 150 ft (QC): 6 Gait Assistive Device: FWW Does the Pt use WC or Scooter?: No Stairs (FIM): 5 # of Steps: 4 (household exception) 1 Step (curb) (QC): 6 4 Steps (QC): 6 12 Steps (QC): 88 Stairs Level Of Assist: 6 Picking up an Object (QC): 4 PT Plan Problem List Problem List: Activity Tolerance, Functional Strength, Safety, Balance, Gait, Transfer, Bed Mobility, ROM Treatment/Plan Treatment Plan: Continue Plan of Care Treatment Plan: Bed Mobility, Education, Functional Activity Erna, Functional Strength, Group Therapy, Gait, Safety, Therapeutic Exercise, Transfers Treatment Duration: Jun 11, 2018 Frequency: At least 5 of 7 days/Wk (IRF) Estimated Hrs Per Day: 1.5 hours per day Patient and/or Family Agrees t: Yes Safety Risks/Education Patient Education: Gait Training, Transfer Techniques, Correct Positioning, Safety Issues Teaching Recipient: Patient Teaching Methods: Demonstration, Discussion Response to Teaching: Reinforcement Needed Time/GCodes Time In: 0800 Time Out: 0900 Total Billed Treatment Time: 60 Total Billed Treatment 1 visit EX 30' GT 20' FA 10' KEVON MACKENZIE PT May 31, 2018 08:59
--- NOTE | 2018-05-31 10:29 | Cardiology Progress Note ---
Subjective Date Seen by Provider: May 31, 2018 Time Seen by Provider: 10:27 Subjective/Events-last exam Patient is sitting in a chair, feeling better, still having groin pain, dyspnea on exersion Review of Systems General: No Chills, No Night Sweats, No Fatigue, No Malaise, No Appetite, No Other HEENT: No Head Aches, No Visual Changes, No Eye Pain, No Ear Pain, No Dysphasia , No Sinus Congestion, No Post Nasal Drip, No Sore Throat, No Other Pulmonary: Dyspnea; No Cough, No Pleuritic Chest Pain, No Other Cardiovascular: No: Chest Pain, Palpitations, Orthopnea, Paroxysmal Noc. Dyspnea, Edema, Lt Headedness, Other Objective-Cardiology Exam Last Set of Vital Signs Vital Signs 05/31/18 05/31/18 05:52 09:12 Temp 97.6 Pulse 72 Resp 18 B/P (MAP) 107/59 (75) Pulse Ox 93 O2 Delivery Room Air Capillary Refill : I&O Intake and Output 05/31/18 00:00 Intake Total 1280 ml Balance 1280 ml Intake Oral 1280 ml # Voids 6 # Bowel Movements 2 General: Alert, Oriented X3, Cooperative, No Acute Distress HEENT: Atraumatic, PERRLA, EOMI, Mucous Memb Moist/[place] Neck: Supple, No JVD Lungs: Clear to Auscultation Heart: Regular Rate, Normal S1, Normal S2 Abdomen: Normal Bowel Sounds, Soft, No Tenderness Extremities: No Clubbing, No Cyanosis, No Edema Skin: No Rashes Neuro: Normal Speech, Other (Left LE 4/5 RT hip flex 3/5 with guarding Mild dementa) A/P-Cardiology Admission Diagnosis Chest pain CAD HTN Right leg pain Assessment/Plan Chest pain nonspecific etiology, status post cardiac catheterization and stent. Reporting improvement, continue to monitor Coronary artery disease, severe ostial right coronary artery stenosis status post stent using a Xience three-time 12 mm expanded to 3.25 at the ostium of the right coronary artery with a few struts extending outside the ostium, feeling well. EKG showed no changes. Continue to monitor Status post transient hypotension and lethargy, probably vasovagal on top of a small retroperitoneal bleed, improved after receiving IV fluid. I proceeded with transfusing 2 units of packed RBCs, continue to monitor. Mild pedal edema, BNP is normal, questionable venous insufficiency, venous Doppler did not show DVT. Hypertension, good control at this time. Continue to monitor Right leg pain, MRI lower extremities done 05/29/18 revealed tear of right iliopsoas tendon with muscle strain of right iliacus, tendinopathy of gluteus minimus R>L. Continue physical therapy, management per PCP. Mild epigastric pain and right upper quadrant pain, history of cholecystectomy in the past. Started on PPI and monitor Mild tremor for which she takes propranolol Early dementia, maintained on Namenda History of cholecystectomy Clinical Quality Measures DVT/VTE Risk/Contraindication: Risk Factor Score Per Nursin RFS Level Per Nursing on Admit: 4+=Very High HOLLIS BARRIOS MD May 31, 2018 10:29
--- NOTE | 2018-05-31 11:17 | Occupational Ther Daily Note ---
OT Current Status-Daily Note Subjective Pt alert, sitting in recliner. Family present in room. Pt agrees to therapy. C/o pain in groin, did not rate or ask for pain meds. Mental Status/Objective Patient Orientation: Person, Place, Time, Situation Therapy Code Descriptions/Definitions Functional [place] Measure: 0=Not Assessed/NA 4=Minimal Assistance 1=Total Assistance 5=Supervision or Setup 2=Maximal Assistance 6=Modified [place] 3=Moderate Assistance 7=Complete [place] ADL-Treatment Therapy Code Descriptions/Definitions Functional [place] Measure: 0=Not Assessed/NA 4=Minimal Assistance 1=Total Assistance 5=Supervision or Setup 2=Maximal Assistance 6=Modified [place] 3=Moderate Assistance 7=Complete [place] Therapy Quality Codes: 6 Independent with activity with or without an assistive device 5 Patient requires set up or clean up by helper. Patient completes activity by themselves 4 Supervision or touching assist (CGA). [place] provide cues , steadying assist 3 The helper provides less than half the effort to complete the activity 2 The helper provides more than half the effort to complete the activity 1 Dependent. The helper does all the effort to complete an activity 7 Patient refused to complete or attempt activity 9 The patient did not perform the activity before the current illness or injury 88 Not attempted due to Medical conditions or safety concerns Grooming (FIM): 5 (Standing at sink using FWW pt able to complete with supervision.) Oral Hygiene (QC): 4 Bathing (FIM): 5 (Using shower bench, hand held shower, grabbars and long handle sponge pt able to complete with supervision while standing.) Bathing Location: L Arm, R Arm, L Upper Leg, R Upper Leg, L Lower Leg ( including foot), R Lower Leg (including foot), Chest, Abdomen, Buttocks, Perineal Area Shower/Bathe Self (QC): 4 Upper Body (FIM): 5 (After set up, pt completed by self.) Upper Body Dressing (QC): 5 Lower Body Dressing (FIM): 5 (After instruction for AE and set up, pt able to complete lower body dressing with supervision while standing.) Lower Body Dressing (QC): 4 On/Off Footwear (QC): 5 Toileting (FIM): 5 (Supervision using FWW and grabbars.) Toileting Hygiene (QC): 4 Toilet/Commode Transfer (FIM): 5 (Supervision using grabbar and FWW.) Toilet Transfer (QC): 4 Shower Transfer(FIM): 5 (Supervision using grabbar, shower bench and FWW.) Other Treatment Pt ambulated to therapy gym with SBA using FWW. Completed arm bike 15 min at 15 schmitz resistance, without recovery breaks, to increase strength and activity tolerance for daily functional tasks. Pt ambulated back to room using FWW. After therapy, pt sitting in recliner with call light/phone in reach. All needs met in room. Education OT Patient Education: Modified ADL techniques, Use of adapted equipment Teaching Recipient: Patient Teaching Methods: Demonstration, Discussion Response to Teaching: Verbalize Understanding, Return Demonstration, Reinforcement Needed OT Short Term Goals Short Term Goals Time Frame: Jun 04, 2018 Lower Body Dressing(FIM): 4 Toileting(FIM): 5 Toilet/Commode Transfer(FIM): 5 Additional Short Term Goals: 1-Demonstrate ADL Tasks, 2-Verbalize Understanding , 3-ImproveStrength/Erna 1=Demonstrate adherence to instructed precautions during ADL tasks. 2=Patient will verbalize/demonstrate understanding of assistive devices/ modifications for ADL. 3=Patient will improve strength/tolerance for activity to enable patient to perform ADL's. OT [employer] Goals [facility] Goals Time Frame: Jun 18, 2018 Eating (FIM): 6 Eating (QC): 6 Groomin Oral Hygiene (QC): 6 Bathing(FIM): 5 Shower/Bathe Self (QC): 5 Upper Body Dressing(FIM): 6 Upper Body Dressing (QC): 6 Lower Body Dressing(FIM): 6 Lower Body Dressing (QC): 6 On/Off Footwear (QC): 6 Toileting(FIM): 6 Toileting Hygiene (QC): 6 Toilet/Commode Transfer(FIM): 6 Toilet/Commode Transfer (QC): 6 Shower Transfer(FIM): 5 Additional Goals: 2-Verbalize Understanding, 3-ImproveStrength/Erna 1=Demonstrate adherence to instructed precautions during ADL tasks. 2=Patient will verbalize/demonstrate understanding of assistive devices/ modifications for ADL. 3=Patient will improve strength/tolerance for activity to enable patient to perform ADL's. OT Education/Plan Problem List/Assessment Pt to benefit from skilled OT intervention for ADL training, transfers, strengthening, and safety education to increase level of function and allow safe discharge plan. Discharge Recommendations Plan/Recommendations: Continue POC Treatment Plan/Plan of Care Patient would benefit from OT for education, treatment and training to promote independence in ADL's, mobility, safety and/or upper extremity function for ADL' s. Plan of Care: ADL Retraining, Functional Mobility, Group Exercise/Act as Ind, UE Funct Exercise/Act Treatment Duration: Jun 18, 2018 Frequency: At least 5 of 7 days/Wk (IRF) Estimated Hrs Per Day: 1.5 hours per day Agreement: Yes Rehab Potential: Good Time/GCodes Start Time: 10:00 Stop Time: 11:15 Total Time Billed (hr/min): 75 Billed Treatment Time 1 visit-ADL 4 (60 min) EX 1 (15 min) APOORVA CROWLEY May 31, 2018 11:17
--- NOTE | 2018-05-31 13:00 | Speech Therapy Daily Note ---
Speech Daily Progress Note Subjective Date Seen by Provider: May 31, 2018 Time Seen by Provider: 00:30 Patient pleasant and cooperative. Objective Patient completed memory tasks related to her daily tasks and safety at 80% with min to mod verbal cues. Assessment Assessment Current Status: Good Progress Treatment Plan Continue Plan of Care Communication Comprehension: 4 Expression: 5 Social Cognition Social Interaction: 5 Problem Solvin Memory: 3 Speech Short Term Goals Short Term Goals Short Term Goals Patient will be able to recall words provided to respond to questions in sentence form with 90% or greater accuracy. Patient will recall information presented in paragraphs with 90% or greater accuracy. Patient will recall safety precautions with minimal verbal and/or visual cuing at 90% or greater accuracy. Speech Senior Living Goals Senior Living Goals Patient will be able to demonstrate safety awareness and independence within her immediate environment with minimal cues at 90% accuracy. Speech-Plan Patient/Family Goals Patient/Family Goals: Patient plans to go to assisted living post rehab. Treatment Plan Speech Therapy Treatment Plan: Continue Plan of Care Patient stated she was tired from all of the therapy but thought she was feeling better. Treatment Duration: Jun 04, 2018 Frequency: 5 times per week Estimated Hrs Per Day: .5 hour per day Rehab Potential: Good Barriers to Learning: Patient tires easily with all activities. Pt/Family Agrees to Plan: Yes Safety Risks/Education Teaching Recipient: Patient Teaching Methods: Discussion Response to Teaching: Verbalize Understanding Education Topics Provided: Safety within her living environment. Time Speech Therapy Time In: 11:30 Speech Therapy Time Out: 12:00 Total Billed Time: 30 Billed Treatment Time 1, ASH Sy May 31, 2018 13:00
[2018-05-31 14:12] VITALS: BP 101/64
--- NOTE | 2018-05-31 14:47 | Physical Therapy Daily Note ---
PT Daily Note-Current Subjective Agrees to PT. Reports she is tired this afternoon. Mental Status Patient Orientation: Person, Confused (slightly), Place, Time, Situation Transfers Therapy Code Descriptions/Definitions Functional [place] Measure: 0=Not Assessed/NA 4=Minimal Assistance 1=Total Assistance 5=Supervision or Setup 2=Maximal Assistance 6=Modified [place] 3=Moderate Assistance 7=Complete [place] Therapy Quality Codes: 6 Independent with activity with or without an assistive device 5 Patient requires set up or clean up by helper. Patient completes activity by themselves 4 Supervision or touching assist (CGA). [place] provide cues , steadying assist 3 The helper provides less than half the effort to complete the activity 2 The helper provides more than half the effort to complete the activity 1 Dependent. The helper does all the effort to complete an activity 7 Patient refused to complete or attempt activity 9 The patient did not perform the activity before the current illness or injury 88 Not attempted due to Medical conditions or safety concerns Weight Bearing Right Lower Extremity: Right Weight Bearing/Tolerated Left Lower Extremity: Left Weight Bearing/Tolerated Treatments Pt performed all sit to stand transfers with SBA requiring skilled cues for sequencing 25% of the time. Pt ambulated x 200 ft; 250 ft and 200 ft with FWW with CGA. Pt toileted with SBA for toilet transfers, tiara care and clothing management. Stood at sink to wash her hands as well. Pt transferred sit to supine with min assist; assisting with the right LE. In bed post treatment with needs met. Assessment Current Status: Good Progress Requires cues for sequencing for safe transfers; safe with gait. PT Short Term Goals Short Term Goals Time Frame: Jun 04, 2018 Gait (FIM): 4 Distance (FIM): 3=150 ft Gait Level of Assist: 4 Gait Assistive Device: FWW PT Assisted Goals Digital Account Coordinator Goals PT Digital Account Coordinator Goals Time Frame: Jun 11, 2018 Transfers (B,C,W/C) (FIM): 7 Sit to Lying (QC): 6 Lying-Sitting on Side/Bed(QC): 6 Sit to Stand (QC): 6 Rollin Roll Left to Right (QC): 6 Chair/[id number]-[id number] Xfer(QC): 6 Car Transfer (QC): 6 Does the Patient Walk: Yes Gait (FIM): 6 Gait distance (FIM): 3=150 ft Walk 10 feet (QC): 6 Walk 10ft-Uneven Surface(QC): 6 Walk 50ft with 2 Turns (QC): 6 Walk 150 ft (QC): 6 Gait Assistive Device: FWW Does the Pt use WC or Scooter?: No Stairs (FIM): 5 # of Steps: 4 (household exception) 1 Step (curb) (QC): 6 4 Steps (QC): 6 12 Steps (QC): 88 Stairs Level Of Assist: 6 Picking up an Object (QC): 4 PT Plan Problem List Problem List: Activity Tolerance, Functional Strength, Safety Treatment/Plan Treatment Plan: Continue Plan of Care Treatment Plan: Bed Mobility, Education, Functional Activity Erna, Functional Strength, Group Therapy, Gait, Safety, Therapeutic Exercise, Transfers Treatment Duration: Jun 11, 2018 Frequency: At least 5 of 7 days/Wk (IRF) Estimated Hrs Per Day: 1.5 hours per day Patient and/or Family Agrees t: Yes Safety Risks/Education Patient Education: Transfer Techniques, Safety Issues Teaching Recipient: Patient Teaching Methods: Demonstration, Discussion Response to Teaching: Reinforcement Needed Time/GCodes Time In: 1330 Time Out: 1400 Total Billed Treatment Time: 30 Total Billed Treatment visit GT 30 APOORVA HERRERA PT May 31, 2018 14:47
[2018-05-31 17:18] VITALS: BP 99/65
[2018-05-31] MEDS: SERTRALINE 50 MG (ZOLOFT) TABLET PO SCH (21:09)
--- NOTE | 2018-05-31 21:09 | PM & R (SOAP) Progress Note ---
Subjective This was a face to face visit with the patient. Date Seen by Provider: May 31, 2018 Time Seen by Provider: 20:50 Subjective/Events-last exam Patient was seen in her room this evening Patients pain decreasing in rt leg/ groin from tear.Patient CGA for gait with WW Review of Systems Musculoskeletal: leg pain Objective Physician Exam Last Set of Vital Signs Vital Signs Date Time Temp Pulse Resp B/P (MAP) Pulse Ox O2 Delivery O2 Flow Rate FiO2 05/31/18 19:30 Room Air 05/31/18 17:18 99.2 70 16 99/65 (76) 97 Capillary Refill : I&O Intake and Output 05/31/18 00:00 Intake Total 1280 ml Balance 1280 ml Intake Oral 1280 ml # Voids 6 # Bowel Movements 2 General: Alert, Oriented X3, Cooperative, No Acute Distress HEENT: Atraumatic, PERRLA, EOMI, Mucous Memb Moist/[place] Neck: Supple, No JVD Lungs: Clear to Auscultation Heart: Regular Rate, Normal S1, Normal S2 Abdomen: Normal Bowel Sounds, Soft, No Tenderness Extremities: No Clubbing, No Cyanosis, No Edema Skin: No Rashes Neuro: Normal Speech, Other (Left LE 4/5 RT hip flex 3/5 with guarding Mild dementa) Results Lab Data Laboratory Tests 05/30/18 04:30: White Blood Count 9.2, Red Blood Count 3.41L, Hemoglobin 10.8L, Hematocrit 33L, Mean Corpuscular Volume 97, Mean Corpuscular Hemoglobin 32, Mean Corpuscular Hemoglobin Concent 33, Red Cell Distribution Width 14.0, Platelet Count 215, Mean Platelet Volume 9.4, Neutrophils (%) (Auto) 72, Lymphocytes (%) (Auto) 13, Monocytes (%) (Auto) 11, Eosinophils (%) (Auto) 4, Basophils (%) (Auto) 0, Neutrophils # (Auto) 6.6, Lymphocytes # (Auto) 1.2, Monocytes # (Auto) 1.0, Eosinophils # (Auto) 0.4H, Basophils # (Auto) 0.0 Assessment/Plan Assessment and Plan RT iliopsoas tear Left retroperitoneal tear Parkinsons dementia tremor takes propranolol HTN controlled CAD s/p Stent Plan Continue PT/OT Pain management as needed F/U wit PCP and Cardiology as per their schedule Team Conference 06-02-18 Co-Morbidities that are continuing to impact the rehab process: (include details ) SAMUEL NEWTON MD May 31, 2018 21:09
[2018-05-31] MEDS: LIDOCAINE PATCH REMOVAL TP SCH (21:10)
[2018-06-01] MEDS: CYANOCOBALAMIN 1,000 MCG (VITAMIN B-12) TABLET PO SCH (06:11)
[2018-06-01] MEDS: PROPRANOLOL 20 MG (INDERAL) TABLET PO SCH ×3 (06:11→20:20)
[2018-06-01 06:17] VITALS: BP 97/64
--- NOTE | 2018-06-01 08:13 | Cardiology Progress Note ---
Subjective Date Seen by Provider: Jun 01, 2018 Time Seen by Provider: 08:12 Subjective/Events-last exam Patient is in bed, complaining of mild dyspnea, no chest pain Review of Systems General: No Chills, No Night Sweats, No Fatigue, No Malaise, No Appetite, No Other HEENT: No Head Aches, No Visual Changes, No Eye Pain, No Ear Pain, No Dysphasia , No Sinus Congestion, No Post Nasal Drip, No Sore Throat, No Other Pulmonary: Dyspnea; No Cough, No Pleuritic Chest Pain, No Other Cardiovascular: No: Chest Pain, Palpitations, Orthopnea, Paroxysmal Noc. Dyspnea, Edema, Lt Headedness, Other Objective-Cardiology Exam Last Set of Vital Signs Vital Signs 06/01/18 06:17 Temp 99.1 Pulse 74 Resp 20 B/P (MAP) 97/64 (75) Pulse Ox 91 O2 Delivery Room Air Capillary Refill : I&O Intake and Output 06/01/18 00:00 Intake Total 1300 ml Balance 1300 ml Intake Oral 1300 ml # Voids 6 General: Alert, Oriented X3, Cooperative, No Acute Distress HEENT: Atraumatic, PERRLA, EOMI, Mucous Memb Moist/[place] Neck: Supple, No JVD Lungs: Clear to Auscultation Heart: Regular Rate, Normal S1, Normal S2 Abdomen: Normal Bowel Sounds, Soft, No Tenderness Extremities: No Clubbing, No Cyanosis, No Edema Skin: No Rashes Neuro: Normal Speech, Other (Left LE 4/5 RT hip flex 3/5 with guarding Mild dementa) A/P-Cardiology Admission Diagnosis Chest pain CAD HTN Right leg pain Assessment/Plan Chest pain nonspecific etiology, status post cardiac catheterization and stent. No further episodes of chest pain, continue to monitor Coronary artery disease, severe ostial right coronary artery stenosis status post stent using a Xience three-time 12 mm expanded to 3.25 at the ostium of the right coronary artery with a few struts extending outside the ostium, feeling well. EKG showed no changes. Continue to monitor Status post transient hypotension and lethargy, probably vasovagal on top of a small retroperitoneal bleed, improved after receiving IV fluid. I proceeded with transfusing 2 units of packed RBCs, continue to monitor. Mild pedal edema, BNP is normal, questionable venous insufficiency, venous Doppler did not show DVT. 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 Continue physical therapy, management per PCP. Mild epigastric pain and right upper quadrant pain, history of cholecystectomy in the past. Started on PPI and monitor Mild tremor for which she takes propranolol Early dementia, maintained on Namenda History of cholecystectomy Clinical Quality Measures DVT/VTE Risk/Contraindication: Risk Factor Score Per Nursin RFS Level Per Nursing on Admit: 4+=Very High HOLLIS BARRIOS MD Jun 01, 2018 08:13
[2018-06-01] MEDS: LIDOCAINE (LIDODERM) 5% PATCH TOP SCH (09:20)
[2018-06-01] MEDS: ASPIRIN E.C. 81 MG (ECOTRIN) TAB PO SCH (09:20)
[2018-06-01] MEDS: DOCUSATE SODIUM 100 MG (COLACE) CAP PO SCH (09:20)
[2018-06-01] MEDS: VITAMIN D3 5,000 UNITS (CHOLECALCIFEROL ) CAPSULE PO SCH (09:20)
[2018-06-01] MEDS: MEMANTINE 10 MG (NAMENDA) TABLET PO SCH ×2 (09:20→20:20)
[2018-06-01] MEDS: TICAGRELOR 90 MG TABLET (BRILINTA) PO SCH ×2 (09:20→20:20)
--- NOTE | 2018-06-01 10:07 | Occupational Ther Daily Note ---
OT Current Status-Daily Note Subjective Pt dozing in bed, woke to name. Pt agrees to therapy. Pt c/o pain in R shldr, upper arm. Pt appears disoriented though does know place, situation, time and name. Pt became dizzy during therapy, BP taken right after ambulating to recliner to sit (97/58) then a 2nd time in sitting (101/68). Reported to nrsg. Pt continued to feel slightly dizzy, decreasing with sitting and LE elevated. Mental Status/Objective Patient Orientation: Person, Place, Time, Situation Therapy Code Descriptions/Definitions Functional [place] Measure: 0=Not Assessed/NA 4=Minimal Assistance 1=Total Assistance 5=Supervision or Setup 2=Maximal Assistance 6=Modified [place] 3=Moderate Assistance 7=Complete [place] ADL-Treatment Pt ambulated to bathroom with CGA due to dizziness. Transferred to toilet using FWW and grabbars with close SBA. Toileting/hygiene by self. Transferred to shower with SBA. Completed shower using hand held shower, shower bench, grabbar and long handle sponge with supervision. After set up, pt completed upper body dressing by self. Using AE pt able to complete lower body dressing with supervision. Verbal cues to use AE efficiently. Standing at sink to complete own grooming with supervision. Ambulated to recliner with FWW and reported dizziness, reported BP and dizziness to nrsg. Pt sitting in recliner and ROJAS discussed AE for home and energy conservation. Pt verbalized understanding of topics. Resource catalog left in pt's room. Pt visibly upset about children not being on the same page about her care and where she needed to be. Pt appeared to be relieved to be able to discuss this topic. Pt continues to be feeling "not quite right" after therapy. Report to nrsg. Call light/phone in reach. All needs met in room. Therapy Code Descriptions/Definitions Functional [place] Measure: 0=Not Assessed/NA 4=Minimal Assistance 1=Total Assistance 5=Supervision or Setup 2=Maximal Assistance 6=Modified [place] 3=Moderate Assistance 7=Complete [place] Therapy Quality Codes: 6 Independent with activity with or without an assistive device 5 Patient requires set up or clean up by helper. Patient completes activity by themselves 4 Supervision or touching assist (CGA). [place] provide cues , steadying assist 3 The helper provides less than half the effort to complete the activity 2 The helper provides more than half the effort to complete the activity 1 Dependent. The helper does all the effort to complete an activity 7 Patient refused to complete or attempt activity 9 The patient did not perform the activity before the current illness or injury 88 Not attempted due to Medical conditions or safety concerns Grooming (FIM): 5 Oral Hygiene (QC): 4 Bathing (FIM): 5 Bathing Location: L Arm, R Arm, L Upper Leg, R Upper Leg, L Lower Leg ( including foot), R Lower Leg (including foot), Chest, Abdomen, Buttocks, Perineal Area Shower/Bathe Self (QC): 4 Upper Body (FIM): 5 Upper Body Dressing (QC): 5 Lower Body Dressing (FIM): 5 Lower Body Dressing (QC): 4 On/Off Footwear (QC): 5 Toileting (FIM): 5 Toileting Hygiene (QC): 5 Toilet/Commode Transfer (FIM): 5 Toilet Transfer (QC): 4 Shower Transfer(FIM): 5 OT Short Term Goals Short Term Goals Time Frame: Jun 04, 2018 Lower Body Dressing(FIM): 4 Toileting(FIM): 5 Toilet/Commode Transfer(FIM): 5 Additional Short Term Goals: 1-Demonstrate ADL Tasks, 2-Verbalize Understanding , 3-ImproveStrength/Erna 1=Demonstrate adherence to instructed precautions during ADL tasks. 2=Patient will verbalize/demonstrate understanding of assistive devices/ modifications for ADL. 3=Patient will improve strength/tolerance for activity to enable patient to perform ADL's. OT Aadc Plans Staff Officer Goals Fdc Goals Time Frame: Jun 18, 2018 Eating (FIM): 6 Eating (QC): 6 Groomin Oral Hygiene (QC): 6 Bathing(FIM): 5 Shower/Bathe Self (QC): 5 Upper Body Dressing(FIM): 6 Upper Body Dressing (QC): 6 Lower Body Dressing(FIM): 6 Lower Body Dressing (QC): 6 On/Off Footwear (QC): 6 Toileting(FIM): 6 Toileting Hygiene (QC): 6 Toilet/Commode Transfer(FIM): 6 Toilet/Commode Transfer (QC): 6 Shower Transfer(FIM): 5 Additional Goals: 2-Verbalize Understanding, 3-ImproveStrength/Erna 1=Demonstrate adherence to instructed precautions during ADL tasks. 2=Patient will verbalize/demonstrate understanding of assistive devices/ modifications for ADL. 3=Patient will improve strength/tolerance for activity to enable patient to perform ADL's. OT Education/Plan Problem List/Assessment Pt to benefit from skilled OT intervention for ADL training, transfers, strengthening, and safety education to increase level of function and allow safe discharge plan. Discharge Recommendations Plan/Recommendations: Continue POC Treatment Plan/Plan of Care Patient would benefit from OT for education, treatment and training to promote independence in ADL's, mobility, safety and/or upper extremity function for ADL' s. Plan of Care: ADL Retraining, Functional Mobility, Group Exercise/Act as Ind, UE Funct Exercise/Act Treatment Duration: Jun 18, 2018 Frequency: At least 5 of 7 days/Wk (IRF) Estimated Hrs Per Day: 1.5 hours per day Agreement: Yes Rehab Potential: Good Time/GCodes Start Time: 08:40 Stop Time: 10:00 Total Time Billed (hr/min): 80 Billed Treatment Time 1 visit-ADL 4 (60 min) FA 1 (20 min) APOORVA CROWLEY Jun 01, 2018 10:07
--- NOTE | 2018-06-01 11:49 | Speech Therapy Daily Note ---
Speech Daily Progress Note Subjective Date Seen by Provider: Jun 01, 2018 Time Seen by Provider: 00:30 Patient was resting in her chair when I entered the room. She stated she wasn't having a good day. Objective Patient was able to complete memory tasks and engage in simple conversational tasks with minimal cues. Assessment Assessment Current Status: Good Progress Treatment Plan Continue Plan of Care Communication Comprehension: 4 Expression: 5 Social Cognition Social Interaction: 5 Problem Solvin Memory: 3 Speech Short Term Goals Short Term Goals Short Term Goals Patient will be able to recall words provided to respond to questions in sentence form with 90% or greater accuracy. Patient will recall information presented in paragraphs with 90% or greater accuracy. Patient will recall safety precautions with minimal verbal and/or visual cuing at 90% or greater accuracy. Speech Assembler Seat Goals Assembler Seat Goals Patient will be able to demonstrate safety awareness and independence within her immediate environment with minimal cues at 90% accuracy. Speech-Plan Patient/Family Goals Patient/Family Goals: Family is planning to set up the patient in local assisted living when she is released from rehab. Treatment Plan Speech Therapy Treatment Plan: Continue Plan of Care Patient is progressing well with skilled services. Treatment Duration: Jun 04, 2018 Frequency: 5 times per week Estimated Hrs Per Day: .5 hour per day Rehab Potential: Good Barriers to Learning: Patient has dementia. Pt/Family Agrees to Plan: Yes Safety Risks/Education Teaching Recipient: Patient Teaching Methods: Discussion Response to Teaching: Verbalize Understanding Education Topics Provided: Safety and what may be expected with assisted living facilities. Time Speech Therapy Time In: 10:30 Speech Therapy Time Out: 11:00 Total Billed Time: 30 Billed Treatment Time 1, ASH Sy Jun 01, 2018 11:49
--- NOTE | 2018-06-01 12:19 | Physical Therapy Daily Note ---
PT Daily Note-Current Subjective Pt reclined in recliner upon arrival. Pt agrees to PT. Pain Numeric Pain Scale: 8 Location: Left Location Body Site: Thigh Pain Description: Stabbing Mental Status Patient Orientation: Person, Place, Time, Situation Transfers Therapy Code Descriptions/Definitions Functional [place] Measure: 0=Not Assessed/NA 4=Minimal Assistance 1=Total Assistance 5=Supervision or Setup 2=Maximal Assistance 6=Modified [place] 3=Moderate Assistance 7=Complete [place] Therapy Quality Codes: 6 Independent with activity with or without an assistive device 5 Patient requires set up or clean up by helper. Patient completes activity by themselves 4 Supervision or touching assist (CGA). [place] provide cues , steadying assist 3 The helper provides less than half the effort to complete the activity 2 The helper provides more than half the effort to complete the activity 1 Dependent. The helper does all the effort to complete an activity 7 Patient refused to complete or attempt activity 9 The patient did not perform the activity before the current illness or injury 88 Not attempted due to Medical conditions or safety concerns Scootin Rollin Roll Left to Right (QC): 4 Supine to/from Sit: 4 Sit to/from Stand: 5 Sit to Lying (QC): 4 Sit to Stand (QC): 5 Weight Bearing Right Lower Extremity: Right Weight Bearing/Tolerated Left Lower Extremity: Left Weight Bearing/Tolerated Wheelchair Training Does the Pt Use a Wheelchair?: No Exercises Supine Ex: Ankle pumps, Quad Set, Glut sets, Hip abd/add Supine Reps: 15 (2 sets of 15 reps) Treatments AMUSEMENT EQUIPMENT OPERATOR visits & completes pt ed over medical history, ARU weekly mtg., what Therapy is trying to achieve as well as pt confirming with family that best place for pt after discharge from ARU is [place]. Pt completes Seated Ex, then uses restroom before asking to lay down. Pt completes Supine Ex in bed. Pt resting Supine at end of tx with all needs met. Assessment Current Status: Fair Progress Pt reports increase in pain lnidsay. in R groin that radiates down towards knee. PT Short Term Goals Short Term Goals Time Frame: Jun 04, 2018 Gait (FIM): 4 Distance (FIM): 3=150 ft Gait Level of Assist: 4 Gait Assistive Device: FWW PT Mcc Goals Console Attendant Goals PT Console Attendant Goals Time Frame: Jun 11, 2018 Transfers (B,C,W/C) (FIM): 7 Sit to Lying (QC): 6 Lying-Sitting on Side/Bed(QC): 6 Sit to Stand (QC): 6 Rollin Roll Left to Right (QC): 6 Chair/Naz-uz-Vortw Xfer(QC): 6 Car Transfer (QC): 6 Does the Patient Walk: Yes Gait (FIM): 6 Gait distance (FIM): 3=150 ft Walk 10 feet (QC): 6 Walk 10ft-Uneven Surface(QC): 6 Walk 50ft with 2 Turns (QC): 6 Walk 150 ft (QC): 6 Gait Assistive Device: FWW Does the Pt use WC or Scooter?: No Stairs (FIM): 5 # of Steps: 4 (household exception) 1 Step (curb) (QC): 6 4 Steps (QC): 6 12 Steps (QC): 88 Stairs Level Of Assist: 6 Picking up an Object (QC): 4 PT Plan Problem List Problem List: Activity Tolerance, Functional Strength, Safety, Balance, Gait Treatment/Plan Treatment Plan: Continue Plan of Care Treatment Plan: Bed Mobility, Education, Functional Activity Erna, Functional Strength, Group Therapy, Gait, Safety, Therapeutic Exercise, Transfers Treatment Duration: Jun 11, 2018 Frequency: At least 5 of 7 days/Wk (IRF) Estimated Hrs Per Day: 1.5 hours per day Patient and/or Family Agrees t: Yes Safety Risks/Education Patient Education: Gait Training, Transfer Techniques, Correct Positioning, Safety Issues Teaching Recipient: Patient Teaching Methods: Discussion Response to Teaching: Verbalize Understanding Time/GCodes Time In: 1100 Time Out: 1200 Total Billed Treatment Time: 60 Total Billed Treatment 1, FA x2 (25m) & EX x2 (35m) G Codes Necessary: LUCIAN Sam AMUSEMENT EQUIPMENT OPERATOR Jun 01, 2018 12:19
--- NOTE | 2018-06-01 16:02 | Physical Therapy Daily Note ---
PT Daily Note-Current Subjective Pt laying Supine in bed. Pt agrees to PT. Pain Numeric Pain Scale: 5-Moderate Pain Location: Right Location Body Site: Thigh Pain Description: Stabbing, Radiating Mental Status Patient Orientation: Person, Place, Time, Situation Transfers Therapy Code Descriptions/Definitions Functional [place] Measure: 0=Not Assessed/NA 4=Minimal Assistance 1=Total Assistance 5=Supervision or Setup 2=Maximal Assistance 6=Modified [place] 3=Moderate Assistance 7=Complete [place] Therapy Quality Codes: 6 Independent with activity with or without an assistive device 5 Patient requires set up or clean up by helper. Patient completes activity by themselves 4 Supervision or touching assist (CGA). [place] provide cues , steadying assist 3 The helper provides less than half the effort to complete the activity 2 The helper provides more than half the effort to complete the activity 1 Dependent. The helper does all the effort to complete an activity 7 Patient refused to complete or attempt activity 9 The patient did not perform the activity before the current illness or injury 88 Not attempted due to Medical conditions or safety concerns Weight Bearing Right Lower Extremity: Right Weight Bearing/Tolerated Left Lower Extremity: Left Weight Bearing/Tolerated Wheelchair Training Does the Pt Use a Wheelchair?: No Exercises Supine Ex: Ankle pumps, Quad Set, Glut sets, Straight leg raise, Hip abd/add Supine Reps: 15 Treatments Pt completes quick run through of all Supine Ex again and reports having no questions. Assessment Current Status: Fair Progress Pt's pain at times has limited completion of Ex both in morning and afternoon tx sessions. PT Short Term Goals Short Term Goals Time Frame: Jun 04, 2018 Gait (FIM): 4 Distance (FIM): 3=150 ft Gait Level of Assist: 4 Gait Assistive Device: FWW PT Central Service Tech Goals [facility] Goals PT [facility] Goals Time Frame: Jun 11, 2018 Transfers (B,C,W/C) (FIM): 7 Sit to Lying (QC): 6 Lying-Sitting on Side/Bed(QC): 6 Sit to Stand (QC): 6 Rollin Roll Left to Right (QC): 6 Chair/Ahi-en-Lwups Xfer(QC): 6 Car Transfer (QC): 6 Does the Patient Walk: Yes Gait (FIM): 6 Gait distance (FIM): 3=150 ft Walk 10 feet (QC): 6 Walk 10ft-Uneven Surface(QC): 6 Walk 50ft with 2 Turns (QC): 6 Walk 150 ft (QC): 6 Gait Assistive Device: FWW Does the Pt use WC or Scooter?: No Stairs (FIM): 5 # of Steps: 4 (household exception) 1 Step (curb) (QC): 6 4 Steps (QC): 6 12 Steps (QC): 88 Stairs Level Of Assist: 6 Picking up an Object (QC): 4 PT Plan Problem List Problem List: Activity Tolerance, Functional Strength, Safety, Balance, Gait, Transfer Treatment/Plan Treatment Plan: Continue Plan of Care Treatment Plan: Bed Mobility, Education, Functional Activity Erna, Functional Strength, Group Therapy, Gait, Safety, Therapeutic Exercise, Transfers Treatment Duration: Jun 11, 2018 Frequency: At least 5 of 7 days/Wk (IRF) Estimated Hrs Per Day: 1.5 hours per day Patient and/or Family Agrees t: Yes Safety Risks/Education Patient Education: Transfer Techniques, Correct Positioning, Safety Issues Teaching Recipient: Patient Teaching Methods: Discussion Response to Teaching: Verbalize Understanding Time/GCodes Time In: 1415 Time Out: 1430 Total Billed Treatment Time: 15 Total Billed Treatment 1, EX (15m) G Codes Necessary: LUCIAN Sam PTA Jun 01, 2018 16:02
--- NOTE | 2018-06-01 16:30 | Individualized Plan of Care ---
Individualized Plan of Care Rehab Nursing IPOC Order Admission Date May 28, 2018 at 11:10 Current Orders Orders Pt Evaluate/Treat Request (05/28/18 10:01) Request Ot Evaluate & Treat (05/28/18 10:01) Request For Cognitive Services (05/28/18 10:01) Admission Order(Inpt,Obs,Sdc) (05/28/18 11:21) Docusate Sodium Capsule (Colace Capsule) (05/29/18 09:00) Hydrocodone/Apap 5/325 Tablet (Lortab 5 (05/28/18 11:30) Ticagrelor Tablet (Brilinta Tablet) (05/28/18 21:00) Aspirin Enteric Coated Tablet (Ecotrin T (05/29/18 09:00) Cholecalciferol Capsule/Tablet (Vitamin (05/29/18 09:00) Cyanocobalamin Tablet (Vitamin B-12 Tabl (05/29/18 07:00) Levothyroxine Tablet (Synthroid Tablet) (05/29/18 06:30) Memantine Tablet (Namenda Tablet) (05/28/18 21:00) Propranolol Tablet (Inderal Tablet) (05/28/18 14:00) Sertraline Tablet (Zoloft Tablet) (05/28/18 21:00) Code/Resuscitation (05/28/18 11:28) Heart Healthy (05/28/18 Lunch) Consult Family Medicine (05/28/18 11:28) Albuterol/Ipra Inhalation Soln (Duoneb I (05/28/18 11:30) Svn Small Volume Nebulizer (05/28/18 11:28) Consult Cardiology (05/28/18 11:43) Ondansetron Injection (Zofran Injectio (05/28/18 11:45) Patch Removal (Patch Removal) (05/28/18 21:00) Lidocaine Patch (Lidoderm 5% Patch) (05/29/18 09:00) Ambulate 08,12,20 (05/28/18 14:16) Sequential Compression Device 08,20 (05/28/18 14:16) Dvt/Vte Risk - Notifiy Physici 08 (05/28/18 14:16) Patient Visit (05/28/18 ) Pt Eval Moderate Complexity (05/28/18 ) Functional Activities, Ea 15 (05/28/18 ) Patient Visit (05/28/18 ) Speech Sound Lang Comp (05/28/18 ) Cbc With Automated Diff (05/30/18 05:00) Mri Rt Lower Ext Joint W/O (05/29/18 10:00) Patient Visit (05/29/18 ) Mat Initiate Protocol (05/30/18 08:52) Patient Visit (05/31/18 ) Exercise Therap, Ea 15 Min (05/31/18 ) Gait Training, Ea 15 Min (05/31/18 ) Functional Activities, Ea 15 (05/31/18 ) Patient Visit (05/31/18 ) Gait Training, Ea 15 Min (05/31/18 ) Patient Visit (05/31/18 ) Treat. Speech/Lang/Voice (05/31/18 ) Patient Visit (06/01/18 ) Treat. Speech/Lang/Voice (06/01/18 ) Patient Visit (06/01/18 ) Functional Activities, Ea 15 (06/01/18 ) Exercise Therap, Ea 15 Min (06/01/18 ) Rehab Nursing Orders: Ongoing Assess. of Cognitive Status, Ongoing Assess. of Function Status, Disease Management & Educaiton, DVT Prophylaxis, Fall Prevention, Infection Prevention, Medication Management & Education, Management of Risks & Complications, Management of Skin Intergrity, Nutrition Management, Pain Management, Patient/Family Support, Safety Management PT IPOC Problem List: Activity Tolerance, Functional Strength, Safety, Balance, Gait, Transfer Treatment Plan: Continue Plan of Care Bed Mobility, Education, Functional Activity Erna, Functional Strength, Group Therapy, Gait, Safety, Therapeutic Exercise, Transfers Treatment Duration: Jun 11, 2018 Frequency: At least 5 of 7 days/Wk (IRF) Estimated Hrs Per Day: 1.5 hours per day OT IPOC Problems: Decreased Activ Tolerance, Decreased UE Strength, Dependent Transfers , Impaired Self-Care Skills OT Treatment, Training and Edu: Yes OT Problems Pt to benefit from skilled OT intervention for ADL training, transfers, strengthening, and safety education to increase level of function and allow safe discharge plan. Plan of Care: ADL Retraining, Functional Mobility, Group Exercise/Act as Ind, UE Funct Exercise/Act Treatment Duration: Jun 18, 2018 Frequency: At least 5 of 7 days/Wk (IRF) Estimated Hrs Per Day: 1.[address] IPOC Speech Therapy Treatment Plan: Continue Plan of Care Treatment Duration: Jun 04, 2018 Frequency: 5 times per week Estimated Hrs Per Day: .5 hour per day Licensed Electrician/Case Mgmt Licensed Electrician/Case Managemen: Discharge Planning, Patient/Family Counseling Dietitian/Welt Maker Dietitian/Welt Maker to monitor nutritional status and make changes and/or recommendations as needed and work with speech pathology on dietary upgrades as the occur. Physician IPOC Medical Issues being managed closely and that require the 24 hour availability of a physician: Pain management rt iliopsoas tear Left retroperitoneal hematoma Parkinsons Dementia Tremor HTN CAD s/p stent IGC code 16 Etiologic DX Zina espinoza Medical Issues: DVT Prophylaxis, Falls Precautions, Infection Protection, Pain Management, Other (List) (as per above) Brief Synthesis of Preadmission Screen, Post-Admission Evaluation, and Therapy Evaluations: 78 yo female who had been Independent for basic adls and mobility skills prior to rt Iliopsoas tear managed medically referred to IRU for ongoing care and therapies . [facility] Zina Espinoza Mild dementia Lives with her daughter HTN CAD s/p stent Tremor Medical Prognosis: Good Anticipated Length of Stay: 06-18-18 Modified Independent to supervision for basic adls and mobility skills Anticipated d/c Destination: Home with daughter and [facility] SAMUEL NEWTON MD Jun 01, 2018 16:30
--- NOTE | 2018-06-01 16:34 | PM & R (SOAP) Progress Note ---
Subjective This was a face to face visit with the patient. Date Seen by Provider: Jun 01, 2018 Time Seen by Provider: 08:00 Subjective/Events-last exam Patient was seen in her room this AM Patient Min assist for transfers C/O 8 out of 10 pain at times with Weightbearing rt leg Utilizing Pain meds prn Review of Systems Musculoskeletal: leg pain Objective Physician Exam Last Set of Vital Signs Vital Signs Date Time Temp Pulse Resp B/P (MAP) Pulse Ox O2 Delivery O2 Flow Rate FiO2 06/01/18 09:00 Room Air 06/01/18 06:17 99.1 74 20 97/64 (75) 91 Capillary Refill : I&O Intake and Output 06/01/18 00:00 Intake Total 1300 ml Balance 1300 ml Intake Oral 1300 ml # Voids 6 General: Alert, Oriented X3, Cooperative, No Acute Distress HEENT: Atraumatic, PERRLA, EOMI, Mucous Memb Moist/[place] Neck: Supple, No JVD Lungs: Clear to Auscultation Heart: Regular Rate, Normal S1, Normal S2 Abdomen: Normal Bowel Sounds, Soft, No Tenderness Extremities: No Clubbing, No Cyanosis, No Edema Skin: No Rashes Neuro: Normal Speech, Other (Left LE 4/5 RT hip flex 3/5 with guarding Mild dementa) Results Lab Data Laboratory Tests 05/30/18 04:30: White Blood Count 9.2, Red Blood Count 3.41L, Hemoglobin 10.8L, Hematocrit 33L, Mean Corpuscular Volume 97, Mean Corpuscular Hemoglobin 32, Mean Corpuscular Hemoglobin Concent 33, Red Cell Distribution Width 14.0, Platelet Count 215, Mean Platelet Volume 9.4, Neutrophils (%) (Auto) 72, Lymphocytes (%) (Auto) 13, Monocytes (%) (Auto) 11, Eosinophils (%) (Auto) 4, Basophils (%) (Auto) 0, Neutrophils # (Auto) 6.6, Lymphocytes # (Auto) 1.2, Monocytes # (Auto) 1.0, Eosinophils # (Auto) 0.4H, Basophils # (Auto) 0.0 Assessment/Plan Assessment and Plan RT iliopsoas tear Left Retroperitoneal hematoma Parkinsons Dementia Tremor HTN CAD s/p stent Plan Continue PT/OT/Pain Management Team Conference tomorrow Co-Morbidities that are continuing to impact the rehab process: (include details ) SAMUEL NEWTON MD Jun 01, 2018 16:34
[2018-06-01 18:00] VITALS: BP 106/69
[2018-06-01] MEDS: SERTRALINE 50 MG (ZOLOFT) TABLET PO SCH (20:20)
[2018-06-01] MEDS: LIDOCAINE PATCH REMOVAL TP SCH (20:23)
[2018-06-02 03:36] VITALS: BP 106/67
[2018-06-02] MEDS: CYANOCOBALAMIN 1,000 MCG (VITAMIN B-12) TABLET PO SCH (06:19)
[2018-06-02] MEDS: PROPRANOLOL 20 MG (INDERAL) TABLET PO SCH ×3 (06:19→20:17)
--- NOTE | 2018-06-02 08:31 | Cardiology Progress Note ---
Subjective Date Seen by Provider: Jun 02, 2018 Time Seen by Provider: 08:29 Subjective/Events-last exam Continues to complain of right groin pain. Denies any chest pain or dyspnea. Review of Systems General: No Night Sweats, No Fatigue, No Malaise HEENT: No Visual Changes, No Dysphasia Pulmonary: No Dyspnea, No Cough Cardiovascular: No: Chest Pain, Palpitations Gastrointestinal: No: Nausea, Vomiting, Constipation Genitourinary: No Dysuria, No Frequency Musculoskeletal: leg pain (right groin pain); No: neck pain, back pain Objective-Cardiology Exam Last Set of Vital Signs Vital Signs 06/02/18 06/02/18 03:36 09:00 Temp 99.2 Pulse 83 Resp 20 B/P (MAP) 106/67 (80) Pulse Ox 92 O2 Delivery Room Air Capillary Refill : I&O Intake and Output 06/02/18 00:00 Intake Total 1320 ml Balance 1320 ml Intake Oral 1320 ml # Voids 7 # Bowel Movements 1 General: Alert, Oriented X3, Cooperative, No Acute Distress HEENT: Atraumatic, PERRLA, EOMI, Mucous Memb Moist/[place] Neck: Supple, No JVD Lungs: Clear to Auscultation Heart: Regular Rate, Normal S1, Normal S2 Abdomen: Normal Bowel Sounds, Soft, No Tenderness Extremities: No Clubbing, No Cyanosis, No Edema Skin: No Rashes Neuro: Normal Speech, Other (Left LE 4/5 RT hip flex 3/5 with guarding Mild dementa) A/P-Cardiology Admission Diagnosis Chest pain CAD HTN Right leg pain Assessment/Plan Chest pain nonspecific etiology, status post cardiac catheterization and stent. No further episodes of chest pain, continue to monitor Coronary artery disease, severe ostial right coronary artery stenosis status post stent using a Xience three-time 12 mm expanded to 3.25 at the ostium of the right coronary artery with a few struts extending outside the ostium, feeling well. EKG showed no changes. Continue to monitor, maintained on Brilinta and ASA. Mild dyspnea with exertion- continue PT. Could be secondary to medication. Will continue with Brilinta for at least 1 month before changing to Plavix. Status post transient hypotension and lethargy, probably vasovagal on top of a small retroperitoneal bleed, improved after receiving IV fluid. I proceeded with transfusing 2 units of packed RBCs, continue to monitor. Mild pedal edema, BNP is normal, questionable venous insufficiency, venous Doppler did not show DVT. 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 Continue physical therapy, management per PCP. Mild epigastric pain and right upper quadrant pain, history of cholecystectomy in the past. Started on PPI and monitor Mild tremor for which she takes propranolol Early dementia, maintained on Namenda History of cholecystectomy. Clinical Quality Measures DVT/VTE Risk/Contraindication: Risk Factor Score Per Nursin RFS Level Per Nursing on Admit: 4+=Very High LETY BRADFORD Jun 02, 2018 8:31 am HOLLIS BARRIOS MD Jun 02, 2018 11:08 am
[2018-06-02] MEDS: TICAGRELOR 90 MG TABLET (BRILINTA) PO SCH ×2 (08:34→20:17)
[2018-06-02] MEDS: DOCUSATE SODIUM 100 MG (COLACE) CAP PO SCH (08:34)
[2018-06-02] MEDS: VITAMIN D3 5,000 UNITS (CHOLECALCIFEROL ) CAPSULE PO SCH (08:34)
[2018-06-02] MEDS: ASPIRIN E.C. 81 MG (ECOTRIN) TAB PO SCH (08:35)
[2018-06-02] MEDS: MEMANTINE 10 MG (NAMENDA) TABLET PO SCH ×2 (08:35→20:17)
[2018-06-02] MEDS: LIDOCAINE (LIDODERM) 5% PATCH TOP SCH ×2 (08:35→17:02)
--- NOTE | 2018-06-02 09:43 | Speech Therapy Daily Note ---
Speech Daily Progress Note Subjective Date Seen by Provider: Jun 02, 2018 Time Seen by Provider: 00:30 Patient was just waking up when I entered her room. She stated she was feeling much better this am. Objective Patient completed memory tasks of moderate recall of verbally presented information at 75% with minimal repetitions. Treatment Plan Continue Plan of Care Communication Comprehension: 4 Expression: 5 Social Cognition Social Interaction: 5 Problem Solvin Memory: 3 Speech Short Term Goals Short Term Goals Short Term Goals Patient will be able to recall words provided to respond to questions in sentence form with 90% or greater accuracy. Patient will recall information presented in paragraphs with 90% or greater accuracy. Patient will recall safety precautions with minimal verbal and/or visual cuing at 90% or greater accuracy. Speech Jig Builder Helper Goals Jig Builder Helper Goals Patient will be able to demonstrate safety awareness and independence within her immediate environment with minimal cues at 90% accuracy. Speech-Plan Patient/Family Goals Patient/Family Goals: Patient's family are planning on assisted living when patient is discharged from rehab. Treatment Plan Speech Therapy Treatment Plan: Continue Plan of Care Patient is progressing well on all goals. 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 Pt/Family Agrees to Plan: Yes Safety Risks/Education Teaching Recipient: Patient Teaching Methods: Discussion Response to Teaching: Verbalize Understanding Education Topics Provided: Safety within her room. Time Speech Therapy Time In: 08:15 Speech Therapy Time Out: 08:45 Total Billed Time: 30 Billed Treatment Time 1MA[address] B[address] ST Jun 02, 2018 09:43
--- NOTE | 2018-06-02 10:12 | Cardiology Progress Note ---
Subjective Date Seen by Provider: Jun 02, 2018 Time Seen by Provider: 10:11 Subjective/Events-last exam Patient is in bed, feeling better, less dyspnea today Review of Systems General: No Chills, No Night Sweats, No Fatigue, No Malaise, No Appetite, No Other HEENT: No Head Aches, No Visual Changes, No Eye Pain, No Ear Pain, No Dysphasia , No Sinus Congestion, No Post Nasal Drip, No Sore Throat, No Other Pulmonary: No Dyspnea, No Cough, No Pleuritic Chest Pain, No Other Cardiovascular: No: Chest Pain, Palpitations, Orthopnea, Paroxysmal Noc. Dyspnea, Edema, Lt Headedness, Other Objective-Cardiology Exam Last Set of Vital Signs Vital Signs 06/02/18 03:36 Temp 99.2 Pulse 83 Resp 20 B/P (MAP) 106/67 (80) Pulse Ox 92 O2 Delivery Room Air Capillary Refill : I&O Intake and Output 06/02/18 00:00 Intake Total 1320 ml Balance 1320 ml Intake Oral 1320 ml # Voids 7 # Bowel Movements 1 General: Alert, Oriented X3, Cooperative, No Acute Distress HEENT: Atraumatic, PERRLA, EOMI, Mucous Memb Moist/[place] Neck: Supple, No JVD Lungs: Clear to Auscultation Heart: Regular Rate, Normal S1, Normal S2 Abdomen: Normal Bowel Sounds, Soft, No Tenderness Extremities: No Clubbing, No Cyanosis, No Edema Skin: No Rashes Neuro: Normal Speech, Other (Left LE 4/5 RT hip flex 3/5 with guarding Mild dementa) A/P-Cardiology Admission Diagnosis Chest pain CAD HTN Right leg pain Assessment/Plan Chest pain nonspecific etiology, status post cardiac catheterization and stent. No further episodes of chest pain, continue to monitor Coronary artery disease, severe ostial right coronary artery stenosis status post stent using a Xience three-time 12 mm expanded to 3.25 at the ostium of the right coronary artery with a few struts extending outside the ostium, feeling well. EKG showed no changes. Continue to monitor, maintained on Brilinta and ASA. Mild dyspnea with exertion- continue PT. Could be secondary to medication. Will continue with Brilinta for at least 1 month before changing to Plavix. Status post transient hypotension and lethargy, probably vasovagal on top of a small retroperitoneal bleed, improved after receiving IV fluid. I proceeded with transfusing 2 units of packed RBCs, continue to monitor. Mild pedal edema, BNP is normal, questionable venous insufficiency, venous Doppler did not show DVT. 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 Continue physical therapy, management per PCP. Mild epigastric pain and right upper quadrant pain, history of cholecystectomy in the past. Started on PPI and monitor Mild tremor for which she takes propranolol Early dementia, maintained on Namenda History of cholecystectomy Clinical Quality Measures DVT/VTE Risk/Contraindication: Risk Factor Score Per Nursin RFS Level Per Nursing on Admit: 4+=Very High HOLLIS BARRIOS MD Jun 02, 2018 10:12
--- NOTE | 2018-06-02 10:23 | Occupational Ther Daily Note ---
OT Current Status-Daily Note Subjective Pt alert, sitting in recliner. Took over care from PT. Pt agrees to therapy. No c/o pain. Mental Status/Objective Patient Orientation: Person, Place, Time, Situation Therapy Code Descriptions/Definitions Functional [place] Measure: 0=Not Assessed/NA 4=Minimal Assistance 1=Total Assistance 5=Supervision or Setup 2=Maximal Assistance 6=Modified [place] 3=Moderate Assistance 7=Complete [place] ADL-Treatment Therapy Code Descriptions/Definitions Functional [place] Measure: 0=Not Assessed/NA 4=Minimal Assistance 1=Total Assistance 5=Supervision or Setup 2=Maximal Assistance 6=Modified [place] 3=Moderate Assistance 7=Complete [place] Therapy Quality Codes: 6 Independent with activity with or without an assistive device 5 Patient requires set up or clean up by helper. Patient completes activity by themselves 4 Supervision or touching assist (CGA). [place] provide cues , steadying assist 3 The helper provides less than half the effort to complete the activity 2 The helper provides more than half the effort to complete the activity 1 Dependent. The helper does all the effort to complete an activity 7 Patient refused to complete or attempt activity 9 The patient did not perform the activity before the current illness or injury 88 Not attempted due to Medical conditions or safety concerns Grooming (FIM): 7 (Stabilizing self with sink, pt able to complete own grooming.) Oral Hygiene (QC): 6 Bathing (FIM): 6 (Using long handle sponge, grabbar, hand held shower and shower bench pt able to complete bathing.) Bathing Location: L Arm, R Arm, L Upper Leg, R Upper Leg, L Lower Leg ( including foot), R Lower Leg (including foot), Chest, Abdomen, Buttocks, Perineal Area Shower/Bathe Self (QC): 6 Upper Body (FIM): 6 (FWW to retrieve and transport clothing. Able to complete dressing by self.) Upper Body Dressing (QC): 6 Lower Body Dressing (FIM): 6 (FWW to retrieve and transport clothing. Able to complete dressing by self using dressing stick and sock aide.) Lower Body Dressing (QC): 6 On/Off Footwear (QC): 6 Toileting (FIM): 6 (Using grabbars, pt able to complete.) Toileting Hygiene (QC): 6 Transfers (B, C, W/C) (FIM): 6 Toilet/Commode Transfer (FIM): 6 (Using grabbars and FWW.) Toilet Transfer (QC): 6 Shower Transfer(FIM): 6 (Using grabbars and shower bench, pt able to complete.) Safety concerns with pt ambulating backing up. Other Treatment Pt ambulated to laundry room using FWW and was able to take laundry out of washer and place in dryer. Pt then ambulated back to room to sit in recliner after therapy. Call light/phone in reach. All needs met in room. OT Short Term Goals Short Term Goals Time Frame: Jun 04, 2018 Lower Body Dressing(FIM): 4 Toileting(FIM): 5 Toilet/Commode Transfer(FIM): 5 Additional Short Term Goals: 1-Demonstrate ADL Tasks, 2-Verbalize Understanding , 3-ImproveStrength/[place] 1=Demonstrate adherence to instructed precautions during ADL tasks. 2=Patient will verbalize/demonstrate understanding of assistive devices/ modifications for ADL. 3=Patient will improve strength/tolerance for activity to enable patient to perform ADL's. OT Student Development Specialist Goals [facility] Goals Time Frame: Jun 18, 2018 Eating (FIM): 6 Eating (QC): 6 Groomin Oral Hygiene (QC): 6 Bathing(FIM): 5 Shower/Bathe Self (QC): 5 Upper Body Dressing(FIM): 6 Upper Body Dressing (QC): 6 Lower Body Dressing(FIM): 6 Lower Body Dressing (QC): 6 On/Off Footwear (QC): 6 Toileting(FIM): 6 Toileting Hygiene (QC): 6 Toilet/Commode Transfer(FIM): 6 Toilet/Commode Transfer (QC): 6 Shower Transfer(FIM): 5 Additional Goals: 2-Verbalize Understanding, 3-ImproveStrength/[place] 1=Demonstrate adherence to instructed precautions during ADL tasks. 2=Patient will verbalize/demonstrate understanding of assistive devices/ modifications for ADL. 3=Patient will improve strength/tolerance for activity to enable patient to perform ADL's. OT Education/Plan Problem List/Assessment Pt to benefit from skilled OT intervention for ADL training, transfers, strengthening, and safety education to increase level of function and allow safe discharge plan. Discharge Recommendations Plan/Recommendations: Continue POC Treatment Plan/Plan of Care Patient would benefit from OT for education, treatment and training to promote independence in ADL's, mobility, safety and/or upper extremity function for ADL' s. Plan of Care: ADL Retraining, Functional Mobility, Group Exercise/Act as Ind, UE Funct Exercise/Act Treatment Duration: Jun 18, 2018 Frequency: At least 5 of 7 days/Wk (IRF) Estimated Hrs Per Day: 1.5 hours per day Agreement: Yes Rehab Potential: Good Time/GCodes Start Time: 10:00 Stop Time: 11:15 Total Time Billed (hr/min): 75 Billed Treatment Time 1 visit-ADL 4 (65 min) FA 1 (10 min) APOORVA CROWLEY Jun 02, 2018 10:23
--- NOTE | 2018-06-02 11:22 | Physical Therapy Daily Note ---
PT Daily Note-Current Subjective Pt sitting in recliner upon arrival. Pt agrees to PT. Pt reports after talking to daughter Lorraine, planning to discharge to [facility]. Pain Numeric Pain Scale: 4 Location: Right Location Body Site: Thigh Pain Description: Sharp Mental Status Patient Orientation: Person, Place, Time, Situation Transfers Therapy Code Descriptions/Definitions Functional [place] Measure: 0=Not Assessed/NA 4=Minimal Assistance 1=Total Assistance 5=Supervision or Setup 2=Maximal Assistance 6=Modified [place] 3=Moderate Assistance 7=Complete [place] Therapy Quality Codes: 6 Independent with activity with or without an assistive device 5 Patient requires set up or clean up by helper. Patient completes activity by themselves 4 Supervision or touching assist (CGA). [place] provide cues , steadying assist 3 The helper provides less than half the effort to complete the activity 2 The helper provides more than half the effort to complete the activity 1 Dependent. The helper does all the effort to complete an activity 7 Patient refused to complete or attempt activity 9 The patient did not perform the activity before the current illness or injury 88 Not attempted due to Medical conditions or safety concerns Scootin Sit to/from Stand: 5 Sit to Stand (QC): 5 Weight Bearing Right Lower Extremity: Right Weight Bearing/Tolerated Left Lower Extremity: Left Weight Bearing/Tolerated Gait Training Does the Patient Walk?: Yes Distance (FIM): 3=150 ft Distance: 175' Walk 10 feet (QC): 5 Walk 50 ft with 2 Turns(QC): 5 Walk 150 ft (QC): 5 Gait Level of Assist: 5 Gait Persons Needed: 1 Gait Assistive Device: FWW Pt walks with a slightly slower jamar and at times antalgic, although today seemed better. Wheelchair Training Does the Pt Use a Wheelchair?: No Exercises NuStep Minutes: 13 NuStep Workload: 3 Treatments Pt uses restroom before leaving room for tx. Pt is able to complete pericare independently. Pt transfers at SBA to standing using FWW then ambulates at SBA as well. Pt uses NuStep for 13m at WL 3. Pt takes short rest then needs to return to room to use restroom again. Pt completes Seated Ex in recliner. Pt & WOOD MACHINE CARVER discuss pt's possible discharge to [facility] after discharging from hospital. Pt resting in recliner at end of tx with all needs met. OT arrives at end of tx. Assessment Current Status: Good Progress Pt needs occasional rest break due to fatigue/SOA. Pt's pain has improved today. PT Short Term Goals Short Term Goals Time Frame: Jun 04, 2018 Gait (FIM): 4 Distance (FIM): 3=150 ft Gait Level of Assist: 4 Gait Assistive Device: FWW PT Director Of Occupational Therapy Goals [facility] Goals PT Director Of Occupational Therapy Goals Time Frame: Jun 11, 2018 Transfers (B,C,W/C) (FIM): 7 Sit to Lying (QC): 6 Lying-Sitting on Side/Bed(QC): 6 Sit to Stand (QC): 6 Rollin Roll Left to Right (QC): 6 Chair/[id number] Xfer(QC): 6 Car Transfer (QC): 6 Does the Patient Walk: Yes Gait (FIM): 6 Gait distance (FIM): 3=150 ft Walk 10 feet (QC): 6 Walk 10ft-Uneven Surface(QC): 6 Walk 50ft with 2 Turns (QC): 6 Walk 150 ft (QC): 6 Gait Assistive Device: FWW Does the Pt use WC or Scooter?: No Stairs (FIM): 5 # of Steps: 4 (household exception) 1 Step (curb) (QC): 6 4 Steps (QC): 6 12 Steps (QC): 88 Stairs Level Of Assist: 6 Picking up an Object (QC): 4 PT Plan Problem List Problem List: Activity Tolerance, Functional Strength Treatment/Plan Treatment Plan: Continue Plan of Care Treatment Plan: Bed Mobility, Education, Functional Activity [place]na, Functional Strength, Group Therapy, Gait, Safety, Therapeutic Exercise, Transfers Treatment Duration: Jun 11, 2018 Frequency: At least 5 of 7 days/Wk (IRF) Estimated Hrs Per Day: 1.5 hours per day Patient and/or Family Agrees t: Yes Safety Risks/Education Patient Education: Gait Training, Transfer Techniques, Correct Positioning, Safety Issues Teaching Recipient: Patient Teaching Methods: Discussion Response to Teaching: Verbalize Understanding Time/GCodes Time In: 845 Time Out: 1000 Total Billed Treatment Time: 75 Total Billed Treatment 1, EX x2 (30m), GT (15m) & FA x2 (30m) G Codes Necessary: No LUCIAN TARANGO WOOD MACHINE CARVER Jun 02, 2018 11:22
[2018-06-02 15:32] VITALS: BP 106/67
[2018-06-02 18:00] VITALS: BP 101/67
[2018-06-02] MEDS: LIDOCAINE PATCH REMOVAL TP SCH (19:30)
[2018-06-02] MEDS: SERTRALINE 50 MG (ZOLOFT) TABLET PO SCH (20:17)
--- NOTE | 2018-06-02 20:19 | PM & R (SOAP) Progress Note ---
Subjective This was a face to face visit with the patient. Date Seen by Provider: Jun 02, 2018 Time Seen by Provider: 08:00 Subjective/Events-last exam Patient was seen in her room this AM Patient SBA for transfers Review of Systems Musculoskeletal: leg pain Objective Physician Exam Last Set of Vital Signs Vital Signs Date Time Temp Pulse Resp B/P (MAP) Pulse Ox O2 Delivery O2 Flow Rate FiO2 06/02/18 18:00 98.6 81 18 101/67 (78) 96 Room Air Capillary Refill : I&O Intake and Output 06/02/18 00:00 Intake Total 1320 ml Balance 1320 ml Intake Oral 1320 ml # Voids 7 # Bowel Movements 1 General: Alert, Oriented X3, Cooperative, No Acute Distress HEENT: Atraumatic, PERRLA, EOMI, Mucous Memb Moist/[place] Neck: Supple, No JVD Lungs: Clear to Auscultation Heart: Regular Rate, Normal S1, Normal S2 Abdomen: Normal Bowel Sounds, Soft, No Tenderness Extremities: No Clubbing, No Cyanosis, No Edema Skin: No Rashes Neuro: Normal Speech, Other (Left LE 4/5 RT hip flex 3/5 with guarding Mild dementa) Assessment/Plan Assessment and Plan RT Iliopsoas tear Left retroperitoneal hematoma Zina Espinoza Dementa Tremor HTN CAD s/p stent Plan Continue PT/OT Team Conference held earlier today-see report for full functional update and POC and ELOS Co-Morbidities that are continuing to impact the rehab process: (include details ) SAMUEL NEWTON MD Jun 02, 2018 20:19
[2018-06-02] MEDS: HYDROcodone/APAP 5 MG/325 MG (LORTAB) TAB PO PRN (20:24)
[2018-06-03 04:27] VITALS: BP 104/67
[2018-06-03] MEDS: CYANOCOBALAMIN 1,000 MCG (VITAMIN B-12) TABLET PO SCH (05:40)
[2018-06-03] MEDS: PROPRANOLOL 20 MG (INDERAL) TABLET PO SCH ×3 (05:40→20:46)
[2018-06-03] MEDS: LIDOCAINE (LIDODERM) 5% PATCH TOP SCH (08:10)
[2018-06-03] MEDS: MEMANTINE 10 MG (NAMENDA) TABLET PO SCH ×2 (08:10→20:46)
[2018-06-03] MEDS: VITAMIN D3 5,000 UNITS (CHOLECALCIFEROL ) CAPSULE PO SCH (08:10)
[2018-06-03] MEDS: DOCUSATE SODIUM 100 MG (COLACE) CAP PO SCH (08:10)
[2018-06-03] MEDS: ASPIRIN E.C. 81 MG (ECOTRIN) TAB PO SCH (08:10)
[2018-06-03] MEDS: TICAGRELOR 90 MG TABLET (BRILINTA) PO SCH ×2 (08:10→20:46)
[2018-06-03] MEDS: HYDROcodone/APAP 5 MG/325 MG (LORTAB) TAB PO PRN (08:11)
--- NOTE | 2018-06-03 08:15 | Cardiology Progress Note ---
Subjective Date Seen by Provider: Jun 03, 2018 Time Seen by Provider: 08:14 Subjective/Events-last exam No new complaints. Denies any chest pain or dyspnea Objective-Cardiology Exam Last Set of Vital Signs Vital Signs 06/03/18 04:27 Temp 97.7 Pulse 75 Resp 20 B/P (MAP) 104/67 (79) Pulse Ox 92 O2 Delivery Room Air Capillary Refill : I&O Intake and Output 06/02/18 23:59 Intake Total 1390 ml Balance 1390 ml Intake Oral 1390 ml # Voids 9 # Bowel Movements 1 General: Alert, Oriented X3, Cooperative, No Acute Distress HEENT: Atraumatic, PERRLA, EOMI, Mucous Memb Moist/[place] Neck: Supple, No JVD Lungs: Clear to Auscultation Heart: Regular Rate, Normal S1, Normal S2 Abdomen: Normal Bowel Sounds, Soft, No Tenderness Extremities: No Clubbing, No Cyanosis, No Edema Skin: No Rashes Neuro: Normal Speech, Other (Left LE 4/5 RT hip flex 3/5 with guarding Mild dementa) A/P-Cardiology Admission Diagnosis Chest pain CAD HTN Right leg pain Assessment/Plan Chest pain nonspecific etiology, status post cardiac catheterization and stent. No further episodes of chest pain, continue to monitor Coronary artery disease, severe ostial right coronary artery stenosis status post stent using a Xience three-time 12 mm expanded to 3.25 at the ostium of the right coronary artery with a few struts extending outside the ostium, feeling well. EKG showed no changes. Continue to monitor, maintained on Brilinta and ASA. Mild dyspnea with exertion- patient reports some improvement. continue PT. Could be secondary to medication. Will continue with Brilinta for at least 1 month before changing to Plavix. Status post transient hypotension and lethargy, probably vasovagal on top of a small retroperitoneal bleed, improved after receiving IV fluid. I proceeded with transfusing 2 units of packed RBCs, continue to monitor. Mild pedal edema, BNP is normal, questionable venous insufficiency, venous Doppler did not show DVT. 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 Continue physical therapy, management per PCP. Mild epigastric pain and right upper quadrant pain, history of cholecystectomy in the past. Started on PPI and monitor Mild tremor for which she takes propranolol Early dementia, maintained on Namenda History of cholecystectomy. Clinical Quality Measures DVT/VTE Risk/Contraindication: Risk Factor Score Per Nursin RFS Level Per Nursing on Admit: 4+=Very High LETY BRADFORD Jun 03, 2018 08:15
--- NOTE | 2018-06-03 08:56 | PM & R (SOAP) Progress Note ---
Subjective This was a face to face visit with the patient. Date Seen by Provider: Jun 03, 2018 Time Seen by Provider: 08:10 Subjective/Events-last exam Patient was seen in her room this AM Pain decreasing and function improving Patient SBA for transfers Objective Physician Exam Last Set of Vital Signs Vital Signs Date Time Temp Pulse Resp B/P (MAP) Pulse Ox O2 Delivery O2 Flow Rate FiO2 06/03/18 04:27 97.7 75 20 104/67 (79) 92 Room Air Capillary Refill : I&O Intake and Output 06/03/18 00:00 Intake Total 1390 ml Balance 1390 ml Intake Oral 1390 ml # Voids 9 # Bowel Movements 1 General: Alert, Oriented X3, Cooperative, No Acute Distress HEENT: Atraumatic, PERRLA, EOMI, Mucous Memb Moist/[place] Neck: Supple, No JVD Lungs: Clear to Auscultation Heart: Regular Rate, Normal S1, Normal S2 Abdomen: Normal Bowel Sounds, Soft, No Tenderness Extremities: No Clubbing, No Cyanosis, No Edema Skin: No Rashes Neuro: Normal Speech, Other (Left LE 4/5 RT hip flex 3/5 with guarding Mild dementa) Assessment/Plan Assessment and Plan RT Iliopsoas tear with pain decreasing Left retroperitoneal tear Zina Espinoza Dementia Tremor HTN CAD s/p stent Plan Continue PT/OT Discharge set for 06-08-18 to an [place]-Patient and family in agreement re discharge plans Co-Morbidities that are continuing to impact the rehab process: (include details ) SAMUEL NEWTON MD Jun 03, 2018 08:56
--- NOTE | 2018-06-03 10:49 | Physical Therapy Daily Note ---
PT Daily Note-Current Subjective Pt sitting up in recliner finishing breakfast upon arrival. Pt agrees to PT. Pt reports feeling ready to discharge, set for Thursday (06/08). Pain Numeric Pain Scale: 4 Location: Right Location Body Site: Thigh Pain Description: Ache Mental Status Patient Orientation: Person, Place, Time, Situation Transfers Therapy Code Descriptions/Definitions Functional [place] Measure: 0=Not Assessed/NA 4=Minimal Assistance 1=Total Assistance 5=Supervision or Setup 2=Maximal Assistance 6=Modified [place] 3=Moderate Assistance 7=Complete [place] Therapy Quality Codes: 6 Independent with activity with or without an assistive device 5 Patient requires set up or clean up by helper. Patient completes activity by themselves 4 Supervision or touching assist (CGA). [place] provide cues , steadying assist 3 The helper provides less than half the effort to complete the activity 2 The helper provides more than half the effort to complete the activity 1 Dependent. The helper does all the effort to complete an activity 7 Patient refused to complete or attempt activity 9 The patient did not perform the activity before the current illness or injury 88 Not attempted due to Medical conditions or safety concerns Scootin Sit to/from Stand: 6 Sit to Stand (QC): 6 Weight Bearing Right Lower Extremity: Right Weight Bearing/Tolerated Left Lower Extremity: Left Weight Bearing/Tolerated Gait Training Does the Patient Walk?: Yes Distance (FIM): 3=150 ft Distance: 500' Walk 10 feet (QC): 5 Walk 50 ft with 2 Turns(QC): 5 Walk 150 ft (QC): 5 Gait Level of Assist: 5 Gait Assistive Device: None Pt attempts ambulation with LBQC and SPC but doesn't feel comfortable. Pt is not bearing much weight through AD so attempts ambulation w/o AD and feels much more comfortable. Just needs VC to slow gait a little for better control/ safety. Wheelchair Training Does the Pt Use a Wheelchair?: No Stair Training Stair Training: Handrails/: 2 handrails #of Steps: 12 1 Step (curb) (QC): 5 4 Steps (QC): 5 Stairs: Pattern: Reciprocal Treatments Pt transfers from recliner to standing using FWW at [facility]. Pt uses restroom then ambulates in hallway using FWW at [facility]-Mod I. Pt ambulates 3 sets of 4 steps. Pt attempts ambulation with LBQC and SPC but doesn't feel comfortable. Pt is not bearing much weight through AD so attempts ambulation w/o AD and feels much more comfortable. Just needs VC to slow gait a little for better control/ safety. Pt returns to room to use restroom before returning to recliner for rest. Pt has all needs met. Assessment Current Status: Good Progress Pt fatigues/SOA so at times needs occasional rest breaks. PT Short Term Goals Short Term Goals Time Frame: Jun 04, 2018 Gait (FIM): 4 Distance (FIM): 3=150 ft Gait Level of Assist: 4 Gait Assistive Device: FWW PT Chcf Goals Chcf Goals PT Skate Maker Goals Time Frame: Jun 11, 2018 Transfers (B,C,W/C) (FIM): 7 Sit to Lying (QC): 6 Lying-Sitting on Side/Bed(QC): 6 Sit to Stand (QC): 6 Rollin Roll Left to Right (QC): 6 Chair/Qcb-so-Uxfox Xfer(QC): 6 Car Transfer (QC): 6 Does the Patient Walk: Yes Gait (FIM): 6 Gait distance (FIM): 3=150 ft Walk 10 feet (QC): 6 Walk 10ft-Uneven Surface(QC): 6 Walk 50ft with 2 Turns (QC): 6 Walk 150 ft (QC): 6 Gait Assistive Device: FWW Does the Pt use WC or Scooter?: No Stairs (FIM): 5 # of Steps: 4 (household exception) 1 Step (curb) (QC): 6 4 Steps (QC): 6 12 Steps (QC): 88 Stairs Level Of Assist: 6 Picking up an Object (QC): 4 PT Plan Problem List Problem List: Activity Tolerance Treatment/Plan Treatment Plan: Continue Plan of Care Treatment Plan: Bed Mobility, Education, Functional Activity Erna, Functional Strength, Group Therapy, Gait, Safety, Therapeutic Exercise, Transfers Treatment Duration: Jun 11, 2018 Frequency: At least 5 of 7 days/Wk (IRF) Estimated Hrs Per Day: 1.5 hours per day Patient and/or Family Agrees t: Yes Safety Risks/Education Patient Education: Gait Training, Transfer Techniques, Correct Positioning, Safety Issues Teaching Recipient: Patient Teaching Methods: Discussion Response to Teaching: Verbalize Understanding Time/GCodes Time In: 815 Time Out: 930 Total Billed Treatment Time: 75 Total Billed Treatment 1, FA x2 (30m) & GT x3 (45m) G Codes Necessary: LUCIAN Sam UM RN Jun 03, 2018 10:49
--- NOTE | 2018-06-03 11:32 | Occupational Ther Daily Note ---
OT Current Status-Daily Note Subjective Pt alert, sitting in recliner. Visitor present in room. Pt agrees to therapy. No c/o pain at this time. Mental Status/Objective Patient Orientation: Person, Place, Time, Situation Therapy Code Descriptions/Definitions Functional [place] Measure: 0=Not Assessed/NA 4=Minimal Assistance 1=Total Assistance 5=Supervision or Setup 2=Maximal Assistance 6=Modified [place] 3=Moderate Assistance 7=Complete [place] ADL-Treatment Pt declined shower and changing clothing today. Pt completed grooming and toileting by self using grabbars for transfer and standing to manipulate clothing. Therapy Code Descriptions/Definitions Functional [place] Measure: 0=Not Assessed/NA 4=Minimal Assistance 1=Total Assistance 5=Supervision or Setup 2=Maximal Assistance 6=Modified [place] 3=Moderate Assistance 7=Complete [place] Therapy Quality Codes: 6 Independent with activity with or without an assistive device 5 Patient requires set up or clean up by helper. Patient completes activity by themselves 4 Supervision or touching assist (CGA). [place] provide cues , steadying assist 3 The helper provides less than half the effort to complete the activity 2 The helper provides more than half the effort to complete the activity 1 Dependent. The helper does all the effort to complete an activity 7 Patient refused to complete or attempt activity 9 The patient did not perform the activity before the current illness or injury 88 Not attempted due to Medical conditions or safety concerns Grooming (FIM): 7 Oral Hygiene (QC): 6 Toileting (FIM): 6 Toileting Hygiene (QC): 6 Toilet/Commode Transfer (FIM): 6 Toilet Transfer (QC): 6 Other Treatment Pt demonstrated ability to open/close, reach/grasp items at different levels throughout the hospital without adaptive devices, no LOB noted. Pt did not appear or demonstrate fatigue or SOA throughout treatment session. Pt then ambulated to therapy gym to complete arm bike 15 min at 25 schmitz resistance, no breaks, to increase strength for daily functional tasks. Pt then ambulated back to room, toileted then sat in recliner after therapy. Call light/phone in reach. All needs met in room. OT Short Term Goals Short Term Goals Time Frame: Jun 04, 2018 Lower Body Dressing(FIM): 4 Toileting(FIM): 5 Toilet/Commode Transfer(FIM): 5 Additional Short Term Goals: 1-Demonstrate ADL Tasks, 2-Verbalize Understanding , 3-ImproveStrength/Erna 1=Demonstrate adherence to instructed precautions during ADL tasks. 2=Patient will verbalize/demonstrate understanding of assistive devices/ modifications for ADL. 3=Patient will improve strength/tolerance for activity to enable patient to perform ADL's. OT Senior Living Goals Water Service Dispatcher Goals Time Frame: Jun 18, 2018 Eating (FIM): 6 Eating (QC): 6 Groomin Oral Hygiene (QC): 6 Bathing(FIM): 5 Shower/Bathe Self (QC): 5 Upper Body Dressing(FIM): 6 Upper Body Dressing (QC): 6 Lower Body Dressing(FIM): 6 Lower Body Dressing (QC): 6 On/Off Footwear (QC): 6 Toileting(FIM): 6 Toileting Hygiene (QC): 6 Toilet/Commode Transfer(FIM): 6 Toilet/Commode Transfer (QC): 6 Shower Transfer(FIM): 5 Additional Goals: 2-Verbalize Understanding, 3-ImproveStrength/Erna 1=Demonstrate adherence to instructed precautions during ADL tasks. 2=Patient will verbalize/demonstrate understanding of assistive devices/ modifications for ADL. 3=Patient will improve strength/tolerance for activity to enable patient to perform ADL's. OT Education/Plan Problem List/Assessment Pt to benefit from skilled OT intervention for ADL training, transfers, strengthening, and safety education to increase level of function and allow safe discharge plan. Discharge Recommendations Plan/Recommendations: Continue POC Treatment Plan/Plan of Care Patient would benefit from OT for education, treatment and training to promote independence in ADL's, mobility, safety and/or upper extremity function for ADL' s. Plan of Care: ADL Retraining, Functional Mobility, Group Exercise/Act as Ind, UE Funct Exercise/Act Treatment Duration: Jun 18, 2018 Frequency: At least 5 of 7 days/Wk (IRF) Estimated Hrs Per Day: 1.5 hours per day Agreement: Yes Rehab Potential: Good Time/GCodes Start Time: 10:00 Stop Time: 11:15 Total Time Billed (hr/min): 75 Billed Treatment Time 1 visit-ADL 2 (30 min) FA 2 (30 min) EX 1 (15 min) APOORVA CROWLEY Jun 03, 2018 11:32
[2018-06-03 14:47] VITALS: BP 111/62
--- NOTE | 2018-06-03 16:10 | Speech Therapy Daily Note ---
Speech Daily Progress Note Subjective Date Seen by Provider: Jun 03, 2018 Time Seen by Provider: 03:00 Patient was pleasant and cooperative. She states she was not in as much pain while walking today. Objective Patient completed word finding tasks with 90% accuracy given minimal verbal cues. Assessment Assessment Current Status: Good Progress Treatment Plan Continue Plan of Care Communication Comprehension: 4 Expression: 5 Social Cognition Social Interaction: 5 Problem Solvin Memory: 3 Speech Short Term Goals Short Term Goals Short Term Goals Patient will be able to recall words provided to respond to questions in sentence form with 90% or greater accuracy. Patient will recall information presented in paragraphs with 90% or greater accuracy. Patient will recall safety precautions with minimal verbal and/or visual cuing at 90% or greater accuracy. Speech Fpc Goals Fpc Goals Patient will be able to demonstrate safety awareness and independence within her immediate environment with minimal cues at 90% accuracy. Speech-Plan Patient/Family Goals Patient/Family Goals: Patient has made arrangements for assisted living post rehab. Treatment Plan Speech Therapy Treatment Plan: Continue Plan of Care Patient is progressing well with skilled ST. Treatment Duration: Jun 04, 2018 Frequency: 5 times per week Estimated Hrs Per Day: .5 hour per day Rehab Potential: Good Barriers to Learning: Memory Pt/Family Agrees to Plan: Yes Safety Risks/Education Teaching Recipient: Patient Teaching Methods: Discussion Response to Teaching: Verbalize Understanding Education Topics Provided: Safety Time Speech Therapy Time In: 15:00 Speech Therapy Time Out: 15:30 Total Billed Time: 30 Billed Treatment Time 1MAYA BETHANIA ST Jun 03, 2018 16:10
[2018-06-03 18:16] VITALS: BP 102/62
[2018-06-03] MEDS: SERTRALINE 50 MG (ZOLOFT) TABLET PO SCH (20:46)
[2018-06-03] MEDS: LIDOCAINE PATCH REMOVAL TP SCH (20:53)
[2018-06-04 05:28] VITALS: BP 110/69
[2018-06-04] MEDS: PROPRANOLOL 20 MG (INDERAL) TABLET PO SCH ×3 (06:08→20:59)
[2018-06-04] MEDS: CYANOCOBALAMIN 1,000 MCG (VITAMIN B-12) TABLET PO SCH (06:08)
--- NOTE | 2018-06-04 08:27 | Cardiology Progress Note ---
Subjective Date Seen by Provider: Jun 04, 2018 Time Seen by Provider: 08:25 Subjective/Events-last exam Patient is in a chair, complaining of mild headache, no chest pain still having mild dyspnea Review of Systems General: No Chills, No Night Sweats, No Fatigue, No Malaise, No Appetite, No Other HEENT: No Head Aches, No Visual Changes, No Eye Pain, No Ear Pain, No Dysphasia , No Sinus Congestion, No Post Nasal Drip, No Sore Throat, No Other Pulmonary: Dyspnea; No Cough, No Pleuritic Chest Pain, No Other Cardiovascular: No: Chest Pain, Palpitations, Orthopnea, Paroxysmal Noc. Dyspnea, Edema, Lt Headedness, Other Objective-Cardiology Exam Last Set of Vital Signs Vital Signs 06/04/18 05:28 Temp 98.6 Pulse 77 Resp 18 B/P (MAP) 110/69 (83) Pulse Ox 92 O2 Delivery Room Air Capillary Refill : I&O Intake and Output 06/04/18 00:00 Intake Total 1880 ml Balance 1880 ml Intake Oral 1880 ml # Voids 8 # Bowel Movements 1 General: Alert, Oriented X3, Cooperative, No Acute Distress HEENT: Atraumatic, PERRLA, EOMI, Mucous Memb Moist/[place]: Supple, No JVD Lungs: Clear to Auscultation Heart: Regular Rate, Normal S1, Normal S2 Abdomen: Normal Bowel Sounds, Soft, No Tenderness Extremities: No Clubbing, No Cyanosis, No Edema Skin: No Rashes Neuro: Normal Speech, Other (Left LE 4/5 RT hip flex 3/5 with guarding Mild dementa) A/P-Cardiology Admission Diagnosis Chest pain CAD HTN Right leg pain Assessment/Plan Chest pain nonspecific etiology, status post cardiac catheterization and stent. No further episodes of chest pain, continue to monitor Coronary artery disease, severe ostial right coronary artery stenosis status post stent using a Xience three-time 12 mm expanded to 3.25 at the ostium of the right coronary artery with a few struts extending outside the ostium, feeling well. EKG showed no changes. Continue to monitor, maintained on Brilinta and ASA. Mild dyspnea with exertion- patient reports some improvement. continue PT. Could be secondary to medication. Will continue with Brilinta for at least 1 month before changing to Plavix. Status post transient hypotension and lethargy, probably vasovagal on top of a small retroperitoneal bleed, improved after receiving IV fluid. I proceeded with transfusing 2 units of packed RBCs, continue to monitor. Mild pedal edema, BNP is normal, questionable venous insufficiency, venous Doppler did not show DVT. 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 Continue physical therapy, management per PCP. Mild epigastric pain and right upper quadrant pain, history of cholecystectomy in the past. Started on PPI and monitor Mild tremor for which she takes propranolol Early dementia, maintained on Namenda History of cholecystectomy. Clinical Quality Measures DVT/VTE Risk/Contraindication: Risk Factor Score Per Nursin RFS Level Per Nursing on Admit: 4+=Very High HOLLIS BARRIOS MD Jun 04, 2018 08:27
[2018-06-04] MEDS: TICAGRELOR 90 MG TABLET (BRILINTA) PO SCH ×2 (08:29→20:59)
[2018-06-04] MEDS: DOCUSATE SODIUM 100 MG (COLACE) CAP PO SCH (08:29)
[2018-06-04] MEDS: MEMANTINE 10 MG (NAMENDA) TABLET PO SCH ×2 (08:29→20:59)
[2018-06-04] MEDS: VITAMIN D3 5,000 UNITS (CHOLECALCIFEROL ) CAPSULE PO SCH (08:29)
[2018-06-04] MEDS: ASPIRIN E.C. 81 MG (ECOTRIN) TAB PO SCH (08:29)
[2018-06-04] MEDS: HYDROcodone/APAP 5 MG/325 MG (LORTAB) TAB PO PRN (08:30)
[2018-06-04] MEDS: LIDOCAINE (LIDODERM) 5% PATCH TOP SCH (08:30)
--- NOTE | 2018-06-04 11:09 | Occupational Ther Daily Note ---
OT Current Status-Daily Note Subjective Pt alert, sitting in recliner. Pt stated that she has had pain meds already today and is a little scattered. Pt agrees to therapy. No c/o pain at this time. Mental Status/Objective Patient Orientation: Person, Place, Time, Situation Therapy Code Descriptions/Definitions Functional [place] Measure: 0=Not Assessed/NA 4=Minimal Assistance 1=Total Assistance 5=Supervision or Setup 2=Maximal Assistance 6=Modified [place] 3=Moderate Assistance 7=Complete [place] ADL-Treatment Therapy Code Descriptions/Definitions Functional [place] Measure: 0=Not Assessed/NA 4=Minimal Assistance 1=Total Assistance 5=Supervision or Setup 2=Maximal Assistance 6=Modified [place] 3=Moderate Assistance 7=Complete [place] Therapy Quality Codes: 6 Independent with activity with or without an assistive device 5 Patient requires set up or clean up by helper. Patient completes activity by themselves 4 Supervision or touching assist (CGA). [place] provide cues , steadying assist 3 The helper provides less than half the effort to complete the activity 2 The helper provides more than half the effort to complete the activity 1 Dependent. The helper does all the effort to complete an activity 7 Patient refused to complete or attempt activity 9 The patient did not perform the activity before the current illness or injury 88 Not attempted due to Medical conditions or safety concerns Grooming (FIM): 7 (Standing at sink, pt able to complete own grooming.) Oral Hygiene (QC): 6 Bathing (FIM): 6 (Using grabbars, hand held shower and shower bench pt able to complete own shower. Safety concerns today.) Bathing Location: L Arm, R Arm, L Upper Leg, R Upper Leg, L Lower Leg ( including foot), R Lower Leg (including foot), Chest, Abdomen, Buttocks, Perineal Area Shower/Bathe Self (QC): 6 Upper Body (FIM): 6 (Pt retrieved clothing without AE. Safety concerns today. Donned/doffed clothing by self.) Upper Body Dressing (QC): 6 Lower Body Dressing (FIM): 6 (Pt retrieved clothing without AE. Safety concerns today. Donned/doffed clothing by self using AE.) Lower Body Dressing (QC): 6 On/Off Footwear (QC): 6 Toileting (FIM): 7 (Pt able to complete by self.) Toileting Hygiene (QC): 6 Toilet/Commode Transfer (FIM): 6 (Using grabbars, pt able to complete.) Toilet Transfer (QC): 6 Shower Transfer(FIM): 6 (Using grabbars and shower bench pt able to complete.) Other Treatment Pt ambulated to therapy gym to complete arm bike 15 min at 20 schmitz resistance, no breaks, to increase strength and activity tolerance for daily functional task. PT took over care of pt. All needs met. OT Short Term Goals Short Term Goals Time Frame: Jun 04, 2018 Lower Body Dressing(FIM): 4 Toileting(FIM): 5 Toilet/Commode Transfer(FIM): 5 Additional Short Term Goals: 1-Demonstrate ADL Tasks, 2-Verbalize Understanding , 3-ImproveStrength/Erna 1=Demonstrate adherence to instructed precautions during ADL tasks. 2=Patient will verbalize/demonstrate understanding of assistive devices/ modifications for ADL. 3=Patient will improve strength/tolerance for activity to enable patient to perform ADL's. OT Custodial Goals Custodial Goals Time Frame: Jun 18, 2018 Eating (FIM): 6 Eating (QC): 6 Groomin Oral Hygiene (QC): 6 Bathing(FIM): 5 Shower/Bathe Self (QC): 5 Upper Body Dressing(FIM): 6 Upper Body Dressing (QC): 6 Lower Body Dressing(FIM): 6 Lower Body Dressing (QC): 6 On/Off Footwear (QC): 6 Toileting(FIM): 6 Toileting Hygiene (QC): 6 Toilet/Commode Transfer(FIM): 6 Toilet/Commode Transfer (QC): 6 Shower Transfer(FIM): 5 Additional Goals: 2-Verbalize Understanding, 3-ImproveStrength/Erna 1=Demonstrate adherence to instructed precautions during ADL tasks. 2=Patient will verbalize/demonstrate understanding of assistive devices/ modifications for ADL. 3=Patient will improve strength/tolerance for activity to enable patient to perform ADL's. OT Education/Plan Problem List/Assessment Pt to benefit from skilled OT intervention for ADL training, transfers, strengthening, and safety education to increase level of function and allow safe discharge plan. Discharge Recommendations Plan/Recommendations: Continue POC Treatment Plan/Plan of Care Patient would benefit from OT for education, treatment and training to promote independence in ADL's, mobility, safety and/or upper extremity function for ADL' s. Plan of Care: ADL Retraining, Functional Mobility, Group Exercise/Act as Ind, UE Funct Exercise/Act Treatment Duration: Jun 18, 2018 Frequency: At least 5 of 7 days/Wk (IRF) Estimated Hrs Per Day: 1.5 hours per day Agreement: Yes Rehab Potential: Good Time/GCodes Start Time: 10:00 Stop Time: 11:00 Total Time Billed (hr/min): 60 Billed Treatment Time 1 visit-ADL 3 (45 min) EX 1 (15 min) APOORVA CROWLEY Jun 04, 2018 11:09
--- NOTE | 2018-06-04 11:56 | Physical Therapy Daily Note ---
PT Daily Note-Current Subjective Agrees to PT. Reports she is doing much better. Not using her walker any longer and does not want to use a cane. Mental Status Patient Orientation: Person, Place, Time, Situation Transfers Therapy Code Descriptions/Definitions Functional [place] Measure: 0=Not Assessed/NA 4=Minimal Assistance 1=Total Assistance 5=Supervision or Setup 2=Maximal Assistance 6=Modified [place] 3=Moderate Assistance 7=Complete [place] Therapy Quality Codes: 6 Independent with activity with or without an assistive device 5 Patient requires set up or clean up by helper. Patient completes activity by themselves 4 Supervision or touching assist (CGA). [place] provide cues , steadying assist 3 The helper provides less than half the effort to complete the activity 2 The helper provides more than half the effort to complete the activity 1 Dependent. The helper does all the effort to complete an activity 7 Patient refused to complete or attempt activity 9 The patient did not perform the activity before the current illness or injury 88 Not attempted due to Medical conditions or safety concerns Transfers (B, C, W/C) (FIM): 6 mod indep with transfers as takes a bit extra time but no assist or cues required. Weight Bearing Right Lower Extremity: Right Weight Bearing/Tolerated Left Lower Extremity: Left Weight Bearing/Tolerated Gait Training Does the Patient Walk?: Yes Gait (FIM): 5 Distance (FIM): 3=150 ft Distance: 400 ft x 3 Gait Assistive Device: None Safe and steady gait on level surfaces; Obstacle course with weaving, uneven surface and curb step performed as wll with SBA and no AD. Multiple sit to stand transfers performed all wth SBA Toileted with SBA. Stair Training Stair Training: Handrails/: 1 handrail Stairs (FIM): 5 (SBA for safety) #of Steps: 10 Stairs: Pattern: Reciprocal Exercises NuStep Minutes: 15 Assessment Current Status: Excellent Progress Pt was safe with gait without AD. Completed obstacles, transfers, stairs and level surfaces with no safety concerns. PT Short Term Goals Short Term Goals Time Frame: Jun 04, 2018 Gait (FIM): 4 (met) Distance (FIM): 3=150 ft Gait Level of Assist: 4 (met) Gait Assistive Device: FWW PT Prison Goals [place] Custodian Goals PT [place] Custodian Goals Time Frame: Jun 11, 2018 Transfers (B,C,W/C) (FIM): 7 Sit to Lying (QC): 6 Lying-Sitting on Side/Bed(QC): 6 Sit to Stand (QC): 6 Rollin Roll Left to Right (QC): 6 Chair/Fmb-op-Xjmis Xfer(QC): 6 Car Transfer (QC): 6 Does the Patient Walk: Yes Gait (FIM): 6 Gait distance (FIM): 3=150 ft Walk 10 feet (QC): 6 Walk 10ft-Uneven Surface(QC): 6 Walk 50ft with 2 Turns (QC): 6 Walk 150 ft (QC): 6 Gait Assistive Device: FWW Does the Pt use WC or Scooter?: No Stairs (FIM): 5 # of Steps: 4 (household exception) 1 Step (curb) (QC): 6 4 Steps (QC): 6 12 Steps (QC): 88 Stairs Level Of Assist: 6 Picking up an Object (QC): 4 PT Plan Problem List Problem List: Activity Tolerance, Functional Strength, Safety, Balance, Gait, Transfer, Bed Mobility Treatment/Plan Treatment Plan: Continue Plan of Care Treatment Plan: Bed Mobility, Education, Functional Activity Erna, Functional Strength, Group Therapy, Gait, Safety, Therapeutic Exercise, Transfers Treatment Duration: Jun 11, 2018 Frequency: At least 5 of 7 days/Wk (IRF) Estimated Hrs Per Day: 1.5 hours per day Patient and/or Family Agrees t: Yes Safety Risks/Education Patient Education: Transfer Techniques, Safety Issues Teaching Recipient: Patient Teaching Methods: Discussion Response to Teaching: Return Demonstration Discharge Recommendations Therapy D/C Recommendations: Physical Therapy Home Care Time/GCodes Time In: 1100 Time Out: 1200 Total Billed Treatment Time: 60 Total Billed Treatment visit FA 45 EX 15 APOORVA HERRERA PT Jun 04, 2018 11:56
[2018-06-04 14:34] VITALS: BP 113/72
--- NOTE | 2018-06-04 14:51 | Therapy Group Daily Note ---
Therapy Daily Group Note Patient Education Topic Other List Below (memory, benefits of exercise, ARU expectations/description) Exercises LE Seated Exercise, UE Exercise Other/Notes Pt ambulated to [facility] for OT/PT group. Group consisted of introductions (name, place living, reason admitted to [facility]), socialization, education topics (ARU, exercise, memory), UE/LE seated exercises and memory activities. Pt introduced self appropriately and actively listened to peers. Verbalized understanding of educational topics and was able to stated personal strategies. Pt contributed to conversation to peers and actively initiated conversations. Pt was able to follow direction and complete seated exercises. After therapy, pt lying in bed with call light/phone in reach. All needs met in room. Start Time: 13:00 Stop Time: 14:15 Total Billed Treatment Time: 75 Total Billed Treatment 1-GRP APOORVA CROWLEY Jun 04, 2018 14:51
--- NOTE | 2018-06-04 15:31 | Speech Therapy Daily Note ---
Speech Daily Progress Note Subjective Date Seen by Provider: Jun 04, 2018 Time Seen by Provider: 00:15 Patient was resting in her chair when I entered her room. She stated she thought they had changed her meds and it had made her feel groggy all day. Objective Patient completed memory tasks related to her daily events for today with 80% accuracy given minimal cues. Communication Comprehension: 6 Expression: 6 Social Cognition Social Interaction: 6 Problem Solvin Memory: 6 Speech Short Term Goals Short Term Goals Short Term Goals Patient will be able to recall words provided to respond to questions in sentence form with 90% or greater accuracy. Patient will recall information presented in paragraphs with 90% or greater accuracy. Patient will recall safety precautions with minimal verbal and/or visual cuing at 90% or greater accuracy. Speech Custodial Goals Custodial Goals Patient will be able to demonstrate safety awareness and independence within her immediate environment with minimal cues at 90% accuracy. Speech-Plan Patient/Family Goals Patient/Family Goals: Patient will be moving to assisted living on Thursday, 06/08. Treatment Plan Speech Therapy Treatment Plan: Continue Plan of Care Patient has progressed well with therapy. Treatment Duration: Jun 04, 2018 Frequency: 5 times per week Estimated Hrs Per Day: .5 hour per day Rehab Potential: Good Barriers to Learning: Patient has mild dementia. Pt/Family Agrees to Plan: Yes Safety Risks/Education Teaching Recipient: Patient Teaching Methods: Discussion Response to Teaching: Verbalize Understanding Education Topics Provided: Safety Time Speech Therapy Time In: 15:10 Speech Therapy Time Out: 15:25 Total Billed Time: 15 Billed Treatment Time 1, ASH Sy Jun 04, 2018 15:31
--- NOTE | 2018-06-04 16:02 | PM & R (SOAP) Progress Note ---
Subjective This was a face to face visit with the patient. Date Seen by Provider: Jun 04, 2018 Time Seen by Provider: 15:45 Subjective/Events-last exam Patient was seen in HER ROOM THIS AFTERNOON .pATIENT sba FOR TRANSFERS.pAIN DECREASING Objective Physician Exam Last Set of Vital Signs Vital Signs Date Time Temp Pulse Resp B/P (MAP) Pulse Ox O2 Delivery O2 Flow Rate FiO2 06/04/18 14:34 89 113/72 (86) 06/04/18 09:00 Room Air 06/04/18 05:28 98.6 18 92 Capillary Refill : I&O Intake and Output 06/04/18 00:00 Intake Total 1880 ml Balance 1880 ml Intake Oral 1880 ml # Voids 8 # Bowel Movements 1 General: Alert, Oriented X3, Cooperative, No Acute Distress HEENT: Atraumatic, PERRLA, EOMI, Mucous Memb Moist/[place] Neck: Supple, No JVD Lungs: Clear to Auscultation Heart: Regular Rate, Normal S1, Normal S2 Abdomen: Normal Bowel Sounds, Soft, No Tenderness Extremities: No Clubbing, No Cyanosis, No Edema Skin: No Rashes Neuro: Normal Speech, Other (Left LE 4/5 RT hip flex 3/5 with guarding Mild dementa) Assessment/Plan Assessment and Plan rT ILIOPSOAS TEAR WITH PAIN DECREASING lEFT RETROPERITONEAL HEMATOMA [place] lau dEMENTIA tREMOR htn cad S/P STENT pLAN cONTINUE pt/ot dISCHARGE REMAINS SET FOR 06-08-18 [place] [facility] F/U WITH [facility] NEXT WEEK RE DETAILS Co-Morbidities that are continuing to impact the rehab process: (include details ) SAMUEL NEWTON MD Jun 04, 2018 16:02
--- NOTE | 2018-06-04 17:05 | Progress Note ---
Objective Exam Last Set of Vital Signs Vital Signs Date Time Temp Pulse Resp B/P (MAP) Pulse Ox O2 Delivery O2 Flow Rate FiO2 06/04/18 14:34 89 113/72 (86) 06/04/18 09:00 Room Air 06/04/18 05:28 98.6 18 92 Capillary Refill : I&O Intake and Output 06/04/18 00:00 Intake Total 1880 ml Balance 1880 ml Intake Oral 1880 ml # Voids 8 # Bowel Movements 1 General: Alert, Oriented X3, Cooperative, No Acute Distress HEENT: Atraumatic, PERRLA, EOMI, Mucous Memb Moist/[place] Neck: Supple, No JVD Lungs: Clear to Auscultation Heart: Regular Rate, Normal S1, Normal S2 Abdomen: Normal Bowel Sounds, Soft, No Tenderness Extremities: No Clubbing, No Cyanosis, No Edema Skin: No Rashes Neuro: Normal Speech, Other (Left LE 4/5 RT hip flex 3/5 with guarding Mild dementa) Clinical Quality Measures DVT/VTE Risk/Contraindication: Risk Factor Score Per Nursin RFS Level Per Nursing on Admit: 4+=Very High ANNIE MOORE MD Jun 04, 2018 17:05
[2018-06-04 17:56] VITALS: BP 97/64
[2018-06-04] MEDS: SERTRALINE 50 MG (ZOLOFT) TABLET PO SCH (20:59)
[2018-06-04] MEDS: LIDOCAINE PATCH REMOVAL TP SCH (21:04)
[2018-06-05 05:23] VITALS: BP 95/58
[2018-06-05 06:08] VITALS: BP 105/62
[2018-06-05] MEDS: CYANOCOBALAMIN 1,000 MCG (VITAMIN B-12) TABLET PO SCH (06:16)
[2018-06-05] MEDS: PROPRANOLOL 20 MG (INDERAL) TABLET PO SCH ×3 (06:16→20:54)
--- NOTE | 2018-06-05 08:36 | PM & R (SOAP) Progress Note ---
Subjective This was a face to face visit with the patient. Date Seen by Provider: Jun 05, 2018 Time Seen by Provider: 07:40 Subjective/Events-last exam Patient was seen in her room this AM Progressing well with therapies Patient Modified Independent for transfers Objective Physician Exam Last Set of Vital Signs Vital Signs Date Time Temp Pulse Resp B/P (MAP) Pulse Ox O2 Delivery O2 Flow Rate FiO2 06/05/18 06:08 73 105/62 (76) Room Air 06/05/18 05:23 98.2 18 93 Capillary Refill : I&O Intake and Output 06/05/18 00:00 Intake Total 1360 ml Balance 1360 ml Intake Oral 1360 ml # Voids 6 # Bowel Movements 1 General: Alert, Oriented X3, Cooperative, No Acute Distress HEENT: Atraumatic, PERRLA, EOMI, Mucous Memb Moist/[place] Neck: Supple, No JVD Lungs: Clear to Auscultation Heart: Regular Rate, Normal S1, Normal S2 Abdomen: Normal Bowel Sounds, Soft, No Tenderness Extremities: No Clubbing, No Cyanosis, No Edema Skin: No Rashes Neuro: Normal Speech, Other (Left LE 4/5 RT hip flex 3/5 with guarding Mild dementa) Assessment/Plan Assessment and Plan RT Iliopsoas tear with pain improving Left retroperitoneal hematoma Zina Espinoza Dementia tremor HTN CAD s/p stent Plan Continue PT/OT Discharge remains set for 06-08-18 to an [facility] Co-Morbidities that are continuing to impact the rehab process: (include details ) SAMUEL NEWTON MD Jun 05, 2018 08:35
[2018-06-05] MEDS: VITAMIN D3 5,000 UNITS (CHOLECALCIFEROL ) CAPSULE PO SCH (08:57)
[2018-06-05] MEDS: DOCUSATE SODIUM 100 MG (COLACE) CAP PO SCH (08:57)
[2018-06-05] MEDS: MEMANTINE 10 MG (NAMENDA) TABLET PO SCH ×2 (08:58→20:54)
[2018-06-05] MEDS: ASPIRIN E.C. 81 MG (ECOTRIN) TAB PO SCH (08:58)
[2018-06-05] MEDS: TICAGRELOR 90 MG TABLET (BRILINTA) PO SCH ×2 (08:58→20:54)
[2018-06-05] MEDS: LIDOCAINE (LIDODERM) 5% PATCH TOP SCH (08:59)
--- NOTE | 2018-06-05 10:03 | Physical Therapy Daily Note ---
PT Daily Note-Current Subjective Patient in bed pre tx, agrees to PT, no complaints of pain. Appearance Patient in recliner post tx with nurse call, phone, tray, all needs met. Mental Status Patient Orientation: Normal For Age Transfers Therapy Code Descriptions/Definitions Functional [place] Measure: 0=Not Assessed/NA 4=Minimal Assistance 1=Total Assistance 5=Supervision or Setup 2=Maximal Assistance 6=Modified [place] 3=Moderate Assistance 7=Complete [place] Therapy Quality Codes: 6 Independent with activity with or without an assistive device 5 Patient requires set up or clean up by helper. Patient completes activity by themselves 4 Supervision or touching assist (CGA). [place] provide cues , steadying assist 3 The helper provides less than half the effort to complete the activity 2 The helper provides more than half the effort to complete the activity 1 Dependent. The helper does all the effort to complete an activity 7 Patient refused to complete or attempt activity 9 The patient did not perform the activity before the current illness or injury 88 Not attempted due to Medical conditions or safety concerns Transfers (B, C, W/C) (FIM): 6 Scootin Rollin Supine to/from Sit: 6 Sit to/from Stand: 6 Bed to/from Chair: 6 Weight Bearing Right Lower Extremity: Right Weight Bearing/Tolerated Left Lower Extremity: Left Weight Bearing/Tolerated Gait Training Gait (FIM): 5 Distance: 500' Gait Level of Assist: 5 Gait Persons Needed: 1 Gait Assistive Device: None Steady ambulation, no LOB, brisk pace Treatments bed mobility and transfers, ambulation Assessment Current Status: Fair Progress improving ambulation PT Short Term Goals Short Term Goals Time Frame: Jun 04, 2018 Gait (FIM): 4 (met) Distance (FIM): 3=150 ft Gait Level of Assist: 4 (met) Gait Assistive Device: FWW PT Casey Saw Operator Goals Skilled Nursing Goals PT Casey Saw Operator Goals Time Frame: Jun 11, 2018 Transfers (B,C,W/C) (FIM): 7 Sit to Lying (QC): 6 Lying-Sitting on Side/Bed(QC): 6 Sit to Stand (QC): 6 Rollin Roll Left to Right (QC): 6 Chair/Qiv-gl-Hryun Xfer(QC): 6 Car Transfer (QC): 6 Does the Patient Walk: Yes Gait (FIM): 6 Gait distance (FIM): 3=150 ft Walk 10 feet (QC): 6 Walk 10ft-Uneven Surface(QC): 6 Walk 50ft with 2 Turns (QC): 6 Walk 150 ft (QC): 6 Gait Assistive Device: FWW Does the Pt use WC or Scooter?: No Stairs (FIM): 5 # of Steps: 4 (household exception) 1 Step (curb) (QC): 6 4 Steps (QC): 6 12 Steps (QC): 88 Stairs Level Of Assist: 6 Picking up an Object (QC): 4 PT Plan Problem List Problem List: Activity Tolerance, Functional Strength, Safety, Balance, Gait, Transfer Treatment/Plan Treatment Plan: Continue Plan of Care Treatment Plan: Bed Mobility, Education, Functional Activity Erna, Functional Strength, Group Therapy, Gait, Safety, Therapeutic Exercise, Transfers Treatment Duration: Jun 11, 2018 Frequency: At least 5 of 7 days/Wk (IRF) Estimated Hrs Per Day: 1.5 hours per day Patient and/or Family Agrees t: Yes Safety Risks/Education Patient Education: Gait Training, Transfer Techniques, Correct Positioning, Safety Issues Teaching Recipient: Patient Teaching Methods: Demonstration, Discussion Response to Teaching: Reinforcement Needed Time/GCodes Time In: 0944 Time Out: 1000 Total Billed Treatment Time: 16 Total Billed Treatment 1 visit GT 16' KEVON MACKENZIE PT Jun 05, 2018 10:03
--- NOTE | 2018-06-05 11:59 | Progress Note-Hospitalist ---
Subjective HPI/CC On Admission Date Seen by Provider: Jun 05, 2018 Time Seen by Provider: 11:00 Subjective/Events-last exam Patient doing well Left leg much improved with intensive PT while in IRF No pain is reported BM today Checked meds and labs Review of Systems Neurological: Weakness Objective Exam Vital Signs Vital Signs Date Time Temp Pulse Resp B/P (MAP) Pulse Ox O2 Delivery O2 Flow Rate FiO2 06/05/18 09:00 Room Air 06/05/18 06:08 73 105/62 (76) 06/05/18 05:23 98.2 18 93 Capillary Refill : General Appearance: No Apparent Distress, WD/WN, Chronically ill Respiratory: Chest Non Tender, Lungs Clear, Normal Breath Sounds, No Accessory Muscle Use, No Respiratory Distress Cardiovascular: Regular Rate, Rhythm, No Edema, No Gallop, No JVD, No Murmur, Normal Peripheral Pulses Neurologic/Psychiatric: Alert, Oriented x3, No Motor/Sensory Deficits, Normal Mood/Affect Results/Procedures Lab Patient resulted labs reviewed. Assessment/Plan Assessment and Plan Assess & Plan/Chief Complaint Assessment: Debility following retroperitoneal bleed following cardia cath procedure Iliopsoas tear causing right leg weakness PD HTN CAD recent stenting Plan: IRF protocol Monitor BP Fall risk Diagnosis/Problems Diagnosis/Problems (1) Debility Status: Acute (2) Retroperitoneal bleed Status: Chronic (3) Strain of right iliopsoas muscle Status: Chronic Qualifiers: Encounter type: subsequent encounter Qualified Codes: S76.911D - Strain of unspecified muscles, fascia and tendons at thigh level, right thigh, subsequent encounter (4) Parkinson disease Status: Chronic (5) Hypertension Status: Chronic Qualifiers: Hypertension type: essential hypertension Qualified Codes: I10 - Essential (primary) hypertension (6) Stented coronary artery Status: Chronic Clinical Quality Measures DVT/VTE Risk/Contraindication: Risk Factor Score Per Nursin RFS Level Per Nursing on Admit: 4+=Very High REEMA TAMEZ DO Jun 05, 2018 11:59
[2018-06-05 14:22] VITALS: BP 123/73
[2018-06-05 18:00] VITALS: BP 97/63
--- NOTE | 2018-06-05 19:15 | Cardiology Progress Note ---
Cardiology SOAP Progress Note Subjective: No cardiac complaints. Objective: I&O/Vital Signs 06/05/18 06/05/18 06/05/18 14:22 18:00 20:45 Temp 97.5 Pulse 92 71 Resp 18 B/P (MAP) 123/73 (90) 97/63 (74) Pulse Ox 94 O2 Delivery Room Air Room Air 06/05/18 00:00 Intake Total 960 ml Balance 960 ml Weight (Pounds): 220 Weight (Ounces): 0.0 Weight (Calculated Kilograms): 99.701926 Constitutional: AAO x 3 Respiratory: No accessory muscle use, No respiratory distress, No chest tender , No chest expansion is symmetric; chest is bilaterally symmetric; No lungs clear to percussion; lungs clear to auscultation; No crackles, No rhonchi, No rales, No stridor, No wheezing, No pleural rub, No other Cardiovascular: regular rate-rhythm; No irregularly irregular, No extra beats, No parasternal heave is noted, No JVD, No edema, No bradycardia, No tachycardia , No point of maximal impulse, No cardiac thrills are palpable; S1 and S2; No gallop/S3, No gallop/S4, No diastolic murmur, No systolic murmur, No friction rub, No click, No other Gastrointestional: No tender, No soft, No round, No distended, No pulsatile mass, No organomegaly, No guarding, No rebound, No tenderness, No hernia, No mass, No audible bowel sounds, No abnormal bowel sounds, No abdominal bruits, No spleenomegaly, No other Extremities: No normal range of motion, No non-tender, No normal inspection, No pedal edema, No calf tenderness, No normal capillary refill, No pelvis stable , No calf tenderness, No inflammation, No pedal edema, No slow capillary refill , No swelling, No other, No abrasion, No clubbing, No cyanosis, No ecchymosis, No laceration, No no lower extremity edema bilateral, No significant edema, No tenderness, No wound Neurologic/Psychiatric: no motor/sensory deficits, alert, normal mood/affect, oriented x 3 Skin: No normal color, No warm/dry, No cyanosis, No cool, No diaphoresis, No damp, No ecchymosis, No jaundice, No mottled, No pallor, No rash, No tattoos/ piercings, No ulcerations, No rash on exposed areas, No ulcerations on exposed areas, No other A/P: Assessment/Dx: Admission Diagnosis Chest pain CAD HTN Right leg pain Plan: Assessment/Plan Chest pain nonspecific etiology, status post cardiac catheterization and stent. No further episodes of chest pain, continue to monitor Coronary artery disease, severe ostial right coronary artery stenosis status post stent using a Xience three-time 12 mm expanded to 3.25 at the ostium of the right coronary artery with a few struts extending outside the ostium, feeling well. EKG showed no changes. Continue to monitor, maintained on Brilinta and ASA. Mild dyspnea with exertion- patient reports some improvement. continue PT. Could be secondary to medication. Will continue with Brilinta for at least 1 month before changing to Plavix. Status post transient hypotension and lethargy, probably vasovagal on top of a small retroperitoneal bleed, improved after receiving IV fluid. I proceeded with transfusing 2 units of packed RBCs, continue to monitor. Mild pedal edema, BNP is normal, questionable venous insufficiency, venous Doppler did not show DVT. 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 Continue physical therapy, management per PCP. Mild epigastric pain and right upper quadrant pain, history of cholecystectomy in the past. Started on PPI and monitor Mild tremor for which she takes propranolol Early dementia, maintained on Namenda History of cholecystectomy. Thank you for your consultation. Please call me if you have any questions. Hero Josue MD, FACP, FACC, FSCAI, FHRS, CCDS Interventional Cardiology Cardiac Electrophysiology Vascular Medicine and Endovascular Interventions Bettye JOSUE MD Jun 05, 2018 19:15
[2018-06-05] MEDS: LIDOCAINE PATCH REMOVAL TP SCH (19:24)
[2018-06-05] MEDS: SERTRALINE 50 MG (ZOLOFT) TABLET PO SCH (20:53)
[2018-06-06 05:25] VITALS: BP 99/63
[2018-06-06] MEDS: PROPRANOLOL 20 MG (INDERAL) TABLET PO SCH ×3 (06:01→20:18)
[2018-06-06] MEDS: CYANOCOBALAMIN 1,000 MCG (VITAMIN B-12) TABLET PO SCH (06:01)
[2018-06-06] MEDS: TICAGRELOR 90 MG TABLET (BRILINTA) PO SCH ×2 (08:31→20:18)
[2018-06-06] MEDS: VITAMIN D3 5,000 UNITS (CHOLECALCIFEROL ) CAPSULE PO SCH (08:31)
[2018-06-06] MEDS: ASPIRIN E.C. 81 MG (ECOTRIN) TAB PO SCH (08:31)
[2018-06-06] MEDS: MEMANTINE 10 MG (NAMENDA) TABLET PO SCH ×2 (08:31→20:18)
[2018-06-06] MEDS: DOCUSATE SODIUM 100 MG (COLACE) CAP PO SCH (08:32)
[2018-06-06] MEDS: LIDOCAINE (LIDODERM) 5% PATCH TOP SCH (08:33)
--- NOTE | 2018-06-06 13:13 | Cardiology Progress Note ---
Cardiology SOAP Progress Note Subjective: No cardiac complaints. Objective: I&O/Vital Signs 06/06/18 06/06/18 05:25 09:00 Temp 98.7 Pulse 80 Resp 18 B/P (MAP) 99/63 (75) Pulse Ox 96 O2 Delivery Room Air Room Air 06/06/18 00:00 Intake Total 1140 ml Balance 1140 ml Weight (Pounds): 220 Weight (Ounces): 0.0 Weight (Calculated Kilograms): 99.382946 Constitutional: AAO x 3 Respiratory: No accessory muscle use, No respiratory distress, No chest tender , No chest expansion is symmetric; chest is bilaterally symmetric; No lungs clear to percussion; lungs clear to auscultation; No crackles, No rhonchi, No rales, No stridor, No wheezing, No pleural rub, No other Cardiovascular: regular rate-rhythm; No irregularly irregular, No extra beats, No parasternal heave is noted, No JVD, No edema, No bradycardia, No tachycardia , No point of maximal impulse, No cardiac thrills are palpable; S1 and S2; No gallop/S3, No gallop/S4, No diastolic murmur, No systolic murmur, No friction rub, No click, No other Gastrointestional: No tender, No soft, No round, No distended, No pulsatile mass, No organomegaly, No guarding, No rebound, No tenderness, No hernia, No mass, No audible bowel sounds, No abnormal bowel sounds, No abdominal bruits, No spleenomegaly, No other Extremities: No normal range of motion, No non-tender, No normal inspection, No pedal edema, No calf tenderness, No normal capillary refill, No pelvis stable , No calf tenderness, No inflammation, No pedal edema, No slow capillary refill , No swelling, No other, No abrasion, No clubbing, No cyanosis, No ecchymosis, No laceration, No no lower extremity edema bilateral, No significant edema, No tenderness, No wound Neurologic/Psychiatric: no motor/sensory deficits, alert, normal mood/affect, oriented x 3 Skin: No normal color, No warm/dry, No cyanosis, No cool, No diaphoresis, No damp, No ecchymosis, No jaundice, No mottled, No pallor, No rash, No tattoos/ piercings, No ulcerations, No rash on exposed areas, No ulcerations on exposed areas, No other A/P: Assessment/Dx: Admission Diagnosis Chest pain CAD HTN Right leg pain Plan: Assessment/Plan Chest pain nonspecific etiology, status post cardiac catheterization and stent. No further episodes of chest pain, continue to monitor Coronary artery disease, severe ostial right coronary artery stenosis status post stent using a Xience three-time 12 mm expanded to 3.25 at the ostium of the right coronary artery with a few struts extending outside the ostium, feeling well. EKG showed no changes. Continue to monitor, maintained on Brilinta and ASA. Mild dyspnea with exertion- patient reports some improvement. continue PT. Could be secondary to medication. Will continue with Brilinta for at least 1 month before changing to Plavix. Status post transient hypotension and lethargy, probably vasovagal on top of a small retroperitoneal bleed, improved after receiving IV fluid. I proceeded with transfusing 2 units of packed RBCs, continue to monitor. Mild pedal edema, BNP is normal, questionable venous insufficiency, venous Doppler did not show DVT. 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 Continue physical therapy, management per PCP. Mild epigastric pain and right upper quadrant pain, history of cholecystectomy in the past. Started on PPI and monitor Mild tremor for which she takes propranolol Early dementia, maintained on Namenda History of cholecystectomy. Thank you for your consultation. Please call me if you have any questions. Hero Josue MD, FACP, FACC, FSCAI, FHRS, CCDS Interventional Cardiology Cardiac Electrophysiology Vascular Medicine and Endovascular Interventions Bettye JOSUE MD Jun 06, 2018 1:13 pm
[2018-06-06 15:02] VITALS: BP 85/47
[2018-06-06 15:44] LABS: HEMOGLOBIN 12.8 G/DL (11.5-16.0); MEAN PLATELET VOLUME 9.1 FL (7.4-10.4); RED BLOOD COUNT 3.95 10^6/uL (4.35-5.85); RED CELL DISTRIBUTION WIDTH 14.1 % (10.0-14.5); WHITE BLOOD COUNT 9.4 10^3/uL (4.3-11.0)
[2018-06-06 16:00] VITALS: BP 111/71
[2018-06-06 18:00] VITALS: BP 108/70
[2018-06-06] MEDS: SERTRALINE 50 MG (ZOLOFT) TABLET PO SCH (20:18)
[2018-06-06] MEDS: LIDOCAINE PATCH REMOVAL TP SCH (20:18)
[2018-06-07 05:26] VITALS: BP 122/75
[2018-06-07] MEDS: CYANOCOBALAMIN 1,000 MCG (VITAMIN B-12) TABLET PO SCH (06:19)
[2018-06-07] MEDS: PROPRANOLOL 20 MG (INDERAL) TABLET PO SCH ×3 (06:19→20:01)
--- NOTE | 2018-06-07 08:26 | Cardiology Progress Note ---
Subjective Date Seen by Provider: Jun 07, 2018 Time Seen by Provider: 08:24 Subjective/Events-last exam Patient sitting up in chair, no new complaints. Denies any chest pain or dyspnea. Review of Systems General: No Night Sweats, No Fatigue, No Malaise HEENT: No Visual Changes, No Dysphasia, No Sore Throat Pulmonary: No Dyspnea, No Cough Cardiovascular: No: Chest Pain, Palpitations, Paroxysmal Noc. Dyspnea, Edema Gastrointestinal: No: Nausea, Vomiting, Abdominal Pain, Constipation Genitourinary: No Dysuria, No Frequency Musculoskeletal: leg pain (right groin pain); No: neck pain, back pain Neurological: No: Weakness, Numbness, Change in speech, Confusion Objective-Cardiology Exam Last Set of Vital Signs Vital Signs 06/07/18 05:26 Temp 97.6 Pulse 90 Resp 18 B/P (MAP) 122/75 (91) Pulse Ox 92 O2 Delivery Room Air Capillary Refill : I&O Intake and Output 06/07/18 00:00 Intake Total 1520 ml Balance 1520 ml Intake Oral 1520 ml # Voids 7 # Bowel Movements 1 General: Alert, Oriented X3, Cooperative, No Acute Distress HEENT: Atraumatic, PERRLA, EOMI, Mucous Memb Moist/[place] Neck: Supple, No JVD Lungs: Clear to Auscultation Heart: Regular Rate, Normal S1, Normal S2 Abdomen: Normal Bowel Sounds, Soft, No Tenderness Extremities: No Clubbing, No Cyanosis, No Edema Skin: No Rashes Neuro: Normal Speech, Other (Left LE 4/5 RT hip flex 3/5 with guarding Mild dementa) Results Lab Laboratory Tests 06/06/18 15:32 A/P-Cardiology Admission Diagnosis Chest pain CAD HTN Right leg pain Assessment/Plan Chest pain nonspecific etiology, status post cardiac catheterization and stent. No further episodes of chest pain, continue to monitor Coronary artery disease, severe ostial right coronary artery stenosis status post stent using a Xience three-time 12 mm expanded to 3.25 at the ostium of the right coronary artery with a few struts extending outside the ostium, feeling well. EKG showed no changes. Continue to monitor, maintained on Brilinta and ASA. Mild dyspnea with exertion- patient reports some improvement. continue PT. Could be secondary to medication. Will continue with Brilinta for at least 1 month before changing to Plavix. Status post transient hypotension and lethargy, probably vasovagal on top of a small retroperitoneal bleed, improved after receiving IV fluid, blood transfusion. Continue to monitor. Mild pedal edema, BNP is normal, questionable venous insufficiency, venous Doppler did not show DVT. Borderline hypotension- patient is asymptomatic, continue to monitor. Right leg pain, MRI lower extremities done 05/29/18 revealed tear of right iliopsoas tendon with muscle strain of right iliacus, tendinopathy of gluteus minimus R>L. Continue physical therapy, management per PCP. Mild epigastric pain and right upper quadrant pain, history of cholecystectomy in the past. Started on PPI and monitor Mild tremor for which she takes propranolol Early dementia, maintained on Namenda History of cholecystectomy. Clinical Quality Measures DVT/VTE Risk/Contraindication: Risk Factor Score Per Nursin RFS Level Per Nursing on Admit: 4+=Very High LETY BRADFORD Jun 07, 2018 08:26
[2018-06-07] MEDS: MEMANTINE 10 MG (NAMENDA) TABLET PO SCH ×2 (08:36→20:01)
[2018-06-07] MEDS: DOCUSATE SODIUM 100 MG (COLACE) CAP PO SCH (08:37)
[2018-06-07] MEDS: VITAMIN D3 5,000 UNITS (CHOLECALCIFEROL ) CAPSULE PO SCH (08:37)
[2018-06-07] MEDS: ASPIRIN E.C. 81 MG (ECOTRIN) TAB PO SCH (08:37)
[2018-06-07] MEDS: LIDOCAINE (LIDODERM) 5% PATCH TOP SCH (08:37)
[2018-06-07] MEDS: TICAGRELOR 90 MG TABLET (BRILINTA) PO SCH ×2 (08:37→20:01)
[2018-06-07 08:49] VITALS: BP 107/61
--- NOTE | 2018-06-07 09:23 | Cardiology Progress Note ---
Subjective Date Seen by Provider: Jun 07, 2018 Time Seen by Provider: 09:22 Subjective/Events-last exam Patient is sitting in a chair, feeling better, groin is feeling better, denied any chest pain Review of Systems General: No Chills, No Night Sweats, No Fatigue, No Malaise, No Appetite, No Other HEENT: No Head Aches, No Visual Changes, No Eye Pain, No Ear Pain, No Dysphasia , No Sinus Congestion, No Post Nasal Drip, No Sore Throat, No Other Pulmonary: No Dyspnea, No Cough, No Pleuritic Chest Pain, No Other Cardiovascular: No: Chest Pain, Palpitations, Orthopnea, Paroxysmal Noc. Dyspnea, Edema, Lt Headedness, Other Objective-Cardiology Exam Last Set of Vital Signs Vital Signs 06/07/18 06/07/18 05:26 08:49 Temp 97.6 Pulse 80 Resp 18 B/P (MAP) 107/61 (76) Pulse Ox 93 O2 Delivery Room Air Capillary Refill : I&O Intake and Output 06/07/18 00:00 Intake Total 1520 ml Balance 1520 ml Intake Oral 1520 ml # Voids 7 # Bowel Movements 1 General: Alert, Oriented X3, Cooperative, No Acute Distress HEENT: Atraumatic, PERRLA, EOMI, Mucous Memb Moist/[place] Neck: Supple, No JVD Lungs: Clear to Auscultation Heart: Regular Rate, Normal S1, Normal S2 Abdomen: Normal Bowel Sounds, Soft, No Tenderness Extremities: No Clubbing, No Cyanosis, No Edema Skin: No Rashes Neuro: Normal Speech, Other (Left LE 4/5 RT hip flex 3/5 with guarding Mild dementa) Results Lab Laboratory Tests 06/06/18 15:32 A/P-Cardiology Admission Diagnosis Chest pain CAD HTN Right leg pain Assessment/Plan Chest pain nonspecific etiology, status post cardiac catheterization and stent. No further episodes of chest pain, continue to monitor Coronary artery disease, severe ostial right coronary artery stenosis status post stent using a Xience three-time 12 mm expanded to 3.25 at the ostium of the right coronary artery with a few struts extending outside the ostium, feeling well. EKG showed no changes. Continue to monitor, maintained on Brilinta and ASA. Mild dyspnea with exertion- patient reports some improvement. continue PT. Could be secondary to medication. Will continue with Brilinta for at least 1 month before changing to Plavix. Status post transient hypotension and lethargy, probably vasovagal on top of a small retroperitoneal bleed, improved after receiving IV fluid, blood transfusion. Continue to monitor. Mild pedal edema, BNP is normal, questionable venous insufficiency, venous Doppler did not show DVT. Borderline hypotension- patient is asymptomatic, continue to monitor. Right leg pain, MRI lower extremities done 05/29/18 revealed tear of right iliopsoas tendon with muscle strain of right iliacus, tendinopathy of gluteus minimus R>L. Continue physical therapy, management per PCP. Mild epigastric pain and right upper quadrant pain, history of cholecystectomy in the past. Started on PPI and monitor Mild tremor for which she takes propranolol Early dementia, maintained on Namenda History of cholecystectomy. Clinical Quality Measures DVT/VTE Risk/Contraindication: Risk Factor Score Per Nursin RFS Level Per Nursing on Admit: 4+=Very High HOLLIS BARRIOS MD Jun 07, 2018 9:23 am
--- NOTE | 2018-06-07 09:51 | Physical Therapy Daily Note ---
PT Daily Note-Current Subjective Agrees to PT. Reports she is discharging tomorrow to an [facility] in [place]. She reports she is anxious to go there. Pain Numeric Pain Scale: 0-No Pain Location: No Pain Reported Mental Status Patient Orientation: Person, Place, Time, Situation Transfers Therapy Code Descriptions/Definitions Functional [place] Measure: 0=Not Assessed/NA 4=Minimal Assistance 1=Total Assistance 5=Supervision or Setup 2=Maximal Assistance 6=Modified [place] 3=Moderate Assistance 7=Complete [place] Therapy Quality Codes: 6 Independent with activity with or without an assistive device 5 Patient requires set up or clean up by helper. Patient completes activity by themselves 4 Supervision or touching assist (CGA). [place] provide cues , steadying assist 3 The helper provides less than half the effort to complete the activity 2 The helper provides more than half the effort to complete the activity 1 Dependent. The helper does all the effort to complete an activity 7 Patient refused to complete or attempt activity 9 The patient did not perform the activity before the current illness or injury 88 Not attempted due to Medical conditions or safety concerns Transfers (B, C, W/C) (FIM): 7 Roll Left to Right (QC): 6 Supine to/from Sit: 7 Sit to/from Stand: 7 Sit to Lying (QC): 6 Sit to Stand (QC): 6 Chair/Fij-ll-Dtrlo Xfer(QC): 6 Bed to/from Chair: 7 Car Transfer (QC): 7 Pt is indep and safe with all transfers. Weight Bearing Right Lower Extremity: Right Weight Bearing/Tolerated Left Lower Extremity: Left Weight Bearing/Tolerated Gait Training Does the Patient Walk?: Yes Gait (FIM): 7 Distance (FIM): 3=150 ft Distance: >300 ft Walk 10 feet (QC): 6 Walk 50 ft with 2 Turns(QC): 6 Walk 150 ft (QC): 6 Walking 10ft/uneven surface-QC: 6 Gait Level of Assist: 7 Gait Assistive Device: None Wheelchair Training Does the Pt Use a Wheelchair?: No Stair Training Stair Training: Handrails/: 1 handrail Stairs (FIM): 7 #of Steps: 12 1 Step (curb) (QC): 6 4 Steps (QC): 6 12 Steps (QC): 6 Stairs: Pattern: Reciprocal Balance Picking up an Object (QC): 5 Assessment Current Status: Excellent Progress Pt is indep and safe with all mobilty. She does continue to demonstrate decreased functional activity [place] and gets slightly SOA with activity but recovers quickly. Safe with gait, transfers, stairs and all funcitonal mobility. PT Short Term Goals Short Term Goals Time Frame: Jun 04, 2018 Gait (FIM): 4 (met) Distance (FIM): 3=150 ft Gait Level of Assist: 4 (met) Gait Assistive Device: FWW PT Chcf Goals Regulatory Manager Goals PT Regulatory Manager Goals Time Frame: Jun 11, 2018 Transfers (B,C,W/C) (FIM): 7 (met) Sit to Lying (QC): 6 (met) Lying-Sitting on Side/Bed(QC): 6 (met) Sit to Stand (QC): 6 (met) Rollin (met) Roll Left to Right (QC): 6 (met) Chair/Dmv-la-Qseqb Xfer(QC): 6 (met) Car Transfer (QC): 6 (met) Does the Patient Walk: Yes Gait (FIM): 6 (met) Gait distance (FIM): 3=150 ft Walk 10 feet (QC): 6 (met) Walk 10ft-Uneven Surface(QC): 6 (met) Walk 50ft with 2 Turns (QC): 6 (met) Walk 150 ft (QC): 6 (met) Gait Assistive Device: FWW Does the Pt use WC or Scooter?: No Stairs (FIM): 5 (exceeded) # of Steps: 4 (household exception) 1 Step (curb) (QC): 6 4 Steps (QC): 6 12 Steps (QC): 88 Stairs Level Of Assist: 6 Picking up an Object (QC): 4 Pt has bet all goals set at evaluation. PT Plan Problem List Problem List: Activity Tolerance, Functional Strength, Safety Treatment/Plan Treatment Plan: Continue Plan of Care Treatment Plan: Bed Mobility, Education, Functional Activity Erna, Functional Strength, Group Therapy, Gait, Safety, Therapeutic Exercise, Transfers Treatment Duration: Jun 11, 2018 Frequency: At least 5 of 7 days/Wk (IRF) Estimated Hrs Per Day: 1.5 hours per day Patient and/or Family Agrees t: Yes Safety Risks/Education Patient Education: Safety Issues Teaching Recipient: Patient Teaching Methods: Discussion Response to Teaching: Return Demonstration Discharge Recommendations Therapy D/C Recommendations: Physical Therapy Home Care Time/GCodes Time In: 900 Time Out: 930 Total Billed Treatment Time: 30 Total Billed Treatment visit FA 30 APOORVA HERRERA PT Jun 07, 2018 09:51
--- NOTE | 2018-06-07 10:19 | Occupational Ther Daily Note ---
OT Current Status-Daily Note Subjective Pt alert, sitting in recliner. Pt agrees to therapy. No c/o pain at this time. Mental Status/Objective Patient Orientation: Person, Place, Time, Situation Therapy Code Descriptions/Definitions Functional [place] Measure: 0=Not Assessed/NA 4=Minimal Assistance 1=Total Assistance 5=Supervision or Setup 2=Maximal Assistance 6=Modified [place] 3=Moderate Assistance 7=Complete [place] ADL-Treatment Therapy Code Descriptions/Definitions Functional [place] Measure: 0=Not Assessed/NA 4=Minimal Assistance 1=Total Assistance 5=Supervision or Setup 2=Maximal Assistance 6=Modified [place] 3=Moderate Assistance 7=Complete [place] Therapy Quality Codes: 6 Independent with activity with or without an assistive device 5 Patient requires set up or clean up by helper. Patient completes activity by themselves 4 Supervision or touching assist (CGA). [place] provide cues , steadying assist 3 The helper provides less than half the effort to complete the activity 2 The helper provides more than half the effort to complete the activity 1 Dependent. The helper does all the effort to complete an activity 7 Patient refused to complete or attempt activity 9 The patient did not perform the activity before the current illness or injury 88 Not attempted due to Medical conditions or safety concerns Eating (FIM): 7 (Demonstrates ability to complete by self.) Eating (QC): 6 Grooming (FIM): 7 (Standing at sink, pt complete by self.) Oral Hygiene (QC): 6 Bathing (FIM): 6 (Using shower bench, grabbars and hand held shower pt able to complete by self.) Bathing Location: L Arm, R Arm, L Upper Leg, R Upper Leg, L Lower Leg ( including foot), R Lower Leg (including foot), Chest, Abdomen, Buttocks, Perineal Area Shower/Bathe Self (QC): 6 Upper Body (FIM): 7 (Retrieves own clothing then completes own dressing.) Upper Body Dressing (QC): 6 Lower Body Dressing (FIM): 6 (Using AE for lower body dressing pt able to complete by self.) Lower Body Dressing (QC): 6 On/Off Footwear (QC): 6 Toileting (FIM): 7 (Completes by self.) Toileting Hygiene (QC): 6 Toilet/Commode Transfer (FIM): 7 (Completes by self.) Toilet Transfer (QC): 6 Shower Transfer(FIM): 6 (Using grabbars and shower bench pt completes by self.) Other Treatment Ambulated to therapy gym. Completes arm bike for 15 min at 20 schmitz resistance , no breaks, to increase strength and activity tolerance for daily functional tasks. After therapy, pt sitting in room recliner with call light/phone in reach. All needs met in room. OT Short Term Goals Short Term Goals Time Frame: Jun 04, 2018 Lower Body Dressing(FIM): 4 Toileting(FIM): 5 Toilet/Commode Transfer(FIM): 5 Additional Short Term Goals: 1-Demonstrate ADL Tasks, 2-Verbalize Understanding , 3-ImproveStrength/Erna 1=Demonstrate adherence to instructed precautions during ADL tasks. 2=Patient will verbalize/demonstrate understanding of assistive devices/ modifications for ADL. 3=Patient will improve strength/tolerance for activity to enable patient to perform ADL's. OT Laborer Cheesemaking Goals Laborer Cheesemaking Goals Time Frame: Jun 18, 2018 Eating (FIM): 6 (met) Eating (QC): 6 (met) Groomin (met) Oral Hygiene (QC): 6 (met) Bathing(FIM): 5 (met) Shower/Bathe Self (QC): 5 (met) Upper Body Dressing(FIM): 6 (met) Upper Body Dressing (QC): 6 (met) Lower Body Dressing(FIM): 6 (met) Lower Body Dressing (QC): 6 (met) On/Off Footwear (QC): 6 (met) Toileting(FIM): 6 (met) Toileting Hygiene (QC): 6 (met) Toilet/Commode Transfer(FIM): 6 (met) Toilet/Commode Transfer (QC): 6 (met) Shower Transfer(FIM): 5 (met) Additional Goals: 2-Verbalize Understanding, 3-ImproveStrength/Erna 1=Demonstrate adherence to instructed precautions during ADL tasks. 2=Patient will verbalize/demonstrate understanding of assistive devices/ modifications for ADL. 3=Patient will improve strength/tolerance for activity to enable patient to perform ADL's. OT Education/Plan Problem List/Assessment Pt to benefit from skilled OT intervention for ADL training, transfers, strengthening, and safety education to increase level of function and allow safe discharge plan. Discharge Recommendations Plan/Recommendations: Continue POC Treatment Plan/Plan of Care Patient would benefit from OT for education, treatment and training to promote independence in ADL's, mobility, safety and/or upper extremity function for ADL' s. Plan of Care: ADL Retraining, Functional Mobility, Group Exercise/Act as Ind, UE Funct Exercise/Act Treatment Duration: Jun 18, 2018 Frequency: At least 5 of 7 days/Wk (IRF) Estimated Hrs Per Day: 1.5 hours per day Agreement: Yes Rehab Potential: Good Time/GCodes Start Time: 09:30 Stop Time: 10:30 Total Time Billed (hr/min): 60 Billed Treatment Time 1 visit-ADL 3 (45 min) EX 1 (15 min) APOORVA CROWLEY Jun 07, 2018 10:19
--- NOTE | 2018-06-07 14:43 | Therapy Group Daily Note ---
Therapy Daily Group Note Patient Education Topic Other List Below Exercises LE Seated Exercise, UE Exercise Other/Notes Pt ambulated to group therapy in [facility]. Group consisted of introductions (name, place, childhood memory), socialization, benefits of exercise, handwashing education, memory tasks, UE/LE seated exercise and following direction task. Pt was able to introduce self appropriately and actively listened to peers. Pt contributed to conversations with peers throughout group. Pt verbalized understanding of educational topics. Led exercises for peers and was able to complete exercises appropriately. Pt was able to remember 2 of 5 words then followed directions with activity. After therapy, pt sitting in recliner with call light/phone in reach. All needs met in room. Start Time: 13:00 Stop Time: 14:05 Total Billed Treatment Time: 65 Total Billed Treatment 1-GRP APOORVA CROWLEY Jun 07, 2018 14:43
--- NOTE | 2018-06-07 15:30 | Speech Therapy Daily Note ---
Speech Daily Progress Note Subjective Date Seen by Provider: Jun 07, 2018 Time Seen by Provider: 00:30 Patient is very excited to move in to her assisted living apartment tomorrow. Objective Patient completed memory tasks related to her daily needs with 90% given minimal cues. Communication Comprehension: 7 Expression: 7 Social Cognition Social Interaction: 7 Problem Solvin Memory: 7 Speech Short Term Goals Short Term Goals Short Term Goals Patient will be able to recall words provided to respond to questions in sentence form with 90% or greater accuracy. Patient will recall information presented in paragraphs with 90% or greater accuracy. Patient will recall safety precautions with minimal verbal and/or visual cuing at 90% or greater accuracy. Speech [employer] Art Teacher Goals Correction Goals Patient will be able to demonstrate safety awareness and independence within her immediate environment with minimal cues at 90% accuracy. Speech-Plan Patient/Family Goals Patient/Family Goals: Patient will be moving in to her assisted living apartment tomorrow, 06/08/2018 Treatment Plan Speech Therapy Treatment Plan: Discontinue ST, Goals Met Patient has met her goals and will be moving in to assisted living tomorrow. Treatment Duration: Jun 08, 2018 Frequency: 5 times per week Estimated Hrs Per Day: .5 hour per day Rehab Potential: Good Barriers to Learning: Patient experiences pain with much activitiy due to torn tendon. Pt/Family Agrees to Plan: Yes Safety Risks/Education Teaching Recipient: Patient Teaching Methods: Demonstration Response to Teaching: Return Demonstration Education Topics Provided: Safety within her immediate environment. Time Speech Therapy Time In: 11:15 Speech Therapy Time Out: 11:30 (Patient was seen 2x for 15 minute increments) Total Billed Time: 30 Billed Treatment Time 1MAYA BETHAN[address] ST Jun 07, 2018 15:30
[2018-06-07 16:11] VITALS: BP 107/71
--- NOTE | 2018-06-07 19:15 | PM & R (SOAP) Progress Note ---
Subjective This was a face to face visit with the patient. Date Seen by Provider: Jun 07, 2018 Time Seen by Provider: 16:30 Subjective/Events-last exam Patient was seen in her room this evening Patient Modified Independent for transfers Patient all set for discharge to [facility] tomorrow Date Identified: Jun 07, 2018 Time Identified: 18:30 Medication Intervention: Discharge meds reviewed Objective Physician Exam Last Set of Vital Signs Vital Signs Date Time Temp Pulse Resp B/P (MAP) Pulse Ox O2 Delivery O2 Flow Rate FiO2 06/07/18 16:11 97.8 83 16 107/71 (83) 96 Room Air Capillary Refill : I&O Intake and Output 06/07/18 00:00 Intake Total 1520 ml Balance 1520 ml Intake Oral 1520 ml # Voids 7 # Bowel Movements 1 General: Alert, Oriented X3, Cooperative, No Acute Distress HEENT: Atraumatic, PERRLA, EOMI, Mucous Memb Moist/[place] Neck: Supple, No JVD Lungs: Clear to Auscultation Heart: Regular Rate, Normal S1, Normal S2 Abdomen: Normal Bowel Sounds, Soft, No Tenderness Extremities: No Clubbing, No Cyanosis, No Edema Skin: No Rashes Neuro: Normal Speech, Other (Left LE 4/5 RT hip flex 3/5 with guarding Mild dementa) Results Lab Data Laboratory Tests 06/06/18 15:32: White Blood Count 9.4, Red Blood Count 3.95L, Hemoglobin 12.8, Hematocrit 39, Mean Corpuscular Volume 99, Mean Corpuscular Hemoglobin 32, Mean Corpuscular Hemoglobin Concent 33, Red Cell Distribution Width 14.1, Platelet Count 449H, Mean Platelet Volume 9.1 Assessment/Plan Assessment and Plan RT iliopsoas teaR HEALING WITH DECREASED TEAR lEFT 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
[2018-06-07] MEDS ORDERED: TICA90TA PO (19:24)
[2018-06-07] MEDS: LIDOCAINE PATCH REMOVAL TP SCH (19:39)
[2018-06-07] MEDS: SERTRALINE 50 MG (ZOLOFT) TABLET PO SCH (20:01)
[2018-06-08 05:17] VITALS: BP 102/67
[2018-06-08] MEDS: PROPRANOLOL 20 MG (INDERAL) TABLET PO SCH (05:57)
[2018-06-08] MEDS: CYANOCOBALAMIN 1,000 MCG (VITAMIN B-12) TABLET PO SCH (05:57)
[2018-06-08] MEDS ORDERED: LEVOTHYROXINE 50 MCG (LEVOTHROID) TAB PO SCH (06:30)
--- NOTE | 2018-06-08 08:50 | PM & R (SOAP) Progress Note ---
Subjective This was a face to face visit with the patient. Date Seen by Provider: Jun 08, 2018 Time Seen by Provider: 07:45 Subjective/Events-last exam Patient was seen in her room this AM Has progressed well Date Identified: Jun 08, 2018 Time Identified: 08:45 Medication Intervention: Discharge meds reviewed Objective Physician Exam Last Set of Vital Signs Vital Signs Date Time Temp Pulse Resp B/P (MAP) Pulse Ox O2 Delivery O2 Flow Rate FiO2 06/08/18 05:17 97.9 71 20 102/67 (79) 95 Room Air Capillary Refill : I&O Intake and Output 06/08/18 00:00 Intake Total 1100 ml Balance 1100 ml Intake Oral 1100 ml # Voids 7 General: Alert, Oriented X3, Cooperative, No Acute Distress HEENT: Atraumatic, PERRLA, EOMI, Mucous Memb Moist/[place] Neck: Supple, No JVD Lungs: Clear to Auscultation Heart: Regular Rate, Normal S1, Normal S2 Abdomen: Normal Bowel Sounds, Soft, No Tenderness Extremities: No Clubbing, No Cyanosis, No Edema Skin: No Rashes Neuro: Normal Speech, Other (Left LE 4/5 RT hip flex 3/5 with guarding Mild dementa) Results Lab Data Laboratory Tests 06/06/18 15:32: White Blood Count 9.4, Red Blood Count 3.95L, Hemoglobin 12.8, Hematocrit 39, Mean Corpuscular Volume 99, Mean Corpuscular Hemoglobin 32, Mean Corpuscular Hemoglobin Concent 33, Red Cell Distribution Width 14.1, Platelet Count 449H, Mean Platelet Volume 9.1 Assessment/Plan Assessment and Plan Discharge to [facility] today See orders F/U with PCP Co-Morbidities that are continuing to impact the rehab process: (include details ) SAMUEL NEWTON MD Jun 08, 2018 08:50
[2018-06-08] MEDS: ASPIRIN E.C. 81 MG (ECOTRIN) TAB PO SCH (09:09)
[2018-06-08] MEDS: TICAGRELOR 90 MG TABLET (BRILINTA) PO SCH (09:09)
[2018-06-08] MEDS: VITAMIN D3 5,000 UNITS (CHOLECALCIFEROL ) CAPSULE PO SCH (09:09)
[2018-06-08] MEDS: DOCUSATE SODIUM 100 MG (COLACE) CAP PO SCH (09:09)
[2018-06-08] MEDS: MEMANTINE 10 MG (NAMENDA) TABLET PO SCH (09:09)
--- NOTE | 2018-06-08 09:29 | Physical Therapy Daily Note ---
PT Daily Note-Current Subjective Agrees. No complaints. Pain Numeric Pain Scale: 0-No Pain Location: No Pain Reported Transfers Therapy Code Descriptions/Definitions Functional [place] Measure: 0=Not Assessed/NA 4=Minimal Assistance 1=Total Assistance 5=Supervision or Setup 2=Maximal Assistance 6=Modified [place] 3=Moderate Assistance 7=Complete [place] Therapy Quality Codes: 6 Independent with activity with or without an assistive device 5 Patient requires set up or clean up by helper. Patient completes activity by themselves 4 Supervision or touching assist (CGA). [place] provide cues , steadying assist 3 The helper provides less than half the effort to complete the activity 2 The helper provides more than half the effort to complete the activity 1 Dependent. The helper does all the effort to complete an activity 7 Patient refused to complete or attempt activity 9 The patient did not perform the activity before the current illness or injury 88 Not attempted due to Medical conditions or safety concerns Weight Bearing Right Lower Extremity: Right Weight Bearing/Tolerated Left Lower Extremity: Left Weight Bearing/Tolerated Treatments Pt ambulated x 250 ft x 2. Nu step x 10 minutes. Indep with gait and transfers. Assessment Current Status: Excellent Progress PT Short Term Goals Short Term Goals Time Frame: Jun 04, 2018 Gait (FIM): 4 (met) Distance (FIM): 3=150 ft Gait Level of Assist: 4 (met) Gait Assistive Device: FWW PT Halfway Goals Accounts Payable Professional Goals PT Halfway Goals Time Frame: Jun 11, 2018 Transfers (B,C,W/C) (FIM): 7 (met) Sit to Lying (QC): 6 (met) Lying-Sitting on Side/Bed(QC): 6 (met) Sit to Stand (QC): 6 (met) Rollin (met) Roll Left to Right (QC): 6 (met) Chair/Rni-uk-Tikbq Xfer(QC): 6 (met) Car Transfer (QC): 6 (met) Does the Patient Walk: Yes Gait (FIM): 6 (met) Gait distance (FIM): 3=150 ft Walk 10 feet (QC): 6 (met) Walk 10ft-Uneven Surface(QC): 6 (met) Walk 50ft with 2 Turns (QC): 6 (met) Walk 150 ft (QC): 6 (met) Gait Assistive Device: FWW Does the Pt use WC or Scooter?: No Stairs (FIM): 5 (exceeded) # of Steps: 4 (household exception) 1 Step (curb) (QC): 6 4 Steps (QC): 6 12 Steps (QC): 88 Stairs Level Of Assist: 6 Picking up an Object (QC): 4 PT Plan Problem List Problem List: Activity Tolerance, Functional Strength, Safety Treatment/Plan Treatment Plan: Continue Plan of Care Treatment Plan: Bed Mobility, Education, Functional Activity Erna, Functional Strength, Group Therapy, Gait, Safety, Therapeutic Exercise, Transfers Treatment Duration: Jun 11, 2018 Frequency: At least 5 of 7 days/Wk (IRF) Estimated Hrs Per Day: 1.5 hours per day Patient and/or Family Agrees t: Yes Time/GCodes Time In: 1415 Time Out: 1430 Total Billed Treatment Time: 15 Total Billed Treatment This note is for 06/07/2018 visit EX 15 APOORVA HERRERA PT Jun 08, 2018 09:29
[2018-06-08] MEDS: LIDOCAINE (LIDODERM) 5% PATCH TOP SCH (09:32)
[2018-06-08 10:34] VITALS: BP 102/67
--- NOTE | 2018-06-08 12:08 | Therapy Team Discharge Summary ---
Therapy Discharge Summary Discharge Recommendations Date of Discharge Jun 08, 2018 at 10:20 Therapy D/C Recommendations: Physical Therapy Home Care Physical Therapy This patient was initially admitted to acute for right groin pain and decreased mobility. She was transferred to ARU for skilled therapy intervention to address pain and impaired functional mobioity. Upon admit to this unit, she was min assist with transfers, gait and stairs and was using a fWW. Treatment has consisted of functional strength and mobility/safety training and she is now indep with all transfers and gait as well as on the stairs. She has achieved all goals set, making excellent gains. She demonstrates good safety awareness as well. She is to discharge this date and admit to an NURSING HOME in [place]. DC PT at this time. Occupational Therapy Decreased Activ Tolerance, Decreased UE Strength, Dependent Transfers, Impaired Self-Care Skills PT Penitentiary Goals Penitentiary Goals PT Penitentiary Goals Time Frame: Jun 11, 2018 Transfers (B,C,W/C) (FIM): 7 (met) Roll Left to Right (QC): 6 (met) Sit to Lying (QC): 6 (met) Lying-Sitting on Side/Bed(QC): 6 (met) Sit to Stand (QC): 6 (met) Chair/Pjq-hn-Hkvnp Xfer(QC): 6 (met) Car Transfer (QC): 6 (met) Does the Patient Walk: Yes Gait (FIM): 6 (met) Gait distance (FIM): 3=150 ft Walk 10 feet (QC): 6 (met) Walk 10ft-Uneven Surface(QC): 6 (met) Walk 50ft with 2 Turns (QC): 6 (met) Walk 150 ft (QC): 6 (met) Gait Assistive Device: FWW Does the Pt use WC or Scooter?: No Stairs (FIM): 5 (exceeded) # of Steps: 4 (household exception) 1 Step (curb) (QC): 6 4 Steps (QC): 6 12 Steps (QC): 88 Stairs Level Of Assist: 6 Picking up an Object (QC): 4 All goals met or exceeded OT Nutrition Aide Goals Nutrition Aide Goals Time Frame: Jun 18, 2018 Eating (FIM): 6 (met) Eating (QC): 6 (met) Oral Hygiene (QC): 6 (met) Grooming(FIM): 6 (met) Bathing(FIM): 5 (met) Shower/Bathe Self (QC): 5 (met) Upper Body Dressing(FIM): 6 (met) Upper Body Dressing (QC): 6 (met) Lower Body Dressing(FIM): 6 (met) Lower Body Dressing (QC): 6 (met) On/Off Footwear (QC): 6 (met) Toileting(FIM): 6 (met) Toileting Hygiene (QC): 6 (met) Toilet/Commode Transfer(FIM): 6 (met) Toilet/Commode Transfer (QC): 6 (met) Shower Transfer(FIM): 5 (met) Additional Goals: 2-Verbalize Understanding, 3-ImproveStrength/Erna 1=Demonstrate adherence to instructed precautions during ADL tasks. 2=Patient will verbalize/demonstrate understanding of assistive devices/ modifications for ADL. 3=Patient will improve strength/tolerance for activity to enable patient to perform ADL's. Speech Nutrition Aide Goals Nutrition Aide Goals Patient will be able to demonstrate safety awareness and independence within her immediate environment with minimal cues at 90% accuracy. APOORVA HERRERA PT Jun 08, 2018 12:08
--- NOTE | 2018-06-09 08:10 | Therapy Team Discharge Summary ---
Therapy Discharge Summary Discharge Recommendations Date of Discharge Jun 08, 2018 at 10:20 Therapy D/C Recommendations: Physical Therapy Home Care Occupational Therapy Decreased Activ Tolerance, Decreased UE Strength, Dependent Transfers, Impaired Self-Care Skills Speech-Language Pathology Patient was admitted to the ARU with right groin pain and decreased mobility. At that time she exhibited decreased safety awareness and memory deficit. Patient received skilled ST for safety awareness and memory. Patient achieved all of her goals with excellent progress made. Patient was discharged to [facility] in [place] on . Patient is discharged from skilled ST at that time. PT Brickmason Supervisor Goals Brickmason Supervisor Goals PT Group Home Goals Time Frame: Jun 11, 2018 Transfers (B,C,W/C) (FIM): 7 (met) Roll Left to Right (QC): 6 (met) Sit to Lying (QC): 6 (met) Lying-Sitting on Side/Bed(QC): 6 (met) Sit to Stand (QC): 6 (met) Chair/Esq-ln-Qzmdw Xfer(QC): 6 (met) Car Transfer (QC): 6 (met) Does the Patient Walk: Yes Gait (FIM): 6 (met) Gait distance (FIM): 3=150 ft Walk 10 feet (QC): 6 (met) Walk 10ft-Uneven Surface(QC): 6 (met) Walk 50ft with 2 Turns (QC): 6 (met) Walk 150 ft (QC): 6 (met) Gait Assistive Device: FWW Does the Pt use WC or Scooter?: No Stairs (FIM): 5 (exceeded) # of Steps: 4 (household exception) 1 Step (curb) (QC): 6 4 Steps (QC): 6 12 Steps (QC): 88 Stairs Level Of Assist: 6 Picking up an Object (QC): 4 OT Brickmason Supervisor Goals Group Home Goals Time Frame: Jun 18, 2018 Eating (FIM): 6 (met) Eating (QC): 6 (met) Oral Hygiene (QC): 6 (met) Grooming(FIM): 6 (met) Bathing(FIM): 5 (met) Shower/Bathe Self (QC): 5 (met) Upper Body Dressing(FIM): 6 (met) Upper Body Dressing (QC): 6 (met) Lower Body Dressing(FIM): 6 (met) Lower Body Dressing (QC): 6 (met) On/Off Footwear (QC): 6 (met) Toileting(FIM): 6 (met) Toileting Hygiene (QC): 6 (met) Toilet/Commode Transfer(FIM): 6 (met) Toilet/Commode Transfer (QC): 6 (met) Shower Transfer(FIM): 5 (met) Additional Goals: 2-Verbalize Understanding, 3-ImproveStrength/Erna 1=Demonstrate adherence to instructed precautions during ADL tasks. 2=Patient will verbalize/demonstrate understanding of assistive devices/ modifications for ADL. 3=Patient will improve strength/tolerance for activity to enable patient to perform ADL's. Speech Group Home Goals Group Home Goals Patient will be able to demonstrate safety awareness and independence within her immediate environment with minimal cues at 90% accuracy. goal met Comprehension: 7 Expression: 7 Social Interaction: 7 Problem Solvin Memory: 7 ASH VENEGAS Jun 09, 2018 08:10
--- NOTE | 2018-06-09 13:33 | Therapy Team Discharge Summary ---
Therapy Discharge Summary Discharge Recommendations Date of Discharge Jun 08, 2018 at 10:20 Therapy D/C Recommendations: Physical Therapy Home Care Occupational Therapy Pt admitted to ARU following acute hospitalization for right groin pain. On admission pt required min assist for toileting and bathing, CGA for transfers, and mod assist for LE dressing. Skilled OT intervention focused on ADL training , transfers, strengthening, and safety. Pt made good progress with therapy and by discharge is independent with eating, grooming, UE dressing, toileting, and toilet transfer; and is modified independent with other ADLs and transfers. Pt met or exceeded all OT LTG. Pt discharged to [facility]. D/c ARU OT at this time. Decreased Activ Tolerance, Decreased UE Strength, Dependent Transfers, Impaired Self-Care Skills PT Jail Goals Mechanical Equipment Sales Engineer Goals PT Jail Goals Time Frame: Jun 11, 2018 Transfers (B,C,W/C) (FIM): 7 (met) Roll Left to Right (QC): 6 (met) Sit to Lying (QC): 6 (met) Lying-Sitting on Side/Bed(QC): 6 (met) Sit to Stand (QC): 6 (met) Chair/Iuh-sy-Wvdpo Xfer(QC): 6 (met) Car Transfer (QC): 6 (met) Does the Patient Walk: Yes Gait (FIM): 6 (met) Gait distance (FIM): 3=150 ft Walk 10 feet (QC): 6 (met) Walk 10ft-Uneven Surface(QC): 6 (met) Walk 50ft with 2 Turns (QC): 6 (met) Walk 150 ft (QC): 6 (met) Gait Assistive Device: FWW Does the Pt use WC or Scooter?: No Stairs (FIM): 5 (exceeded) # of Steps: 4 (household exception) 1 Step (curb) (QC): 6 4 Steps (QC): 6 12 Steps (QC): 88 Stairs Level Of Assist: 6 Picking up an Object (QC): 4 OT Jail Goals Jail Goals Time Frame: Jun 18, 2018 Eating (FIM): 6 (met) Eating (QC): 6 (met) Oral Hygiene (QC): 6 (met) Grooming(FIM): 6 (met) Bathing(FIM): 5 (met) Shower/Bathe Self (QC): 5 (met) Upper Body Dressing(FIM): 6 (met) Upper Body Dressing (QC): 6 (met) Lower Body Dressing(FIM): 6 (met) Lower Body Dressing (QC): 6 (met) On/Off Footwear (QC): 6 (met) Toileting(FIM): 6 (met) Toileting Hygiene (QC): 6 (met) Toilet/Commode Transfer(FIM): 6 (met) Toilet/Commode Transfer (QC): 6 (met) Shower Transfer(FIM): 5 (met) Comprehension(FIM): 7 Expression (FIM): 7 Social Interaction(FIM): 7 Problem Solving(FIM): 7 Memory(FIM): 7 Additional Goals: 2-Verbalize Understanding, 3-ImproveStrength/Erna 1=Demonstrate adherence to instructed precautions during ADL tasks. 2=Patient will verbalize/demonstrate understanding of assistive devices/ modifications for ADL. 3=Patient will improve strength/tolerance for activity to enable patient to perform ADL's. Speech Mechanical Equipment Sales Engineer Goals Mechanical Equipment Sales Engineer Goals Patient will be able to demonstrate safety awareness and independence within her immediate environment with minimal cues at 90% accuracy. goal met Comprehension: 7 Expression: 7 Social Interaction: 7 Problem Solvin Memory: 7 LARY ROCHA OT Jun 09, 2018 13:33
== END 2018-06-08 10:20 | disposition home health service (06) | DRG 949 ==
PROVIDERS: ADMIT Physical Medicine & Rehabilitation; ATTEND Physical Medicine & Rehabilitation
DX: S76.911D Strain of unspecified muscles, fascia and tendons at thigh level, right thigh, subsequent encounter (principal); S76.011D Strain of muscle, fascia and tendon of right hip, subsequent encounter; S76.012D Strain of muscle, fascia and tendon of left hip, subsequent encounter; I97.610 Postprocedural hemorrhage of a circulatory system organ or structure following a cardiac catheterization; G31.83 Neurocognitive disorder with Lewy bodies; F02.80 Dementia in other diseases classified elsewhere, unspecified severity, without behavioral disturbance, psychotic disturbance, mood disturbance, and anxiety; I10 Essential (primary) hypertension; I25.10 Atherosclerotic heart disease of native coronary artery without angina pectoris; Z95.1 Presence of aortocoronary bypass graft; Z95.5 Presence of coronary angioplasty implant and graft
CPT/HCPCS: 36415; 73721; 85025; 85027; 94760

== ENCOUNTER 2018-12-22 20:15 | Emergency (ER) | payer MEDICARE ==
[~2018-12-22] VITALS: Ht 165.1 cm; Wt 90.7 kg
[~2018-12-22 20:15] MED LIST changes: +IBUP-30 PO
[2018-12-22 21:06] LABS: BASOPHILS # (AUTO) 0.1 10^3/uL (0.0-0.1); BASOPHILS % (AUTO) 1 % (0-10); EOSINOPHILS # (AUTO) 0.3 10^3/uL (0.0-0.3); EOSINOPHILS % (AUTO) 4 % (0-10); HEMATOCRIT 42 % (35-52); HEMOGLOBIN 13.6 G/DL (11.5-16.0); LYMPHOCYTES # (AUTO) 2.2 X 10^3 (1.0-4.0); LYMPHOCYTES % (AUTO) 26 % (12-44); MEAN CORPUSCULAR HEMOGLOBIN 32 PG (25-34); MEAN CORPUSCULAR HGB CONC 33 G/DL (32-36); MEAN CORPUSCULAR VOLUME 99 FL (80-99); MEAN PLATELET VOLUME 9.1 FL (7.4-10.4); MONOCYTES # (AUTO) 0.9 X 10^3 (0.0-1.0); MONOCYTES % (AUTO) 11 % (0-12); NEUTROPHILS # (AUTO) 4.7 X 10^3 (1.8-7.8); NEUTROPHILS % (AUTO) 57 % (42-75); PLATELET COUNT 229 10^3/uL (130-400); RED CELL DISTRIBUTION WIDTH 12.9 % (10.0-14.5); WHITE BLOOD COUNT 8.1 10^3/uL (4.3-11.0)
[2018-12-22 21:15] LABS: PROTHROMBIN TIME PATIENT 13.4 SEC (12.2-14.7)
[2018-12-22 21:22] LABS: BILIRUBIN,TOTAL 0.2 MG/DL (0.1-1.0); CALCIUM 9.5 MG/DL (8.5-10.1); CREATININE SERUM 1.13 MG/DL (0.60-1.30); MAGNESIUM 2.1 MG/DL (1.8-2.4); POTASSIUM 4.1 MMOL/L (3.6-5.0); TOTAL PROTEIN 6.8 GM/DL (6.4-8.2)
[2018-12-22 21:23] LABS: ALBUMIN 3.8 GM/DL (3.2-4.5)
[2018-12-22] MEDS ORDERED: NITROGLYCERIN 2% OINT 1 GM UNIT DOSE PACKET TOP STA (21:31)
--- NOTE | 2018-12-22 21:35 | Diagnostic Imaging Report ---
INDICATION: Chest pain and shortness of breath. Time of exam: 9:00 p.m. Correlation is made with prior study of 05/28/2018. The heart size is normal. The pulmonary vascularity is unremarkable. The lungs are clear. No infiltrate, effusion or pneumothorax is detected. Impression: No acute cardiopulmonary process is detected. Dictated by: Dictated on workstation # [id number]
--- NOTE | 2018-12-22 22:20 | ED Chest Pain ---
General Chief Complaint: Chest Pain Stated Complaint: CHEST PAIN Nursing Triage Note: Daughter advises that the patient called her at 1999 stating that she was experiencing chest pain and shortness of breath. She advises that the pain has been intermittent throughout the day but has become progressively worse. Patient initially rated the chest pain at 10/10 and is currently rating pain at a 5/10. Patient has a hx. of stent placement x 1. Nursing Sepsis Screen: No Definite Risk Source: patient, family (daughter) History of Present Illness Date Seen by Provider: Dec 22, 2018 Time Seen by Provider: 21:02 Initial Comments 70-year-old female presenting with complaints of substernal chest pain that goes into her back and up into her jaws. She reports having similar symptoms when she had to have a stent placed in her RCA. She has increased shortness of breath with exertion. She has been having some increased swelling in her legs. She denies any fever or chills. She has not been having any cough. She denies any falls. Her pain has been off and on throughout the day. It has been worse with exertion and was worse tonight. Allergies and Home Medications Allergies Coded Allergies: No Known Drug Allergies (Unverified , 12/22/18) Home Medications Aspirin 81 Mg Tablet.dr, 81 MG PO DAILY, (Reported) Cholecalciferol (Vitamin D3) 5,000 Unit Capsule, 5,000 UNIT PO DAILY, (Reported) Cyanocobalamin (Vitamin B-12) 500 Mcg Tablet, 500 MCG PO DAILY, (Reported) Levothyroxine Sodium 50 Mcg Tablet, 50 MCG PO DAILY, (Reported) Memantine HCl 10 Mg Tablet, 10 MG PO BID, (Reported) Propranolol HCl 10 Mg Tablet, 5 MG PO TID, (Reported) TAKES 1/2 (10MG) TABLET Sertraline HCl 50 Mg Tablet, 50 MG PO DAILY, (Reported) Ticagrelor 90 Mg Tablet, 90 MG PO BID Prescribed by: SAMUEL NEWTON on 06/07/181923 Patient Home Medication List Home Medication List Reviewed: Yes Review of Systems Review of Systems Constitutional: No chills, No fever; weakness EENTM: No Symptoms Reported Respiratory: SOA With Exertion Cardiovascular: See HPI Gastrointestinal: Denies Nausea Genitourinary: Denies Flank Pain, Denies Pain, Denies Urgency Musculoskeletal: back pain (pain is radiating from her chest into her mid back) Skin: no symptoms reported Psychiatric/Neurological: Anxiety Endocrine: No Symptoms Reported Hematologic/Lymphatic: Easy Bruising (takes Plavix and aspirin) Past Mzhemsd-Fkltwr-Wrilbx Hx Past Med/Social Hx: Reviewed Nursing Past Med/Soc Hx Patient Social History Alcohol Use: Denies Use Recreational Drug Use: No Smoking Status: Never a Smoker 2nd Hand Smoke Exposure: No Recent Foreign Travel: No Contact w/Someone Who Travel: No Recent Infectious Disease Expo: No Recent Hopitalizations: No Immunizations Up To Date Tetanus Booster (TDap): Unknown PED Vaccines UTD: Yes Date of Pneumonia Vaccine: Mar 28, 2015 Date of Influenza Vaccine: May 10, 2018 Seasonal Allergies Seasonal Allergies: No Past Medical History Surgeries: No Bladder Surgery, Gallbladder, Hysterectomy Respiratory: No Cardiac: Yes Coronary Artery Disease Neurological: Yes Dementia, Parkinson's Disease Reproductive Disorders: No Female Reproductive Disorders: Denies Sexually Transmitted Disease: No HIV/AIDS: No Genitourinary: Yes (stress incont-wears pad) Gastrointestinal: Yes Hemorrhoids Musculoskeletal: Yes Degenerate Disk Disease, Chronic Back Pain Endocrine: Yes Hypothyroidsim HEENT: Yes Cataract Loss of Vision: Bilateral Hearing Impairment: Denies Cancer: No Psychosocial: No Integumentary: No Blood Disorders: No Family Medical History Patient reports no known family medical history. Heart Disease, Hypertension Physical Exam Vital Signs Vital Signs - First Documented 12/22/18 12/22/18 12/23/18 20:26 20:33 02:22 Temp 98.4 Pulse 76 Resp 22 B/P (MAP) 142/69 (93) Pulse Ox 97 O2 Delivery Room Air O2 Flow Rate 2.00 Capillary Refill : Less Than 3 Seconds Height, Weight, BMI Height: 5'5.00" Weight: 200lbs. 0.0oz. [id number]; 36.6 BMI Method:Stated General Appearance: WD/WN, Anxious HEENT: PERRL/EOMI, Normal ENT Inspection, Pharynx Normal Neck: Full Range of Motion, Normal Inspection, Non Tender, Supple; No Carotid Bruit Respiratory: Chest Non Tender, Lungs Clear, Normal Breath Sounds, No Accessory Muscle Use, No Respiratory Distress Cardiovascular: Regular Rate, Rhythm, Normal Peripheral Pulses Gastrointestinal: Normal Bowel Sounds, No Pulsatile Mass, Non Tender, Soft Extremity: Normal Capillary Refill, Normal Range of Motion, Non Tender, Pedal Edema (trace to 1+) Neurologic/Psychiatric: Alert, Disoriented (chronic dementia, at baseline per family) Skin: Normal Color, Warm/Dry Progress/Results/Core Measures Results/Orders Lab Results Laboratory Tests Test 12/22/18 20:49 Range/Units White Blood Count 8.1 4.3-11.0 10^3/uL Red Blood Count 4.22 L 4.35-5.85 10^6/uL Hemoglobin 13.6 11.5-16.0 G/DL Hematocrit 42 35-52 % Mean Corpuscular Volume 99 80-99 FL Mean Corpuscular Hemoglobin 32 25-34 PG Mean Corpuscular Hemoglobin Concent 33 32-36 G/DL Red Cell Distribution Width 12.9 10.0-14.5 % Platelet Count 229 130-400 10^3/uL Mean Platelet Volume 9.1 7.4-10.4 FL Neutrophils (%) (Auto) 57 42-75 % Lymphocytes (%) (Auto) 26 12-44 % Monocytes (%) (Auto) 11 0-12 % Eosinophils (%) (Auto) 4 0-10 % Basophils (%) (Auto) 1 0-10 % Neutrophils # (Auto) 4.7 1.8-7.8 X 10^3 Lymphocytes # (Auto) 2.2 1.0-4.0 X 10^3 Monocytes # (Auto) 0.9 0.0-1.0 X 10^3 Eosinophils # (Auto) 0.3 0.0-0.3 10^3/uL Basophils # (Auto) 0.1 0.0-0.1 10^3/uL Prothrombin Time 13.4 12.2-14.7 SEC INR Comment 1.0 0.8-1.4 Activated Partial Thromboplast Time 25 24-35 SEC Sodium Level 139 135-145 MMOL/L Potassium Level 4.1 3.6-5.0 MMOL/L Chloride Level 101 98-107 MMOL/L Carbon Dioxide Level 24 21-32 MMOL/L Anion Gap 14 5-14 MMOL/L Blood Urea Nitrogen 14 7-18 MG/DL Creatinine 1.13 0.60-1.30 MG/DL Estimat Glomerular Filtration Rate 47 BUN/Creatinine Ratio 12 Glucose Level 128 H 70-105 MG/DL Calcium Level 9.5 8.5-10.1 MG/DL Corrected Calcium 9.7 8.5-10.1 MG/DL Magnesium Level 2.1 1.8-2.4 MG/DL Total Bilirubin 0.2 0.1-1.0 MG/DL Aspartate Amino Transf (AST/SGOT) 19 5-34 U/L Alanine Aminotransferase (ALT/SGPT) 16 0-55 U/L Alkaline Phosphatase 116 40-136 U/L Troponin I < 0.30 <0.30 NG/ML Pro-B-Type Natriuretic Peptide 196.3 H <75.0 PG/ML Total Protein 6.8 6.4-8.2 GM/DL Albumin 3.8 3.2-4.5 GM/DL My Orders Orders - ARON RAIN MD Cbc With Automated Diff (12/22/18 20:42) Magnesium (12/22/18 20:42) Ekg Tracing (12/22/18 20:42) Comprehensive Metabolic Panel (12/22/18 20:42) Protime With Inr (12/22/18 20:42) Partial Thromboplastin Time (12/22/18 20:42) O2 (12/22/18 20:42) Monitor-Rhythm Ecg Trace Only (12/22/18 20:42) Ed Iv/Invasive Line Start (12/22/18 20:42) Troponin I (12/22/18 20:42) Probnp Fs (12/22/18 20:42) Chest 1 View Ap/Pa Only (12/22/18 21:13) Nitroglycerin Ointment (Nitrobid Ointme (12/22/18 21:31) Vital Signs/I&O 12/22/18 12/22/18 12/22/18 12/23/18 20:26 20:33 20:33 01:37 Temp 98.4 Pulse 76 70 Resp 22 B/P (MAP) 142/69 (93) 108/52 (70) Pulse Ox 97 97 97 O2 Delivery Room Air Room Air Room Air Room Air 12/23/18 02:22 Pulse 68 Resp 16 B/P (MAP) 125/59 (81) Pulse Ox 97 O2 Delivery Nasal Cannula O2 Flow Rate 2.00 Blood Pressure Mean: 93 Progress Progress Note #1: Progress Note Obtain labs to check for acute coronary syndrome or heart damage. Electrocardio gram to evaluate for possible ST elevation. Chest x-ray to evaluate for heart failure or effusion. Will try a dose of nitroglycerin paste to see if that might help relieve her shortness of breath and substernal chest pressure. Progress Note #2: Progress Note Chest x-ray is clear without any acute effusion or infiltrate. Her electrocardiogram does not show any acute ST elevation. Her labs appear stable without evidence of elevated troponin or BNP. However with her staggered symptoms will discuss with the patient about admission for cardiac rule out. Unfortunately [facility] is full and does not have any beds available. Will see what the patient and family wanted to do since they are unable to be admitted where her cardiology records and astrobiologist are located. Progress Note #3: Progress [facility]. She is pain and symptom free provided she is resting in bed. Will transfer to Dr. Pradhan at [facility] in a Telemetry bed. Initial ECG Impression Date: Dec 22, 2018 Initial ECG Impression Time: 20:26 Initial ECG Rate: 73 Initial ECG Rhythm: Normal Sinus Initial ECG Comparisson: Unchanged Comment Normal sinus rhythm with heart rate 72 bpm. OH interval of 144 ms. QT interval 384 ms with a QT corrected interval of 424 ms. There is no acute ST elevation. There is no change from prior tracing. Diagnostic Imaging Diagonstic Imaging: Xray Plain Films/CT/US/NM/MRI: chest Comments NAME: HAMILTON OROZCO [facility] REC#: [id number] PT STATUS: REG ER : 1940 PHYSICIAN: ARON RAIN MD ADMIT DATE: 12/22/18/ER FS Signed Date of Exam:12/22/18 CHEST 1 VIEW AP/PA ONLY INDICATION: Chest pain and shortness of breath. Time of exam: 9:00 p.m. Correlation is made with prior study of 05/28/2018. The heart size is normal. The pulmonary vascularity is unremarkable. The lungs are clear. No infiltrate, effusion or pneumothorax is detected. Impression: No acute cardiopulmonary process is detected. Dictated by: Dictated on workstation # [id number] Dict: 12/22/[id number] Trans: 12/22/18 2137 LATONYA [id number] Interpreted by: DEEP CORDOBA MD Electronically signed by: DEEP CORDOBA MD 12/22/187 Departure Impression Primary Impression: Substernal chest pain Additional Impression: Dyspnea on exertion Disposition: 02 XFER SHT-TRM HOSP Condition: Stable (ERASED) Transfer Time Spoke to Accepting Phy: 23:38 Transfer Progress Notes 2316 page placed to KETAN Mcconnell, at [facility] Transfer [facility]. She called back at [address] Pradhan as the accepting provider for the patient. I discussed the case with him and advised him that she has a hx of RCA stent an follows with Dr Ash for cardiology in [place]. Unfortunately, they do not have any beds tonight. She has no pain as long as she is resting in bed, but with minimal exertion she gets winded and has pain going into her back and similar to when she had to have the stent placed in her RCA. Transfer Facility: [facility] Method of Transfer: EMS Departure-Patient Inst. Referrals: ANNIE MOORE MD (PCP/Family) Primary Care Physician ARON RAIN MD Dec 22, 2018 22:20
--- NOTE | 2018-12-23 00:52 | NUR ---
Report given to Filomena ACEVES.
[2018-12-23 01:37] VITALS: BP 108/52
[2018-12-23 02:22] VITALS: BP 125/59
== END 2018-12-23 02:45 | disposition short-term general hospital (02) ==
LOC: EDUNIT# 20:15 → ER FS 20:17
DX: R07.2 Precordial pain (principal); R06.09 Other forms of dyspnea; F41.9 Anxiety disorder, unspecified; I25.10 Atherosclerotic heart disease of native coronary artery without angina pectoris; G20 Parkinson's disease; F02.80 Dementia in other diseases classified elsewhere, unspecified severity, without behavioral disturbance, psychotic disturbance, mood disturbance, and anxiety; E03.9 Hypothyroidism, unspecified; Z95.5 Presence of coronary angioplasty implant and graft; Z90.710 Acquired absence of both cervix and uterus; Z79.82 Long term (current) use of aspirin
CPT/HCPCS: 36415; 71045; 80053; 83735; 83880; 84484; 85025; 85610; 85730; 93005; 93041

== ENCOUNTER → 2019-05-31 | Outpatient (CLI) | payer MEDICARE ==
[~2019-05-31] MED LIST changes: +ATOR10TA PO; +CLOP75TA69 PO; -CYAN500T2 PO; +CYAN500T62 PO; +ISOS30TA3 PO
--- NOTE | 2019-05-31 13:44 | Diagnostic Imaging Report ---
INDICATION: Postmenopausal screening for osteoporosis. COMPARISON: None. FINDINGS: AP Spine L1-L4: [BMD (g/cm2): 1.027] [T-Score: -1.4] [Z-Score: -0.8] [BMD Previous: NA] [BMD % Change: NA] LT Hip Neck: [BMD (g/cm2): 0.908] [T-Score: -0.9] [Z-Score: 0.4] LT Hip Total: [BMD (g/cm2):0.994] [T-Score:-0.1] [Z-Score: 1.0] [BMD Previous: NA] [BMD % Change: NA] RT Hip Neck: [BMD (g/cm2):0.977] [T-Score:-0.4] [Z-Score:.9] RT Hip Total: [BMD (g/cm2):0.995] [T-score:-0.1] [Z-Score:1.0] [BMD Previous:NA] [BMD % Change:NA] *Indicates significant change from prior examination based on 95% confidence level. World Health Organization criteria for BMD interpretation classify patients as Normal (T-score at or above -1.0), Osteopenic (T-score between -1.0 and -2.5) or Osteoporotic (T-score at or below -2.5). LIMITATIONS AND MODIFICATION: None. FRACTURE RISK (FRAX SCORE): The ten year probability of (%): Major Osteoporotic Fracture: [NA] Hip Fracture: [NA] IMPRESSION: 1. Osteopenia (Low bone mass). 2. Baseline examination. 3. See below National Osteoporosis Foundation guidelines on when to potentially initiate pharmacologic therapy. Based on the National Osteoporosis Foundation Guidelines, pharmacologic treatment should be initiated in any of the following, unless clinical conditions suggest otherwise: * Any patient with prior fragility fracture of the hip or vertebrae. A spine fracture indicates 5X risk for subsequent spine fracture and 2X risk for subsequent hip fracture. * Osteoporosis (T-score <-2.5). * Postmenopausal women and men age 50 and older with low bone mass/osteopenia (T-score between -1.0 and -2.5) by DXA and 10-year major osteoporotic fracture greater than 20% or a 10-year probability of hip fracture greater than 3%. These fracture risks are supplied above in the FRAX score, if applicable. * Clinician judgement and/or patient preferences may indicate treatment for people with 10-year fracture probabilities above or below these levels. Dictated by: Dictated on workstation # [id number]
== END ==
LOC: RAD 11:09
PROVIDERS: ATTEND Family Medicine
DX: Z12.31 Encounter for screening mammogram for malignant neoplasm of breast (principal); Z13.820 Encounter for screening for osteoporosis; M85.80 Other specified disorders of bone density and structure, unspecified site; Z78.0 Asymptomatic menopausal state
CPT/HCPCS: 77067; 77080

== ENCOUNTER 2020-03-07 12:45 | Emergency (ER) | payer MEDICARE ==
[~2020-03-07] VITALS: Ht 164 cm; Wt 113.0 kg
[~2020-03-07 12:45] MED LIST changes: +ASPI-1238 PO; -ASPI-983 PO; -IBUP-2055 PO; +IBUP-2473 PO
--- NOTE | 2020-03-07 13:10 | ED General ---
General Chief Complaint: Chest Pain Stated Complaint: SOB; CHEST PAIN; RT FLANK PAIN Nursing Triage Note: PT PRESENTS WITH CHEST PAIN/ RIGHT UPPER QUAD PAIN THAT STARTED 2 DAYS AGO BUT WORSENING. PT REPORTS SOB WITH THIS DISCOMFORT. Nursing Sepsis Screen: No Definite Risk Source of Information: Patient History of Present Illness Date Seen by Provider: Mar 07, 2020 Time Seen by Provider: 13:10 Initial Comments 79-year-old female presenting from [facility] with complaints of right upper quadrant abdominal pain and chest pain. She also has right groin pain. The upper abdominal pain has been chronic. The groin pain has been going on for over a week. She complains of some shortness of breath with the discomfort. She has had no fever or chills. She has no nausea or vomiting. She does have a cardiac history and was concerned that maybe she was having heart attack. Allergies and Home Medications Allergies Coded Allergies: No Known Drug Allergies (Unverified , 12/22/18) Home Medications Aspirin 81 Mg Tablet.dr, 81 MG PO DAILY, (Reported) Atorvastatin Calcium 10 Mg Tablet, 10 MG PO DAILY Prescribed by: HOLLIS BARRIOS on 03/09/19 1309 Cholecalciferol (Vitamin D3) 5,000 Unit Capsule, 5,000 UNIT PO DAILY, (Reported) Clopidogrel Bisulfate 75 Mg Tablet, 75 MG PO DAILY, (Reported) Cyanocobalamin (Vitamin B-12) 500 Mcg Tablet, 500 MCG PO DAILY, (Reported) Isosorbide Mononitrate 30 Mg Tab.er.24h, 30 MG PO DAILY, (Reported) Levothyroxine Sodium 50 Mcg Tablet, 50 MCG PO DAILY, (Reported) Memantine HCl 10 Mg Tablet, 10 MG PO BID, (Reported) Propranolol HCl 10 Mg Tablet, 5 MG PO TID, (Reported) TAKES 1/2 (10MG) TABLET Sertraline HCl 50 Mg Tablet, 50 MG PO DAILY, (Reported) Patient Home Medication List Home Medication List Reviewed: Yes Review of Systems Review of Systems Constitutional: No chills, No dizziness, No fever; malaise EENTM: no symptoms reported Respiratory: see HPI Cardiovascular: see HPI Gastrointestinal: see HPI Genitourinary: no symptoms reported Musculoskeletal: see HPI Skin: no symptoms reported Psychiatric/Neurological: Anxiety Past Qjplsqx-Crjqsn-Shmeyk Hx Past Med/Social Hx: Reviewed Nursing Past Med/Soc Hx Patient Social History Alcohol Use: Denies Use Recreational Drug Use: No Smoking Status: Never a Smoker 2nd Hand Smoke Exposure: No Recent Foreign Travel: No Contact w/Someone Who Travel: No Recent Infectious Disease Expo: No Recent Hopitalizations: No Physical Abuse: No Sexual Abuse: No Mistreated: No Fear: No Immunizations Up To Date Tetanus Booster (TDap): Unknown PED Vaccines UTD: Yes Date of Pneumonia Vaccine: Mar 28, 2015 Date of Influenza Vaccine: May 10, 2018 Seasonal Allergies Seasonal Allergies: No Past Medical History Surgeries: Yes Bladder Surgery, Gallbladder, Hysterectomy Respiratory: No Currently Using CPAP: No Currently Using BIPAP: No Cardiac: Yes Coronary Artery Disease Neurological: Yes Dementia, Parkinson's Disease Reproductive Disorders: No Female Reproductive Disorders: Denies Sexually Transmitted Disease: No HIV/AIDS: No Genitourinary: Yes (stress incont-wears pad) Gastrointestinal: Yes Hemorrhoids Musculoskeletal: Yes Degenerate Disk Disease, Chronic Back Pain Endocrine: Yes (ON THRYOID MEDICATION IN PAST) Hypothyroidsim HEENT: Yes Cataract Loss of Vision: Bilateral Hearing Impairment: Denies Cancer: No Psychosocial: No Integumentary: No Blood Disorders: No Family Medical History Patient reports no known family medical history. Heart Disease, Hypertension Physical Exam Vital Signs Vital Signs - First Documented 03/07/20 13:01 Temp 36.7 Pulse 91 Resp 27 B/P (MAP) 131/81 (98) Pulse Ox 96 O2 Delivery Room Air Capillary Refill : Less Than 3 Seconds Height, Weight, BMI Height: 5'5.00" Weight: 200lbs. 0.0oz. [id number]; 42.00 BMI Method:Stated General Appearance: No Apparent Distress, Anxious, Obese HEENT: Pharynx Normal Neck: Non Tender, Supple Respiratory: Chest Non Tender, Lungs Clear, Normal Breath Sounds, No Accessory Muscle Use, No Respiratory Distress Cardiovascular: Regular Rate, Rhythm, Normal Peripheral Pulses Gastrointestinal: Normal Bowel Sounds, No Pulsatile Mass, Soft, Tenderness (right upper quadrant and right lower quadrant) Extremity: Normal Capillary Refill, No Pedal Edema Neurologic/Psychiatric: Alert Skin: Normal Color, Warm/Dry Progress/Results/Core Measures Suspected Sepsis Recent Fever Within 48 Hours: No Infection Criteria Present: None New/Unexplained Altered Menta: No Sepsis Screen: No Definite Risk SIRS Temperature: Pulse: 91 Respiratory Rate: 27 Laboratory Tests 03/07/20 12:59: White Blood Count 8.9 Blood Pressure 131 /81 Mean: 98 Laboratory Tests 03/07/20 12:59: Creatinine 1.09, Platelet Count 266, Total Bilirubin 0.3 Results/Orders Lab Results Laboratory Tests Test 03/07/20 12:59 03/07/20 14:48 Range/Units White Blood Count 8.9 4.3-11.0 10^3/uL Red Blood Count 3.90 L 4.35-5.85 10^6/uL Hemoglobin 12.3 11.5-16.0 G/DL Hematocrit 38 35-52 % Mean Corpuscular Volume 98 80-99 FL Mean Corpuscular Hemoglobin 32 25-34 PG Mean Corpuscular Hemoglobin Concent 32 32-36 G/DL Red Cell Distribution Width 13.5 10.0-14.5 % Platelet Count 266 130-400 10^3/uL Mean Platelet Volume 9.3 7.4-10.4 FL Neutrophils (%) (Auto) 68 42-75 % Lymphocytes (%) (Auto) 18 12-44 % Monocytes (%) (Auto) 10 0-12 % Eosinophils (%) (Auto) 3 0-10 % Basophils (%) (Auto) 1 0-10 % Neutrophils # (Auto) 6.0 1.8-7.8 X 10^3 Lymphocytes # (Auto) 1.6 1.0-4.0 X 10^3 Monocytes # (Auto) 0.9 0.0-1.0 X 10^3 Eosinophils # (Auto) 0.3 0.0-0.3 10^3/uL Basophils # (Auto) 0.1 0.0-0.1 10^3/uL Sodium Level 140 135-145 MMOL/L Potassium Level 4.4 3.6-5.0 MMOL/L Chloride Level 105 98-107 MMOL/L Carbon Dioxide Level 24 21-32 MMOL/L Anion Gap 11 5-14 MMOL/L Blood Urea Nitrogen 16 7-18 MG/DL Creatinine 1.09 0.60-1.30 MG/DL Estimat Glomerular Filtration Rate 48 BUN/Creatinine Ratio 15 Glucose Level 176 H 70-105 MG/DL Calcium Level 9.1 8.5-10.1 MG/DL Corrected Calcium 9.3 8.5-10.1 MG/DL Total Bilirubin 0.3 0.1-1.0 MG/DL Aspartate Amino Transf (AST/SGOT) 16 5-34 U/L Alanine Aminotransferase (ALT/SGPT) 13 0-55 U/L Alkaline Phosphatase 95 40-136 U/L Troponin I < 0.30 <0.30 NG/ML Pro-B-Type Natriuretic Peptide 179.8 H <75.0 PG/ML Total Protein 6.3 L 6.4-8.2 GM/DL Albumin 3.7 3.2-4.5 GM/DL Lipase 32 8-78 U/L Urine Color YELLOW Urine Clarity CLEAR Urine pH 6.0 5-9 Urine Specific [place] 1.010 L 1.016-1.022 Urine Protein NEGATIVE NEGATIVE Urine Glucose (UA) NEGATIVE NEGATIVE Urine Ketones NEGATIVE NEGATIVE Urine Nitrite NEGATIVE NEGATIVE Urine Bilirubin NEGATIVE NEGATIVE Urine Urobilinogen 0.2 < = 1.0 MG/DL Urine Leukocyte Esterase NEGATIVE NEGATIVE Urine RBC (Auto) NEGATIVE NEGATIVE Urine RBC NONE /HPF Urine WBC 0-2 /HPF Urine Squamous Epithelial Cells RARE /HPF Urine Crystals NONE /LPF Urine Bacteria NEGATIVE /HPF Urine Casts NONE /LPF Urine Mucus NEGATIVE /LPF Urine Culture Indicated NO My Orders Orders - ARON RAIN MD Comprehensive Metabolic Panel (03/07/20 13:27) Lipase (03/07/20 13:27) Ua Culture If Indicated (03/07/20 13:27) Ed Iv/Invasive Line Start (03/07/20 13:27) Cbc With Automated Diff (03/07/20 13:27) Ekg Tracing (03/07/20 13:27) Troponin I Fs (03/07/20 13:27) Probnp Fs (03/07/20 13:27) Iohexol Injection (Omnipaque 350 Mg/Ml 1 (03/07/20 15:15) Received Contrast (Hold Metformin- Contr (03/07/20 15:15) Sodium Chloride Flush (Catheter Flush Sy (03/07/20 15:15) Ns (Ivpb) (Sodium Chloride 0.9% Ivpb Bag (03/07/20 15:15) Ct Abdomen/Pelvis Wo (03/07/20 15:16) Vital Signs/I&O 03/07/20 03/07/20 13:01 16:23 Temp 36.7 36.2 Pulse 91 71 Resp 27 16 B/P (MAP) 131/81 (98) 115/81 Pulse Ox 96 96 O2 Delivery Room Air Room Air Capillary Refill : Less Than 3 Seconds Blood Pressure Mean: 98 Progress Note #1: Progress Note Check labs as well as electrocardiogram and urinalysis. Plan to obtain a CT scan of her abdomen and pelvis provided the creatinine looks okay. Progress Note #2: Progress Note Electrocardiogram is negative for any acute STEMI. Her labs appear stable without acute significant abnormality. The IV was able to hold up for IV contrast so CT was changed to noncontrast study. This did not demonstrate any acute significant abnormality. Plan to have her increase fiber in her diet. Follow-up with Dr. Springer for further considerations. She has used diclofenac chills. The groin pain in the past due to a muscle injury. ECG Initial ECG Impression Date: Mar 07, 2020 Initial ECG Impression Time: 12:47 Initial ECG Rate: 82 Initial ECG Rhythm: Normal Sinus Initial ECG Comparisson: Unchanged Comment Sinus rhythm with a heart rate of 82 bpm. WI interval [address] elevation. QT interval 357 ms with a QTc interval 417 ms. Appears stable from prior tracings. Diagnostic Imaging Diagonstic Imaging: CT Plain Films/CT/US/NM/MRI: abdomen, pelvis Comments [facility], [place] NAME: HAMILTON OROZCO [facility] REC#: [id number] PT STATUS: DEP ER : 1940 PHYSICIAN: ARON RAIN MD ADMIT DATE: 03/07/20/ER FS Signed Date of Exam:03/07/20 CT ABDOMEN/PELVIS WO PROCEDURE: CT abdomen and pelvis without contrast. TECHNIQUE: Multiple contiguous axial images were obtained through the abdomen and pelvis without the use of intravenous contrast. Auto Exposure Controls were utilized during the CT exam to meet ALARA standards for radiation dose reduction. INDICATION: Abdominal pain. COMPARISON: 05/26/2018. FINDINGS: There has been resolution of the previous left-sided retroperitoneal hemorrhage. No acute or recurrent hemorrhage is found. No bowel, biliary, or urinary tract obstruction. No perienteric or pericolonic edema. No focal inflammatory process. No ascites, abscess, hematoma, or acute fluid collection. No mass or adenopathy. There is a chronic small hiatal hernia. There is nonaneurysmal aortic atherosclerosis. IMPRESSION: Resolution of the prior hemorrhage. No obstructive features, inflammatory process, or acute appearing abnormality is identified. Dictated by: Dictated on workstation # [id number] Dict: 03/07/20 1543 Trans: 03/07/20 1704 [id number] Interpreted by: ELLIOTT HESS Electronically signed by: ELLIOTT HESS 03/07/20 1704 Departure Impression Primary Impression: Strain of muscle of right groin region Additional Impression: RUQ abdominal pain Disposition: HOME, SELF-CARE Condition: Stable Departure-Patient Inst. Decision time for Depature: 16:17 Referrals: ANNIE SPRINGER MD (PCP/Family) Primary Care Physician Patient Instructions: Muscle Strain (DC) Add. Discharge Instructions: Try to increase the fiber in your diet to see if that helps your upper abdominal pain. Use your Diclofenac gel to help with groin strain. Check with clinic for continued concerns All discharge instructions reviewed with patient and/or family. Voiced understanding. ARON RAIN MD Mar 07, 2020 13:10
[2020-03-07 13:54] LABS: HEMATOCRIT 38 % (35-52); HEMOGLOBIN 12.3 G/DL (11.5-16.0); MEAN CORPUSCULAR HEMOGLOBIN 32 PG (25-34); MEAN CORPUSCULAR HGB CONC 32 G/DL (32-36); MEAN CORPUSCULAR VOLUME 98 FL (80-99); MEAN PLATELET VOLUME 9.3 FL (7.4-10.4); NEUTROPHILS % (AUTO) 68 % (42-75); PLATELET COUNT 266 10^3/uL (130-400); WHITE BLOOD COUNT 8.9 10^3/uL (4.3-11.0)
[2020-03-07 13:55] LABS: BASOPHILS # (AUTO) 0.1 10^3/uL (0.0-0.1); BASOPHILS % (AUTO) 1 % (0-10); EOSINOPHILS # (AUTO) 0.3 10^3/uL (0.0-0.3); EOSINOPHILS % (AUTO) 3 % (0-10); LYMPHOCYTES # (AUTO) 1.6 X 10^3 (1.0-4.0); LYMPHOCYTES % (AUTO) 18 % (12-44); MONOCYTES # (AUTO) 0.9 X 10^3 (0.0-1.0); MONOCYTES % (AUTO) 10 % (0-12)
[2020-03-07 14:22] LABS: BILIRUBIN,TOTAL 0.3 MG/DL (0.1-1.0); CALCIUM 9.1 MG/DL (8.5-10.1); CREATININE SERUM 1.09 MG/DL (0.60-1.30); POTASSIUM 4.4 MMOL/L (3.6-5.0); TOTAL PROTEIN 6.3 GM/DL (6.4-8.2)
[2020-03-07 14:23] LABS: ALBUMIN 3.7 GM/DL (3.2-4.5)
[2020-03-07 14:59] LABS: BACTERIA,URINE NEGATIVE /HPF; BILIRUBIN,URINE NEGATIVE (NEGATIVE); CLARITY,URINE CLEAR; COLOR,URINE YELLOW; GLUCOSE, URINE (UA) NEGATIVE (NEGATIVE); KETONES,URINE NEGATIVE (NEGATIVE); LEUKOCYTE ESTERASE ,URINE NEGATIVE (NEGATIVE); NITRITE,URINE NEGATIVE (NEGATIVE); PROTEIN,URINE NEGATIVE (NEGATIVE); SQUAMOUS EPITHELIAL CELL,UR RARE /HPF; WBC,URINE 0-2 /HPF
[2020-03-07] MEDS ORDERED: HOLD METFORMIN - RECEIVED CONTRAST 20 ML VIAL IV SCH (15:15)
[2020-03-07] MEDS ORDERED: NS 100 ML (IVPB) BAG IV ONE (15:15)
[2020-03-07] MEDS ORDERED: IOHEXOL 350 MG/ML 100 ML (OMNIPAQUE 350) VIAL IV ONE (15:15)
[2020-03-07] MEDS ORDERED: CATHETER FLUSH 10 ML SYR IV PRN (15:15)
--- NOTE | 2020-03-07 15:47 | Diagnostic Imaging Report ---
PROCEDURE: CT abdomen and pelvis without contrast. TECHNIQUE: Multiple contiguous axial images were obtained through the abdomen and pelvis without the use of intravenous contrast. Auto Exposure Controls were utilized during the CT exam to meet ALARA standards for radiation dose reduction. INDICATION: Abdominal pain. COMPARISON: 05/26/2018. FINDINGS: There has been resolution of the previous left-sided retroperitoneal hemorrhage. No acute or recurrent hemorrhage is found. No bowel, biliary, or urinary tract obstruction. No perienteric or pericolonic edema. No focal inflammatory process. No ascites, abscess, hematoma, or acute fluid collection. No mass or adenopathy. There is a chronic small hiatal hernia. There is nonaneurysmal aortic atherosclerosis. IMPRESSION: Resolution of the prior hemorrhage. No obstructive features, inflammatory process, or acute appearing abnormality is identified. Dictated by: Dictated on workstation # [id number]
[2020-03-07 16:23] VITALS: BP 115/81
== END 2020-03-07 16:25 | disposition home or self-care (01) ==
LOC: EDUNIT# 12:53 → ER FS 12:54
DX: S39.011A Strain of muscle, fascia and tendon of abdomen, initial encounter (principal); R10.11 Right upper quadrant pain; F41.9 Anxiety disorder, unspecified; E66.9 Obesity, unspecified; E03.9 Hypothyroidism, unspecified; Z68.41 Body mass index [BMI] 40.0-44.9, adult; Z82.49 Family history of ischemic heart disease and other diseases of the circulatory system; Z79.82 Long term (current) use of aspirin; Z79.890 Hormone replacement therapy; X58.XXXA Exposure to other specified factors, initial encounter
CPT/HCPCS: 36415; 74176; 80053; 81000; 83690; 83880; 84484; 85025

== ENCOUNTER 2020-07-10 01:51 | Emergency (ER) | payer MEDICARE ==
[~2020-07-10 01:51] MED LIST changes: -CYAN500T62 PO; +CYAN500T8 PO
--- NOTE | 2020-07-10 02:07 | ED Fall/Injury ---
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 Her daughter brought her to the emergency department after she hasn't tripped and hit her face against a dresser at the assisted living facility. She had denied any loss of consciousness or neck pain. She has a deep abrasion/laceration to her left lateral eyebrow. She also has an abrasion and swelling to her left distal forearm. She denies any numbness or tingling in her hand or fingers. She is still able to ambulate. She denies any nausea or vomiting. She denies any change in her vision. Allergies and Home Medications Allergies Coded Allergies: No Known Drug Allergies (Unverified , 12/22/18) Home Medications Aspirin 81 Mg Tablet.dr, 81 MG PO DAILY, (Reported) Atorvastatin Calcium 10 Mg Tablet, 10 MG PO DAILY Prescribed by: HOLLIS BARRIOS on 03/09/19 1309 Cholecalciferol (Vitamin D3) 5,000 Unit Capsule, 5,000 UNIT PO DAILY, (Reported) Clopidogrel Bisulfate 75 Mg Tablet, 75 MG PO DAILY, (Reported) Cyanocobalamin (Vitamin B-12) 500 Mcg Tablet, 500 MCG PO DAILY, (Reported) Isosorbide Mononitrate 30 Mg Tab.er.24h, 30 MG PO DAILY, (Reported) Levothyroxine Sodium 50 Mcg Tablet, 50 MCG PO DAILY, (Reported) Memantine HCl 10 Mg Tablet, 10 MG PO BID, (Reported) Propranolol HCl 10 Mg Tablet, 5 MG PO TID, (Reported) TAKES 1/2 (10MG) TABLET Sertraline HCl 50 Mg Tablet, 50 MG PO DAILY, (Reported) Patient Home Medication List Home Medication List Reviewed: Yes Review of Systems Review of Systems Constitutional: No chills, No fever Eyes: Denies Blindness, Denies Blurred Vision, Denies Photophobia Ears, Nose, Mouth, Throat: denies ear pain, denies ear discharge, denies nose pain, denies nose discharge, denies epistaxis, denies mouth pain Respiratory: no symptoms reported Cardiovascular: no symptoms reported Gastrointestinal: see HPI; No nausea, No vomiting Genitourinary: no symptoms reported Musculoskeletal: see HPI; No neck pain; other (tenderness with palpation to distal left forearm where she has hematoma and abrasion) Skin: see HPI, other (abrasion with hematoma to left distal forearm) Psychiatric/Neurological: Headache (left face where she has abrasion/laceration) Past Rihtewv-Yzarom-Lvnhwx Hx Past Med/Social Hx: Reviewed Nursing Past Med/Soc Hx Patient Social History Alcohol Use: Denies Use 2nd Hand Smoke Exposure: No Recent Hopitalizations: No Immunizations Up To Date Tetanus Booster (TDap): Unknown PED Vaccines UTD: Yes Date of Pneumonia Vaccine: Mar 28, 2015 Date of Influenza Vaccine: May 10, 2018 Seasonal Allergies Seasonal Allergies: No Past Medical History Surgeries: Yes Bladder Surgery, Gallbladder, Hysterectomy Respiratory: No Currently Using CPAP: No Currently Using BIPAP: No Cardiac: Yes Coronary Artery Disease Neurological: Yes Dementia, Parkinson's Disease Reproductive Disorders: No Female Reproductive Disorders: Denies Sexually Transmitted Disease: No HIV/AIDS: No Genitourinary: Yes (stress incont-wears pad) Gastrointestinal: Yes Hemorrhoids Musculoskeletal: Yes Degenerate Disk Disease, Chronic Back Pain Endocrine: Yes (ON THRYOID MEDICATION IN PAST) Hypothyroidsim HEENT: Yes Cataract Loss of Vision: Bilateral Hearing Impairment: Denies Cancer: No Psychosocial: No Integumentary: No Blood Disorders: No Family Medical History Patient reports no known family medical history. Heart Disease, Hypertension Physical Exam Vital Signs Vital Signs - First Documented 07/10/20 02:00 Temp 36.5 Pulse 82 Resp 16 B/P (MAP) 132/63 (86) Pulse Ox 95 O2 Delivery Room Air Capillary Refill : Height, Weight, BMI Height: 5'5.00" Weight: 200lbs. 0.0oz. [id number]; 42.00 BMI Method:Stated General Appearance: WD/WN HEENT: PERRL/EOMI, TMs normal; No photophobia; other (no hemotympanum. No CSF otorrhea, rhinorrhea. left eye has subconjunctival hemorrhage) Neck: non-tender, normal inspection Cardiovascular: normal peripheral pulses, regular rate, rhythm Respiratory: chest non-tender, lungs clear, normal breath sounds Gastrointestinal: normal bowel sounds, soft, no pulsatile mass Extremities: normal range of motion, normal capillary refill, swelling (tender hematoma with abrasion to distal left forearm area) Neurologic/Psychiatric: associate director of nursing II-XII nml as tested, alert, normal mood/affect, oriented x 3 Skin: warm/dry, ecchymosis (hematoma with bruising and abrasion to distal left forearm) Pilar Coma Score Best Eye Response: (4) Open Spontaneously Best Verbal Response: (5) Oriented Best Motor Response: (6) Obeys Commands [place] Total: 15 Procedures/Interventions Wound Location: Face (left lateral eyebrow) Wound Length (cm): 3.2 Wound's Depth, Shape: superficial Wound Explored: clean Other Closure Supply: Wound Adhesive Progress Wound cleaned with chlorhexidine and sterile water. Then applied wound adhesive to help approximate wound edges and cover the wound. Pt tolerated this well without any immediate complications. Progress/Results/Core Measures Results/Orders My Orders Orders - ARON RAIN MD Forearm 2 View Left (07/10/20 02:04) Ct Head/Maxillofacial Wo (07/10/20 02:04) Ice: Apply To Affected Area (07/10/20 02:04) Elevate Affected Extremity (07/10/20 02:04) Vital Signs/I&O 07/10/20 02:00 Temp 36.5 Pulse 82 Resp 16 B/P (MAP) 132/63 (86) Pulse Ox 95 O2 Delivery Room Air Progress Progress Note #1: Progress Note cleaned wound on left lateral eyebrow area with chlorhexidine and then applied wound adhesive to help seal it up. CT head and face to check for fractures or internal bleeding. Xray of left forearm to check for fracture with her having hematoma with abrasion. ice and elevate her forearm and ice her face/forehead Progress Note #2: Time: 03:12 Progress Note no acute fracture or dislocation seen by my review of 2 views of left forearm. CT head/face showed no acute intracranial or facial findings other than soft tissue swelling to left face/periorbital area. Counseled on follow up and return precautions. Diagnostic Imaging Diagonstic Imaging: CT Plain Films/CT/US/NM/MRI: facial bones, head Comments Impression: CT head no acute findings in the head/brain. CT maxillofacial no acute fractures identified. Read by Dr. Xander Galloway MD at [id number] and faxed at [phone] Reviewed: Reviewed [facility] Study Diagonstic Imaging: Xray Plain Films/CT/US/NM/MRI: forearm Comments on my review of 2 views of left forearm she has no acute fracture or dislocation. Departure Impression Primary Impression: Laceration of left eyebrow Qualified Codes: S01.112A - Laceration without foreign body of left eyelid and periocular area, initial encounter Additional Impressions: Contusion of left eyebrow Qualified Codes: S00.12XA - Contusion of left eyelid and periocular area, initial encounter Subconjunctival hemorrhage of left eye Fall at care home Qualified Codes: W19.XXXA - Unspecified fall, initial encounter; Y92.129 - Unspecified place in care home as the place of occurrence of the external cause Traumatic hematoma of left forearm Qualified Codes: S50.12XA - Contusion of left forearm, initial encounter Disposition: 01 HOME, SELF-CARE Condition: Stable Departure-Patient Inst. Decision time for Depature: 03:15 Referrals: ANNIE MOORE MD (PCP/Family) Primary Care Physician Patient Instructions: [place] [facility] ED, Laceration Repair With Glue (DC), Minor Contusion ED, Preventing Falls in the Older Adult, Subconjunctival Hemorrhage Add. Discharge Instructions: Keep your head elevated at least 30-45 degrees at all times for the next 2-3 days. Ice 10-15 minutes every few hours as needed for pain and swelling. Keep glue dry for first 24 hours then may wash with soap and water but do not soak the wound. Check back with clinic for continued concerns. All discharge instructions reviewed with patient and/or family. Voiced understanding. Images Extremities-Upper 1 - Contusion, Swelling (hematoma with superficial abrasion and tenderness to left distal forearm), Tenderness Head/Face 1 - Contusion, Laceration (3.2 cm laceration/deep abrasion to left lateral eyebrow area), Tenderness ARON RAIN MD Jul 10, 2020 02:06
[2020-07-10 03:16] VITALS: BP 139/56
--- NOTE | 2020-07-10 06:23 | Diagnostic Imaging Report ---
INDICATION: Left forearm injury from a fall Two views of the left forearm show no fracture, dislocation or other acute abnormalities. IMPRESSION: Negative left forearm Dictated by: Dictated on workstation # [id number]
--- NOTE | 2020-07-10 07:03 | Diagnostic Imaging Report ---
PROCEDURE: CT head and maxillofacial without contrast. TECHNIQUE: Multiple contiguous axial images were obtained through the head and facial bones without the use of intravenous contrast. Auto Exposure Controls were utilized during the CT exam to meet ALARA standards for radiation dose reduction. INDICATION: Left facial trauma CT HEAD: The ventricles are normal in size, shape and position. There are no masses or hemorrhages. There are no extra-axial fluid collections. IMPRESSION: Negative CT head CT FACIAL BONES: Zygomatic arches are intact. Paranasal sinuses are clear. Globes and orbits appear normal. Nasal bones appear to be intact. The mandible is intact. IMPRESSION: Negative CT facial bones. I agree with preliminary interpretation. Dictated by: Dictated on workstation # [id number]
== END 2020-07-10 03:16 | disposition home or self-care (01) ==
LOC: EDUNIT# 01:51 → ER FS 01:53
DX: S01.112A Laceration without foreign body of left eyelid and periocular area, initial encounter (principal); S50.12XA Contusion of left forearm, initial encounter; H11.32 Conjunctival hemorrhage, left eye; E03.9 Hypothyroidism, unspecified; R40.2410 Glasgow coma scale score 13-15, unspecified time; Z82.49 Family history of ischemic heart disease and other diseases of the circulatory system; Z79.890 Hormone replacement therapy; Z79.82 Long term (current) use of aspirin; W19.XXXA Unspecified fall, initial encounter; Y92.129 Unspecified place in nursing home as the place of occurrence of the external cause
CPT/HCPCS: 70450; 70486

== ENCOUNTER → 2021-06-28 | Outpatient (CLI) | payer MEDICARE ==
[~2021-06-28] MED LIST changes: -ISOS30TA3 PO; +ISOS30TA82 PO; +SERT-413 PO; -SERT50TA9 PO
--- NOTE | 2021-06-28 12:46 | Diagnostic Imaging Report ---
PROCEDURE: MRI right joint lower extremity without contrast. TECHNIQUE: Multiplanar, multisequence non contrast-enhanced MRI of the right lower extremity was accomplished. INDICATION: Right hip pain. COMPARISON: MRI of the right hip from 05/29/2018. FINDINGS: Right hip: No hip effusion. Diffuse truncation of the labrum is likely related to degenerative-type tearing. No large para labral cyst. There is likely diffuse chondral wear throughout the right hip but no sites of full-thickness articular cartilage loss are appreciated. Muscles and tendons: Chronic tear of the distal right iliopsoas tendon, which was acute back in 2018. Partial-thickness tear of the right gluteus medias at its insertion on the anterior facet of the greater trochanter. Gluteus minimus has mild fatty atrophy likely from disuse. The proximal hamstring complexes are intact. Bones: No osteonecrosis femoral heads. No bone marrow edema in the proximal femurs or pelvis that would suggest stress reaction. No concerning focal osseous lesion. Other: No free pelvic fluid. No pelvic or inguinal lymphadenopathy. IMPRESSION: 1. Partial-thickness tear of the right gluteus medias at its insertion on the greater trochanter. Correlation for focal tenderness in this region is advised. 2. Chronic tear of the right distal iliopsoas tendon which was acute in 2018. No atrophy of the iliopsoas musculature. 3. Moderate osteoarthritis of the right hip with degenerative type tearing in the labrum. Dictated by: Dictated on workstation # [id number]
== END ==
LOC: RAD 10:05
PROVIDERS: ATTEND Nurse Practitioner Family
DX: M16.11 Unilateral primary osteoarthritis, right hip (principal); S73.191A Other sprain of right hip, initial encounter; S76.011A Strain of muscle, fascia and tendon of right hip, initial encounter
CPT/HCPCS: 73721

== ENCOUNTER → 2021-07-02 | Outpatient (CLI) | payer MEDICARE ==
--- NOTE | 2021-07-02 14:44 | Diagnostic Imaging Report ---
INDICATION: Right knee pain. TIME OF EXAM: 2:08 PM. TECHNIQUE: Multiple views of the right knee were obtained. FINDINGS: There are medial and patellofemoral compartmental degenerative changes with joint space during and marginal spurring. No fracture or dislocation is identified. There is no joint effusion. There is spurring of the tibial spines. IMPRESSION: Degenerative changes. No acute bony abnormality is detected. Dictated by: Dictated on workstation # [id number]
== END ==
LOC: ORTHO 13:11
PROVIDERS: ATTEND Orthopaedic Surgery
DX: M17.11 Unilateral primary osteoarthritis, right knee (principal)
CPT/HCPCS: 20610; 73564; G0463

== ENCOUNTER → 2021-08-06 | Outpatient (CLI) | payer MEDICARE | LOC: ORTHO 13:00 | PROVIDERS: ATTEND Orthopaedic Surgery | DX: M17.11 Unilateral primary osteoarthritis, right knee (principal); I25.10 Atherosclerotic heart disease of native coronary artery without angina pectoris; I10 Essential (primary) hypertension; E78.2 Mixed hyperlipidemia | CPT/HCPCS: 99212 ==

== ENCOUNTER 2021-11-26 21:20 | Emergency (ER) | payer MEDICARE ==
[~2021-11-26] VITALS: Ht 165 cm; Wt 95.0 kg
[2021-11-26 21:37] VITALS: BP 137/80
[2021-11-26 22:03] LABS: BILIRUBIN,URINE NEGATIVE (NEGATIVE); CLARITY,URINE CLEAR; COLOR,URINE YELLOW; GLUCOSE, URINE (UA) NEGATIVE (NEGATIVE); KETONES,URINE NEGATIVE (NEGATIVE); LEUKOCYTE ESTERASE ,URINE NEGATIVE (NEGATIVE); NITRITE,URINE NEGATIVE (NEGATIVE); PH,URINE 6.5 (5-9); PROTEIN,URINE NEGATIVE (NEGATIVE)
[2021-11-26 22:12] LABS: BACTERIA,URINE NEGATIVE /HPF; WBC,URINE 0-2 /HPF
[2021-11-26 22:14] LABS: BASOPHILS # (AUTO) 0.1 10^3/uL (0.0-0.1); BASOPHILS % (AUTO) 1 % (0-10); EOSINOPHILS # (AUTO) 0.3 10^3/uL (0.0-0.3); EOSINOPHILS % (AUTO) 3 % (0-10); HEMATOCRIT 34 % (35-52); HEMOGLOBIN 10.7 g/dL (11.5-16.0); LYMPHOCYTES # (AUTO) 1.3 10^3/uL (1.0-4.0); LYMPHOCYTES % (AUTO) 17 % (12-44); MEAN CORPUSCULAR HEMOGLOBIN 27 pg (25-34); MEAN CORPUSCULAR HGB CONC 31 g/dL (32-36); MEAN CORPUSCULAR VOLUME 86 fL (80-99); MEAN PLATELET VOLUME 8.9 fL (9.0-12.2); MONOCYTES # (AUTO) 0.8 10^3/uL (0.0-1.0); MONOCYTES % (AUTO) 11 % (0-12); NEUTROPHILS # (AUTO) 5.2 10^3/uL (1.8-7.8); NEUTROPHILS % (AUTO) 67 % (42-75); PLATELET COUNT 257 10^3/uL (130-400); WHITE BLOOD COUNT 7.7 10^3/uL (4.3-11.0)
[2021-11-26 22:23] LABS: ALBUMIN 3.7 GM/DL (3.2-4.5)
[2021-11-26 22:25] LABS: CALCIUM 9.1 MG/DL (8.5-10.1)
[2021-11-26 22:26] LABS: TOTAL PROTEIN 6.6 GM/DL (6.4-8.2)
[2021-11-26 22:28] LABS: BILIRUBIN,TOTAL 0.6 MG/DL (0.1-1.0)
[2021-11-26 22:29] LABS: CREATININE SERUM 0.99 MG/DL (0.60-1.30)
--- NOTE | 2021-11-26 22:42 | Diagnostic Imaging Report ---
Indication: Altered mental status Portable chest 10:38 PM Heart size and pulmonary vascularity are normal. Lungs are clear. There are no effusions or pneumothoraces. IMPRESSION: No acute abnormalities in the chest Dictated by: Dictated on workstation # [id number]
--- NOTE | 2021-11-26 22:59 | ED General ---
General Chief Complaint: Altered Mental Status Stated Complaint: CONFUSSED,LOW BP, DEHYDRATED,DIZZY Nursing Triage Note: [facility]. STAFF SENT NOTE THAT REPORT PT RECEIVED 2ND COVID BOOSTER YESTERDAY 11/25/21. REPORTS TODAY HAVING ONSET OF CONFUSION AND WEAKNESS. PT ABLE TO ANSWER QUESTIONS BUT DOES HAVE TO REPEAT THE QUESTION SEVERAL TIMES TO HERSELF WITH A DELAY IN RESPONSE. Source of Information: Patient Exam Limitations: No Limitations History of Present Illness Date Seen by Provider: Nov 26, 2021 Time Seen by Provider: 21:40 Allergies and Home Medications Allergies Coded Allergies: No Known Drug Allergies (Unverified , 12/22/18) Patient Home Medication List Aspirin (Aspirin EC) 81 Mg Tablet.dr, 81 MG PO DAILY, (Reported) Entered as Reported by: VITALY KRISHNA on 05/25/18915 Atorvastatin Calcium (Lipitor) 10 Mg Tablet, 10 MG PO DAILY Prescribed by: HOLLIS BARRIOS on 03/09/19 1309 Cholecalciferol (Vitamin D3) (Vitamin D3) 5,000 Unit Capsule, 5,000 UNIT PO DAILY, (Reported) Entered as Reported by: VITALY KRISHNA on 05/25/18 09 Clopidogrel Bisulfate (Plavix) 75 Mg Tablet, 75 MG PO DAILY, (Reported) Entered as Reported by: SAMUEL OROZCO on 03/09/19 1217 Cyanocobalamin (Vitamin B-12) (Vitamin B-12) 500 Mcg Tablet, 500 MCG PO DAILY, (Reported) Entered as Reported by: VITALY KRISHNA on 05/25/18915 Isosorbide Mononitrate (Isosorbide Mononitrate ER) 30 Mg Tab.er.24h, 30 MG PO DAILY, (Reported) Entered as Reported by: SAMUEL OROZCO on 03/09/19 1217 Levothyroxine Sodium (Levothyroxine Sodium) 50 Mcg Tablet, 50 MCG PO DAILY, (Reported) Entered as Reported by: LEONARD MUELLER on 05/24/18 1339 Memantine HCl (Namenda) 10 Mg Tablet, 10 MG PO BID, (Reported) Entered as Reported by: LEONARD MUELLER on 05/24/18 1342 Propranolol HCl (Propranolol HCl) 10 Mg Tablet, 5 MG PO TID, (Reported) Entered as Reported by: LEONARD MUELLER on 05/24/18 1339 Sertraline HCl (Sertraline HCl) 50 Mg Tablet, 50 MG PO DAILY, (Reported) Entered as Reported by: LEONARD MUELLER on 05/24/18 1340 Past Gztjovy-Zgzoul-Ewqeua Hx Patient Social History Tobacco Use?: No Substance use?: No Alcohol Use?: No Immunizations Up To Date Tetanus Booster (TDap): Unknown PED Vaccines UTD: Yes Influenza Vaccine Up-to-Date: Yes; Up-to-Date First/Initial COVID19 Vaccinat: UNKNOWN DATE Second COVID19 Vaccination Vincent: UNKNOWN DATE Seasonal Allergies Seasonal Allergies: No Past Medical History Surgeries: Yes Bladder Surgery, Gallbladder, Hysterectomy Respiratory: No Currently Using CPAP: No Currently Using BIPAP: No Cardiac: Yes Coronary Artery Disease Neurological: Yes Dementia, Parkinson's Disease Reproductive Disorders: No Female Reproductive Disorders: Denies Sexually Transmitted Disease: No HIV/AIDS: No Genitourinary: Yes (stress incont-wears pad) Gastrointestinal: Yes Hemorrhoids Musculoskeletal: Yes Degenerate Disk Disease, Chronic Back Pain Endocrine: Yes (ON THRYOID MEDICATION IN PAST) Hypothyroidsim HEENT: Yes Cataract Loss of Vision: Bilateral Hearing Impairment: Denies Cancer: No Psychosocial: No Integumentary: No Blood Disorders: No Family Medical History Patient reports no known family medical history. Heart Disease, Hypertension Physical Exam Vital Signs Vital Signs - First Documented 11/26/21 21:37 Temp 36.9 Pulse 84 Resp 18 B/P (MAP) 137/80 (99) Pulse Ox 96 O2 Delivery Room Air Capillary Refill : Height, Weight, BMI Height: 5'5.00" Weight: 200lbs. 0.0oz. 90.755962us; 34.00 BMI Method:Stated Progress/Results/Core Measures Suspected Sepsis SIRS Temperature: Pulse: 84 Respiratory Rate: 18 Laboratory Tests 11/26/21 22:06: White Blood Count 7.7 Blood Pressure 137 /80 Mean: 95 Laboratory Tests 11/26/21 22:06: Creatinine 0.99, Platelet Count 257, Total Bilirubin 0.6 Results/Orders Lab Results Laboratory Tests Test 11/26/21 21:47 11/26/21 22:06 Range/Units Urine Color YELLOW Urine Clarity CLEAR Urine pH 6.5 5-9 Urine Specific Mcnary 1.010 L 1.016-1.022 Urine Protein NEGATIVE NEGATIVE Urine Glucose (UA) NEGATIVE NEGATIVE Urine Ketones NEGATIVE NEGATIVE Urine Nitrite NEGATIVE NEGATIVE Urine Bilirubin NEGATIVE NEGATIVE Urine Urobilinogen 0.2 < = 1.0 MG/DL Urine Leukocyte Esterase NEGATIVE NEGATIVE Urine RBC (Auto) NEGATIVE NEGATIVE Urine RBC NONE /HPF Urine WBC 0-2 /HPF Urine Squamous Epithelial Cells NONE /HPF Urine Renal Epithelial Cells NONE /HPF Urine Crystals NONE /LPF Urine Bacteria NEGATIVE /HPF Urine Casts NONE /LPF Urine Mucus NEGATIVE /LPF Urine Culture Indicated NO White Blood Count 7.7 4.3-11.0 10^3/uL Red Blood Count 3.99 3.80-5.11 10^6/uL Hemoglobin 10.7 L 11.5-16.0 g/dL Hematocrit 34 L 35-52 % Mean Corpuscular Volume 86 80-99 fL Mean Corpuscular Hemoglobin 27 25-34 pg Mean Corpuscular Hemoglobin Concent 31 L 32-36 g/dL Red Cell Distribution Width 15.7 H 10.0-14.5 % Platelet Count 257 130-400 10^3/uL Mean Platelet Volume 8.9 L 9.0-12.2 fL Immature Granulocyte % (Auto) 0 % Neutrophils (%) (Auto) 67 42-75 % Lymphocytes (%) (Auto) 17 12-44 % Monocytes (%) (Auto) 11 0-12 % Eosinophils (%) (Auto) 3 0-10 % Basophils (%) (Auto) 1 0-10 % Neutrophils # (Auto) 5.2 1.8-7.8 10^3/uL Lymphocytes # (Auto) 1.3 1.0-4.0 10^3/uL Monocytes # (Auto) 0.8 0.0-1.0 10^3/uL Eosinophils # (Auto) 0.3 0.0-0.3 10^3/uL Basophils # (Auto) 0.1 0.0-0.1 10^3/uL Immature Granulocyte # (Auto) 0.0 0.0-0.1 10^3/uL Sodium Level 135 135-145 MMOL/L Potassium Level 4.0 3.6-5.0 MMOL/L Chloride Level 102 98-107 MMOL/L Carbon Dioxide Level 22 21-32 MMOL/L Anion Gap 11 5-14 MMOL/L Blood Urea Nitrogen 14 7-18 MG/DL Creatinine 0.99 0.60-1.30 MG/DL Estimat Glomerular Filtration Rate 57 BUN/Creatinine Ratio 14 Glucose Level 97 70-105 MG/DL Calcium Level 9.1 8.5-10.1 MG/DL Corrected Calcium 9.3 8.5-10.1 MG/DL Total Bilirubin 0.6 0.1-1.0 MG/DL Aspartate Amino Transf (AST/SGOT) 17 5-34 U/L Alanine Aminotransferase (ALT/SGPT) 15 0-55 U/L Alkaline Phosphatase 99 40-136 U/L Total Protein 6.6 6.4-8.2 GM/DL Albumin 3.7 3.2-4.5 GM/DL My Orders Orders - SALUD DUNHAM MD Ed Iv/Invasive Line Start (11/26/21 21:57) Cbc With Automated Diff (11/26/21 21:57) Comprehensive Metabolic Panel (11/26/21 21:57) Ua Culture If Indicated (11/26/21 21:57) Ekg Tracing (11/26/21 21:57) Chest 1 View, Ap/Pa Only (11/26/21 21:57) Tramadol Tablet (Ultram Tablet) (11/26/21 23:00) Vital Signs/I&O 11/26/21 11/26/21 21:37 22:42 Temp 36.9 Pulse 84 77 Resp 18 18 B/P (MAP) 137/80 (99) 138/74 Pulse Ox 96 95 O2 Delivery Room Air Capillary Refill : Blood Pressure Mean: 95 Progress Note : Time: 22:55 Progress Note Patient reevaluated after lab work done, all of her labs are within normal limits. Normal CBC, normal Chem-12, normal urinalysis, normal appearing EKG, normal chest x-ray. She is pleasantly confused and as noted she has a history of dementia. She is able to converse clearly. She follows directions she has no focal neurologic deficits. She has no severe headache. No complaints of vision issues or incoordination. I have reassured her that I believe she has had a mild reaction to the COVID booster. I have cautioned her son that if she develops a fever or worsening confusion that she needs to come back to the emergency room. She does complain persistently about pain in her right leg however her son states that she always has this pain and has had it for many years. The leg is not red, warm or swollen. She has no clinical or objective findings to warrant further studies from the emergency department at this time. She does not meet criteria for an emergent CT head. Nothing about her presentation concerns me for acute cerebrovascular accident. Son is comfortable with the plan, all questions are sought and answered. Patient is stable for discharge. ECG Initial ECG Impression Date: Nov 26, 2021 Initial ECG Impression Time: 22:10 Initial ECG Rate: 77 Initial ECG Rhythm: Normal Sinus Initial ECG Intervals NJ interval 136 QRS 93 QTc [address] segment elevation noted, she does have nonspecific ST-T wave changes in leads II and III. No ectopy is noted Diagnostic Imaging Diagonstic Imaging: Xray Plain Films/CT/US/NM/MRI: chest Comments [facility] [place] NAME: HAMILTON OROZCO [facility] REC#: [id number] PT STATUS: REG ER : 1940 PHYSICIAN: SALUD DUNHAM MD ADMIT DATE: 11/26/21/ER Signed Date of Exam:11/26/21 CHEST 1 VIEW, AP/PA ONLY Indication: Altered mental status Portable chest 10:38 PM Heart size and pulmonary vascularity are normal. Lungs are clear. There are no effusions or pneumothoraces. IMPRESSION: No acute abnormalities in the chest Dictated by: Dictated on workstation # [id number] Dict: 11/26/212238 Trans: 11/26/212239 TC [id number] Interpreted by: JUAN CUELLAR MD Electronically signed by: JUAN CUELLAR MD 11/26/212239 Departure Impression Primary Impression: Confusion Additional Impressions: Status post administration of all doses of COVID-19 vaccine series History of dementia Disposition: 01 HOME, SELF-CARE Condition: Stable Departure-Patient Inst. Decision time for Depature: 22:58 Referrals: ANNIE MOORE MD (PCP/Family) Primary Care Physician Patient Instructions: Altered Mental Status Add. Discharge Instructions: Continue routine medications as previously prescribed. Monitor for fever greater than 100.4, worsening confusion, shortness of breath, vomiting or other concerning symptoms. Please follow-up with your primary care physician this week or early next week. Copy Copies To 1: ANNIE MOORE MD, KATHRYN M MD Nov 26, 2021 22:59
== END 2021-11-26 23:10 | disposition home or self-care (01) ==
LOC: EDUNIT# 21:20 → ER 21:25
DX: R41.0 Disorientation, unspecified (principal); F03.90 Unspecified dementia, unspecified severity, without behavioral disturbance, psychotic disturbance, mood disturbance, and anxiety; Z92.89 Personal history of other medical treatment
CPT/HCPCS: 36415; 71045; 80053; 81000; 85025; 93005

== ENCOUNTER 2022-12-18 11:44 | Inpatient (IN) | payer MEDICARE ==
[~2022-12-18] VITALS: Ht 165.1 cm; Wt 102.2 kg
[~2022-12-18 11:44] MED LIST changes: +CLOP-31 PO; -CLOP75TA69 PO
[2022-12-18 12:46] LABS: BASOPHILS % (AUTO) 0 % (0-10); EOSINOPHILS % (AUTO) 0 % (0-10); HEMATOCRIT 36 % (35-52); HEMOGLOBIN 11.3 g/dL (11.5-16.0); LYMPHOCYTES # (AUTO) 0.8 10^3/uL (1.0-4.0); LYMPHOCYTES % (AUTO) 8 % (12-44); MEAN CORPUSCULAR HEMOGLOBIN 29 pg (25-34); MEAN CORPUSCULAR HGB CONC 31 g/dL (32-36); MEAN CORPUSCULAR VOLUME 92 fL (80-99); MONOCYTES # (AUTO) 0.8 10^3/uL (0.0-1.0); MONOCYTES % (AUTO) 8 % (0-12); NEUTROPHILS # (AUTO) 8.7 10^3/uL (1.8-7.8); NEUTROPHILS % (AUTO) 83 % (42-75); PLATELET COUNT 237 10^3/uL (130-400); WHITE BLOOD COUNT 10.4 10^3/uL (4.3-11.0)
--- NOTE | 2022-12-18 12:50 | ED Fall/Injury ---
General Chief Complaint: Trauma-Non Activation Stated Complaint: FALL | LOWER BACK PAIN Nursing Triage Note: PT TO RM 5 WITH DAUGHTER BY WC WITH C/O FALL FROM STANDING SOME TIME LAST NIGHT. PT FOUND ON THE GROUND THIS AM BY STAFF AT [facility]. PT DENIES HITTING HEAD OR LOC. PT STATES HER BACK HURTS WORST Source: patient, family Exam Limitations: other (early stage dementia) (JAVIER MARTINEZ) History of Present Illness Date Seen by Provider: Dec 18, 2022 Time Seen by Provider: 12:10 Initial Comments Our patient is an 82 yo F who presented to the emergency department after experiencing a fall at her assisted living facility early this morning. Sometime late last night, the patient was sitting in her chair and reached for a fan causing her to lose her balance and fall out of her chair and onto the floor. She does not believe that she lost consciousness, remembers her fall, and was unable to reach her call button that was positioned on the other side of the bed. She remained on the floor for several hours until being discovered by facility staff when making their rounds at around 0540. She now indicates new onset lower back pain and right shoulder pain. She denies pain in her head, neck, or hips. She has had multiple falls in the past in which she experienced bilateral psoas muscle tears. In addition, she takes plavix and baby aspirin after a previous cardiac stenting. She normally ambulates with a walker and is set to start physical therapy for progressive weakness that has worsened for the past few months. Her daughter states that her mentation has been somewhat slowed this morning compared to her baseline and that she has been more delayed in her speech. For the past two weeks, the patient and her daughter have noticed that she is urinating much more frequently than she normally does and the patient notes some burning with urination for around that long. She denies nausea and vomiting, new-onset blurry vision, headache, or loss of bowel or bladder function. Occurred: this morning Injuries/Pain Location: abdomen, back (lower thoracic and upper lumbar) Context: lost balance Loss of Consciousness: no loss of consciousness Associated Symptoms (Fall): Abdominal Pain, Confusion; No Headache, No Naus ea/Vomiting, No Vision Changes; Other (slowed speech) (JAVIER MARTINEZ) Allergies and Home Medications Allergies Coded Allergies: No Known Drug Allergies (Unverified , 12/22/18) Patient Home Medication List Home Medication List Reviewed: Yes (YOLANDE VIGIL MD) Aspirin (Aspirin EC) 81 Mg Tablet.dr, 81 MG PO DAILY, (Reported) Entered as Reported by: VITALY KRISHNA on 05/25/18915 Atorvastatin Calcium (Lipitor) 10 Mg Tablet, 10 MG PO DAILY Prescribed by: HOLLIS BARRIOS on 03/09/19 1309 Cholecalciferol (Vitamin D3) (Vitamin D3) 5,000 Unit Capsule, 5,000 UNIT PO DAILY, (Reported) Entered as Reported by: VITALY KRISHNA on 05/25/18 09 Clopidogrel Bisulfate (Plavix) 75 Mg Tablet, 75 MG PO DAILY, (Reported) Entered as Reported by: SAMUEL OROZCO on 03/09/19 1217 Cyanocobalamin (Vitamin B-12) (Vitamin B-12) 500 Mcg Tablet, 500 MCG PO DAILY, (Reported) Entered as Reported by: VITALY KRISHNA on 05/25/18915 Isosorbide Mononitrate (Isosorbide Mononitrate ER) 30 Mg Tab.er.24h, 30 MG PO DAILY, (Reported) Entered as Reported by: SAMUEL ORZOCO on 03/09/19 1217 Levothyroxine Sodium (Levothyroxine Sodium) 50 Mcg Tablet, 50 MCG PO DAILY, (Reported) Entered as Reported by: LEONARD MUELLER on 05/24/18 133 Memantine HCl (Namenda) 10 Mg Tablet, 10 MG PO BID, (Reported) Entered as Reported by: LEONARD MUELLER on 05/24/18 1342 Propranolol HCl (Propranolol HCl) 10 Mg Tablet, 5 MG PO TID, (Reported) Entered as Reported by: LEONARD MUELLER on 05/24/18 1339 Sertraline HCl (Sertraline HCl) 50 Mg Tablet, 50 MG PO DAILY, (Reported) Entered as Reported by: LEONARD MUELLER on 05/24/18 1340 Review of Systems Review of Systems Constitutional: see HPI; No chills, No fever; weakness Eyes: See HPI, Blurred Vision (chronic); Denies Vision Changes Ears, Nose, Mouth, Throat: no symptoms reported Respiratory: No cough; short of breath Cardiovascular: No chest pain; Hx of Intervention Gastrointestinal: see HPI, abdominal pain (RUQ,RLQ); No nausea, No vomiting Genitourinary: see HPI, dysuria, frequency Musculoskeletal: back pain (In upper lumbars and lower thoracics), muscle weakness, other (Right shoulder pain) Skin: no symptoms reported Psychiatric/Neurological: Depressed; Denies Headache, Denies Numbness; Pre- Existing Deficit, Weakness (JAVIER MARTINEZ) Past Xvoxauy-Tejgoq-Jcshyu Hx Patient Social History Tobacco Use?: No Use of E-Cig and/or Vaping dev: No Substance use?: No Alcohol Use?: No Pt feels they are or have been: No (JAVIER MARTINEZ) Immunizations Up To Date Tetanus Booster (TDap): Unknown PED Vaccines UTD: Yes First/Initial COVID19 Vaccinat: UNKNOWN DATE Second COVID19 Vaccination Vincent: UNKNOWN DATE Third COVID19 Vaccination Date: SECOND BOOSTER 11/25/21 (JAVIER MARTINEZ) Seasonal Allergies Seasonal Allergies: No (JAVIER MARTINEZ) Past Medical History Surgery/Hospitalization HX: THYROID, GERD, HLD STENTS, MITESH, TOTAL HYST, BLADDER PIN, Surgeries: Yes Bladder Surgery, Coronary Stent, Gallbladder, Hysterectomy Respiratory: No Currently Using CPAP: No Currently Using BIPAP: No Cardiac: Yes Coronary Artery Disease Neurological: Yes Dementia, Parkinson's Disease Reproductive Disorders: No Female Reproductive Disorders: Denies Sexually Transmitted Disease: No HIV/AIDS: No Genitourinary: Yes (stress incont-wears pad) Gastrointestinal: Yes Hemorrhoids Musculoskeletal: Yes Degenerate Disk Disease, Chronic Back Pain Endocrine: Yes (ON THRYOID MEDICATION IN PAST) Hypothyroidsim HEENT: Yes Cataract Loss of Vision: Bilateral Hearing Impairment: Denies Cancer: No Psychosocial: Yes Depression Integumentary: No Blood Disorders: No (JAVIER MARTINEZ) Family Medical History Patient reports no known family medical history. Heart Disease, Hypertension (JAVIER MARTINEZ) Physical Exam Vital Signs Vital Signs - First Documented 12/18/22 11:50 Temp 37.8 Pulse 81 Resp 18 B/P (MAP) 132/72 (92) Pulse Ox 97 O2 Delivery Room Air (YOLANDE VIGIL MD) Vital Signs Capillary Refill : (JAVIER MARTINEZ) Height, Weight, BMI Height: 5'5.00" Weight: 200lbs. 0.0oz. [id number]; 34.00 BMI Method:Stated General Appearance: WD/WN, no apparent distress HEENT: PERRL/EOMI, normal ENT inspection; No scleral icterus (R), No scleral icterus (L), No photophobia, No pharyngeal erythema Neck: non-tender, supple, normal inspection; No lymphadenopathy (R), No lymphadenopathy (L) Cardiovascular: normal peripheral pulses, regular rate, rhythm, no edema, no gallop, no JVD, no murmur Respiratory: chest non-tender, lungs clear, normal breath sounds, no respiratory distress, no accessory muscle use Peripheral Pulses: 2+ Radial Pulses (R), 2+ Radial Pulses (L) Gastrointestinal: normal bowel sounds, soft, no organomegaly, tenderness (RUQ and RLQ) Rectal: deferred Back: vertebral tenderness (Over lumber and thoracic regions) Extremities: non-tender, normal capillary refill, pelvis stable, other (Decreased right shoulder range of motion and tenderness with movement. ) Neurologic/Psychiatric: alert, oriented x 3, motor weakness, other (Difficulty following commands, difficulty with finger to nose test, difficulty following finger when assessing extraocular muscles but seems to be due to a lack of attention rather than an extraocular muscle palsy) Skin: cool, pallor (JAVIER MARTINEZ) Progress/Results/Core Measures Results/Orders Lab Results Laboratory Tests Test 12/18/22 12:30 12/18/22 14:00 12/18/22 14:57 12/18/22 16:25 Range/Units White Blood Count 10.4 4.3-11.0 10^3/uL Red Blood Count 3.91 3.80-5.11 10^6/uL Hemoglobin 11.3 L 11.5-16.0 g/dL Hematocrit 36 35-52 % Mean Corpuscular Volume 92 80-99 fL Mean Corpuscular Hemoglobin 29 25-34 pg Mean Corpuscular Hemoglobin Concent 31 L 32-36 g/dL Red Cell Distribution Width 15.1 H 10.0-14.5 % Platelet Count 237 130-400 10^3/uL Mean Platelet Volume 9.0 9.0-12.2 fL Immature Granulocyte % (Auto) 1 % Neutrophils (%) (Auto) 83 H 42-75 % Lymphocytes (%) (Auto) 8 L 12-44 % Monocytes (%) (Auto) 8 0-12 % Eosinophils (%) (Auto) 0 0-10 % Basophils (%) (Auto) 0 0-10 % Neutrophils # (Auto) 8.7 H 1.8-7.8 10^3/uL Lymphocytes # (Auto) 0.8 L 1.0-4.0 10^3/uL Monocytes # (Auto) 0.8 0.0-1.0 10^3/uL Eosinophils # (Auto) 0.0 0.0-0.3 10^3/uL Basophils # (Auto) 0.0 0.0-0.1 10^3/uL Immature Granulocyte # (Auto) 0.1 0.0-0.1 10^3/uL Prothrombin Time 12.9 12.2-14.7 SEC INR Comment 1.0 0.8-1.4 Activated Partial Thromboplast Time 24 24-35 SEC Sodium Level 139 135-145 MMOL/L Potassium Level 4.1 3.6-5.0 MMOL/L Chloride Level 106 98-107 MMOL/L Carbon Dioxide Level 25 21-32 MMOL/L Anion Gap 8 5-14 MMOL/L Blood Urea Nitrogen 11 7-18 MG/DL Creatinine 1.16 0.60-1.30 MG/DL Estimat Glomerular Filtration Rate 47 BUN/Creatinine Ratio 9 Glucose Level 106 H 70-105 MG/DL Calcium Level 9.3 8.5-10.1 MG/DL Corrected Calcium 9.5 8.5-10.1 MG/DL Magnesium Level 2.0 1.6-2.4 MG/DL Total Bilirubin 0.6 0.1-1.0 MG/DL Aspartate Amino Transf (AST/SGOT) 21 5-34 U/L Alanine Aminotransferase (ALT/SGPT) 16 0-55 U/L Alkaline Phosphatase 121 40-136 U/L Total Creatine Kinase 542 H 29-168 U/L C-Reactive Protein High Sensitivity 2.65 H 0.00-0.50 MG/DL Total Protein 6.5 6.4-8.2 GM/DL Albumin 3.8 3.2-4.5 GM/DL Thyroid Stimulating Hormone (TSH) 1.17 0.35-4.94 UIU/ML Free Thyroxine 0.96 0.70-1.48 NG/DL Urine Color YELLOW Urine Clarity CLEAR Urine pH 7.5 5-9 Urine Specific [place] 1.010 L 1.016-1.022 Urine Protein NEGATIVE NEGATIVE Urine Glucose (UA) NEGATIVE NEGATIVE Urine Ketones NEGATIVE NEGATIVE Urine Nitrite NEGATIVE NEGATIVE Urine Bilirubin NEGATIVE NEGATIVE Urine Urobilinogen 2.0 < = 1.0 MG/DL Urine Leukocyte Esterase NEGATIVE NEGATIVE Urine RBC (Auto) NEGATIVE NEGATIVE Urine RBC RARE /HPF Urine WBC NONE /HPF Urine Squamous Epithelial Cells RARE /HPF Urine Crystals PRESENT H /LPF Urine Amorphous Sediment RARE ANTHONY PHOSPHATE H /LPF Urine Bacteria FEW H /HPF Urine Casts NONE /LPF Urine Mucus SMALL H /LPF Urine Culture Indicated NO Influenza Type A (RT-PCR) Not Detected Not Detecte Influenza Type B (RT-PCR) Not Detected Not Detecte SARS-CoV-2 RNA (RT-PCR) Detected H Not Detecte Lactic Acid Level 2.21 *H 0.50-2.00 MMOL/L (YOLANDE VIGIL MD) My Orders Orders - YOLANDE VIGIL MD Ed Iv/Invasive Line Start (12/18/22 12:40) Cbc With Automated Diff (12/18/22 12:40) Creatine Kinase (12/18/22 12:40) Magnesium (12/18/22 12:40) Ua Culture If Indicated (12/18/22 12:40) Thyroid Stimulating Hormone (12/18/22 12:42) Free T4 (Free Thyroxine) (12/18/22 12:42) Comprehensive Metabolic Panel (12/18/22 12:42) Shoulder, Right, 3 Views (12/18/22 12:43) Ct Head/Cervical Spine Wo (12/18/22 12:45) Ct Chest/Abdomen/Pelvis Wo (12/18/22 12:45) Ns Iv 500 Ml (Sodium Chloride 0.9%) (12/18/22 13:45) Acetaminophen Tablet (Tylenol Tablet) (12/18/22 14:00) Straight Cath For Spec.-Adult (12/18/22 14:00) Covid 19 Inhouse Test (12/18/22 15:04) Influenza A And B By Pcr (12/18/22 15:04) Blood Culture (12/18/22 15:04) Sputum Culture (12/18/22 15:04) Urine Culture (12/18/22 15:04) Protime With Inr (12/18/22 15:04) Partial Thromboplastin Time (12/18/22 15:04) Vital Signs Adult Sepsis Patie Q15M (12/18/22 15:04) Remove Rings In Anticipation O (12/18/22 15:04) Lactic Acid Analyzer (12/18/22 15:04) Hs C Reactive Protein (12/18/22 15:04) Ns Iv 1000 Ml (Sodium Chloride 0.9%) (12/18/22 15:15) Juarez Cath (12/18/22 15:15) Ed Admission (Communication) (12/18/22 15:19) Code/Resuscitation (12/18/22 15:19) (YOLANDE VIGIL MD) Medications Given in ED Current Medications Medications Dose Ordered Sig/Eldon Route Start Time Stop Time Status Last Admin Dose Admin Acetaminophen 1,000 mg ONCE ONCE PO 12/18/22 14:00 12/18/22 14:01 DC 12/18/22 14:06 1,000 MG Sodium Chloride 500 ml @ 0 mls/hr Q0M ONCE IV 12/18/22 13:45 12/18/22 13:46 DC 12/18/22 14:03 500 MLS/HR Sodium Chloride 1,000 ml @ 0 mls/hr Q0M ONCE IV 12/18/22 15:15 12/18/22 15:16 DC 12/18/22 15:50 1,000 MLS/HR (YOLANDE VIGIL MD) Vital Signs/I&O 12/18/22 12/18/22 12/18/22 11:50 12:25 15:00 Temp 37.8 38.6 Pulse 81 81 79 Resp 18 18 18 B/P (MAP) 132/72 (92) 132/72 (92) 125/58 (80) Pulse Ox 97 97 95 O2 Delivery Room Air Room Air (YOLANDE VIGIL MD) Blood Pressure Mean: 92 Progress Progress Note #1: Time: 15:04 Progress Note Patient was interviewed and examined by me along with MS 4. Patient's daughter was also interviewed. Patient has significant generalized weakness beyond her baseline. She had laid on the floor all night as best as can be determined. Daughter reported it took significant effort to get her up, to the bathroom, in the car, and out of the car. Patient is not able to stand to transfer on her own or ambulate on her own. She is not safe to return to the assisted living setting at this time due to her acute rhabdomyolysis causing muscle pain and weakness. She is also at high risk for developing acute kidney injury and needs to be monitored closely for urine output, renal function, and hydration status. We will place a Juarez catheter and continue to hydrate her. Labs were reviewed and interpreted in their entirety. CBC was relatively unremarkable. CMP was also unremarkable. CK was notably elevated at 542 suggesting early rhabdomyolysis. Urinalysis demonstrated no pyuria. Patient's initial tem perature was afebrile at 100.0. However, she developed chills and a repeat measurement was febrile at 101.5. Lactic acid and blood cultures are now being obtained. Patient was cleared from a trauma perspective. X-ray of the right shoulder as well as CT from head through pelvis was obtained to evaluate for traumatic injury. Although she denied any head injury, she has sluggish mentation compared to baseline per her daughter and she takes aspirin and Plavix. Head trauma needed to be ruled out. Patient was cleared from a trauma perspective by imaging. I have discussed admission with the patient and her daughter. They are agreeable to admission. She will likely need at least a few days to recover from this rhabdomyolysis and ensure she does not develop acute kidney injury. No source of fever has yet been identified. A COVID and flu swab is pending. Patient has a DNR order on her chart which will be extended to this inpatient stay. All radiologist reports for CT scans and x-rays were reviewed. Patient received Tylenol for pain and developed fever despite receiving Tylenol. Patient received a 500 mL normal saline bolus and will receive an additional 1 L normal saline bolus from the ER. Progress Note #2: Progress Note COVID [address] Keating, patient, and family were updated. (YOLANDE VIGIL MD) Diagnostic Imaging Diagonstic Imaging: CT Plain Films/CT/US/NM/MRI: c-spine, head Comments NAME: HAMILTON OROZCO [facility] REC#: [id number] PT STATUS: REG ER : 1940 PHYSICIAN: YOLANDE VIGIL MD ADMIT DATE: 12/18/22/ER Draft Date of Exam:12/18/22 CT HEAD/CERVICAL SPINE WO PROCEDURE: CT head and CT cervical spine without contrast. TECHNIQUE: Multiple contiguous axial images were obtained through the brain and cervical spine without the use of intravenous contrast. Sagittal and coronal reformations through the cervical spine were then performed. Auto Exposure Controls were utilized during the CT exam to meet ALARA standards for radiation dose reduction. INDICATION: Found on the floor head and neck pain. Comparison is made prior head CT from 07/10/2020. CT HEAD: The ventricles and sulci are within normal limits. No sulcal effacement or midline shift is identified. No acute intra-axial or extra-axial hemorrhage is detected. Cisterns are patent. Visualized paranasal sinuses are clear. IMPRESSION: No acute intracranial process is detected. CT cervical spine: Curvature and alignment of the cervical spine is normal apart from minimal anterolisthesis of C4 on C5 and C5 on C6. There is multilevel facet arthropathy. There is generalized degenerative disc disease, greatest at C5-C6 level where there is mild disc space narrowing. No fractures are identified. The prevertebral tissues are within normal limits. Odontoid is intact. IMPRESSION: Cervical spondylosis. No acute bony abnormality is detected. Dictated on workstation # [id number] Dict: 12/18/22 1321 Trans: 12/18/22 1325 [facility] [id number] Interpreted by: DEEP CORDOBA MD Diagonstic Imaging: CT Plain Films/CT/US/NM/MRI: chest, abdomen, pelvis Comments NAME: HAMILTON OROZCO [facility] REC#: [id number] PT STATUS: REG ER : 1940 PHYSICIAN: YOLANDE VIGIL MD ADMIT DATE: 12/18/22/ER Draft Date of Exam:12/18/22 CT CHEST/ABDOMEN/PELVIS WO PROCEDURE: CT chest, abdomen, and pelvis without contrast. TECHNIQUE: Multiple contiguous axial images were obtained through the chest, abdomen, and pelvis without the use of intravenous contrast. Auto Exposure Controls were utilized during the CT exam to meet ALARA standards for radiation dose reduction. INDICATION: Found on the floor. Correlation is made with prior CT abdomen and pelvis study from 03/07/2020. FINDINGS: CT Chest: No definite mediastinal hematoma is seen. No pericardial or pleural fluid is detected. No pulmonary contusion or pneumothorax is detected. Bony structures are unremarkable. CT Abdomen and Pelvis: The liver is unremarkable. Gallbladder is surgically absent. No biliary ductal dilatation is seen. The pancreas and spleen are unremarkable. No adrenal mass is detected. No renal calculi or hydronephrosis is detected. Aorta is nonaneurysmal. There is a small fat-containing umbilical hernia. The bowel loops are normal in caliber. There is no obstruction. No free fluid or fluid collection is seen. The bladder is unremarkable. The uterus is absent or atrophic. Bony structures are nonacute. IMPRESSION: Essentially unremarkable noncontrast CT of the chest, abdomen, and pelvis. No acute feature is detected. Dictated on workstation # [id number] Dict: 12/18/22 1324 Trans: 12/18/22 1330 [id number] Interpreted by: DEEP CORDOBA MD Diagonstic Imaging: Xray Plain Films/CT/US/NM/MRI: other (shoulder) Comments NAME: HAMILTON OROZCO [facility] REC#: [id number] PT STATUS: REG ER : 1940 PHYSICIAN: YOLANDE VIGIL MD ADMIT DATE: 12/18/22/ER Draft Date of Exam:12/18/22 SHOULDER, RIGHT, 3 VIEWS HISTORY: Right shoulder pain TECHNIQUE: 3 views of the right shoulder COMPARISON: None FINDINGS: No acute fracture is seen in the right shoulder. Alignment appears normal. There are moderate degenerative changes in the acromioclavicular joint. There is a small calcification adjacent to the right humeral head, may represent a calcific tendinitis. IMPRESSION: 1. No acute osseous abnormality is seen in the right shoulder. 2. Degenerative changes in the right acromioclavicular joint. 3. Calcific tendinitis at the right rotator cuff. Dictated on workstation # [id number] Dict: 12/18/22 1407 Trans: 12/18/22 1414 [facility] [id number] Interpreted by: RAMONE NEGRON MD (YOLANDE VIGIL MD) Focused Exam Lactate Level 12/18/22 16:25: Lactic Acid Level 2.21*H (YOLANDE VIGIL MD) Lactic Acid Level Laboratory Tests Test 12/18/22 16:25 Lactic Acid Level 2.21 MMOL/L (0.50-2.00) *H (YOLANDE VIGIL MD) Departure Communication (Admissions) Time/Spoke to Admitting Phy: 14:50 Dr. Keating (YOLANDE VIGIL MD) Impression Primary Impression: Rhabdomyolysis Qualified Codes: T79.6XXA - Traumatic ischemia of muscle, initial encounter Additional Impressions: Fever Qualified Codes: R50.9 - Fever, unspecified Fall on same level Qualified Codes: W18.30XA - Fall on same level, unspecified, initial encounter Generalized weakness Dementia Qualified Codes: F03.90 - Unspecified dementia, unspecified severity, without behavioral disturbance, psychotic disturbance, mood disturbance, and anxiety Disposition: ADMITTED INPATIENT Condition: Stable Admissions Decision to Admit Reason: Admit from ER (General) Decision to Admit/Date: Dec 18, 2022 Time/Decision to Admit Time: 14:50 (YOLANDE VIGIL MD) Departure-Patient Inst. Referrals: ANNIE MOORE MD (PCP/Family) Primary Care Physician Medical Student Attestation and Attending Note: I have personally interviewed and examined this patient along with Javier Martinez MS4. I have reviewed student documentation including history, physical, and assessments. I agree with the documentation except where otherwise noted. Exam: General: Alert, oriented, no acute distress, well developed HEENT: Normocephalic and atraumatic Heart: Regular rate and rhythm without murmur Lungs: Clear to auscultation bilaterally with normal effort Abdomen: Soft, tenderness in the right upper quadrant which is stated as chronic and unchanged today, nondistended, normal bowel sounds Neuropsych: Alert, oriented to baseline, sluggish mentation when compared to baseline per daughter, no focal deficits Musculoskeletal: Mild tenderness about the knees and left distal medial thigh. No pain with axial loading. No pain with rotation of the hips. Skin: Warm and dry without rashes (YOLANDE VIGIL MD) Copy Copies To 1: NANIE MOORE MD, JOSEPH D Dec 18, 2022 12:50 YOLANDE VIGIL MD Dec 18, 2022 15:04
--- NOTE | 2022-12-18 13:26 | Diagnostic Imaging Report ---
PROCEDURE: CT head and CT cervical spine without contrast. TECHNIQUE: Multiple contiguous axial images were obtained through the brain and cervical spine without the use of intravenous contrast. Sagittal and coronal reformations through the cervical spine were then performed. Auto Exposure Controls were utilized during the CT exam to meet ALARA standards for radiation dose reduction. INDICATION: Found on the floor head and neck pain. Comparison is made prior head CT from 07/10/2020. CT HEAD: The ventricles and sulci are within normal limits. No sulcal effacement or midline shift is identified. No acute intra-axial or extra-axial hemorrhage is detected. Cisterns are patent. Visualized paranasal sinuses are clear. IMPRESSION: No acute intracranial process is detected. CT cervical spine: Curvature and alignment of the cervical spine is normal apart from minimal anterolisthesis of C4 on C5 and C5 on C6. There is multilevel facet arthropathy. There is generalized degenerative disc disease, greatest at C5-C6 level where there is mild disc space narrowing. No fractures are identified. The prevertebral tissues are within normal limits. Odontoid is intact. IMPRESSION: Cervical spondylosis. No acute bony abnormality is detected. Dictated by: Dictated on workstation # [id number]
--- NOTE | 2022-12-18 13:31 | Diagnostic Imaging Report ---
PROCEDURE: CT chest, abdomen, and pelvis without contrast. TECHNIQUE: Multiple contiguous axial images were obtained through the chest, abdomen, and pelvis without the use of intravenous contrast. Auto Exposure Controls were utilized during the CT exam to meet ALARA standards for radiation dose reduction. INDICATION: Found on the floor. Correlation is made with prior CT abdomen and pelvis study from 03/07/2020. FINDINGS: CT Chest: No definite mediastinal hematoma is seen. No pericardial or pleural fluid is detected. No pulmonary contusion or pneumothorax is detected. Bony structures are unremarkable. CT Abdomen and Pelvis: The liver is unremarkable. Gallbladder is surgically absent. No biliary ductal dilatation is seen. The pancreas and spleen are unremarkable. No adrenal mass is detected. No renal calculi or hydronephrosis is detected. Aorta is nonaneurysmal. There is a small fat-containing umbilical hernia. The bowel loops are normal in caliber. There is no obstruction. No free fluid or fluid collection is seen. The bladder is unremarkable. The uterus is absent or atrophic. Bony structures are nonacute. IMPRESSION: Essentially unremarkable noncontrast CT of the chest, abdomen, and pelvis. No acute feature is detected. Dictated by: Dictated on workstation # [id number]
[2022-12-18 13:39] LABS: ALBUMIN 3.8 GM/DL (3.2-4.5); POTASSIUM 4.1 MMOL/L (3.6-5.0)
[2022-12-18 13:40] LABS: CALCIUM 9.3 MG/DL (8.5-10.1)
[2022-12-18 13:42] LABS: TOTAL PROTEIN 6.5 GM/DL (6.4-8.2)
[2022-12-18 13:44] LABS: BILIRUBIN,TOTAL 0.6 MG/DL (0.1-1.0)
[2022-12-18 13:45] LABS: CREATININE SERUM 1.16 MG/DL (0.60-1.30)
[2022-12-18] MEDS ORDERED: NS IV 500 ML 500 ML IV ONE (13:45)
[2022-12-18] MEDS ORDERED: ACETAMINOPHEN 500 MG TAB (TYLENOL) PO ONE (14:00)
[2022-12-18 14:09] LABS: FREE T4 (FREE THYROXINE) 0.96 NG/DL (0.70-1.48)
[2022-12-18 14:11] LABS: BILIRUBIN,URINE NEGATIVE (NEGATIVE); CLARITY,URINE CLEAR; COLOR,URINE YELLOW; GLUCOSE, URINE (UA) NEGATIVE (NEGATIVE); KETONES,URINE NEGATIVE (NEGATIVE); LEUKOCYTE ESTERASE ,URINE NEGATIVE (NEGATIVE); NITRITE,URINE NEGATIVE (NEGATIVE); PH,URINE 7.5 (5-9); PROTEIN,URINE NEGATIVE (NEGATIVE)
--- NOTE | 2022-12-18 14:14 | Diagnostic Imaging Report ---
HISTORY: Right shoulder pain TECHNIQUE: 3 views of the right shoulder COMPARISON: None FINDINGS: No acute fracture is seen in the right shoulder. Alignment appears normal. There are moderate degenerative changes in the acromioclavicular joint. There is a small calcification adjacent to the right humeral head, may represent a calcific tendinitis. IMPRESSION: 1. No acute osseous abnormality is seen in the right shoulder. 2. Degenerative changes in the right acromioclavicular joint. 3. Calcific tendinitis at the right rotator cuff. Dictated by: Dictated on workstation # [id number]
[2022-12-18 14:22] LABS: AMORPHOUS SEDIMENT,UR RARE AMOR PHOSPHATE /LPF; BACTERIA,URINE FEW /HPF; RBC,URINE RARE /HPF; SQUAMOUS EPITHELIAL CELL,UR RARE /HPF
[2022-12-18] MEDS ORDERED: NS IV 1000 ML 1,000 ML IV ONE (15:15)
[2022-12-18 15:20] LABS: PROTHROMBIN TIME PATIENT 12.9 SEC (12.2-14.7)
[2022-12-18 17:00] VITALS: BP 129/57
[2022-12-18 17:12] VITALS: BP 125/58
[2022-12-18] MEDS ORDERED: CALCIUM CARBONATE 500 MG (TUMS) TAB.CHEW PO PRN (17:15)
[2022-12-18] MEDS ORDERED: MILK OF MAGNESIA 400 MG/5 ML 30 ML UDC PO PRN (17:15)
[2022-12-18] MEDS ORDERED: ONDANSETRON 4 MG (ZOFRAN) ORAL DISSOLVE TAB PO PRN (17:15)
[2022-12-18] MEDS ORDERED: HYDROmorphone 2 MG/ML VIAL (DILAUDID) IV PRN (17:15)
[2022-12-18] MEDS ORDERED: MELATONIN 3 MG TABLET PO PRN (17:15)
[2022-12-18] MEDS ORDERED: LACTULOSE SYRUP 10GM/15ML (ENULOSE) 30ML UDC PO PRN (17:15)
[2022-12-18] MEDS ORDERED: diphenhydrAMINE 25 MG TAB (BENADRYL) PO PRN (17:15)
[2022-12-18] MEDS ORDERED: ANTACID SUSP 30 ML UDC (MYLANTA) PO PRN (17:15)
[2022-12-18] MEDS ORDERED: BISACODYL 10 MG SUPP (DULCOLAX) PR PRN (17:15)
[2022-12-18] MEDS ORDERED: diphenhydrAMINE 50 MG/ML INJ (BENADRYL) IVP PRN (17:15)
[2022-12-18] MEDS ORDERED: polyethylene glycoL POWDER 17 GM (MIRALAX) PACK PO PRN (17:15)
[2022-12-18] MEDS ORDERED: LIDOCAINE UROJET 2% GEL 10 ML PKG TOP ONE (17:15)
[2022-12-18] MEDS ORDERED: ONDANSETRON 4 MG/2 ML (SDV) Z0FRAN IV PRN (17:15)
[2022-12-18] MEDS: NS IV 1000 ML 1,000 ML IV SCH (17:54)
[2022-12-18] MEDS: ENOXAPARIN INJECTION 30 MG/0.3 ML SYR SC SCH (17:55)
[2022-12-18 20:11] VITALS: BP 144/66
[2022-12-18] MEDS: DOCUSATE SODIUM 100 MG (COLACE) CAP PO SCH (21:05)
[2022-12-18] MEDS: ACETAMINOPHEN 325 MG TABLET PO PRN (21:05)
[2022-12-18] MEDS: SENNOSIDES 8.6 MG (SENOKOT) TAB PO SCH (21:05)
[2022-12-19] VITALS (8 sets, daily range): BP systolic 127–181; BP diastolic 61–76
[2022-12-19] MEDS: NS IV 1000 ML 1,000 ML IV SCH ×3 (03:49→21:01)
[2022-12-19 06:32] LABS: BASOPHILS % (AUTO) 0 % (0-10); EOSINOPHILS % (AUTO) 0 % (0-10); HEMATOCRIT 36 % (35-52); HEMOGLOBIN 11.3 g/dL (11.5-16.0); LYMPHOCYTES # (AUTO) 0.7 10^3/uL (1.0-4.0); LYMPHOCYTES % (AUTO) 8 % (12-44); MEAN CORPUSCULAR HEMOGLOBIN 29 pg (25-34); MEAN CORPUSCULAR HGB CONC 32 g/dL (32-36); MEAN CORPUSCULAR VOLUME 92 fL (80-99); MEAN PLATELET VOLUME 9.1 fL (9.0-12.2); MONOCYTES % (AUTO) 11 % (0-12); NEUTROPHILS # (AUTO) 7.2 10^3/uL (1.8-7.8); NEUTROPHILS % (AUTO) 81 % (42-75); PLATELET COUNT 196 10^3/uL (130-400); WHITE BLOOD COUNT 8.9 10^3/uL (4.3-11.0)
[2022-12-19 06:39] LABS: ALBUMIN 3.3 GM/DL (3.2-4.5); POTASSIUM 3.6 MMOL/L (3.6-5.0)
[2022-12-19 06:40] LABS: CALCIUM 8.4 MG/DL (8.5-10.1)
[2022-12-19 06:42] LABS: TOTAL PROTEIN 5.9 GM/DL (6.4-8.2)
[2022-12-19 06:43] LABS: BILIRUBIN,TOTAL 0.4 MG/DL (0.1-1.0)
[2022-12-19 06:45] LABS: CREATININE SERUM 0.91 MG/DL (0.60-1.30)
[2022-12-19] MEDS: ACETAMINOPHEN 325 MG TABLET PO PRN (08:28)
[2022-12-19] MEDS: DOCUSATE SODIUM 100 MG (COLACE) CAP PO SCH ×2 (08:29→20:41)
[2022-12-19] MEDS: CLOPIDOGREL 75 MG (PLAVIX) TABLET PO SCH (08:29)
[2022-12-19] MEDS: SENNOSIDES 8.6 MG (SENOKOT) TAB PO SCH ×2 (09:55→20:41)
--- NOTE | 2022-12-19 10:30 | History & Physical ---
History of Present Illness HPI/Chief Complaint Chief complaint: Found down at assisted living with acute rhabdomyolysis sequela HPI: This is an 82-year-old female clinic patient of Dr. Springer who resides at assisted living and was found down after overnight stay on the floor and she was unable to ambulate and was brought into the ER found to have acute rhabdomyo lysis and dehydration and COVID. Patient was not hypoxic. She was running a fever. Her CPK is actually elevated today more than initial. IV fluids will be decreased a bit to prevent volume overload from COVID-pneumonia status. Patient does have dementia. Very confused. Source: patient Exam Limitations: clinical condition Date Seen 12/19/22 Time Seen by a Provider: 12:00 Attending Physician Eula Springer MD PCP Admitting Physician: Magaly Keating DO Attending Physician: Magaly Keating DO Referring Physician Date of Admission Dec 18, 2022 at 16:36 Home Medications & Allergies Home Medications Reviewed patient Home Medication Reconciliation performed by pharmacy medication reconciliations operations technician and/or nursing. Patients Allergies have been reviewed. Allergies Allergies Coded Allergies No Known Drug Allergies (Unverified12/22/18) Past Apfrbqt-Dlhxao-Peasll Hx Past Med/Social Hx: Reviewed Nursing Past Med/Soc Hx, Reviewed and Corrections made Patient Social History Marrital Status: single Employed/Student: retired Smoking Status: Unknown if Ever Smoked 2nd Hand Smoke Exposure: No Recent Hopitalizations: No Immunizations Up To Date Tetanus Booster (TDap): Unknown Pediatric: Yes Date of Pneumonia Vaccine: Mar 28, 2015 Date of Influenza Vaccine: May 10, 2018 Seasonal Allergies Seasonal Allergies: No Past Medical History Surgeries: Bladder Surgery, Coronary Stent, Gallbladder, Hysterectomy Currently Using CPAP: No Currently Using BIPAP: No Cardiac: Coronary Artery Disease Neurological: Dementia, Parkinson's Disease Reproductive: No Sexually Transmitted Disease: No HIV/AIDS: No Female Reproductive Disorders: Denies Gastrointestinal: Hemorrhoids Musculoskeletal: Degenerate Disk Disease, Chronic Back Pain Endocrine: Hypothyroidsim HEENT: Cataract Loss of Vision: Bilateral Hearing Impairment: Denies Psychosocial: Depression History of Blood Disorders: No Family History Patient reports no known family medical history. Heart Disease, Hypertension Review of Systems Constitutional: see HPI, dizziness, malaise, weakness Respiratory: cough Physical Exam Physical Exam Vital Signs Vital Signs - First Documented 12/18/22 11:50 Temp 37.8 Pulse 81 Resp 18 B/P (MAP) 132/72 (92) Pulse Ox 97 O2 Delivery Room Air Capillary Refill : Less Than 3 Seconds Height, Weight, BMI Height: 5'5.00" Weight: 200lbs. 0.0oz. 90.722925vs; 38.63 BMI Method:Stated General Appearance: No Apparent Distress, WD/WN, Chronically ill, Other (Sleepy) Respiratory: Lungs Clear, Normal Breath Sounds, No Accessory Muscle Use, No Respiratory Distress Cardiovascular: Regular Rate, Rhythm, No Edema, No Gallop, No JVD, No Murmur, Normal Peripheral Pulses Neurologic/Psychiatric: Alert, Depressed Affect, Disoriented, Motor Weakness ( generalized) Results Results/Procedures Labs Laboratory Tests 12/18/22 12:30 12/19/22 06:22 12/20/22 05:30 Patient resulted labs reviewed. Assessment/Plan Admission Diagnosis Assessment: Found down at assisted living overnight on the floor Acute rhabdomyolysis Acute encephalopathy from COVID COVID infection without hypoxia Dehydration Hypothyroidism Dementia Delirium CAD Hyperlipidemia Plan: isolation Supportive care IV fluid Follow CPK Admission Status: Inpatient Order (span 2 midnights) Reason for Inpatient Admission: Rhabdomyolysis with COVID and unable to ambulate MAGALY KEATING DO Dec 19, 2022 10:30
[2022-12-19] MEDS ORDERED: MEMA5TAB43 PO (11:01)
[2022-12-19] MEDS ORDERED: MAGN400O7 PO (11:01)
[2022-12-19] MEDS ORDERED: ACET-2267 PO ×2 (11:01)
[2022-12-19] MEDS ORDERED: CLOP75TA28 PO (11:01)
[2022-12-19] MEDS ORDERED: TRAM50TA3 PO (11:01)
[2022-12-19] MEDS ORDERED: LOPE-175 PO (11:01)
[2022-12-19] MEDS ORDERED: CHOL500050 PO (11:01)
[2022-12-19] MEDS ORDERED: PANT40TA52 PO (11:01)
[2022-12-19] MEDS ORDERED: CETI10TA17 PO (11:01)
[2022-12-19] MEDS ORDERED: CARB15DR87 OT (11:01)
[2022-12-19] MEDS ORDERED: CYAN-41 PO (11:01)
[2022-12-19] MEDS ORDERED: UBID100C44 PO (11:01)
[2022-12-19] MEDS ORDERED: ESCI-2 PO (11:01)
[2022-12-19] MEDS ORDERED: PROP1.5D OU (11:01)
[2022-12-19] MEDS ORDERED: LEVO75TA6 PO (11:01)
[2022-12-19] MEDS ORDERED: NYST60PO TP (11:01)
[2022-12-19] MEDS ORDERED: ATOR10TA66 PO (11:01)
[2022-12-19] MEDS ORDERED: METH114C4 TP (11:01)
--- NOTE | 2022-12-19 11:02 | Physical Therapy Evaluation ---
PT Evaluation-General Medical Diagnosis Admission Date Dec 18, 2022 at 16:36 Medical Diagnosis: fever/Covid Onset Date: Dec 18, 2022 Therapy Diagnosis Therapy Diagnosis: generalized weakness/debility Height/Weight Height (Feet): 5 Height (Inches): 5.00 Weight (Pounds): 200 Weight (Ounces): 0.0 Precautions Precautions/Isolations: Airborne Isolation, Droplet Isolation, Fall Prevention Weight Bear Status Right Lower Extremity: Right Full Weight Bearing Left Lower Extremity: Left Full Weight Bearing Referral Physician: Rishabh Reason for Referral: Evaluation/Treatment Medical History Pertinent Medical History: CAD, Dementia (difficulty with following simple direction requiring redirection to remain on task.), HTN, Hypothroidism, Parkinson's Current History [place] secondary to fall/fever Reviewed History: Yes Social History Home: Assisted Living Prior Prior Level of Function SCALE: Activities may be completed with or without assistive devices. 5-Vxcdqvmwwg-yxfnccz completes the activity by him/herself with no assistance from a helper. 5-Set-up or Clean-up Assistance-helper sets up or cleans up; patient completes activity. [place] assists only prior to or following the activity. 4-Supervision or Touching Assistance-helper provides verbal cues and/or touching/steadying and/or contact guard assistance as patient completes activity. Assistance may be provided throughout the activity or intermittently. 3-Partial/Moderate Assistance-helper does LESS THAN HALF the effort. [place] lifts, holds or supports trunk or limbs, but provides less than half the effort. 2-Substantial/Maximal Assistance-helper does MORE THAN HALF the effort. [place] lifts or holds trunk or limbs and provides more than half the effort. 3-Owfpbneeu-thczlo does ALL the effort. Patient does none of the effort to complete the activity. Or, the assistance of 2 or more helpers is required for the patient to complete the activity. If activity was not attempted, code reason: 7-Patient Refused. 9-Not Applicable-not attempted and the patient did not perform the activity before the current illness, exacerbation or injury. 10-Not Attempted due to Environmental Limitations-(lack of equipment, weather restraints, etc.). 88-Not Attempted due to Medical Conditions or Safety Concerns. unable to determine due to patient's confusion PT Evaluation-Current Subjective Patient agrees to therapy. Objective Patient Orientation: Person, Place Attachments: IV ROM/Strength ROM Lower Extremities bilateral LE WFL Strength Lower Extremities 3-/5 grossly bilateral LE all planes Neuromuscular (Tone, Coordination, Reflexes) diminished coordination due to weakness and Parkinson's Sensory Vision: Functional Hearing: Functional Transfers Lying to Sitting/Side of Bed(Q: 1 Sit to Stand (QC): 2 Chair/Izt-il-Wbadw Xfer(QC): 2 Gait Mode of Locomotion: Walk Anticipated Mode of Locomotion: Walk Walk 10 feet (QC): 2 Walk 50 ft with 2 Turns(QC): 88 Walk 150 ft (QC): 88 Distance: 10' Gait Assistive Device: FWW Comments/Gait Description very unsteady with PT correct. Balance Sitting Static: Fair Sitting Dynamic: Poor Standing Static: Poor Standing Dynamic: Poor Assessment/Needs Patient will benefit from skilled PT to address functional strength and mobility to improve current LOF. Patient is currently dependent to max assist with all mobility and requires 90% VC's to complete all functional tasks safely. Patient up in recliner with chair alarm activated and tray in situ. Family present after session. Rehab Potential: Fair PT Chipper Operator Goals Chipper Operator Goals PT [facility] Goals Time Frame: Jan 03, 2023 Roll Left & Right (QC): 4 Sit to Lying (QC): 4 Lying-Sitting on Side/Bed(QC): 4 Sit to Stand (QC): 4 Chair/Atx-re-Anymq Xfer(QC): 4 Toilet Transfer (QC): 4 Walk 10 feet (QC): 4 Walk 50ft with 2 Turns (QC): 4 Walk 150 ft (QC): 4 PT Plan Problem List Problem List: Activity Tolerance, Functional Strength, Safety, Balance, Gait, Transfer, Bed Mobility Treatment/Plan Treatment Plan: Continue Plan of Care Treatment Plan: Bed Mobility, Education, Functional Activity Erna, Functional Strength, Gait, Safety, Therapeutic Exercise, Transfers Treatment Duration: Jan 03, 2023 Frequency: 5 times per week Estimated Hrs Per Day: .25 hour per day Time Time In: 1015 Time Out: 1035 DATE: Dec 19, 2022 Total Billed Treatment Time: 20 Total Billed Treatment 1 visit [facility] 20 min KAITLIN DELGADO PT Dec 19, 2022 11:02
[2022-12-19] MEDS ORDERED: ACETAMINOPHEN 500 MG TAB (TYLENOL) PO PRN (12:00)
[2022-12-19] MEDS ORDERED: LOPERAMIDE 2 MG (IMODIUM) TABLET PO PRN (12:00)
[2022-12-19] MEDS ORDERED: NON-FORMULARY MEDICATION 1 EA EA (Cetirizine HCl 10 MG) PO PRN (12:00)
[2022-12-19] MEDS ORDERED: MILK OF MAGNESIA 400 MG/5 ML 30 ML UDC PO PRN (12:00)
[2022-12-19] MEDS ORDERED: LORATADINE (CLARITIN) 10 MG TAB PO PRN (13:00)
[2022-12-19] MEDS ORDERED: MICONAZOLE 2% POWDER (DESENEX AF) 90 GM TOP PRN (13:00)
[2022-12-19] MEDS ORDERED: PROPRANOLOL HCL 5 MG PO SCH (14:00)
--- NOTE | 2022-12-19 14:29 | Occupational Therapy Eval ---
OT Evaluation-General/PLF Medical Diagnosis Admission Date Dec 18, 2022 at 16:36 Medical Diagnosis: fever/Covid Onset Date: Dec 18, 2022 Therapy Diagnosis Therapy Diagnosis: weakness Height/Weight Height (Feet): 5 Height (Inches): 5.00 Weight (Pounds): 200 Weight (Ounces): 0.0 Precautions Precautions/Isolations: Airborne Isolation, Droplet Isolation, Fall Prevention Referral Physician: Rishabh Referral Reason: Activity Tolerance, Self Care, Evaluation/Treatment, Strengthening/ROM Medical History Pertinent Medical History: CAD, Dementia (difficulty with following simple direction requiring redirection to remain on task.), HTN, Hypothroidism, Parkinson's Additional Medical History CAD, Dementia (difficulty with following simple direction requiring redirection to remain on task.), HTN, Hypothroidism, Parkinson's [place] secondary to fall/fever Reviewed History: Yes Social History Home: Assisted Living unknown ADL-Prior Level of Function SCALE: Activities may be completed with or without assistive devices. 1-Hxhrxlzlru-jtoftll completes the activity by him/herself with no assistance from a helper. 5-Set-up or Clean-up Assistance-helper sets up or cleans up; patient completes activity. [place] assists only prior to or following the activity. 4-Supervision or Touching Assistance-helper provides verbal cues and/or touching/steadying and/or contact guard assistance as patient completes activity. Assistance may be provided throughout the activity or intermittently. 3-Partial/Moderate Assistance-helper does LESS THAN HALF the effort. [place] lifts, holds or supports trunk or limbs, but provides less than half the effort. 2-Substantial/Maximal Assistance-helper does MORE THAN HALF the effort. [place] lifts or holds trunk or limbs and provides more than half the effort. 4-Hensbgufu-sjaixx does ALL the effort. Patient does none of the effort to complete the activity. Or, the assistance of 2 or more helpers is required for the patient to complete the activity. If activity was not attempted, code reason: 7-Patient Refused. 9-Not Applicable-not attempted and the patient did not perform the activity before the current illness, exacerbation or injury. 10-Not Attempted due to Environmental Limitations-(lack of equipment, weather restraints, etc.). 88-Not Attempted due to Medical Conditions or Safety Concerns. Self Care: Needed Some Help Functional Cognition: Needed Some Help OT Current Status Subjective Agreeable to therapy Mental Status/Objective Patient Orientation: Person, Confused Attachments: IV Current Glasses/Contacts: Yes Upper Extremity ROM BUE ROM WFLS Upper Extremity Coordination dynamic sitting balance poor Upper Extremity Strength +3/5 ADL-Treatment Eating (QC): 4 Oral Hygiene (QC): 3 Shower/Bathe Self (QC): 88 Upper Body Dressing (QC): 3 Lower Body Dressing (QC): 2 On/Off Footwear (QC): 1 Toileting Hygiene (QC): 2 Education OT Patient Education: Modified ADL techniques, Progress toward Goal/Update tx plan, Purpose of tx/functional activities, Reviewed precautions, Rehab process, Safety issues, Transfer techniques, Use of adapted equipment Teaching Recipient: Patient Teaching Methods: Demonstration, Discussion Response to Teaching: Unable to Comprehend, Reinforcement Needed OT [employer] Ticket Checker Goals [employer] Ticket Checker Goals Eating (QC): 5 Oral Hygiene (QC): 4 Toileting Hygiene (QC): 4 Shower/Bathe Self (QC): 4 Upper Body Dressing (QC): 4 Lower Body Dressing (QC): 4 On/Off Footwear (QC): 4 1=Demonstrate adherence to instructed precautions during ADL tasks. 2=Patient will verbalize/demonstrate understanding of assistive devices/modifications for ADL. 3=Patient will improve strength/tolerance for activity to enable patient to perform ADL's. OT Education/Plan Problem List/Assessment Assessment: Decreased Activ Tolerance, Decreased UE Strength, Impaired Coordination, Impaired Funct Balance, Impaired Self-Care Skills Discharge Recommendations Plan/Recommendations: Continue POC Therapy Discharge Recommendati: Post Acute OT Treatment Plan/Plan of Care Treatment,Training & Education: Yes Patient would benefit from OT for education, treatment and training to promote independence in ADL's, mobility, safety and/or upper extremity function for ADL's. Plan of Care: ADL Retraining, Cognitive Retraining, Concurrent Therapy, Functional Mobility, Group Exercise/Act as Ind, UE Funct Exercise/Act, UE Neuromus Re-Ed/Coord Treatment Duration: Dec 26, 2022 Frequency: 3 times per week (3-5 times per week) Estimated Hrs Per Day: .25 hour per day Rehab Potential: Fair Time Start Time: 10:10 Stop Time: 10:33 DATE: Dec 19, 2022 Total Time Billed (hr/min): 23 Billed Treatment Time EVM, ADL 23 min DRINNEN,MARIELA OT Dec 19, 2022 14:29
[2022-12-19] MEDS: PROPRANOLOL 20 MG (INDERAL) TABLET PO SCH ×2 (15:26→21:01)
[2022-12-19] MEDS ORDERED: METHYL SALICYLATE/MENTHOL (BENGAY, MUSCLE RUB) 3 OZ TUBE TP PRN (15:30)
[2022-12-19] MEDS: ENOXAPARIN INJECTION 30 MG/0.3 ML SYR SC SCH (18:28)
[2022-12-19] MEDS ORDERED: PROPRANOLOL 20 MG (INDERAL) TABLET PO SCH (20:00)
[2022-12-19] MEDS: AtorvaSTATin TABLET 10 MG TABLET PO SCH (20:39)
[2022-12-19] MEDS: MEMANTINE 5 MG (NAMENDA) TABLET PO SCH (20:39)
[2022-12-19] MEDS: ARTIFICAL TEARS 0.4 ML UNIT DOSE (REFRESH PLUS) OU SCH (20:40)
[2022-12-19] MEDS ORDERED: NON-FORMULARY MEDICATION 1 EA EA (Escitalopram Oxalate 10 MG) PO SCH (21:00)
[2022-12-19] MEDS: ACETAMINOPHEN 500 MG TAB (TYLENOL) PO SCH (21:55)
[2022-12-20 04:18] VITALS: BP 159/69
[2022-12-20 05:47] LABS: BASOPHILS % (AUTO) 1 % (0-10); EOSINOPHILS % (AUTO) 1 % (0-10); HEMATOCRIT 38 % (35-52); HEMOGLOBIN 11.6 g/dL (11.5-16.0); LYMPHOCYTES # (AUTO) 0.9 10^3/uL (1.0-4.0); LYMPHOCYTES % (AUTO) 13 % (12-44); MEAN CORPUSCULAR HEMOGLOBIN 29 pg (25-34); MEAN CORPUSCULAR HGB CONC 31 g/dL (32-36); MEAN CORPUSCULAR VOLUME 94 fL (80-99); MONOCYTES # (AUTO) 0.8 10^3/uL (0.0-1.0); MONOCYTES % (AUTO) 11 % (0-12); NEUTROPHILS # (AUTO) 5.6 10^3/uL (1.8-7.8); NEUTROPHILS % (AUTO) 76 % (42-75); PLATELET COUNT 187 10^3/uL (130-400); WHITE BLOOD COUNT 7.4 10^3/uL (4.3-11.0)
[2022-12-20 06:19] LABS: ALBUMIN 3.2 GM/DL (3.2-4.5); BILIRUBIN,TOTAL 0.4 MG/DL (0.1-1.0); CALCIUM 8.4 MG/DL (8.5-10.1); CREATININE SERUM 0.85 MG/DL (0.60-1.30); POTASSIUM 3.7 MMOL/L (3.6-5.0); TOTAL PROTEIN 5.9 GM/DL (6.4-8.2)
--- NOTE | 2022-12-20 06:40 | Progress Note ---
Subjective Date Seen by a Provider: Dec 20, 2022 Time Seen by a Provider: 11:00 Subjective/Events-last exam Patient doing much better Still remains in isolation Daughter at the bedside who is a nurse in the psychiatry unit in [place] Labs reviewed CPK still very elevated so we will continue IV fluids Eating and drinking better PT and OT ordered Review of Systems General: Fatigue, Malaise Focused Exam Lactate Level 12/18/22 16:25: Lactic Acid Level 2.21*H 12/18/22 19:12: Lactic Acid Level 2.07*H Objective Exam Last Set of Vital Signs Vital Signs Date Time Temp Pulse Resp B/P (MAP) Pulse Ox O2 Delivery O2 Flow Rate FiO2 12/20/22 04:18 36.9 71 20 159/69 (99) 95 Room Air Capillary Refill : Less Than 3 Seconds I&O Intake and Output 12/20/22 00:00 Intake Total 2640 ml Output Total 3150 ml Balance -510 ml Intake Oral 1640 ml IV Total 1000 ml Output Urine Total 3150 ml # Bowel Movements 1 General: Alert, Cooperative, No Acute Distress, Other (More oriented) Lungs: Clear to Auscultation Heart: Regular Rate Results Lab Laboratory Tests 12/20/22 05:30: White Blood Count 7.4, Red Blood Count 4.04, Hemoglobin 11.6, Hematocrit 38, Mean Corpuscular Volume 94, Mean Corpuscular Hemoglobin 29, Mean Corpuscular Hemoglobin Concent 31L, Red Cell Distribution Width 15.6H, Platelet Count 187, Mean Platelet Volume 9.0, Immature Granulocyte % (Auto) 0, Neutrophils (%) (Auto) 76H, Lymphocytes (%) (Auto) 13, Monocytes (%) (Auto) 11, Eosinophils (%) (Auto) 1, Basophils (%) (Auto) 1, Neutrophils # (Auto) 5.6, Lymphocytes # (Auto) 0.9L, Monocytes # (Auto) 0.8, Eosinophils # (Auto) 0.0, Basophils # (Auto) 0.0, Immature Granulocyte # (Auto) 0.0, Sodium Level 140, Potassium Level 3.7, Chloride Level 111H, Carbon Dioxide Level 21, Anion Gap 8, Blood Urea Nitrogen 8, Creatinine 0.85, Estimat Glomerular Filtration Rate 68, BUN/Creatinine Ratio 9, Glucose Level 79, Calcium Level 8.4L, Corrected Calcium 9.0, Total Bilirubin 0.4, Aspartate Amino Transf (AST/SGOT) 55H, Alanine Aminotransferase (ALT/SGPT) 27, Alkaline Phosphatase 104, Total Creatine Kinase 1332H, Total Protein 5.9L, Albumin 3.2 Microbiology 12/18/22 Blood Culture - Preliminary, Resulted No growth 12/18/22 Urine Culture - Final, Complete Growth Consistent Assessment/Plan Assessment/Plan Assess & Plan/Chief Complaint Assessment: Found down at assisted living overnight on the floor Acute rhabdomyolysis Acute encephalopathy from COVID COVID infection without hypoxia Dehydration Hypothyroidism Dementia Delirium CAD Hyperlipidemia Plan: isolation Supportive care IV fluid Follow CPK REEMA TAMEZ DO Dec 20, 2022 06:40
[2022-12-20 08:05] VITALS: BP 149/64
[2022-12-20] MEDS ORDERED: CLOPIDOGREL 75 MG (PLAVIX) TABLET PO SCH (09:00)
[2022-12-20] MEDS: NS IV 1000 ML 1,000 ML IV SCH ×2 (09:12→20:55)
[2022-12-20] MEDS: VITAMIN D3 125 MCG (5,000 UNITS) CAPSULE PO SCH (09:16)
[2022-12-20] MEDS: MEMANTINE 5 MG (NAMENDA) TABLET PO SCH ×2 (09:16→20:42)
[2022-12-20] MEDS: LEVOTHYROXINE 75 MCG (LEVOTHROID) TABLET PO SCH (09:16)
[2022-12-20] MEDS: ACETAMINOPHEN 500 MG TAB (TYLENOL) PO SCH ×2 (09:16→20:42)
[2022-12-20] MEDS: CLOPIDOGREL 75 MG (PLAVIX) TABLET PO SCH (09:16)
[2022-12-20] MEDS: DOCUSATE SODIUM 100 MG (COLACE) CAP PO SCH ×2 (09:17→20:49)
[2022-12-20] MEDS: ISOSORBIDE MONONITRATE 30 MG (IMDUR) TAB PO SCH (09:17)
[2022-12-20] MEDS: ASPIRIN E.C. 81 MG (ECOTRIN) TAB PO SCH (09:17)
[2022-12-20] MEDS: SENNOSIDES 8.6 MG (SENOKOT) TAB PO SCH ×2 (09:18→20:49)
[2022-12-20] MEDS: ARTIFICAL TEARS 0.4 ML UNIT DOSE (REFRESH PLUS) OU SCH ×2 (09:18→20:42)
[2022-12-20] MEDS: PANTOPRAZOLE 40 MG (PROTONIX) TAB PO SCH (09:18)
[2022-12-20] MEDS: PROPRANOLOL 20 MG (INDERAL) TABLET PO SCH ×3 (09:22→20:45)
[2022-12-20] MEDS: CYANOCOBALAMIN 1,000 MCG (VITAMIN B-12) TABLET PO SCH (09:22)
[2022-12-20] MEDS: NON-FORMULARY MEDICATION 1 EA EA (Ubidecarenone (Co Q-10) 100 MG) PO SCH (10:06)
[2022-12-20 11:47] VITALS: BP 104/54
[2022-12-20] MEDS ORDERED: CHLORASEPTIC SPRAY 177 ML LIQUID MC PRN (12:45)
[2022-12-20 15:36] VITALS: BP 113/54
[2022-12-20] MEDS: ENOXAPARIN INJECTION 30 MG/0.3 ML SYR SC SCH (17:53)
[2022-12-20 19:34] VITALS: BP 132/61
[2022-12-20] MEDS: AtorvaSTATin TABLET 10 MG TABLET PO SCH (20:41)
[2022-12-20 23:15] VITALS: BP 129/58
[2022-12-21 04:00] VITALS: BP 144/60
[2022-12-21 05:58] LABS: BASOPHILS % (AUTO) 1 % (0-10); EOSINOPHILS # (AUTO) 0.2 10^3/uL (0.0-0.3); EOSINOPHILS % (AUTO) 4 % (0-10); HEMATOCRIT 31 % (35-52); HEMOGLOBIN 9.8 g/dL (11.5-16.0); LYMPHOCYTES # (AUTO) 1.3 10^3/uL (1.0-4.0); LYMPHOCYTES % (AUTO) 31 % (12-44); MEAN CORPUSCULAR HEMOGLOBIN 29 pg (25-34); MEAN CORPUSCULAR HGB CONC 31 g/dL (32-36); MEAN CORPUSCULAR VOLUME 93 fL (80-99); MEAN PLATELET VOLUME 9.2 fL (9.0-12.2); MONOCYTES # (AUTO) 0.4 10^3/uL (0.0-1.0); MONOCYTES % (AUTO) 9 % (0-12); NEUTROPHILS # (AUTO) 2.3 10^3/uL (1.8-7.8); NEUTROPHILS % (AUTO) 55 % (42-75); PLATELET COUNT 171 10^3/uL (130-400); WHITE BLOOD COUNT 4.2 10^3/uL (4.3-11.0)
[2022-12-21 06:13] LABS: ALBUMIN 2.8 GM/DL (3.2-4.5); POTASSIUM 3.5 MMOL/L (3.6-5.0)
[2022-12-21 06:16] LABS: TOTAL PROTEIN 5.1 GM/DL (6.4-8.2)
[2022-12-21 06:18] LABS: BILIRUBIN,TOTAL 0.3 MG/DL (0.1-1.0)
[2022-12-21 06:19] LABS: CREATININE SERUM 0.88 MG/DL (0.60-1.30)
--- NOTE | 2022-12-21 07:19 | Progress Note ---
Subjective Date Seen by a Provider: Dec 21, 2022 Time Seen by a Provider: 11:00 Subjective/Events-last exam Patient doing really well Less confusion IV fluids will be hep-locked CPK down Will need inpatient rehab before going back to assisted living Review of Systems General: Fatigue, Malaise Focused Exam Lactate Level 12/18/22 16:25: Lactic Acid Level 2.21*H 12/18/22 19:12: Lactic Acid Level 2.07*H Objective Exam Last Set of Vital Signs Vital Signs Date Time Temp Pulse Resp B/P (MAP) Pulse Ox O2 Delivery O2 Flow Rate FiO2 12/21/22 04:00 36.7 67 18 144/60 (88) 95 Room Air Capillary Refill : Less Than 3 Seconds I&O Intake and Output 12/21/22 00:00 Intake Total 2850 ml Output Total 3600 ml Balance -750 ml Intake Oral 2850 ml Output Urine Total 3600 ml # Bowel Movements 2 General: Alert, Oriented X3, Cooperative, No Acute Distress Lungs: Clear to Auscultation, Normal Air Movement Heart: Regular Rate, Normal S1, Normal S2, No Murmurs Psych/Mental Status: Mental Status NL, Mood NL Results Lab Laboratory Tests 12/21/22 05:45: White Blood Count 4.2L, Red Blood Count 3.39L, Hemoglobin 9.8L, Hematocrit 31L, Mean Corpuscular Volume 93, Mean Corpuscular Hemoglobin 29, Mean Corpuscular Hemoglobin Concent 31L, Red Cell Distribution Width 15.6H, Platelet Count 171, Mean Platelet Volume 9.2, Immature Granulocyte % (Auto) 1, Neutrophils (%) (Auto) 55, Lymphocytes (%) (Auto) 31, Monocytes (%) (Auto) 9, Eosinophils (%) (Auto) 4, Basophils (%) (Auto) 1, Neutrophils # (Auto) 2.3, Lymphocytes # (Auto) 1.3, Monocytes # (Auto) 0.4, Eosinophils # (Auto) 0.2, Basophils # (Auto) 0.0, Immature Granulocyte # (Auto) 0.0, Sodium Level 141, Potassium Level 3.5L, Chloride Level 111H, Carbon Dioxide Level 23, Anion Gap 7, Blood Urea Nitrogen 11, Creatinine 0.88, Estimat Glomerular Filtration Rate 66, BUN/Creatinine Ratio 13, Glucose Level 87, Calcium Level 8.0L, Corrected Calcium 9.0, Total Bilirubin 0.3, Aspartate Amino Transf (AST/SGOT) 38H, Alanine Aminotransferase (ALT/SGPT) 21, Alkaline Phosphatase 83, Total Creatine Kinase 603H, Total Protein 5.1L, Albumin 2.8L Microbiology 12/18/22 Blood Culture - Preliminary, Resulted No growth 12/18/22 Urine Culture - Final, Complete Growth Consistent Assessment/Plan Assessment/Plan Assess & Plan/Chief Complaint Assessment: Found down at assisted living overnight on the floor Acute rhabdomyolysis-improved Acute encephalopathy from COVID COVID infection without hypoxia Dehydration Hypothyroidism Dementia Delirium CAD Hyperlipidemia Plan: Isolation Supportive care IV fluid Follow CPK PT OT IRF REEMA TAMEZ DO Dec 21, 2022 07:19
[2022-12-21 08:14] VITALS: BP 142/84
[2022-12-21] MEDS: VITAMIN D3 125 MCG (5,000 UNITS) CAPSULE PO SCH (08:31)
[2022-12-21] MEDS: ARTIFICAL TEARS 0.4 ML UNIT DOSE (REFRESH PLUS) OU SCH ×2 (08:31→19:39)
[2022-12-21] MEDS: CYANOCOBALAMIN 1,000 MCG (VITAMIN B-12) TABLET PO SCH (08:31)
[2022-12-21] MEDS: PROPRANOLOL 20 MG (INDERAL) TABLET PO SCH ×3 (08:31→19:38)
[2022-12-21] MEDS: ACETAMINOPHEN 500 MG TAB (TYLENOL) PO SCH ×2 (08:32→19:38)
[2022-12-21] MEDS: MEMANTINE 5 MG (NAMENDA) TABLET PO SCH ×2 (08:32→19:39)
[2022-12-21] MEDS: ISOSORBIDE MONONITRATE 30 MG (IMDUR) TAB PO SCH (08:32)
[2022-12-21] MEDS: LEVOTHYROXINE 75 MCG (LEVOTHROID) TABLET PO SCH (08:32)
[2022-12-21] MEDS: PANTOPRAZOLE 40 MG (PROTONIX) TAB PO SCH (08:32)
[2022-12-21] MEDS: SENNOSIDES 8.6 MG (SENOKOT) TAB PO SCH ×2 (08:32→19:39)
[2022-12-21] MEDS: CLOPIDOGREL 75 MG (PLAVIX) TABLET PO SCH (08:32)
[2022-12-21] MEDS: DOCUSATE SODIUM 100 MG (COLACE) CAP PO SCH ×2 (08:32→19:39)
[2022-12-21] MEDS: ASPIRIN E.C. 81 MG (ECOTRIN) TAB PO SCH (08:32)
[2022-12-21] MEDS: NON-FORMULARY MEDICATION 1 EA EA (Ubidecarenone (Co Q-10) 100 MG) PO SCH (08:32)
[2022-12-21 12:49] VITALS: BP 132/60
[2022-12-21 15:22] VITALS: BP 120/59
[2022-12-21] MEDS: ENOXAPARIN INJECTION 30 MG/0.3 ML SYR SC SCH (17:30)
[2022-12-21 19:08] VITALS: BP 127/65
[2022-12-21] MEDS: AtorvaSTATin TABLET 10 MG TABLET PO SCH (19:38)
[2022-12-21 23:58] VITALS: BP 123/59
[2022-12-22 03:36] VITALS: BP 147/66
[2022-12-22 03:42] VITALS: BP 147/66
[2022-12-22 06:02] LABS: BASOPHILS % (AUTO) 0 % (0-10); EOSINOPHILS # (AUTO) 0.3 10^3/uL (0.0-0.3); EOSINOPHILS % (AUTO) 7 % (0-10); HEMATOCRIT 32 % (35-52); LYMPHOCYTES # (AUTO) 1.5 10^3/uL (1.0-4.0); LYMPHOCYTES % (AUTO) 31 % (12-44); MEAN CORPUSCULAR HEMOGLOBIN 29 pg (25-34); MEAN CORPUSCULAR HGB CONC 31 g/dL (32-36); MEAN CORPUSCULAR VOLUME 93 fL (80-99); MEAN PLATELET VOLUME 9.1 fL (9.0-12.2); MONOCYTES # (AUTO) 0.4 10^3/uL (0.0-1.0); MONOCYTES % (AUTO) 8 % (0-12); NEUTROPHILS # (AUTO) 2.5 10^3/uL (1.8-7.8); NEUTROPHILS % (AUTO) 54 % (42-75); PLATELET COUNT 179 10^3/uL (130-400); WHITE BLOOD COUNT 4.7 10^3/uL (4.3-11.0)
[2022-12-22 06:17] LABS: ALBUMIN 2.9 GM/DL (3.2-4.5); POTASSIUM 3.5 MMOL/L (3.6-5.0)
[2022-12-22 06:19] LABS: CALCIUM 8.3 MG/DL (8.5-10.1)
[2022-12-22 06:20] LABS: TOTAL PROTEIN 5.3 GM/DL (6.4-8.2)
[2022-12-22 06:22] LABS: BILIRUBIN,TOTAL 0.3 MG/DL (0.1-1.0)
[2022-12-22 06:23] LABS: CREATININE SERUM 0.91 MG/DL (0.60-1.30)
[2022-12-22 07:14] VITALS: BP 147/67
[2022-12-22] MEDS: LEVOTHYROXINE 75 MCG (LEVOTHROID) TABLET PO SCH (08:35)
[2022-12-22] MEDS: SENNOSIDES 8.6 MG (SENOKOT) TAB PO SCH ×2 (08:35→20:35)
[2022-12-22] MEDS: ASPIRIN E.C. 81 MG (ECOTRIN) TAB PO SCH (08:35)
[2022-12-22] MEDS: CYANOCOBALAMIN 1,000 MCG (VITAMIN B-12) TABLET PO SCH (08:35)
[2022-12-22] MEDS: VITAMIN D3 125 MCG (5,000 UNITS) CAPSULE PO SCH (08:35)
[2022-12-22] MEDS: PANTOPRAZOLE 40 MG (PROTONIX) TAB PO SCH (08:36)
[2022-12-22] MEDS: ARTIFICAL TEARS 0.4 ML UNIT DOSE (REFRESH PLUS) OU SCH ×2 (08:36→20:35)
[2022-12-22] MEDS: DOCUSATE SODIUM 100 MG (COLACE) CAP PO SCH ×2 (08:36→20:35)
[2022-12-22] MEDS: ACETAMINOPHEN 500 MG TAB (TYLENOL) PO SCH ×2 (08:36→20:35)
[2022-12-22] MEDS: CLOPIDOGREL 75 MG (PLAVIX) TABLET PO SCH (08:36)
[2022-12-22] MEDS: MEMANTINE 5 MG (NAMENDA) TABLET PO SCH ×2 (08:36→20:35)
[2022-12-22] MEDS: ISOSORBIDE MONONITRATE 30 MG (IMDUR) TAB PO SCH (08:39)
[2022-12-22] MEDS: NON-FORMULARY MEDICATION 1 EA EA (Ubidecarenone (Co Q-10) 100 MG) PO SCH (08:41)
[2022-12-22] MEDS: PROPRANOLOL 20 MG (INDERAL) TABLET PO SCH ×3 (09:30→20:45)
--- NOTE | 2022-12-22 10:07 | Physical Therapy Daily Note ---
PT Daily Note-Current Subjective Patient much more alert and oriented on this date. Agrees to PT. Pain Section J - Health Conditions 1. Rarely or not at all 2. Occasionally 3. Frequently 4. Almost constantly 8. Unable to answer Pain Effect on Sleep: 8 Pain Interference with Therapy: 8 Pain Interference w/Day-to-Day: 8 Mental Status Patient Orientation: Person, Place, Time, Situation Attachments: [place] Catheter Transfers SCALE: Activities may be completed with or without assistive devices. 2-Pbciyeluun-fewijvy completes the activity by him/herself with no assistance from a helper. 5-Set-up or Clean-up Assistance-helper sets up or cleans up; patient completes activity. [place] assists only prior to or following the activity. 4-Supervision or Touching Assistance-helper provides verbal cues and/or to uching/steadying and/or contact guard assistance as patient completes activity. Assistance may be provided throughout the activity or intermittently. 3-Partial/Moderate Assistance-helper does LESS THAN HALF the effort. [place] lifts, holds or supports trunk or limbs, but provides less than half the effort. 2-Substantial/Maximal Assistance-helper does MORE THAN HALF the effort. [place] lifts or holds trunk or limbs and provides more than half the effort. 1-Ylthtpxqp-wvqkyh does ALL the effort. Patient does none of the effort to complete the activity. Or, the assistance of 2 or more helpers is required for the patient to complete the activity. If activity was not attempted, code reason: 7-Patient Refused. 9-Not Applicable-not attempted and the patient did not perform the activity before the current illness, exacerbation or injury. 10-Not Attempted due to Environmental Limitations-(lack of equipment, weather restraints, etc.). 88-Not Attempted due to Medical Conditions or Safety Concerns. Lying to Sitting/Side of Bed(Q: 6 Sit to Stand (QC): 4 Chair/Gri-am-Ztdqp Xfer(QC): 4 Weight Bearing Right Lower Extremity: Right Full Weight Bearing Left Lower Extremity: Left Full Weight Bearing Gait Training Distance: 150' Walk 10 feet (QC): 4 Walk 50 ft with 2 Turns(QC): 4 Walk 150 ft (QC): 4 Gait Assistive Device: FWW slow, steady functional gait sequence Assessment Patient required SBA with all mobility on this date. Patient much more alert and able to follow direction. Patient up in recliner with chair alarm activated for patient's safety. PT Butter Grader Goals Skilled Nursing Goals PT Skilled Nursing Goals Time Frame: Jan 03, 2023 Roll Left & Right (QC): 4 Sit to Lying (QC): 4 Lying-Sitting on Side/Bed(QC): 4 Sit to Stand (QC): 4 Chair/Jxp-zc-Hsdzr Xfer(QC): 4 Toilet Transfer (QC): 4 Walk 10 feet (QC): 4 Walk 50ft with 2 Turns (QC): 4 Walk 150 ft (QC): 4 PT Plan Treatment/Plan Treatment Plan: Continue Plan of Care Treatment Plan: Bed Mobility, Education, Functional Activity Erna, Functional Strength, Gait, Safety, Therapeutic Exercise, Transfers Treatment Duration: Jan 03, 2023 Frequency: 5 times per week Estimated Hrs Per Day: .25 hour per day Time Time In: 935 Time Out: 950 DATE: Dec 22, 2022 Total Billed Treatment Time: 15 Total Billed Treatment 1 visit [facility] 15 min KAITLIN DELGADO PT Dec 22, 2022 10:07
--- NOTE | 2022-12-22 11:03 | Progress Note ---
Subjective Date Seen by a Provider: Dec 22, 2022 Time Seen by a Provider: 11:00 Subjective/Events-last exam Patient doing a lot better Less confusion We will Hep-Lock IV fluid CPK significantly decreased Still very weak We will discharge back to [facility] on Thursday Review of Systems General: Fatigue, Malaise Neurological: Weakness Objective Exam Last Set of Vital Signs Vital Signs Date Time Temp Pulse Resp B/P (MAP) Pulse Ox O2 Delivery O2 Flow Rate FiO2 12/22/22 08:30 Room Air 12/22/22 07:14 36.2 60 17 147/67 (93) 92 Capillary Refill : Less Than 3 Seconds I&O Intake and Output 12/22/22 00:00 Intake Total 2280 ml Output Total 2225 ml Balance 55 ml Intake Oral 2280 ml Output Urine Total 2225 ml General: Alert, Cooperative, No Acute Distress Lungs: Clear to Auscultation Heart: Regular Rate Psych/Mental Status: Other (Baseline with dementia) Results Lab Laboratory Tests 12/22/22 05:07: White Blood Count 4.7, Red Blood Count 3.44L, Hemoglobin 10.0L, Hematocrit 32L, Mean Corpuscular Volume 93, Mean Corpuscular Hemoglobin 29, Mean Corpuscular Hemoglobin Concent 31L, Red Cell Distribution Width 15.4H, Platelet Count 179, Mean Platelet Volume 9.1, Immature Granulocyte % (Auto) 0, Neutrophils (%) (Auto) 54, Lymphocytes (%) (Auto) 31, Monocytes (%) (Auto) 8, Eosinophils (%) (Auto) 7, Basophils (%) (Auto) 0, Neutrophils # (Auto) 2.5, Lymphocytes # (Auto) 1.5, Monocytes # (Auto) 0.4, Eosinophils # (Auto) 0.3, Basophils # (Auto) 0.0, Immature Granulocyte # (Auto) 0.0, Sodium Level 141, Potassium Level 3.5L, Chloride Level 110H, Carbon Dioxide Level 24, Anion Gap 7, Blood Urea Nitrogen 11, Creatinine 0.91, Estimat Glomerular Filtration Rate 63, BUN/Creatinine Ratio 12, Glucose Level 81, Calcium Level 8.3L, Corrected Calcium 9.2, Total Bilirubin 0.3, Aspartate Amino Transf (AST/SGOT) 29, Alanine Aminotransferase (ALT/SGPT) 21, Alkaline Phosphatase 81, Total Creatine Kinase 349H, Total Protein 5.3L, Albumin 2.9L Microbiology 12/18/22 Blood Culture - Preliminary, Resulted No growth 12/18/22 Urine Culture - Final, Complete [facility] Assessment/Plan Assessment/Plan Assess & Plan/Chief Complaint Assessment: Found down at assisted living overnight on the floor Acute rhabdomyolysis-improved Acute encephalopathy from COVID COVID infection without hypoxia Dehydration Hypothyroidism Dementia Delirium CAD Hyperlipidemia Plan: Isolation Supportive care IV fluid Hep-Lock Follow CPK PT OT REEMA TAMEZ DO Dec 22, 2022 11:02
[2022-12-22 11:41] VITALS: BP 112/56
--- NOTE | 2022-12-22 14:55 | Occupational Ther Daily Note ---
OT Current Status-Daily Note Subjective Agreeable to OT, reports better orientation today and recalls family in room last Raul Pain Numeric Pain Scale: 0-No Pain Mental Status/Objective Patient Orientation: Person Attachments: Juarez Catheter ADL-Treatment Therapy Code Descriptions/Definitions Functional Cottle Measure: 0=Not Assessed/NA 4=Minimal Assistance 1=Total Assistance 5=Supervision or Setup 2=Maximal Assistance 6=Modified Cottle 3=Moderate Assistance 7=Complete IndependenceSCALE: Activities may be completed with or without assistive devices. 0-[id number] completes the activity by him/herself with no assistance from a helper. 5-Set-up or Clean-up Assistance-helper sets up or cleans up; patient completes activity. Chester assists only prior to or following the activity. 4-Supervision or Touching Assistance-helper provides verbal cues and/or touching/steadying and/or contact guard assistance as patient completes activity. Assistance may be provided throughout the activity or intermittently. 3-Partial/Moderate Assistance-helper does LESS THAN HALF the effort. Chester lifts, holds or supports trunk or limbs, but provides less than half the effort. 2-Substantial/Maximal Assistance-helper does MORE THAN HALF the effort. Chester lifts or holds trunk or limbs and provides more than half the effort. 4-Cxtcavfil-teedmm does ALL the effort. Patient does none of the effort to complete the activity. Or, the assistance of 2 or more helpers is required for the patient to complete the activity. If activity was not attempted, code reason: 7-Patient Refused. 9-Not Applicable-not attempted and the patient did not perform the activity before the current illness, exacerbation or injury. 10-Not Attempted due to Environmental Limitations-(lack of equipment, weather restraints, etc.). 88-Not Attempted due to Medical Conditions or Safety Concerns. Eating (QC): 5 Oral Hygiene (QC): 5 (SET UP ON BED TRAY TABLE NEXT TO RECLINER) Shower/Bathe Self (QC): 7 Upper Body Dressing (QC): 4 Lower Body Dressing (QC): 4 On/Off Footwear: 3 Toileting Hygiene (QC): 4 Toilet Transfer (QC): 4 AMBULATED W/ FWW SEVERAL TIMES ACROSS ROOM D/T ISOLATION PRECAUTIONS. Education OT Patient Education: Exercise program, Modified ADL techniques, Progress toward Goal/Update tx plan, Purpose of tx/functional activities, Reviewed precautions, Rehab process, Safety issues, Transfer techniques Teaching Recipient: Patient Teaching Methods: Demonstration, Discussion Response to Teaching: Verbalize Understanding, Reinforcement Needed OT Educational Therapist Goals Educational Therapist Goals Eating (QC): 5 Oral Hygiene (QC): 4 Toileting Hygiene (QC): 4 Shower/Bathe Self (QC): 4 Upper Body Dressing (QC): 4 Lower Body Dressing (QC): 4 On/Off Footwear (QC): 4 1=Demonstrate adherence to instructed precautions during ADL tasks. 2=Patient will verbalize/demonstrate understanding of assistive devices/modifications for ADL. 3=Patient will improve strength/tolerance for activity to enable patient to perform ADL's. OT Education/Plan Problem List/Assessment Assessment: Decreased Activ Tolerance, Impaired Self-Care Skills Discharge Recommendations Plan/Recommendations: Continue POC Treatment Plan/Plan of Care Patient would benefit from OT for education, treatment and training to promote independence in ADL's, mobility, safety and/or upper extremity function for ADL's. Plan of Care: ADL Retraining, Cognitive Retraining, Concurrent Therapy, Functional Mobility, Group Exercise/Act as Ind, UE Funct Exercise/Act, UE Ne uromus Re-Ed/Coord Treatment Duration: Dec 26, 2022 Frequency: 3 times per week (3-5 times per week) Estimated Hrs Per Day: .25 hour per day Rehab Potential: Fair Time Start Time: 09:32 Stop Time: 09:53 DATE: Dec 22, 2022 Total Time Billed (hr/min): 21 Billed Treatment Time ADL 21 MIN MARIELA LANDRY OT Dec 22, 2022 14:55
--- NOTE | 2022-12-22 14:55 | Diagnostic Imaging Report ---
INDICATION: Shoulder pain COMPARISON: None. FINDINGS: 3 views of the left shoulder were obtained. There is no fracture, dislocation, or other acute bony abnormality identified. The soft tissues appear unremarkable. No radiopaque foreign body is identified. The visualized portions of the left lung are clear. IMPRESSION: No acute fractures or dislocations of the left shoulder. Dictated by: Dictated on workstation # [id number]
[2022-12-22] MEDS: ENOXAPARIN 40 MG/0.4 ML (LOVENOX) SYR SC SCH (17:05)
[2022-12-22 17:42] VITALS: BP 109/59
[2022-12-22 19:25] VITALS: BP 139/65
[2022-12-22] MEDS: AtorvaSTATin TABLET 10 MG TABLET PO SCH (20:35)
[2022-12-23] VITALS (9 sets, daily range): BP systolic 105–143; BP diastolic 53–74
[2022-12-23 06:10] LABS: BASOPHILS % (AUTO) 1 % (0-10); EOSINOPHILS # (AUTO) 0.3 10^3/uL (0.0-0.3); EOSINOPHILS % (AUTO) 6 % (0-10); HEMATOCRIT 33 % (35-52); HEMOGLOBIN 10.3 g/dL (11.5-16.0); LYMPHOCYTES # (AUTO) 1.5 10^3/uL (1.0-4.0); LYMPHOCYTES % (AUTO) 34 % (12-44); MEAN CORPUSCULAR HEMOGLOBIN 29 pg (25-34); MEAN CORPUSCULAR HGB CONC 31 g/dL (32-36); MEAN CORPUSCULAR VOLUME 92 fL (80-99); MONOCYTES # (AUTO) 0.3 10^3/uL (0.0-1.0); MONOCYTES % (AUTO) 8 % (0-12); NEUTROPHILS # (AUTO) 2.2 10^3/uL (1.8-7.8); NEUTROPHILS % (AUTO) 51 % (42-75); PLATELET COUNT 189 10^3/uL (130-400); WHITE BLOOD COUNT 4.3 10^3/uL (4.3-11.0)
[2022-12-23 06:31] LABS: BILIRUBIN,TOTAL 0.4 MG/DL (0.1-1.0); CALCIUM 8.7 MG/DL (8.5-10.1); CREATININE SERUM 0.86 MG/DL (0.60-1.30); POTASSIUM 3.8 MMOL/L (3.6-5.0); TOTAL PROTEIN 5.3 GM/DL (6.4-8.2)
--- NOTE | 2022-12-23 09:12 | Progress Note ---
Subjective Date Seen by a Provider: Dec 23, 2022 Time Seen by a Provider: 11:00 Subjective/Events-last exam Patient doing a lot better Discharge is planned tomorrow Assisted living will be fine Moving around better Review of Systems General: Fatigue, Malaise Objective Exam Last Set of Vital Signs Vital Signs Date Time Temp Pulse Resp B/P (MAP) Pulse Ox O2 Delivery O2 Flow Rate FiO2 12/23/22 07:49 Room Air 12/23/22 07:18 36.6 66 20 128/60 (82) 93 Capillary Refill : Less Than 3 Seconds I&O Intake and Output 12/23/22 00:00 Intake Total 1240 ml Output Total 1100 ml Balance 140 ml Intake Oral 1240 ml Output Urine Total 1100 ml # Voids 5 General: Alert, Oriented X3 (Poor recall), Cooperative, No Acute Distress Lungs: Clear to Auscultation, Normal Air Movement Heart: Regular Rate, Normal S1, Normal S2, No Murmurs Psych/Mental Status: Mental Status NL, Mood NL Results Lab Laboratory Tests 12/23/22 06:00: White Blood Count 4.3, Red Blood Count 3.58L, Hemoglobin 10.3L, Hematocrit 33L, Mean Corpuscular Volume 92, Mean Corpuscular Hemoglobin 29, Mean Corpuscular Hemoglobin Concent 31L, Red Cell Distribution Width 14.8H, Platelet Count 189, Mean Platelet Volume 9.0, Immature Granulocyte % (Auto) 0, Neutrophils (%) (Auto) 51, Lymphocytes (%) (Auto) 34, Monocytes (%) (Auto) 8, Eosinophils (%) (Auto) 6, Basophils (%) (Auto) 1, Neutrophils # (Auto) 2.2, Lymphocytes # (Auto) 1.5, Monocytes # (Auto) 0.3, Eosinophils # (Auto) 0.3, Basophils # (Auto) 0.0, Immature Granulocyte # (Auto) 0.0, Sodium Level 141, Potassium Level 3.8, Chloride Level 108H, Carbon Dioxide Level 24, Anion Gap 9, Blood Urea Nitrogen 9, Creatinine 0.86, Estimat Glomerular Filtration Rate 67, BUN/Creatinine Ratio 10, Glucose Level 82, Calcium Level 8.7, Corrected Calcium 9.5, Total Bilirubin 0.4, Aspartate Amino Transf (AST/SGOT) 29, Alanine Aminotransferase (ALT/SGPT) 25, Alkaline Phosphatase 81, Total Creatine Kinase 238H, Total Protein 5.3L, Albumin 3.0L Microbiology 12/18/22 Blood Culture - Preliminary, Resulted No growth 12/18/22 Urine Culture - Final, Complete [facility] Assessment/Plan Assessment/Plan Assess & Plan/Chief Complaint Assessment: Found down at assisted living overnight on the floor Acute rhabdomyolysis-improved Acute encephalopathy from COVID COVID infection without hypoxia Dehydration Hypothyroidism Dementia Delirium CAD Hyperlipidemia Plan: Isolation Supportive care IV fluid Hep-Lock Follow CPK PT OT REEMA TAMEZ DO Dec 23, 2022 09:12
[2022-12-23] MEDS: ARTIFICAL TEARS 0.4 ML UNIT DOSE (REFRESH PLUS) OU SCH ×2 (10:01→20:17)
[2022-12-23] MEDS: ASPIRIN E.C. 81 MG (ECOTRIN) TAB PO SCH (10:01)
[2022-12-23] MEDS: ISOSORBIDE MONONITRATE 30 MG (IMDUR) TAB PO SCH (10:01)
[2022-12-23] MEDS: CYANOCOBALAMIN 1,000 MCG (VITAMIN B-12) TABLET PO SCH (10:01)
[2022-12-23] MEDS: LEVOTHYROXINE 75 MCG (LEVOTHROID) TABLET PO SCH (10:01)
[2022-12-23] MEDS: PANTOPRAZOLE 40 MG (PROTONIX) TAB PO SCH (10:01)
[2022-12-23] MEDS: DOCUSATE SODIUM 100 MG (COLACE) CAP PO SCH ×2 (10:02→21:01)
[2022-12-23] MEDS: ACETAMINOPHEN 500 MG TAB (TYLENOL) PO SCH ×2 (10:02→20:18)
[2022-12-23] MEDS: SENNOSIDES 8.6 MG (SENOKOT) TAB PO SCH ×2 (10:02→21:01)
[2022-12-23] MEDS: MEMANTINE 5 MG (NAMENDA) TABLET PO SCH ×2 (10:02→20:18)
[2022-12-23] MEDS: VITAMIN D3 125 MCG (5,000 UNITS) CAPSULE PO SCH (10:02)
[2022-12-23] MEDS: CLOPIDOGREL 75 MG (PLAVIX) TABLET PO SCH (10:02)
[2022-12-23] MEDS: PROPRANOLOL 20 MG (INDERAL) TABLET PO SCH ×4 (10:02→20:17)
--- NOTE | 2022-12-23 10:57 | Physical Therapy Progress Note ---
Therapy Progress Note Patient states that she has already been up and walking in her room and doesn't feel like walking right now. States she will walk more later. SOLIS GARCIA PT Dec 23, 2022 10:57
[2022-12-23] MEDS: ENOXAPARIN 40 MG/0.4 ML (LOVENOX) SYR SC SCH (18:22)
[2022-12-23] MEDS: AtorvaSTATin TABLET 10 MG TABLET PO SCH (20:18)
[2022-12-24 03:22] VITALS: BP 138/64
[2022-12-24 05:52] LABS: BASOPHILS % (AUTO) 0 % (0-10); EOSINOPHILS # (AUTO) 0.2 10^3/uL (0.0-0.3); EOSINOPHILS % (AUTO) 4 % (0-10); HEMATOCRIT 31 % (35-52); LYMPHOCYTES # (AUTO) 1.5 10^3/uL (1.0-4.0); LYMPHOCYTES % (AUTO) 31 % (12-44); MEAN CORPUSCULAR HEMOGLOBIN 29 pg (25-34); MEAN CORPUSCULAR HGB CONC 32 g/dL (32-36); MEAN CORPUSCULAR VOLUME 91 fL (80-99); MEAN PLATELET VOLUME 9.4 fL (9.0-12.2); MONOCYTES # (AUTO) 0.3 10^3/uL (0.0-1.0); MONOCYTES % (AUTO) 7 % (0-12); NEUTROPHILS # (AUTO) 2.8 10^3/uL (1.8-7.8); NEUTROPHILS % (AUTO) 58 % (42-75); PLATELET COUNT 188 10^3/uL (130-400); WHITE BLOOD COUNT 4.8 10^3/uL (4.3-11.0)
[2022-12-24 05:56] LABS: ALBUMIN 3.1 GM/DL (3.2-4.5); POTASSIUM 3.6 MMOL/L (3.6-5.0)
[2022-12-24 05:58] LABS: CALCIUM 8.6 MG/DL (8.5-10.1)
--- NOTE | 2022-12-24 05:58 | D/C HH Face to Face Order ---
D/C HH Face to Face Orders Reconcile Patient Problems Problems Reviewed?: Yes Instructions for Patient HH Patient Instructions/FollowUp: pcp 1 week Physician to follow Patient: sim Miguel Diet for Home: No Restrictions Patient Problems: COVID Rhabdomyolysis Patient Data-Allergies,Ht & Wt Patient Allergies: Coded Allergies: No Known Drug Allergies (Unverified , 12/22/18) Height (Feet): 5 Height (Inches): 5.00 Weight (Pounds): 200 Weight (Ounces): 0.0 Home Health Need/Face to Face Date of Face to Face: Dec 24, 2022 Clinical Findings: Generalized weakness and fatigue, Instability, Muscle weakness I have seen Pt [id number]: Yes Discharged To: Home Diagnosis/Conditions: post covid Patient is Homebound due to: CognItive deficits, [place] fall risk due to instabilty, Muscle weakness Homebound Status Due to the above stated illness, injury or surgical procedure (medical condition or diagnosis) and associated clinical findings, the patient is homebound because of his/her inability to leave home except with aid of a supportive device and/or person AND leaving the home requires a considerable and taxing effort or is medically contraindicated. Pt req the following assistanc: [facility] Nursing Orders Home Health Services Order: Payroll And Benefits Manager-Evaluate & Treat, Physical Therapy-Evaluate & Treat Home Health Infusion Therapy Line Start Date: Dec 18, 2022 Certify Stmt I certify that this patient is under my care and that I, a nurse practitioner or a physician; a care assistant working with me, had a face to face encounter that - meets the physician face to face encounter requirements with this patient as dated. REEMA TAMEZ DO Dec 24, 2022 05:58
[2022-12-24 05:59] LABS: TOTAL PROTEIN 5.5 GM/DL (6.4-8.2)
--- NOTE | 2022-12-24 05:59 | Discharge Summary ---
Diagnosis/Chief Complaint Date of Admission Dec 18, 2022 at 16:36 Date of Discharge Discharge Date: Dec 24, 2022 Discharge Diagnosis Assessment: Found down at assisted living overnight on the floor Acute rhabdomyolysis-improved Acute encephalopathy from COVID COVID infection without hypoxia Dehydration Hypothyroidism Dementia Delirium CAD Hyperlipidemia Plan: Isolation Supportive care IV fluid Hep-Lock Follow CPK PT OT Discharge Summary Discharge Physical Examination Allergies: Coded Allergies: No Known Drug Allergies (Unverified , 12/22/18) Vitals & I&Os Vital Signs Date Time Temp Pulse Resp B/P (MAP) Pulse Ox O2 Delivery O2 Flow Rate FiO2 12/24/22 11:43 36.5 65 18 144/66 95 Room Air General Appearance: Alert, Oriented X3, Cooperative Respiratory: Clear to Auscultation Cardiovascular: Regular Rate Psych/Mental Status: Mental Status NL Hospital Course Was the Problem List Reviewed?: Yes Hospital course: Patient had an uneventful hospital course after she was found down at assisted living lying on the floor all night with acute rhabdomyolysis and fever found to be from COVID. IV fluids initiated with good results and protection of kidney function. She remains on isolation. Overall she returned back to her baseline function so I ordered home care physical therapy she returned back to assisted living. Labs (last 24 hrs) Laboratory Tests 12/18/22 12:30: White Blood Count 10.4, Red Blood Count 3.91, Hemoglobin 11.3L, Hematocrit 36, Mean Corpuscular Volume 92, Mean Corpuscular Hemoglobin 29, Mean Corpuscular Hemoglobin Concent 31L, Red Cell Distribution Width 15.1H, Platelet Count 237, Mean Platelet Volume 9.0, Immature Granulocyte % (Auto) 1, Neutrophils (%) (Auto) 83H, Lymphocytes (%) (Auto) 8L, Monocytes (%) (Auto) 8, Eosinophils (%) (Auto) 0, Basophils (%) (Auto) 0, Neutrophils # (Auto) 8.7H, Lymphocytes # (Auto) 0.8L, Monocytes # (Auto) 0.8, Eosinophils # (Auto) 0.0, Basophils # (Auto) 0.0, Immature Granulocyte # (Auto) 0.1, Prothrombin Time 12.9, INR Comment 1.0, Activated Partial Thromboplast Time 24, Sodium Level 139, Potassium Level 4.1, Chloride Level 106, Carbon Dioxide Level 25, Anion Gap 8, Blood Urea Nitrogen 11, Creatinine 1.16, Estimat Glomerular Filtration Rate 47, BUN/Creatinine Ratio 9, Glucose Level 106H, Calcium Level 9.3, Corrected Calcium 9.5, Magnesium Level 2.0, Total Bilirubin 0.6, Aspartate Amino Transf (AST/SGOT) 21, Alanine Aminotransferase (ALT/SGPT) 16, Alkaline Phosphatase 121, Total Creatine Kinase 542H, C-Reactive Protein High Sensitivity 2.65H, Total Protein 6.5, Albumin 3.8, Thyroid Stimulating Hormone (TSH) 1.17, Free Thyroxine 0.96 12/18/22 14:00: Urine Color YELLOW, Urine Clarity CLEAR, Urine pH 7.5, Urine Specific Premier 1.010L, Urine Protein NEGATIVE, Urine Glucose (UA) NEGATIVE, Urine Ketones NEGATIVE, Urine Nitrite NEGATIVE, Urine Bilirubin NEGATIVE, Urine Urobilinogen 2.0, Urine Leukocyte Esterase NEGATIVE, Urine RBC (Auto) NEGATIVE, Urine RBC RARE, Urine WBC NONE, Urine Squamous Epithelial Cells RARE, Urine Crystals PRESENTH, Urine Amorphous Sediment RARE ANTHONY PHOSPHATEH, Urine Bacteria FEWH, Urine Casts NONE, Urine Mucus SMALLH, Urine Culture Indicated NO 12/18/22 14:57: Influenza Type A (RT-PCR) Not Detected, Influenza Type B (RT-PCR) Not Detected, SARS-CoV-2 RNA (RT-PCR) DetectedH 12/18/22 16:25: Lactic Acid Level 2.21*H 12/18/22 19:12: Lactic Acid Level 2.07*H 12/19/22 06:22: White Blood Count 8.9, Red Blood Count 3.90, Hemoglobin 11.3L, Hematocrit 36, Mean Corpuscular Volume 92, Mean Corpuscular Hemoglobin 29, Mean Corpuscular Hemoglobin Concent 32, Red Cell Distribution Width 15.5H, Platelet Count 196, Mean Platelet Volume 9.1, Immature Granulocyte % (Auto) 0, Neutrophils (%) (Auto) 81H, Lymphocytes (%) (Auto) 8L, Monocytes (%) (Auto) 11, Eosinophils (%) (Auto) 0, Basophils (%) (Auto) 0, Neutrophils # (Auto) 7.2, Lymphocytes # (Auto) 0.7L, Monocytes # (Auto) 1.0, Eosinophils # (Auto) 0.0, Basophils # (Auto) 0.0, Immature Granulocyte # (Auto) 0.0, Sodium Level 139, Potassium Level 3.6, Chloride Level 110H, Carbon Dioxide Level 20L, Anion Gap 9, Blood Urea Nitrogen 9, Creatinine 0.91, Estimat Glomerular Filtration Rate 63, BUN/Creatinine Ratio 10, Glucose Level 102, Calcium Level 8.4L, Corrected Calcium 9.0, Total Pedro irubin 0.4, Aspartate Amino Transf (AST/SGOT) 41H, Alanine Aminotransferase (ALT/SGPT) 21, Alkaline Phosphatase 115, Total Creatine Kinase 1298H, Total Protein 5.9L, Albumin 3.3 12/20/22 05:30: White Blood Count 7.4, Red Blood Count 4.04, Hemoglobin 11.6, Hematocrit 38, Mean Corpuscular Volume 94, Mean Corpuscular Hemoglobin 29, Mean Corpuscular Hemoglobin Concent 31L, Red Cell Distribution Width 15.6H, Platelet Count 187, Mean Platelet Volume 9.0, Immature Granulocyte % (Auto) 0, Neutrophils (%) (A uto) 76H, Lymphocytes (%) (Auto) 13, Monocytes (%) (Auto) 11, Eosinophils (%) (Auto) 1, Basophils (%) (Auto) 1, Neutrophils # (Auto) 5.6, Lymphocytes # (Auto) 0.9L, Monocytes # (Auto) 0.8, Eosinophils # (Auto) 0.0, Basophils # (Auto) 0.0, Immature Granulocyte # (Auto) 0.0, Sodium Level 140, Potassium Level 3.7, Chloride Level 111H, Carbon Dioxide Level 21, Anion Gap 8, Blood Urea Nitrogen 8, Creatinine 0.85, Estimat Glomerular Filtration Rate 68, BUN/Creatinine Ratio 9, Glucose Level 79, Calcium Level 8.4L, Corrected Calcium 9.0, Total Bilirubin 0.4, Aspartate Amino Transf (AST/SGOT) 55H, Alanine Aminotransferase (ALT/SGPT) 27, Alkaline Phosphatase 104, Total Creatine Kinase 1332H, Total Protein 5.9L, Albumin 3.2 12/21/22 05:45: White Blood Count 4.2L, Red Blood Count 3.39L, Hemoglobin 9.8L, Hematocrit 31L, Mean Corpuscular Volume 93, Mean Corpuscular Hemoglobin 29, Mean Corpuscular Hemoglobin Concent 31L, Red Cell Distribution Width 15.6H, Platelet Count 171, Mean Platelet Volume 9.2, Immature Granulocyte % (Auto) 1, Neutrophils (%) (Auto) 55, Lymphocytes (%) (Auto) 31, Monocytes (%) (Auto) 9, Eosinophils (%) (Auto) 4, Basophils (%) (Auto) 1, Neutrophils # (Auto) 2.3, Lymphocytes # (Auto) 1.3, Monocytes # (Auto) 0.4, Eosinophils # (Auto) 0.2, Basophils # (Auto) 0.0, Immature Granulocyte # (Auto) 0.0, Sodium Level 141, Potassium Level 3.5L, Chloride Level 111H, Carbon Dioxide Level 23, Anion Gap 7, Blood Urea Nitrogen 11, Creatinine 0.88, Estimat Glomerular Filtration Rate 66, BUN/Creatinine Ratio 13, Glucose Level 87, Calcium Level 8.0L, Corrected Calcium 9.0, Total Bilirubin 0.3, Aspartate Amino Transf (AST/SGOT) 38H, Alanine Aminotransferase (ALT/SGPT) 21, Alkaline Phosphatase 83, Total Creatine Kinase 603H, Total Protein 5.1L, Albumin 2.8L 12/22/22 05:07: White Blood Count 4.7, Red Blood Count 3.44L, Hemoglobin 10.0L, Hematocrit 32L, Mean Corpuscular Volume 93, Mean Corpuscular Hemoglobin 29, Mean Corpuscular Hemoglobin Concent 31L, Red Cell Distribution Width 15.4H, Platelet Count 179, Mean Platelet Volume 9.1, Immature Granulocyte % (Auto) 0, Neutrophils (%) (Auto) 54, Lymphocytes (%) (Auto) 31, Monocytes (%) (Auto) 8, Eosinophils (%) (Auto) 7, Basophils (%) (Auto) 0, Neutrophils # (Auto) 2.5, Lymphocytes # (Auto) 1.5, Monocytes # (Auto) 0.4, Eosinophils # (Auto) 0.3, Basophils # (Auto) 0.0, Immature Granulocyte # (Auto) 0.0, Sodium Level 141, Potassium Level 3.5L, Chloride Level 110H, Carbon Dioxide Level 24, Anion Gap 7, Blood Urea Nitrogen 11, Creatinine 0.91, Estimat Glomerular Filtration Rate 63, BUN/Creatinine Ratio 12, Glucose Level 81, Calcium Level 8.3L, Corrected Calcium 9.2, Total Bilirubin 0.3, Aspartate Amino Transf (AST/SGOT) 29, Alanine Aminotransferase (ALT/SGPT) 21, Alkaline Phosphatase 81, Total Creatine Kinase 349H, Total Protein 5.3L, Albumin 2.9L 12/23/22 06:00: White Blood Count 4.3, Red Blood Count 3.58L, Hemoglobin 10.3L, Hematocrit 33L, Mean Corpuscular Volume 92, Mean Corpuscular Hemoglobin 29, Mean Corpuscular Hemoglobin Concent 31L, Red Cell Distribution Width 14.8H, Platelet Count 189, Mean Platelet Volume 9.0, Immature Granulocyte % (Auto) 0, Neutrophils (%) (Auto) 51, Lymphocytes (%) (Auto) 34, Monocytes (%) (Auto) 8, Eosinophils (%) (Auto) 6, Basophils (%) (Auto) 1, Neutrophils # (Auto) 2.2, Lymphocytes # (Auto) 1.5, Monocytes # (Auto) 0.3, Eosinophils # (Auto) 0.3, Basophils # (Auto) 0.0, Immature Granulocyte # (Auto) 0.0, Sodium Level 141, Potassium Level 3.8, Chloride Level 108H, Carbon Dioxide Level 24, Anion Gap 9, Blood Urea Nitrogen 9, Creatinine 0.86, Estimat Glomerular Filtration Rate 67, BUN/Creatinine Ratio 10, Glucose Level 82, Calcium Level 8.7, Corrected Calcium 9.5, Total Bilirubin 0.4, Aspartate Amino Transf (AST/SGOT) 29, Alanine Aminotransferase (ALT/SGPT) 25, Alkaline Phosphatase 81, Total Creatine Kinase 238H, Total Protein 5.3L, Albumin 3.0L 12/24/22 05:38: White Blood Count 4.8, Red Blood Count 3.45L, Hemoglobin 10.0L, Hematocrit 31L, Mean Corpuscular Volume 91, Mean Corpuscular Hemoglobin 29, Mean Corpuscular Hemoglobin Concent 32, Red Cell Distribution Width 14.8H, Platelet Count 188, Mean Platelet Volume 9.4, Immature Granulocyte % (Auto) 0, Neutrophils (%) (Auto) 58, Lymphocytes (%) (Auto) 31, Monocytes (%) (Auto) 7, Eosinophils (%) (Auto) 4, Basophils (%) (Auto) 0, Neutrophils # (Auto) 2.8, Lymphocytes # (Auto) 1.5, Monocytes # (Auto) 0.3, Eosinophils # (Auto) 0.2, Basophils # (Auto) 0.0, Immature Granulocyte # (Auto) 0.0, Sodium Level 141, Potassium Level 3.6, Chloride Level 107, Carbon Dioxide Level 25, Anion Gap 9, Blood Urea Nitrogen 10, Creatinine 0.84, Estimat Glomerular Filtration Rate 69, BUN/Creatinine Ratio 12, Glucose Level 90, Calcium Level 8.6, Corrected Calcium 9.3, Total Bilirubin 0.4, Aspartate Amino Transf (AST/SGOT) 29, Alanine Aminotransferase (ALT/SGPT) 26, Alkaline Phosphatase 81, Total Creatine Kinase 159, Total Protein 5.5L, Albumin 3.1L Microbiology 12/18/22 Blood Culture - Final, Complete No growth 12/18/22 Urine Culture - Final, Complete [facility] Pending Labs Microbiology Date/Time Source Procedure Growth Status 12/18/22 16:22 Peripheral Rt Hand Blood Culture - Final No growth Complete 12/18/22 16:13 Peripheral Lt Ac Blood Culture - Final No growth Complete 12/18/22 14:00 Urine Juarez Cath Urine Culture - Final [facility] Complete Laboratory Tests 12/18/22 12:30: White Blood Count 10.4, Red Blood Count 3.91, Hemoglobin 11.3, Hematocrit 36, M lulu Corpuscular Volume 92, Mean Corpuscular Hemoglobin 29, Mean Corpuscular Hemoglobin Concent 31, Red Cell Distribution Width 15.1, Platelet Count 237, Mean Platelet Volume 9.0, Immature Granulocyte % (Auto) 1, Neutrophils (%) (Auto) 83, Lymphocytes (%) (Auto) 8, Monocytes (%) (Auto) 8, Eosinophils (%) (Auto) 0, Basophils (%) (Auto) 0, Neutrophils # (Auto) 8.7, Lymphocytes # (Auto) 0.8, Monocytes # (Auto) 0.8, Eosinophils # (Auto) 0.0, Basophils # (Auto) 0.0, Immature Granulocyte # (Auto) 0.1, Prothrombin Time 12.9, INR Comment 1.0, Activated Partial Thromboplast Time 24, Sodium Level 139, Potassium Level 4.1, Chloride Level 106, Carbon Dioxide Level 25, Anion Gap 8, Blood Urea Nitrogen 11, Creatinine 1.16, Estimat Glomerular Filtration Rate 47, BUN/Creatinine Ratio 9, Glucose Level 106, Calcium Level 9.3, Corrected Calcium 9.5, Magnesium Level 2.0, Total Bilirubin 0.6, Aspartate Amino Transf (AST/SGOT) 21, Alanine Aminotransferase (ALT/SGPT) 16, Alkaline Phosphatase 121, Total Creatine Kinase 542, C-Reactive Protein High Sensitivity 2.65, Total Protein 6.5, Albumin 3.8, Thyroid Stimulating Hormone (TSH) 1.17, Free Thyroxine 0.96 12/18/22 14:00: Urine Color YELLOW, Urine Clarity CLEAR, Urine pH 7.5, Urine Specific Premier 1.010, Urine Protein NEGATIVE, Urine Glucose (UA) NEGATIVE, Urine Ketones NEGATIVE, Urine Nitrite NEGATIVE, Urine Bilirubin NEGATIVE, Urine Urobilinogen 2.0, Urine Leukocyte Esterase NEGATIVE, Urine RBC (Auto) NEGATIVE, Urine RBC RARE, Urine WBC NONE, Urine Squamous Epithelial Cells RARE, Urine Crystals PRESENT, Urine Amorphous Sediment RARE ANTHONY PHOSPHATE, Urine Bacteria FEW, Urine Casts NONE, Urine Mucus SMALL, Urine Culture Indicated NO 12/18/22 14:57: Influenza Type A (RT-PCR) Not Detected, Influenza Type B (RT-PCR) Not Detected, SARS-CoV-2 RNA (RT-PCR) Detected 12/18/22 16:25: Lactic Acid Level 2.21 12/18/22 19:12: Lactic Acid Level 2.07 12/19/22 06:22: White Blood Count 8.9, Red Blood Count 3.90, Hemoglobin 11.3, Hematocrit 36, Mean Corpuscular Volume 92, Mean Corpuscular Hemoglobin 29, Mean Corpuscular Hemoglobin Concent 32, Red Cell Distribution Width 15.5, Platelet Count 196, Mean Platelet Volume 9.1, Immature Granulocyte % (Auto) 0, Neutrophils (%) (Auto) 81, Lymphocytes (%) (Auto) 8, Monocytes (%) (Auto) 11, Eosinophils (%) (Auto) 0, Basophils (%) (Auto) 0, Neutrophils # (Auto) 7.2, Lymphocytes # (Auto) 0.7, Monocytes # (Auto) 1.0, Eosinophils # (Auto) 0.0, Basophils # (Auto) 0.0, Immature Granulocyte # (Auto) 0.0, Sodium Level 139, Potassium Level 3.6, Chloride Level 110, Carbon Dioxide Level 20, Anion Gap 9, Blood Urea Nitrogen 9, Creatinine 0.91, Estimat Glomerular Filtration Rate 63, BUN/Creatinine Ratio 10, Glucose Level 102, Calcium Level 8.4, Corrected Calcium 9.0, Total Bilirubin 0.4, Aspartate Amino Transf (AST/SGOT) 41, Alanine Aminotransferase (ALT/SGPT) 21, Alkaline Phosphatase 115, Total Creatine Kinase 1298, Total Protein 5.9, Albumin 3.3 12/20/22 05:30: White Blood Count 7.4, Red Blood Count 4.04, Hemoglobin 11.6, Hematocrit 38, Mean Corpuscular Volume 94, Mean Corpuscular Hemoglobin 29, Mean Corpuscular Hemoglobin Concent 31, Red Cell Distribution Width 15.6, Platelet Count 187, Mean Platelet Volume 9.0, Immature Granulocyte % (Auto) 0, Neutrophils (%) (Auto) 76, Lymphocytes (%) (Auto) 13, Monocytes (%) (Auto) 11, Eosinophils (%) (Auto) 1, Basophils (%) (Auto) 1, Neutrophils # (Auto) 5.6, Lymphocytes # (Auto) 0.9, Monocytes # (Auto) 0.8, Eosinophils # (Auto) 0.0, Basophils # (Auto) 0.0, Immature Granulocyte # (Auto) 0.0, Sodium Level 140, Potassium Level 3.7, Chloride Level 111, Carbon Dioxide Level 21, Anion Gap 8, Blood Urea Nitrogen 8, Creatinine 0.85, Estimat Glomerular Filtration Rate 68, BUN/Creatinine Ratio 9, Glucose Level 79, Calcium Level 8.4, Corrected Calcium 9.0, Total Bilirubin 0.4, Aspartate Amino Transf (AST/SGOT) 55, Alanine Aminotransferase (ALT/SGPT) 27, Alkaline Phosphatase 104, Total Creatine Kinase 1332, Total Protein 5.9, Albumin 3.2 12/21/22 05:45: White Blood Count 4.2, Red Blood Count 3.39, Hemoglobin 9.8, Hematocrit 31, Mean Corpuscular Volume 93, Mean Corpuscular Hemoglobin 29, Mean Corpuscular Hemoglobin Concent 31, Red Cell Distribution Width 15.6, Platelet Count 171, Mean Platelet Volume 9.2, Immature Granulocyte % (Auto) 1, Neutrophils (%) (Auto) 55, Lymphocytes (%) (Auto) 31, Monocytes (%) (Auto) 9, Eosinophils (%) (Auto) 4, Basophils (%) (Auto) 1, Neutrophils # (Auto) 2.3, Lymphocytes # (Auto) 1.3, Monocytes # (Auto) 0.4, Eosinophils # (Auto) 0.2, Basophils # (Auto) 0.0, Immature Granulocyte # (Auto) 0.0, Sodium Level 141, Potassium Level 3.5, Chloride Level 111, Carbon Dioxide Level 23, Anion Gap 7, Blood Urea Nitrogen 11, Creatinine 0.88, Estimat Glomerular Filtration Rate 66, BUN/Creatinine Ratio 13, Glucose Level 87, Calcium Level 8.0, Corrected Calcium 9.0, Total Bilirubin 0.3, Aspartate Amino Transf (AST/SGOT) 38, Alanine Aminotransferase (ALT/SGPT) 21, Alkaline Phosphatase 83, Total Creatine Kinase 603, Total Protein 5.1, Albumin 2.8 12/22/22 05:07: White Blood Count 4.7, Red Blood Count 3.44, Hemoglobin 10.0, Hematocrit 32, Mean Corpuscular Volume 93, Mean Corpuscular Hemoglobin 29, Mean Corpuscular Hemoglobin Concent 31, Red Cell Distribution Width 15.4, Platelet Count 179, Mean Platelet Volume 9.1, Immature Granulocyte % (Auto) 0, Neutrophils (%) (Auto) 54, Lymphocytes (%) (Auto) 31, Monocytes (%) (Auto) 8, Eosinophils (%) (Auto) 7, Basophils (%) (Auto) 0, Neutrophils # (Auto) 2.5, Lymphocytes # (Auto) 1.5, Monocytes # (Auto) 0.4, Eosinophils # (Auto) 0.3, Basophils # (Auto) 0.0, Immature Granulocyte # (Auto) 0.0, Sodium Level 141, Potassium Level 3.5, Chloride Level 110, Carbon Dioxide Level 24, Anion Gap 7, Blood Urea Nitrogen 11, Creatinine 0.91, Estimat Glomerular Filtration Rate 63, BUN/Creatinine Ratio 12, Glucose Level 81, Calcium Level 8.3, Corrected Calcium 9.2, Total Bilirubin 0.3, Aspartate Amino Transf (AST/SGOT) 29, Alanine Aminotransferase (ALT/SGPT) 21, Alkaline Phosphatase 81, Total Creatine Kinase 349, Total Protein 5.3, Albumin 2.9 12/23/22 06:00: White Blood Count 4.3, Red Blood Count 3.58, Hemoglobin 10.3, Hematocrit 33, Mean Corpuscular Volume 92, Mean Corpuscular Hemoglobin 29, Mean Corpuscular Hemoglobin Concent 31, Red Cell Distribution Width 14.8, Platelet Count 189, Mean Platelet Volume 9.0, Immature Granulocyte % (Auto) 0, Neutrophils (%) (Auto) 51, Lymphocytes (%) (Auto) 34, Monocytes (%) (Auto) 8, Eosinophils (%) (Auto) 6, Basophils (%) (Auto) 1, Neutrophils # (Auto) 2.2, Lymphocytes # (Auto) 1.5, Monocytes # (Auto) 0.3, Eosinophils # (Auto) 0.3, Basophils # (Auto) 0.0, Immature Granulocyte # (Auto) 0.0, Sodium Level 141, Potassium Level 3.8, Chloride Level 108, Carbon Dioxide Level 24, Anion Gap 9, Blood Urea Nitrogen 9, Creatinine 0.86, Estimat Glomerular Filtration Rate 67, BUN/Creatinine Ratio 10, Glucose Level 82, Calcium Level 8.7, Corrected Calcium 9.5, Total Bilirubin 0.4, Aspartate Amino Transf (AST/SGOT) 29, Alanine Aminotransferase (ALT/SGPT) 25, Alkaline Phosphatase 81, Total Creatine Kinase 238, Total Protein 5.3, Albumin 3.0 12/24/22 05:38: White Blood Count 4.8, Red Blood Count 3.45, Hemoglobin 10.0, Hematocrit 31, Mean Corpuscular Volume 91, Mean Corpuscular Hemoglobin 29, Mean Corpuscular Hemoglobin Concent 32, Red Cell Distribution Width 14.8, Platelet Count 188, Mean Platelet Volume 9.4, Immature Granulocyte % (Auto) 0, Neutrophils (%) (Auto) 58, Lymphocytes (%) (Auto) 31, Monocytes (%) (Auto) 7, Eosinophils (%) (Auto) 4, Basophils (%) (Auto) 0, Neutrophils # (Auto) 2.8, Lymphocytes # (Auto) 1.5, Monocytes # (Auto) 0.3, Eosinophils # (Auto) 0.2, Basophils # (Auto) 0.0, Immature Granulocyte # (Auto) 0.0, Sodium Level 141, Potassium Level 3.6, Chloride Level 107, Carbon Dioxide Level 25, Anion Gap 9, Blood Urea Nitrogen 10, Creatinine 0.84, Estimat Glomerular Filtration Rate 69, BUN/Creatinine Ratio 12, Glucose Level 90, Calcium Level 8.6, Corrected Calcium 9.3, Total Bilirubin 0.4, Aspartate Amino Transf (AST/SGOT) 29, Alanine Aminotransferase (ALT/SGPT) 26, Alkaline Phosphatase 81, Total Creatine Kinase 159, Total Protein 5.5, Albumin 3.1 Discharge Home Medications: Active Scripts Active Reported Cetirizine HCl 10 Mg Tablet 10 Mg PO DAILY PRN Muscle Rub Ultra Str Cream (Methyl Salicylate/Menth/Camph) 30 %-10 %-4 % Cream..g. 1 Applic TP TID PRN APPLY TO KNEES Nystop (Nystatin) 100,000 Unit/Gram Powder 1 Applic TP TID PRN APPLY TO SKIN FOLDS Debrox (Carbamide Peroxide) 6.5 % Drops Ml OT UD PRN FOLLOW PACKAGE INSTRUCTIONS Imodium A-D (Loperamide HCl) 2 Mg Capsule 2 Mg PO UD PRN Milk of Magnesia (Magnesium Hydroxide) 400 Mg/5 Ml Oral.susp 30 Ml PO DAILY PRN Tylenol Extra Strength (Acetaminophen) 500 Mg Tablet 500-1,000 Mg PO TID PRN Atorvastatin Calcium 10 Mg Tablet 10 Mg PO HS Tylenol Extra Strength (Acetaminophen) 500 Mg Tablet 500 Mg PO BID Co Q-10 (Ubidecarenone) 100 Mg Capsule 100 Mg PO DAILY Memantine HCl 5 Mg Tablet 5 Mg PO BID Clopidogrel (Clopidogrel Bisulfate) 75 Mg Tablet 75 Mg PO DAILY Pantoprazole Sodium 40 Mg Tablet.dr 40 Mg PO DAILY Systane Complete (Propylene Glycol) 0.6 % Drops 1 Drop OU BID Tramadol HCl 50 Mg Tablet 50 Mg PO BID Levothyroxine Sodium 75 Mcg Tablet 75 Mcg PO DAILY Escitalopram Oxalate 10 Mg Tablet 10 Mg PO HS Vitamin D3 (Cholecalciferol (Vitamin D3)) 125 Mcg (5000 Unit) Capsule 125 Mcg PO DAILY Vitamin B-12 (Cyanocobalamin (Vitamin B-12)) 1,000 Mcg Tablet 1,000 Mcg PO DAILY Isosorbide Mononitrate ER (Isosorbide Mononitrate) 30 Mg Tab.er.24h 30 Mg PO DAILY Aspirin EC (Aspirin) 81 Mg Tablet.dr 81 Mg PO DAILY Propranolol HCl 10 Mg Tablet 5 Mg PO 0800,1400,2000 TAKES 1/2 (10MG) TABLET Instructions to patient/family Please see electronic discharge instructions given to patient. REEMA TAMEZ DO Dec 24, 2022 05:59
[2022-12-24 06:01] LABS: BILIRUBIN,TOTAL 0.4 MG/DL (0.1-1.0)
[2022-12-24 06:02] LABS: CREATININE SERUM 0.84 MG/DL (0.60-1.30)
[2022-12-24] MEDS: PROPRANOLOL 20 MG (INDERAL) TABLET PO SCH (08:05)
[2022-12-24 08:06] VITALS: BP 144/66
[2022-12-24] MEDS: CYANOCOBALAMIN 1,000 MCG (VITAMIN B-12) TABLET PO SCH (08:39)
[2022-12-24] MEDS: LEVOTHYROXINE 75 MCG (LEVOTHROID) TABLET PO SCH (08:39)
[2022-12-24] MEDS: ASPIRIN E.C. 81 MG (ECOTRIN) TAB PO SCH (08:39)
[2022-12-24] MEDS: VITAMIN D3 125 MCG (5,000 UNITS) CAPSULE PO SCH (08:39)
[2022-12-24] MEDS: PANTOPRAZOLE 40 MG (PROTONIX) TAB PO SCH (08:40)
[2022-12-24] MEDS: ACETAMINOPHEN 500 MG TAB (TYLENOL) PO SCH (08:40)
[2022-12-24] MEDS: MEMANTINE 5 MG (NAMENDA) TABLET PO SCH (08:40)
[2022-12-24] MEDS: CLOPIDOGREL 75 MG (PLAVIX) TABLET PO SCH (08:40)
[2022-12-24] MEDS: SENNOSIDES 8.6 MG (SENOKOT) TAB PO SCH (08:40)
[2022-12-24] MEDS: ISOSORBIDE MONONITRATE 30 MG (IMDUR) TAB PO SCH (08:40)
[2022-12-24] MEDS: DOCUSATE SODIUM 100 MG (COLACE) CAP PO SCH (08:41)
[2022-12-24] MEDS: ARTIFICAL TEARS 0.4 ML UNIT DOSE (REFRESH PLUS) OU SCH (08:41)
--- NOTE | 2022-12-24 10:50 | Physical Therapy Daily Note ---
PT Daily Note-Current Subjective Pt found seated in recliner upon entry. Agreed to PT. Reports that she is not having any pain today. Pain Section J - Health Conditions 1. Rarely or not at all 2. Occasionally 3. Frequently 4. Almost constantly 8. Unable to answer Pain Effect on Sleep: 8 Pain Interference with Therapy: 8 Pain Interference w/Day-to-Day: 8 Mental Status Patient Orientation: Person, Place Transfers SCALE: Activities may be completed with or without assistive devices. 6-[id number] completes the activity by him/herself with no assistance from a helper. 5-Set-up or Clean-up Assistance-helper sets up or cleans up; patient completes activity. [place] assists only prior to or following the activity. 4-Supervision or Touching Assistance-helper provides verbal cues and/or touching/steadying and/or contact guard assistance as patient completes activity. Assistance may be provided throughout the activity or intermittently. 3-Partial/Moderate Assistance-helper does LESS THAN HALF the effort. [place] lifts, holds or supports trunk or limbs, but provides less than half the effort. 2-Substantial/Maximal Assistance-helper does MORE THAN HALF the effort. [place] lifts or holds trunk or limbs and provides more than half the effort. 0-[id number] does ALL the effort. Patient does none of the effort to complete the activity. Or, the assistance of 2 or more helpers is required for the patient to complete the activity. If activity was not attempted, code reason: 7-Patient Refused. 9-Not Applicable-not attempted and the patient did not perform the activity before the current illness, exacerbation or injury. 10-Not Attempted due to Environmental Limitations-(lack of equipment, weather restraints, etc.). 88-Not Attempted due to Medical Conditions or Safety Concerns. Sit to Lying (QC): 6 Lying to Sitting/Side of Bed(Q: 6 Sit to Stand (QC): 6 Toilet Transfer (QC): 6 Pt independent /c all completed transfers. Weight Bearing Right Lower Extremity: Right Full Weight Bearing Left Lower Extremity: Left Full Weight Bearing Gait Training Does the Patient Walk?: Yes Distance: 10, 10 Walk 10 feet (QC): 6 Gait Assistive Device: FWW Pt independent /c gait training. Ambulates 10 feet x 2 /c FWW. No loss of shawn ce displayed. Treatments Seated Therapeutic Exercises (B): LAQs x 10 Marching x 10 Heel/toe raises x 10 Hip abd x 10 Hip add x 10 Heel slides x 10 Assessment Current Status: Good Progress Pt independent /c all transfers and ambulation. Displays good muscle strength /c therapeutic exercises but does demonstrate signs of shortness of breath between sets. Continue to progress per POC to improve strength, endurance, and functional ability. PT Filling Machine Tender Goals [facility] Goals PT Filling Machine Tender Goals Time Frame: Jan 03, 2023 Roll Left & Right (QC): 4 Sit to Lying (QC): 4 Lying-Sitting on Side/Bed(QC): 4 Sit to Stand (QC): 4 [id number] Xfer(QC): 4 Toilet Transfer (QC): 4 Walk 10 feet (QC): 4 Walk 50ft with 2 Turns (QC): 4 Walk 150 ft (QC): 4 PT Plan Treatment/Plan Treatment Plan: Continue Plan of Care Treatment Plan: Bed Mobility, Education, Functional Activity Erna, Functional Strength, Gait, Safety, Therapeutic Exercise, Transfers Treatment Duration: Jan 03, 2023 Frequency: 5 times per week Estimated Hrs Per Day: .25 hour per day Time Time In: 937 Time Out: 957 DATE: Dec 24, 2022 Total Billed Treatment Time: 20 Total Billed Treatment 1 visit FA x 1 [employer] AUD[employer]OR Dec 24, 2022 10:50
[2022-12-24 11:43] VITALS: BP 144/66
== END 2022-12-24 11:43 | disposition home health service (06) | DRG 557 ==
LOC: EDUNIT# 11:44 → ER 11:47 → 4TH 16:36
PROVIDERS: ADMIT Internal Medicine; ATTEND Internal Medicine
PROC: 8E0ZXY6 Isolation (ICD-10-PCS; principal; 2022-12-19)
DX: M62.82 Rhabdomyolysis (principal); U07.1 COVID-19; G93.49 Other encephalopathy; E86.0 Dehydration; E03.9 Hypothyroidism, unspecified; Z66 Do not resuscitate; I25.10 Atherosclerotic heart disease of native coronary artery without angina pectoris; E78.5 Hyperlipidemia, unspecified; R41.0 Disorientation, unspecified; Z95.5 Presence of coronary angioplasty implant and graft; G20 Parkinson's disease; F32.A Depression, unspecified; F02.80 Dementia in other diseases classified elsewhere, unspecified severity, without behavioral disturbance, psychotic disturbance, mood disturbance, and anxiety; G89.29 Other chronic pain; M54.9 Dorsalgia, unspecified
CPT/HCPCS: 36415; 51701; 51702; 70450; 71250; 72125; 73030; 74176; 80053; 81000; 82550; 83605; 83735; 84439; 84443; 85025; 85610; 85730; 86141; 87040; 87088; 87636; 94760; 96360; 96361